=== PATIENT | female | born 1950 | race Caucasian/White ===

== ENCOUNTER 2018-04-23 21:22 | Emergency (ER) | payer MEDICARE, MEDICAID, SELFPAY ==
[2018-04-23 21:30] VITALS: BP 131/87; PULSE 75; RESP 16; TEMP 36.6; O2SAT 99
--- NOTE | 2018-04-23 22:05 | W.ED.GENAD ---
Discharge Plan Disposition Patient Disposition: HOME Condition: Good Discharge Details Chief Complaint: Abd Prob Clinical Impression: Abdominal pain Primary Care Provider: Haider Falk ED Provider: Hever Mckeon Home Meds and New Rx's Prescriptions: No Action aspirin 325 MG tablet 650 mg PO Q4H PRN RF: 0 multivitamin [Daily Multi-Vitamin] 1 EACH tablet 1 ea PO DAILY RF: 0 ascorbic acid (vitamin C) [Vitamin C] 100 MG tablet PO PRN RF: 0 vitamin B complex [B-Complex] 1 EACH tablet 1 ea PO DAILY RF: 0 omega-3 fatty acids-fish oil [One-Per-Day Paris-3] 1 EACH capsule,delayed release(DR/EC) 1 ea PO DAILY RF: 0 cholecalciferol (vitamin D3) [Vitamin D3] 2,000 UNIT capsule 2,000 unit PO DAILY RF: 0 evwpnybh-heuew-xuo 2-C-D3-thalia [Cfxaczvf-Gilkwa-CLQ with vit D] 1 EACH tablet 1 ea PO DAILY RF: 0 vitamin E mixed 400 UNIT capsule 400 unit PO HS RF: 0 lactobacillus combo no.11 [Probiotic] 1 EACH capsule, sprinkle 1 ea PO DAILY RF: 0 calcium carbonate [Calcium 500] 500 MG tablet 500 mg PO RF: 0 Discharge Instructions Instructions: Abdominal Pain (ED) Additional Instructions: Discontinue laxative use. Contact primary care for follow-up. Laboratory studies, urinalysis, CT scan are all unremarkable tonight. Referrals: Haider Falk [Primary Care Provider] - Medical Decision Making Patient presenting with abdominal pain and complaints of constipation despite multiple laxatives and passing brown water. She has been seen at [place] twice. She comes here requesting that a CT scan be done because she is sure that she is obstructed. She has no vomiting. She has bowel sounds present. She complains of diffuse abdominal pain but has a benign abdomen. She does have some mild CVAT bilaterally. I will go ahead and repeat labs especially electrolytes given the amount of laxatives she is reporting. We will check a urine. We will proceed with CT scan as she is complaining of abdominal pain though I highly doubt that she is obstructed. Patient's laboratory studies are unremarkable other than slightly low potassium. Urine is negative. CT scan is being read as normal. There is no evidence of acute pathology. Patient is informed of her results. Patient is asked to follow-up with primary care. She should discontinue the laxative use. Return to ED for fever, vomiting, changes in pain. Lab Data Lab results reviewed: Yes I reviewed the patient's lab results. HPI General Mode of arrival: ambulatory. Date/Time Provider Initiated Documentation: 04/23/18 22:04. Limitations to Documentation: no limitations. Information obtained by: patient. HPI Narrative: Patient presents to ED with complaints of constipation and abdominal pain. Patient reports no bowel movement for 2 weeks. She complains of generalized abdominal pain mostly on the left side. She has been seen at [facility] twice. She reports that a rectal exam on Sunday revealed no impaction. She has been taking laxatives including 8 doses of MiraLAX last week. She continues on MiraLAX and mag citrate. She reports that she is having just water out of her rectum at this point. She does not believe she is having bowel movements. She has nausea but no vomiting. She has had no fever. She has some back pain as well. [facility] and is requesting CT scan because she is convinced that she is obstructed. Related Data Home Medications Medication Instructions Recorded Confirmed ascorbic acid (vitamin C) [Vitamin PO PRN 11/30/14 C] aspirin 650 mg PO Q4H PRN tab-cap 11/30/14 cholecalciferol (vitamin D3) 2,000 unit PO DAILY 11/30/14 [Vitamin D-3] dskwhadi-lwyem-xqp 2-C-D3-thalia 1 ea PO DAILY 11/30/14 [Ndsxjnusvi-Wqrlpangvbm-Pzf Tab] lactobacillus combo no.11 1 ea PO DAILY cap.sprink 11/30/14 [Probiotic] multivitamin [Multi-Vitamin Daily] 1 ea PO DAILY 11/30/14 omega-3 fatty acids-fish oil 1 ea PO DAILY 11/30/14 [Paris 3 Fish Oil Softgel] vitamin B complex [B Complex] 1 ea PO DAILY 11/30/14 vitamin E mixed 400 unit PO HS 11/30/14 calcium carbonate [Calcium] 500 mg PO 07/13/15 Allergies Allergy/AdvReac Type Severity Reaction Status Date / Time Penicillins Allergy Intermediate Unverified 04/23/18 21:30 gluten AdvReac Intermediate Unverified 04/23/18 21:30 lactose AdvReac Intermediate Unverified 04/23/18 21:30 General Stated Complaint: Abd Prob JORDAN: 3 Review of Systems Constitutional Denies chills, Denies fever(s), Reports poor appetite and Denies weakness Eyes Denies eye discharge and Denies eye pain ENT Denies dysphagia, Denies otalgia, Denies neck pain and Denies sore throat Cardiovascular Denies chest pain, Denies diaphoresis, Denies syncope, Denies leg edema, Denies lightheadedness, Denies palpitations and Denies dyspnea Respiratory Denies cough and Denies dyspnea Gastrointestinal Reports abdominal pain, Denies hematochezia, Denies dysphagia, Reports nausea and Denies vomiting Genitourinary Denies hematuria and Denies dysuria Musculoskeletal Reports back pain, Denies neck pain and Denies numbness Integumentary/Breasts Denies rash Neurologic Denies syncope, Denies numbness and Denies weakness Endocrine Denies palpitations [facility] Family History Mother Mental disorder Father Diabetes Heart disease Sister Personal history of malignant neoplasm Hypothyroidism Sister Essential hypertension Smoker Cerebrovascular accident Brother No problems noted. Brother Asthma Brother No problems noted. Brother No problems noted. Daughter No problems noted. FAMILY HISTORY Essential hypertension Diabetes Personal history of malignant neoplasm Heart disease Hyperlipidemia Social History Smoking/Tobacco Use Status: Never Surgical History Abdominal hysterectomy (02/23/12) Colonoscopy - MAC DISLOCATED KNEE Extraction of cataract (~11/2011) Oophrectomy, Both (02/23/12) WRIST FRACTURE Exam Const General: cooperative, comfortable and no acute distress Orientation: alert and oriented x3 [facility] Head: normocephalic and atraumatic Eyes Sclera: sclerae normal Resp Effort & Inspection: normal respiratory effort Auscultation: clear to auscultation bilaterally Cardio Rate: regular rate Rhythm: regular rhythm Heart Sounds: S1 normal and S2 normal GI Inspection: non-distended Palpation: soft, not firm, no guarding and nontender Auscultation: normal bowel sounds Back/Spine/Pelvis Back: no CVA tenderness and CVA tenderness Skin General skin exam: no rashes or lesions noted Neuro General: alert, oriented x3, no focal motor deficits and CN's II-XI intact bilaterally Extrem General: normal to inspection and full ROM Course Vital Signs Temperature 97.9 F 04/23/18 21:30 Pulse 75 04/23/18 21:30 Respiratory Rate 16 04/23/18 21:30 Blood Pressure 131/87 04/23/18 21:30 Pulse Oximetry 99 04/23/18 21:30 Temperature 97.9 F 04/23/18 21:30 Temperature Source Temporal Artery Scan 04/23/18 21:30 Pulse 75 04/23/18 21:30 Respiratory Rate 16 04/23/18 21:30 Respiratory Effort 04/23/18 21:30 Blood Pressure 131/87 04/23/18 21:30 Pulse Oximetry 99 04/23/18 21:30 Oxygen Delivery Method Room Air 04/23/18 21:30 Oxygen Flow Rate 0 04/23/18 21:30
--- NOTE | 2018-04-23 22:15 | DI.CT_ITS ---
SYMPTOM/DIAGNOSIS: ABD PAIN ABDOMEN AND PELVIC CT: CT scan of the abdomen and pelvis was performed following the uneventful administration of intravenous contrast material. No priors for comparison. Dependent atelectatic changes are seen in the lung bases. The liver is normal in size. There does appear to be focal fatty infiltration near the ligamentum teres. No suspicious hepatic mass is seen. The portal and superior mesenteric veins are patent. The gallbladder is negative. No biliary ductal dilatation is present. The pancreas, spleen and adrenal glands are unremarkable. The kidneys show normal and symmetric enhancement. No suspicious solid renal mass or obstruction is identified. The urinary bladder is intact. The reproductive organs are unremarkable. The abdominal aorta is of normal caliber. No aneurysmal dilatation is seen. No significant abdominal or pelvic adenopathy, ascites or pneumoperitoneum is present. The bowel shows no evidence of obstruction or inflammation. There is a moderate amount of retained stool throughout the colon. No evidence of an acute appendicitis is present. Degenerative changes are seen in the spine. IMPRESSION: No evidence of an acute abdomen.
--- NOTE | 2018-04-23 22:15 | ED.GENADUL_ITS ---
Discharge Plan Disposition Patient Disposition: HOME Condition: Good Discharge Details Chief Complaint: Abd Prob Clinical Impression: Abdominal pain Primary Care Provider: Haider Falk ED Provider: Hever Mckeon Home Meds and New Rx's Prescriptions: No Action aspirin 325 MG tablet 650 mg PO Q4H PRN RF: 0 multivitamin [Daily Multi-Vitamin] 1 EACH tablet 1 ea PO DAILY RF: 0 ascorbic acid (vitamin C) [Vitamin C] 100 MG tablet PO PRN RF: 0 vitamin B complex [B-Complex] 1 EACH tablet 1 ea PO DAILY RF: 0 omega-3 fatty acids-fish oil [One-Per-Day Yeso-3] 1 EACH capsule,delayed release(DR/EC) 1 ea PO DAILY RF: 0 cholecalciferol (vitamin D3) [Vitamin D3] 2,000 UNIT capsule 2,000 unit PO DAILY RF: 0 savrgolq-antrd-fsz 2-C-D3-thalia [Oaarfhlf-Jisefm-DIA with vit D] 1 EACH tablet 1 ea PO DAILY RF: 0 vitamin E mixed 400 UNIT capsule 400 unit PO HS RF: 0 lactobacillus combo no.11 [Probiotic] 1 EACH capsule, sprinkle 1 ea PO DAILY RF: 0 calcium carbonate [Calcium 500] 500 MG tablet 500 mg PO RF: 0 Discharge Instructions Instructions: Abdominal Pain (ED) Additional Instructions: Discontinue laxative use. Contact primary care for follow-up. Laboratory studies, urinalysis, CT scan are all unremarkable tonight. Referrals: Haider Falk [Primary Care Provider] - Medical Decision Making Patient presenting with abdominal pain and complaints of constipation despite multiple laxatives and passing brown water. She has been seen at [place] twice. She comes here requesting that a CT scan be done because she is sure that she is obstructed. She has no vomiting. She has bowel sounds present. She complains of diffuse abdominal pain but has a benign abdomen. She does have some mild CVAT bilaterally. I will go ahead and repeat labs especially electrolytes given the amount of laxatives she is reporting. We will check a urine. We will proceed with CT scan as she is complaining of abdominal pain though I highly doubt that she is obstructed. Patient's laboratory studies are unremarkable other than slightly low potassium. Urine is negative. CT scan is being read as normal. There is no evidence of acute pathology. Patient is informed of her results. Patient is asked to follow-up with primary care. She should discontinue the laxative use. Return to ED for fever, vomiting, changes in pain. Lab Data Lab results reviewed: Yes I reviewed the patient's lab results. HPI General Mode of arrival: ambulatory . Date/Time Provider Initiated Documentation: 04/23/18 22:04 . Limitations to Documentation: no limitations . Information obtained by: patient . HPI Narrative: Patient presents to ED with complaints of constipation and abdominal pain. Patient reports no bowel movement for 2 weeks. She complains of generalized abdominal pain mostly on the left side. She has been seen at [facility] twice. She reports that a rectal exam on Sunday revealed no impaction. She has been taking laxatives including 8 doses of MiraLAX last week. She continues on MiraLAX and mag citrate. She reports that she is having just water out of her rectum at this point. She does not believe she is having bowel movements. She has nausea but no vomiting. She has had no fever. She has some back pain as well. [facility] and [facility] requesting CT scan because she is convinced that she is obstructed. Related Data Home Medications Medication Instructions Recorded Confirmed ascorbic acid (vitamin C) [Vitamin PO PRN 11/30/14 C] aspirin 650 mg PO Q4H PRN tab-cap 11/30/14 cholecalciferol (vitamin D3) 2,000 unit PO DAILY 11/30/14 [Vitamin D-3] smfyzzim-xxwqt-ede 2-C-D3-thalia 1 ea PO DAILY 11/30/14 [Kvdckkwcpx-Tfcointtknu-Exr Tab] lactobacillus combo no.11 1 ea PO DAILY cap.sprink 11/30/14 [Probiotic] multivitamin [Multi-Vitamin Daily] 1 ea PO DAILY 11/30/14 omega-3 fatty acids-fish oil 1 ea PO DAILY 11/30/14 [Yeso 3 Fish Oil Softgel] vitamin B complex [B Complex] 1 ea PO DAILY 11/30/14 vitamin E mixed 400 unit PO HS 11/30/14 calcium carbonate [Calcium] 500 mg PO 07/13/15 Allergies Allergy/AdvReac Type Severity Reaction Status Date / Time Penicillins Allergy Intermediate Unverified 04/23/18 21:30 gluten AdvReac Intermediate Unverified 04/23/18 21:30 lactose AdvReac Intermediate Unverified 04/23/18 21:30 General Stated Complaint: Abd Prob JORDAN: 3 Review of Systems Constitutional Denies chills, Denies fever(s), Reports poor appetite and Denies weakness Eyes Denies eye discharge and Denies eye pain ENT Denies dysphagia, Denies otalgia, Denies neck pain and Denies sore throat Cardiovascular Denies chest pain, Denies diaphoresis, Denies syncope, Denies leg edema, Denies lightheadedness, Denies palpitations and Denies dyspnea Respiratory Denies cough and Denies dyspnea Gastrointestinal Reports abdominal pain, Denies hematochezia, Denies dysphagia, Reports nausea and Denies vomiting Genitourinary Denies hematuria and Denies dysuria Musculoskeletal Reports back pain, Denies neck pain and Denies numbness Integumentary/Breasts Denies rash Neurologic Denies syncope, Denies numbness and Denies weakness Endocrine Denies palpitations [facility] Family History Mother Mental disorder Father Diabetes Heart disease Sister Personal history of malignant neoplasm Hypothyroidism Sister Essential hypertension Smoker Cerebrovascular accident Brother No problems noted. Brother Asthma Brother No problems noted. Brother No problems noted. Daughter No problems noted. FAMILY HISTORY Essential hypertension Diabetes Personal history of malignant neoplasm Heart disease Hyperlipidemia Social History Smoking/Tobacco Use Status: Never Surgical History Abdominal hysterectomy (02/23/12) Colonoscopy - MAC DISLOCATED KNEE Extraction of cataract (~11/2011) Oophrectomy, Both (02/23/12) WRIST FRACTURE Exam Const General: cooperative, comfortable and no acute distress Orientation: alert and oriented x3 [facility] Head: normocephalic and atraumatic Eyes Sclera: sclerae normal Resp Effort & Inspection: normal respiratory effort Auscultation: clear to auscultation bilaterally Cardio Rate: regular rate Rhythm: regular rhythm Heart Sounds: S1 normal and S2 normal GI Inspection: non-distended Palpation: soft, not firm, no guarding and nontender Auscultation: normal bowel sounds Back/Spine/Pelvis Back: no CVA tenderness and CVA tenderness Skin General skin exam: no rashes or lesions noted Neuro General: alert, oriented x3, no focal motor deficits and CN's II-XI intact bilaterally Extrem General: normal to inspection and full ROM Course Vital Signs Temperature 97.9 F 04/23/18 21:30 Pulse 75 04/23/18 21:30 Respiratory Rate 16 04/23/18 21:30 Blood Pressure 131/87 04/23/18 21:30 Pulse Oximetry 99 04/23/18 21:30 Temperature 97.9 F 04/23/18 21:30 Temperature Source Temporal Artery Scan 04/23/18 21:30 Pulse 75 04/23/18 21:30 Respiratory Rate 16 04/23/18 21:30 Respiratory Effort 04/23/18 21:30 Blood Pressure 131/87 04/23/18 21:30 Pulse Oximetry 99 04/23/18 21:30 Oxygen Delivery Method Room Air 04/23/18 21:30 Oxygen Flow Rate 0 04/23/18 21:30
[2018-04-23 22:36] LABS: Abs Immature Grans 0.02 k/cumm (0.0-0.09); Absolute Basophil Count 0.03 k/cumm (0.0-0.2); Absolute Eosinophil Count 0.04 k/cumm (0.0-0.7); Absolute Lymphocyte Count 1.88 k/cumm (1.2-3.4); Absolute Monocyte Count 0.58 k/cumm (0.11-0.7); Absolute Neutrophil Count 2.32 k/cumm (1.2-6.7); Basophils % 0.6; Eosinophils % 0.8; HGB 13.8 g/dL (12.0-15.5); Immature Grans % 0.4; Lymphocytes % 38.6; Mean Corp. HGB Concentration 34.5 g/dL (32.0-36.0); Mean Corpuscular Hemoglobin 31.9 pg (27.0-33.0); Mean Corpuscular Volume 92.6 fL (80-95); Mean Platelet Volume 9.5 fL (8.0-11.0); Monocytes % 11.9; Neutrophils % 47.7; Platelet Count 245 x1000/uL (130-400); RBC 4.32 m/cumm (4.00-5.20); RBC Distribution Width 13.1 % (11.7-14.6); White Blood Cell Count 4.87 k/cumm (4.4-10.8)
[2018-04-23 22:37] LABS: Bilirubin Negative (Negative); Blood Negative (Negative); Clarity Clear; Glucose Negative (Negative); Ketones Negative (Negative); Leukocyte Esterase Negative (Negative); Nitrite Negative (Negative); Urobilinogen 0.2 EU/dL (Up TO 0.2); pH 5.5 (5-8)
[2018-04-23] MEDS: Normal Saline Flush 10 ML SYR IVP (22:42)
[2018-04-23 22:58] LABS: ALT 25 U/L (12-78); AST 18 U/L (15-37); Albumin 4.1 g/dL (3.4-5.0); Alkaline Phosphatase 54 U/L (46-116); Anion Gap 8.9 mmol/L (3-11); BUN 8 mg/dL (7-18); Bilirubin, Total 0.6 mg/dL (0.2-1.0); CO2 31.1 mmol/L (21.0-32.0); CREATININE 0.85 mg/dL (0.55-1.02); Calcium 9.6 mg/dL (8.5-10.1); Chloride 102 mmol/L (98-107); Glucose 97 mg/dL (70-100); Lipase 330 U/L (73-393); Potassium 3.3 mmol/L (3.5-5.1); Sodium 142 mmol/L (136-145)
[2018-04-23] MEDS: Omnipaque 350 MG/ML 100 ML BTL IV (23:24)
--- NOTE | 2018-04-24 00:25 | DI.VRAD_ITS ---
EXAM: CT Abdomen and Pelvis With Intravenous Contrast CLINICAL HISTORY: 67 years old, female; Pain; Abdominal pain; Generalized; Patient HX: Abd pain TECHNIQUE: Axial computed tomography images of the abdomen and pelvis with intravenous contrast. All CT scans at this facility use at least one of these dose optimization techniques: automated exposure control; mA and/or kV adjustment per patient size (includes targeted exams where dose is matched to clinical indication); or iterative reconstruction. Coronal and sagittal reformatted images were created and reviewed. CONTRAST: 96 mL of Omnipaque 350 administered intravenously. COMPARISON: No relevant prior studies available. FINDINGS: Lung bases: Unremarkable. No mass. No consolidation. ABDOMEN: Liver: Unremarkable. No mass. Gallbladder and bile ducts: Unremarkable. No calcified stones. No ductal dilation. Pancreas: Unremarkable. No mass. No ductal dilation. Spleen: Unremarkable. No splenomegaly. Adrenals: Unremarkable. No mass. Kidneys and ureters: Unremarkable. No solid mass. No hydronephrosis. Stomach and bowel: Unremarkable. No obstruction. No mucosal thickening. PELVIS: Appendix: No findings to suggest acute appendicitis. Bladder: Unremarkable. No mass. Reproductive: Status post hysterectomy. ABDOMEN and PELVIS: Intraperitoneal space: Unremarkable. No free air. No significant fluid collection. Bones/joints: Degenerative changes of the spine. No acute fracture. No dislocation. Soft tissues: Unremarkable. Vasculature: Unremarkable. No abdominal aortic aneurysm. Lymph nodes: Unremarkable. No enlarged lymph nodes. IMPRESSION: No acute findings. Dictated and Authenticated by: Bharath Corbin MD. Ordering:JUJU BAUMAN MD
== END 2018-04-24 00:49 | disposition home or self-care (01) ==
PROVIDERS: Emergency Provider Emergency Medicine; PCP Family Medicine
DX: R10.84 Generalized abdominal pain (principal); R11.0 Nausea; I10 Essential (primary) hypertension; E11.9 Type 2 diabetes mellitus without complications
CPT/HCPCS: 36415; 80053; 83690; 99285; 74177; 81003; 83735; 85025; 99284; J3490

== ENCOUNTER 2021-03-24 03:11 | Outpatient (CLI) | payer MEDICARE, SELFPAY ==
[2021-03-24 13:17] LABS: HCT 41.9 % (36.0-46.0); HGB 13.8 g/dL (11.2-15.7); MCH 31.2 pg (27.0-33.0); MCHC 32.9 % (32.0-36.0); MCV 94.8 fL (80-95); MPV 9.9 fL (8.0-11.0); Platelet Count 275 10^3/uL (130-400); RBC 4.42 10^6/uL (3.93-5.22); RDW 13.3 % (11.7-14.6); RDW-SD 47.2 fL; WBC 6.65 10^3/uL (4.4-10.8)
[2021-03-24 13:24] LABS: ESR < 1 mm/hr (0-30)
[2021-03-24 14:16] LABS: C-Reactive Protein < 0.05 mg/dL (0.0-0.3)
== END 2021-03-24 03:12 | disposition home or self-care (01) ==
LOC: LBO 03:11
PROVIDERS: PCP Student in an Organized Health Care Education/Training Program; Visit Provider Nurse Practitioner Acute Care
DX: Z96.652 Presence of left artificial knee joint (principal); Z47.1 Aftercare following joint replacement surgery
CPT/HCPCS: 36415; 85027; 85652; 86140

== ENCOUNTER 2021-06-28 03:04 | Outpatient (CLI) | payer MEDICARE, SELFPAY ==
[2021-06-28 09:37] LABS: Abs Immature Grans 0.01 10^3/uL (0.0-0.06); Absolute Basophil Count 0.04 10^3/uL (0.0-0.2); Absolute Eosinophil Count 0.04 10^3/uL (0.0-0.7); Absolute Monocyte Count 0.37 10^3/uL (0.1-0.8); Absolute Neutrophil Count 3.35 10^3/uL (1.2-6.7); Basophils % 0.8; Eosinophils % 0.8; HGB 14.2 g/dL (11.2-15.7); Immature Grans % 0.2; Lymphocytes % 25.4; MCH 30.9 pg (27.0-33.0); MCHC 32.3 % (32.0-36.0); MCV 95.9 fL (80-95); MPV 9.5 fL (8.0-11.0); Monocytes % 7.2; Neutrophils % 65.6; Nucleated RBC 0 %; Platelet Count 277 10^3/uL (130-400); RBC 4.59 10^6/uL (3.93-5.22); RDW 13.3 % (11.7-14.6); RDW-SD 47.5 fL; WBC 5.11 10^3/uL (4.4-10.8)
[2021-06-28 10:30] LABS: ALT 24 U/L (14-59); AST 14 U/L (15-37); Albumin 4.2 g/dL (3.4-5.0); Alkaline Phosphatase 63 U/L (46-116); Anion Gap 7.8 mmol/L (3-11); BUN 21 mg/dL (7-18); Bilirubin, Direct 0.1 mg/dL (0.0-0.2); Bilirubin, Total 0.6 mg/dL (0.2-1.0); CO2 30.2 mmol/L (21.0-32.0); CREATININE 0.8 mg/dL (0.55-1.02); Calcium 9.5 mg/dL (8.5-10.1); Chloride 104 mmol/L (98-107); Glucose 117 mg/dL (74-106); Magnesium 2.2 mg/dL (1.8-2.4); Potassium 3.9 mmol/L (3.5-5.1); Sodium 142 mmol/L (136-145); Total Protein 7.1 g/dL (6.4-8.2)
[2021-06-28 10:41] LABS: Calculated LDL 144 mg/dL (<100); Cholesterol 225 mg/dL (<200); HDL Cholesterol 54 mg/dL (40-60); Triglyceride 135 mg/dL (<150)
== END 2021-06-28 03:05 | disposition home or self-care (01) ==
LOC: LBO 03:04
PROVIDERS: PCP Student in an Organized Health Care Education/Training Program; Visit Provider Student in an Organized Health Care Education/Training Program
DX: K58.9 Irritable bowel syndrome, unspecified; K90.9 Intestinal malabsorption, unspecified; E88.09 Other disorders of plasma-protein metabolism, not elsewhere classified; B01.9 Varicella without complication; Z79.1 Long term (current) use of non-steroidal anti-inflammatories (NSAID); Z13.220 Encounter for screening for lipoid disorders
CPT/HCPCS: 36415; 80048; 80061; 80076; 83735; 85025

== ENCOUNTER 2021-08-15 01:42 | Outpatient (CLI) | payer MEDICARE, SELFPAY ==
[2021-08-15 10:56] LABS: Anion Gap 10.4 mmol/L (3-11); BUN 10 mg/dL (7-18); CO2 28.6 mmol/L (21.0-32.0); CREATININE 0.8 mg/dL (0.55-1.02); Calcium 9.7 mg/dL (8.5-10.1); Chloride 103 mmol/L (98-107); Glucose 86 mg/dL (74-106); Sodium 142 mmol/L (136-145)
== END 2021-08-15 01:43 | disposition home or self-care (01) ==
LOC: LBO 01:42
PROVIDERS: PCP Student in an Organized Health Care Education/Training Program; Visit Provider Student in an Organized Health Care Education/Training Program
DX: R73.09 Other abnormal glucose (principal); R79.89 Other specified abnormal findings of blood chemistry
CPT/HCPCS: 36415; 80048

== ENCOUNTER 2021-08-25 02:20 | Outpatient (CLI) | payer MEDICARE, SELFPAY ==
--- NOTE | 2021-08-25 06:45 | DI.RAD_ITS ---
Exam(s) XR ABDOMEN FLAT UPRIGHT EXAM: XR ABDOMEN FLAT UPRIGHT CLINICAL HISTORY: evaluation for obstipation,H/O DIARRHEA,BILIARY AND GB DISORDER,K59.00,. TECHNIQUE: 2D digital imaging was performed. COMPARISON: No exams were available for comparison FINDINGS: Supine and upright views the abdomen reveal no evidence of bowel obstruction or free air. Moderate a mount of fecal material noted throughout the colon. No obvious masses nor bowel displacement. There is a 2 x 1 millimeter calcification projected over the lateral tip of the left transverse process of L3 vertebra. There is also subtle density projected over the left kidney on the upright view. Tulio ot exclude the possibility of calculi the left side. Kidneys are partially obscured by fecal materia l in the colon. Degenerative changes are noted in the hips, more so on the right side IMPRESSION: DATA REPOSITORY: RADIATION DOSE DELIVERED:
== END 2021-08-25 02:40 ==
PROVIDERS: PCP Student in an Organized Health Care Education/Training Program; Visit Provider Student in an Organized Health Care Education/Training Program
DX: K59.09 Other constipation (principal); K83.8 Other specified diseases of biliary tract; M16.0 Bilateral primary osteoarthritis of hip
CPT/HCPCS: 74019

== ENCOUNTER 2021-08-29 15:54 | Outpatient (REF) | payer MEDICARE, MEDICAID, SELFPAY ==
[2021-08-29 18:09] LABS: HCT 42.3 % (36.0-46.0); HGB 13.7 g/dL (11.2-15.7); MCH 31.7 pg (27.0-33.0); MCHC 32.4 % (32.0-36.0); MCV 97.9 fL (80-95); MPV 10.4 fL (8.0-11.0); Platelet Count 326 10^3/uL (130-400); RBC 4.32 10^6/uL (3.93-5.22); RDW 12.9 % (11.7-14.6); RDW-SD 46.3 fL; WBC 9.68 10^3/uL (4.4-10.8)
[2021-08-29 18:12] LABS: ESR 16 mm/hr (0-30)
[2021-08-29 18:40] LABS: ALT 19 U/L (14-59); AST 8 U/L (15-37); Albumin 3.7 g/dL (3.4-5.0); Alkaline Phosphatase 66 U/L (46-116); Anion Gap 8.6 mmol/L (3-11); BUN 13 mg/dL (7-18); Bilirubin, Total 0.8 mg/dL (0.2-1.0); CO2 29.4 mmol/L (21.0-32.0); CREATININE 0.8 mg/dL (0.55-1.02); Calcium 9.6 mg/dL (8.5-10.1); Chloride 101 mmol/L (98-107); Glucose 104 mg/dL (74-106); Potassium 4.3 mmol/L (3.5-5.1); Sodium 139 mmol/L (136-145); Total Protein 7.1 g/dL (6.4-8.2)
== END 2021-08-29 15:55 | disposition home or self-care (01) ==
LOC: LBN 15:54
PROVIDERS: PCP Student in an Organized Health Care Education/Training Program; Visit Provider Nurse Practitioner Family
DX: R10.32 Left lower quadrant pain (principal); M54.59 Other low back pain; R82.998 Other abnormal findings in urine
CPT/HCPCS: 80053; 85027; 85652; 87086

== ENCOUNTER → 2021-09-27 00:48 | Outpatient (CLI) | payer MEDICARE, MEDICAID, SELFPAY ==
--- NOTE | 2021-09-27 07:00 | DI.CT_ITS ---
Exam(s) CT ABDOMEN PELVIS W EXAM: CT ABDOMEN PELVIS W CLINICAL HISTORY: r/o nephrolithiasis, diverticulitis,FLANK, ABD AND BACK PAIN. TECHNIQUE: Imaging Protocol: Axial computed tomography images with coronal and sagittal reformatted images were created and reviewed CONTRAST MATERIAL: Intravenous: Omnipaque 350 Contrast volume:100 ml Oral: yes FINDINGS: ABDOMEN: Lung Bases: Normal where visualized. Liver: Normal density. No measurable mass. Gallbladder and biliary tract: No radiodense calculus or dilation. Pancreas: Normal density, no abnormal calcifications or inflammatory process. Spleen: Normal. Kidneys: Normal size, contour and axis. No radiodense stones or obstructive uropathy. No masses seen. Adrenal glands: No masses seen. Abdominal Aorta: Abdominal portion non-dilated. PELVIS: Bladder: No gross wall thickening. No calculi.No focal mass. Bowel: No obstruction or bowel wall thickening. Large quantity of stool throughout the colon. No di verticula are visible. Peritoneal cavity: No ascites, collection or mesenteric inflammatory response. Bones: Mild degenerative changes of the spine. Moderate to severe degenerative changes of both hips. Reproductive organs: Status post hysterectomy Lymph nodes: Unremarkable. Impression: Large, quantity of stool throughout the colon, consistent with constipation. No evidence of divertic ulitis or obstruction. No evidence of urinary tract calculi or hydronephrosis. RADIATION DOSE DELIVERED: 744.95mGy.cm Total DLP DATA REPOSITORY: All CT scans at this facility are submitted to the National Radiology Data Registry (NRDR) Dose Index Registry (DIR) with the [employer] ([employer]). RADIATION OPTIMIZATION: All CT scans at this facility use at least one of these dose optimization te chniques: automated exposure control; mA and/or kV adjustment per patient size (includes targeted exa ms where dose is matched to clinical indication); or iterative reconstruction.
[2021-09-27 08:29] LABS: CREATININE 0.8 mg/dL (0.55-1.02)
[2021-09-27] MEDS: Omnipaque 350 MG/ML 100 ML BTL IJ (09:41)
== END ==
PROVIDERS: PCP Student in an Organized Health Care Education/Training Program; Visit Provider Student in an Organized Health Care Education/Training Program
DX: Z01.812 Encounter for preprocedural laboratory examination (principal); R10.9 Unspecified abdominal pain; K59.00 Constipation, unspecified; K58.9 Irritable bowel syndrome, unspecified; Z79.2 Long term (current) use of antibiotics; E86.0 Dehydration
CPT/HCPCS: 74177; 82565; J3490

== ENCOUNTER → 2021-10-11 01:53 | Outpatient (CLI) | payer MEDICARE, MEDICAID, SELFPAY ==
--- NOTE | 2021-10-11 07:30 | DI.US_ITS ---
Exam(s) US THYROID EXAM: US THYROID CLINICAL HISTORY: re-evaluate thyroid nodules (3 per chart rvw), THYROID NODULE, E04.1. TECHNIQUE: Ultrasound thyroid performed using standard protocol. COMPARISON: No exams were available for comparison FINDINGS: ISTHMUS: 2 mm RIGHT LOBE: Size: 4.2 x 1.4 x 1.3 cm Echogenicity: Normal. Vascularity: Normal. Nodules: There are few less than 1 cm nodules in the right lobe. They are not suspicious with a TI-R ADS level 2 or below. LEFT LOBE: Size: 5.9 x 2.6 x 3.7 cm Echogenicity: Normal. Vascularity: Normal. Nodules: There is a 3.4 x 1.8 x 3.2 cm predominantly cystic mass in the midpole. It does have a smal l solid nodule component. It has smooth margins and no echogenic foci. It is consistent with a TI-R ADS level 2 nodule. There is a solid isoechoic nodule in the inferior pole of the left lobe. It mary sures 2.6 x 2 x 2.9 cm. It is consistent with a TI-RADS level 3 nodule. There is a solid 1.8 x 0.7 x 1.3 cm isoechoic nodule in the medial aspect of the left lobe. It is consistent with a TI-RADS lev el 3 nodule. OTHER FINDINGS: None. IMPRESSION: Nodular thyroid gland as described above. DATA REPOSITORY:
== END ==
PROVIDERS: PCP Student in an Organized Health Care Education/Training Program; Visit Provider Student in an Organized Health Care Education/Training Program
DX: E04.2 Nontoxic multinodular goiter (principal)
CPT/HCPCS: 76536

== ENCOUNTER 2022-11-28 07:06 | Emergency (ER) | payer MEDICARE, MEDICAID, SELFPAY ==
--- NOTE | 2022-11-28 07:00 | DI.RAD_ITS ---
Exam(s) XR KNEE RT 3V AP,LAT,YULISSA EXAM: XR KNEE RT 3V AP,LAT,YULISSA CLINICAL HISTORY: Right knee pain. TECHNIQUE: 2D digital imaging was performed of the right knee. Three views obtained. AP, lateral an d PA tunnel views were obtained. COMPARISON: There are no priors for comparison. FINDINGS: BONES: No acute fracture is present. No bony destructive lesion is seen. JOINTS: The knee is normally aligned. There is a small joint effusion. There is chondrocalcinosis se en in the femoral tibial joint. There is mild spurring of the posterior patella. There is mild join t space narrowing. SOFT TISSUE: Normal. IMPRESSION: 1. No acute fracture or dislocation. 2. Degenerative changes. 3. Chondrocalcinosis which can be seen with CPPD arthropathy. 4. Small joint effusion. DATA REPOSITORY: RADIATION DOSE DELIVERED:
[2022-11-28 07:10] VITALS: BP 113/73; PULSE 93; TEMP 36.4; O2SAT 99
[2022-11-28] MEDS: Ibuprofen 600 MG TAB PO (08:36)
--- NOTE | 2022-11-28 08:46 | ED.GENADUL_ITS ---
Discharge Plan Disposition Patient Disposition: Home Condition: Stable Discharge Details Clinical Impression: Effusion of right knee joint, Arthritis of knee, right Primary Care Provider: Giovanna Scott ED Provider: Juancho Snow Home Meds and New Rx's Prescriptions: Continued bone builder PO Rx Instructions: contains vit B,D,c, Niacin, Calcium,Phos, Mg, Zinc,Copper, Manganese,Chromium HCL pepsin PO Rx Instructions: 250 mg. Takes at the start of a meal. super enzymes PO Rx Instructions: Takes at the start of meal. Contains 200 mg of HCL vitamin B complex Capsule 1 cap PO DAILY acetaminophen 500 mg capsule 500 mg PO Q6H PRN magnesium citrate 100 mg tablet 100 mg PO DAILY PRN (Reason: constipation) aspirin 325 MG tablet 650 mg PO Q4H PRN Vitamin C 100 MG tablet PO PRN vitamin E mixed 400 UNIT capsule 400 unit PO HS cholecalciferol (vitamin D3) [Vitamin D3] 50 mcg (2,000 unit) capsule 10,000 unit PO DAILY Rx Instructions: 1/2 tab daily alpha galactosidase enzyme tablet PO Rx Instructions: 05/11/20-pt reported via portal message this is a need supplement she has added with meals to help digest carbohydrates. NC calcium carbonate [Calcium 500] 500 mg calcium (1,250 mg) tablet 500 mg PO DAILY Rx Instructions: as part of bone builder supplement Jpippuaz-Zaspps-MGE with vit D 750-30-1,000-1 dd-wk-ozfd-mg tablet 2 tab PO DAILY multivitamin [Daily Multi-Vitamin] Tablet 3 tab PO DAILY bromelains 500 mg tablet 1,500 mg PO DAILY PRN Rx Instructions: administer after a meal per pt--aids in digesting proteins and for joint pain Discharge Instructions Instructions: Osteoarthritis (ED), Swollen Knee Joint (ED) Additional Instructions: Use Jensen wrap and crutches over the next 1 to 2 weeks. Weight-bear as tolerated. You may discontinue use when pain resolves. Please take ibuprofen over the counter. Take 600mg by mouth every 6 hours as needed for pain. Please follow-up with orthopedics. Call to schedule an appointment. Please contact your primary care physician to arrange follow-up. Return to the ER immediately for any worsening or new concerning symptoms. Referrals: [facility] [Provider Group] Giovanna Scott, DO [Primary Care Provider] - Medical Decision Making [id number]??72-year-old female with history of total knee replacement on the left, here with 1 week of atraumatic pain and swelling of the right knee. Significant joint effusion on exam with pain with any passive range of motion. Knee is warm to the touch. No erythema. Suspect osteoarthritis but consider septic arthritis. I will give ibuprofen 600 mg p.o. -- X-ray of the knee was reviewed and interpreted by radiology: IMPRESSION: 1. ? Degenerative changes as described. 2. ? Chondrocalcinosis, raising the possibility of calcium pyrophosphate dihydrate crystal deposition disease. 3. ? Mild suprapatellar soft tissue fullness suggesting effusion and/or synovial hypertrophy. Joint aspiration performed with sterile technique after informed consent. Approximately 50 mL of yellow slightly cloudy fluid removed. 1029 --labs reviewed: No leukocytosis but ESR and CRP are elevated. Synovial fluid shows no crystals, 6700 WBCs. Fluid analysis is not consistent with gout or septic arthritis. Suspect inflammatory arthritis. Plan to continue supportive care. I will have her follow-up with orthopedics. Jensen wrap was applied and patient was instructed to use crutches and weight-bear as tolerated. Usual customary discharge instructions reviewed with the patient. HPI General Mode of arrival: ambulatory . Date/Time Provider Initiated Documentation: 11/28/22 07:08 . Limitations to Documentation: no limitations . Information obtained by: patient . HPI Narrative: 72-year-old female with multiple medical problems including history of total knee replacement on the left, here with chief complaint of right knee pain. Patient notes she was weeding her garden and developed atraumatic right knee pain late last week. Pain worsened and she had significant associated swelling. Swelling was severe on Sunday. She rested her knee and applied ice and noticed improved swelling Sunday. Pain has persisted and in fact worsened over the past couple days. She has no associated fever. No rash. No other joint pain. Patient does note remote tick bite that she believes was removed promptly and under 24 hours Related Data Home Medications Medication Instructions Recorded Confirmed ascorbic acid (vitamin C) 100 mg PO PRN 11/30/14 09/08/21 tablet (Vitamin C) aspirin 325 mg tablet 650 mg PO Q4H PRN 11/30/14 11/28/22 vitamin E mixed 400 unit capsule 400 unit PO HS 11/30/14 11/28/22 HCL pepsin PO 08/14/19 09/08/21 bone builder PO 08/14/19 09/08/21 cholecalciferol (vitamin D3) 50 10,000 unit PO DAILY 08/14/19 11/28/22 mcg (2,000 unit) capsule (Vitamin D3) alpha galactosidase enzyme PO 05/11/20 09/08/21 acetaminophen 500 mg capsule 500 mg PO Q6H PRN 04/07/21 11/28/22 calcium carbonate 500 mg calcium 500 mg PO DAILY 04/07/21 11/28/22 (1,250 mg) tablet (Calcium 500) glucosamine 750 im-tqztlv-gel 2-C 2 tab PO DAILY 04/07/21 11/28/22 30 mg-D3 1,000 unit-thalia 1 mg tablet (Utmkldsaoam-Tfhftaajleb-ACY + vitD) multivitamin (Daily Multi-Vitamin 3 tab PO DAILY 04/07/21 11/28/22 tablet) super enzymes PO 04/07/21 09/08/21 vitamin B complex 1 cap PO DAILY 04/07/21 11/28/22 bromelains 500 mg tablet 1,500 mg PO DAILY PRN 06/23/21 11/28/22 magnesium citrate 100 mg tablet 100 mg PO DAILY PRN constipation 10/18/21 11/28/22 Allergies Allergy/AdvReac Type Severity Reaction Status Date / Time casein Allergy Intermediate sinus Verified 11/28/22 07:16 infection/congestion, migraines clindamycin Allergy Intermediate severe Verified 11/28/22 07:16 nausea/chills after extending use Penicillins Allergy Intermediate Verified 11/28/22 07:16 azithromycin AdvReac Severe watery Verified 11/28/22 07:16 diarrhea, nausea, chills, sharp abdominal pain gluten AdvReac Intermediate Verified 11/28/22 07:16 [place] And Derivatives AdvReac decreases Verified 11/28/22 07:16 peristalisis grains Allergy colon Uncoded 11/28/22 07:16 blockage, insomnia, chills/hot flashes General Stated Complaint: Orthopedic JORDAN: 4 Review of Systems Constitutional Constitutional: Denies fever(s) Musculoskeletal Musculoskeletal: Reports as per HPI PFSH All Active Problems (Updated 11/28/22 @ 10:33 by Juancho Snow MD) Effusion of right knee joint (Acute) Arthritis of knee, right (Acute) Hiatal hernia (Chronic) 05/23/22- noted per [facility] upper GI endoscopy report Esophagitis determined by endoscopy (Acute) 05/23/22-upper GI endoscopy done at [facility] with Dilation. LA Grade B esophagitis with no bleeding. 2cm hiatal hernia was present. the exam of the stomach was otherwise normal. The examined duodenum was normal. per [facility], trial alternate PPI, such as pantoprazole 40mg once daily. IBS (irritable bowel syndrome) (Chronic) Thyroid nodule (Acute 09/07/11) X 3 PER ULTRASOUND Flank pain (Acute) Back pain (Acute) Esophageal stenosis (Chronic) Schatzki ring dilation 08/2018 and again 08/17/20 @ [facility].. [ ] q annual re-eval? 09/17/2019 cooked vegetables instead of raw 05/23/22-[facility] upper GI endoscopy done with dilation. Dilator was performed to 20mm. Consumes gluten free diet (Acute 11/30/14) IBS (irritable bowel syndrome) (Chronic) Diarrhea (Acute) Mixed with constipation .. 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 Ortho recommends ABx for serious/systemic infection .. (so dental infection of 03/2021 involved ~ 3 weeks ABx!!) Sensorineural hearing loss (Acute 09/22/11) [facility] Pseudophakia, both eyes (Acute) 07/28/21 [facility] Opthalmology note Hyperopia of both eyes with astigmatism and presbyopia (Acute) Vitreous floaters of both eyes (Acute) 07/28/21 [facility] Opthalmology note Hyperopia of both eyes with regular astigmatism and presbyopia (Acute) 07/28/21 [facility] Opthalmology note Medical History Acute respiratory distress Cataract (09/07/11) C/O POOR VISION IN BOTH EYES/ NO NIGHT DRIVING Disorder of tendon previous knee issue but has since had a knee replacement Measles Mumps Scarlet fever Varicella Surgical History Colonoscopy - MAC 11/24;[facility] History of abdominal hysterectomy (02/23/12) Done for tubal /no hx.abnormal paps History of bilateral oophorectomy (02/23/12) History of cataract extraction (~11/2011) History of dislocation of knee (~1976) Left knee due to deformity History of endoscopy 05/23/22; [facility] upper GI endoscopy with dilation. History of knee replacement History of wrist fracture (~2002) Left Family History Mother Depression Father Diabetes Heart disease ARRHYTHMIA Hypertension Sister Hypothyroidism Breast cancer Sister Essential hypertension Smoker Stroke Brother Asthma Paternal Uncle Leukemia Social History Smoking/Tobacco Use Status: Former Tobacco Use Smoking risk assessment performed?: Yes Alcohol Intake: current Alcohol Intake frequency: holidays/special occasions only Drug use: Never Substance use type: former substance user and marijuana Adopted: No Caregiver/Support person: No Foster care: No Household members: none Housing: house Number of Children: 1 number of grandchildren: 2 Do you need help understanding health information?: Never current occupation: Retired Sexually active: No Do you think of yourself as: straight/heterosexual Current gender identity: female What is your relationship status?: Panel score (0-1 are the most socially isolated patients): 0 What type of physical activity do you participate in: walking Duration: 15-30 minutes/day Frequency: 3-4 times per week Do you feel safe in your relationship?: Yes Exam Const General: cooperative and no acute distress Eyes Conjunctivae: normal conjunctivae Sclera: normal sclerae Cardio Rate: regular rate and not tachycardic Rhythm: regular rhythm Skin General skin exam: no rashes or lesions noted Neuro General: patient alert, patient awake and tone normal Extrem Right lower extremity: knee Details: swelling, abnormal ROM, warmth and other (e ffusion present) Course Vital Signs Vital signs: Vital Signs Temperature 36.4 C L 11/28/22 07:10 Pulse 93 H 11/28/22 07:10 Blood Pressure 113/73 11/28/22 07:10 Pulse Oximetry 99 11/28/22 07:10 Temperature 36.4 C L 11/28/22 07:10 Temperature Source Oral 11/28/22 07:10 Pulse 93 H 11/28/22 07:10 Blood Pressure 113/73 11/28/22 07:10 Blood Pressure Position Sitting 11/28/22 07:10 Pulse Oximetry 99 11/28/22 07:10 Oxygen Delivery Method Room Air 11/28/22 07:10 Oxygen Flow Rate 0 11/28/22 07:10 Pain Level 8 11/28/22 07:24 Comment Movement -pain increases to a 8 11/28/22 07:10 Procedures Joint Aspiration/Injection Joint Asp./Inject. 1: Time Out Performed: Yes Side of body: right Joint Aspirated: knee Skin Prep: Chlorhexidene Local Anesthetic: Lidocaine 2% Amount of anesthesia used (mL): 3 Needle Size Used: 18G Fluid Obtained: turbid Total fluid obtained (mL): 50 Patient Tolerated Procedure: well Complications: pain
--- NOTE | 2022-11-28 09:08 | DI.VRAD_ITS ---
PROCEDURE INFORMATION: Exam: XR Right Knee Exam date and time: 11/28/2022 7:46 AM Age: 72 years old Clinical indication: Pain; Knee; Right TECHNIQUE: Imaging protocol: Radiologic exam of the right knee. Views: 3 views. COMPARISON: No relevant prior studies available. FINDINGS: Bones/joints: No acute fracture or dislocation is identified. The medial compartment is mildly narrowed. There is very mild osteophyte formation about it and the patellofemoral compartment. There is no osseous erosion or cortical destruction. Chondrocalcinosis involves the medial and lateral compartments. Soft tissues: Mild fullness of the soft tissues in the suprapatellar region is noted. The soft tissues appear otherwise grossly unremarkable. IMPRESSION: 1. Degenerative changes as described. 2. Chondrocalcinosis, raising the possibility of calcium pyrophosphate dihydrate crystal deposition disease. 3. Mild suprapatellar soft tissue fullness suggesting effusion and/or synovial hypertrophy. Dictated and Authenticated by: Bharath Mccall MD. Ordering:CLEMENCIA Choe MD
[2022-11-28 09:18] LABS: Abs Immature Grans 0.02 10^3/uL (0.0-0.06); Absolute Basophil Count 0.05 10^3/uL (0.0-0.2); Absolute Eosinophil Count 0.03 10^3/uL (0.0-0.7); Absolute Lymphocyte Count 1.06 10^3/uL (1.2-3.4); Absolute Monocyte Count 0.84 10^3/uL (0.1-0.8); Absolute Neutrophil Count 6.76 10^3/uL (1.2-6.7); Basophils % 0.6; Eosinophils % 0.3; Immature Grans % 0.2; Lymphocytes % 12.1; MCH 28.8 pg (27.0-33.0); MCHC 32.4 % (32.0-36.0); MCV 89 fL (80-95); MPV 8.8 fL (8.0-11.0); Monocytes % 9.6; Neutrophils % 77.2; Platelet Count 403 10^3/uL (130-400); RBC 4.17 10^6/uL (3.93-5.22); RDW 14.1 % (11.7-14.6); RDW-SD 46.2 fL; WBC 8.76 10^3/uL (4.4-10.8)
[2022-11-28 09:21] LABS: ESR 31 mm/hr (0-30)
[2022-11-28 09:34] LABS: ALT 16 U/L (14-59); AST 10 U/L (15-37); Albumin 2.9 g/dL (3.4-5.0); Alkaline Phosphatase 82 U/L (46-116); Anion Gap 7.2 mmol/L (3-11); BUN 18 mg/dL (7-18); Bilirubin, Total 0.4 mg/dL (0.2-1.0); C-Reactive Protein 4.49 mg/dL (0.0-0.3); CO2 28.8 mmol/L (21.0-32.0); CREATININE 0.7 mg/dL (0.55-1.02); Calcium 9.3 mg/dL (8.5-10.1); Chloride 102 mmol/L (98-107); Glucose 93 mg/dL (74-106); Potassium 3.7 mmol/L (3.5-5.1); Sodium 138 mmol/L (136-145); Total Protein 7.2 g/dL (6.4-8.2)
[2022-11-28 10:06] LABS: Clarity Cloudy; Nucleated Cells 6697 uL (0)
[2022-11-28 10:13] LABS: Crystals (BF) No Crystals seen
[2022-11-28 10:16] LABS: Mononuclear Cells 16 %; Polynuclear Cells 84 %
[2022-11-28 10:52] VITALS: BP 127/72; PULSE 77; TEMP 36.4; O2SAT 96
[2022-11-29 11:26] LABS: Lyme Ab w Rflx to Lyme Confirm Negative (Negative)
[2022-12-02 00:29] LABS: Anaplasma phagocytophilum Negative (Negative); B. miyamotoi PCR Negative (Negative); Babesia divergens/MO-1 Negative (Negative); Babesia duncani Negative (Negative); Babesia microti Negative (Negative); Ehrlichia chaffeensis Negative (Negative); Ehrlichia ewingii/canis Negative (Negative); Ehrlichia muris eauclairensis Negative (Negative)
== END 2022-11-28 10:46 | disposition home or self-care (01) ==
PROVIDERS: Emergency Provider Student in an Organized Health Care Education/Training Program; PCP Student in an Organized Health Care Education/Training Program
DX: M25.461 Effusion, right knee (principal); M17.11 Unilateral primary osteoarthritis, right knee
CPT/HCPCS: 20610; 36415; 73562; 80053; 85652; 87798; 99283; 85025; 86140; 86618; 87070; 87205; 89051; 89060; 99284

== ENCOUNTER 2022-12-05 06:58 | Emergency (ER) | payer MEDICARE, MEDICAID, SELFPAY ==
[2022-12-05 07:08] VITALS: BP 137/70; PULSE 91; RESP 18; TEMP 36.9; O2SAT 96
--- NOTE | 2022-12-05 07:15 | DI.US_ITS ---
Exam(s) US LOWER EXTREMITY VENOUS RT EXAM: US LOWER EXTREMITY VENOUS RT CLINICAL HISTORY: eval for dvt TECHNIQUE: Right lower extremity venous ultrasound performed using grayscale, color-flow, and spectr al Doppler analysis. COMPARISON: No exams were available for comparison FINDINGS: The right common femoral, femoral and popliteal veins demonstrate normal compressibility, augmentatio n, and color Doppler. The posterior tibial and peroneal veins are patent. The saphenofemoral junctio n is unremarkable. There is no evidence of a Moran cyst. The soft tissues are unremarkable. There i s a small joint effusion. IMPRESSION: No evidence of a right lower extremity DVT. DATA REPOSITORY:
--- NOTE | 2022-12-05 07:29 | W.ED.GENAD ---
Discharge Plan Discharge Details Chief Complaint: Orthopedic Clinical Impression: Acute pain of right knee Primary Care Provider: Giovanna Scott ED Provider: Valerio Beebe Home Meds and New Rx's Prescriptions: No Action bone builder 1 tab PO DAILY Rx Instructions: contains vit B,D,c, Niacin, Calcium,Phos, Mg, Zinc,Copper, Manganese,Chromium HCL pepsin 1 tab PO DAILY Rx Instructions: 250 mg. Takes at the start of a meal. super enzymes 1 tab PO DAILY Rx Instructions: Takes at the start of meal. Contains 200 mg of HCL lidocaine HCl [Lidocaine Viscous] 2 % solution 15 ml mucous membrane .4-6 TIMES DAILY PRN (Reason: mouth pain) Qty: 600 0RF vitamin B complex Capsule 1 cap PO DAILY acetaminophen 500 mg capsule 500 mg PO Q6H PRN magnesium citrate 100 mg tablet 100 mg PO DAILY PRN (Reason: constipation) aspirin 325 MG tablet 650 mg PO Q4H PRN Vitamin C 100 MG tablet 1 mg PO PRN vitamin E mixed 400 UNIT capsule 400 unit PO HS cholecalciferol (vitamin D3) [Vitamin D3] 50 mcg (2,000 unit) capsule 10,000 unit PO DAILY Rx Instructions: 1/2 tab daily alpha galactosidase enzyme tablet 1 tab PO DAILY Rx Instructions: 05/11/20-pt reported via portal message this is a need supplement she has added with meals to help digest carbohydrates. NC calcium carbonate [Calcium 500] 500 mg calcium (1,250 mg) tablet 500 mg PO DAILY Rx Instructions: as part of bone builder supplement Iymiylwd-Mmpoyo-BYY with vit D 750-30-1,000-1 nh-pn-itsn-mg tablet 2 tab PO DAILY multivitamin [Daily Multi-Vitamin] Tablet 3 tab PO DAILY bromelains 500 mg tablet 1,500 mg PO DAILY PRN Rx Instructions: administer after a meal per pt--aids in digesting proteins and for joint pain Medical Decision Making This is a 72-year-old female with a past medical history of irritable bowel syndrome, recent effusion of her right knee 1 week ago which was tapped by my colleague Dr. Snow, results did not reflect infection. Patient was discharged with recommendations for outpatient orthopedic follow-up. Patient had's been doing well, swelling had gone down and pain had resolved, however early this morning she developed sudden onset pain in the medial aspect the anterior mcknight, and the calf. She admits to some pain behind her knee. She denies any pain in the knee itself. She states that it feels only minimally/slightly tight with bending, but is not painful. She denies any chest pain or shortness of breath. She denies any other new traumas. Patient denies any history of blood clots. She denies any fever or chills. No other complaints at this time. No other modifying factors. Exam demonstrates minimal effusion in the right knee. Mild tenderness in the posterior popliteal space. Minimal calf tenderness. No redness or warmth to suggest infection or septic joint. No pain with passive movement of the knee. Mild pain with extension and flexion of the knee and weightbearing. Symptoms appear inconsistent with a septic joint at this time. However I am concerned for potential DVT especially with her decreased mobility. We will get an ultrasound, monitor closely and reassess. Effusion is notably minimal, no pain out of proportion or pain in general for the knee itself with movement. Symptoms appear clinically inconsistent with an acute septic joint. Patient will be signed out to my colleague Dr. Menchaca for follow-up on ultrasound. HPI General Date/Time Provider Initiated Documentation: 12/05/22 07:01. HPI Narrative: This is a 72-year-old female with a past medical history of irritable bowel syndrome, recent effusion of her right knee 1 week ago which was tapped by my colleague Dr. Snow, results did not reflect infection. Patient was discharged with recommendations for outpatient orthopedic follow-up. Patient had's been doing well, swelling had gone down and pain had resolved, however early this morning she developed sudden onset pain in the medial aspect the anterior mcknight, and the calf. She admits to some pain behind her knee. She denies any pain in the knee itself. She states that it feels only minimally/slightly tight with bending, but is not painful. She denies any chest pain or shortness of breath. She denies any other new traumas. Patient denies any history of blood clots. She denies any fever or chills. No other complaints at this time. No other modifying factors. Related Data Home Medications Medication Instructions Recorded Confirmed ascorbic acid (vitamin C) 100 mg 1 mg PO PRN 11/30/14 12/05/22 tablet (Vitamin C) aspirin 325 mg tablet 650 mg PO Q4H PRN 11/30/14 12/05/22 vitamin E mixed 400 unit capsule 400 unit PO HS 11/30/14 12/05/22 HCL pepsin 1 tab PO DAILY 08/14/19 11/30/22 bone builder 1 tab PO DAILY 08/14/19 11/30/22 cholecalciferol (vitamin D3) 50 10,000 unit PO DAILY 08/14/19 12/05/22 mcg (2,000 unit) capsule (Vitamin D3) alpha galactosidase enzyme 1 tab PO DAILY 05/11/20 11/30/22 acetaminophen 500 mg capsule 500 mg PO Q6H PRN 04/07/21 12/05/22 calcium carbonate 500 mg calcium 500 mg PO DAILY 04/07/21 12/05/22 (1,250 mg) tablet (Calcium 500) glucosamine 750 yo-tghzrg-dqb 2-C 2 tab PO DAILY 04/07/21 12/05/22 30 mg-D3 1,000 unit-thalia 1 mg tablet (Cblugbqxrxk-Ypbhjbcvvag-CTQ + vitD) multivitamin (Daily Multi-Vitamin 3 tab PO DAILY 04/07/21 12/05/22 tablet) super enzymes 1 tab PO DAILY 04/07/21 11/30/22 vitamin B complex 1 cap PO DAILY 04/07/21 12/05/22 bromelains 500 mg tablet 1,500 mg PO DAILY PRN 06/23/21 12/05/22 magnesium citrate 100 mg tablet 100 mg PO DAILY PRN constipation 10/18/21 12/05/22 lidocaine HCl 2 % mucosal solution 15 ml mucous membrane .4-6 TIMES 11/30/22 12/05/22 (Lidocaine Viscous) DAILY PRN mouth pain #600 mL Previous Rx's Medication Instructions Recorded lidocaine HCl 2 % mucosal solution 15 ml mucous membrane .4-6 TIMES 11/30/22 (Lidocaine Viscous) DAILY PRN mouth pain #600 mL Allergies Allergy/AdvReac Type Severity Reaction Status Date / Time casein Allergy Intermediate sinus Verified 11/30/22 10:34 infection/congestion, migraines clindamycin Allergy Intermediate severe Verified 11/30/22 10:34 nausea/chills after extending use Penicillins Allergy Intermediate Verified 11/30/22 10:34 azithromycin AdvReac Severe watery Verified 11/30/22 10:34 diarrhea, nausea, chills, sharp abdominal pain gluten AdvReac Intermediate Verified 11/30/22 10:34 [place] [employer] AdvReac decreases Verified 11/30/22 10:34 peristalisis grains Allergy colon Uncoded 11/30/22 10:34 blockage, insomnia, chills/hot flashes General Stated Complaint: Orthopedic JORDAN: 3 Review of Systems All systems reviewed & are unremarkable except as noted in HPI and below PFSH All Active Problems (Updated 12/05/22 @ 07:37 by Valerio Beebe DO) Acute pain of right knee (Acute) Effusion of right knee joint (Acute) Arthritis of knee, right (Acute) Hiatal hernia (Chronic) 05/23/22- noted per [facility] upper GI endoscopy report Esophagitis determined by endoscopy (Acute) 05/23/22-upper GI endoscopy done at [facility] with Dilation. LA Grade B esophagitis with no bleeding. 2cm hiatal hernia was present. the exam of the stomach was otherwise normal. The examined duodenum was normal. per [facility], trial alternate PPI, such as pantoprazole 40mg once daily. IBS (irritable bowel syndrome) (Chronic) Thyroid nodule (Acute 09/07/11) X 3 PER ULTRASOUND Flank pain (Acute) Back pain (Acute) Esophageal stenosis (Chronic) Schatzki ring dilation 08/2018 and again 08/17/20 @ [facility].. [ ] q annual re-eval? 09/17/2019 cooked vegetables instead of raw 05/23/22-[facility] upper GI endoscopy done with dilation. Dilator was performed to 20mm. Consumes gluten free diet (Acute 11/30/14) IBS (irritable bowel syndrome) (Chronic) Diarrhea (Acute) Mixed with constipation .. 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 Ortho recommends ABx for serious/systemic infection .. (so dental infection of 03/2021 involved ~ 3 weeks ABx!!) Sensorineural hearing loss (Acute 09/22/11) [facility] Pseudophakia, both eyes (Acute) 07/28/21 [facility] Opthalmology note Hyperopia of both eyes with astigmatism and presbyopia (Acute) Vitreous floaters of both eyes (Acute) 07/28/21 [facility] Opthalmology note Hyperopia of both eyes with regular astigmatism and presbyopia (Acute) 07/28/21 [facility] Opthalmology note Medical History Acute respiratory distress Cataract (09/07/11) C/O POOR VISION IN BOTH EYES/ NO NIGHT DRIVING Disorder of tendon previous knee issue but has since had a knee replacement Measles Mumps Scarlet fever Varicella Surgical History Colonoscopy - MAC 11/24;[facility] History of abdominal hysterectomy (02/23/12) Done for tubal /no hx.abnormal paps History of bilateral oophorectomy (02/23/12) History of cataract extraction (~11/2011) History of dislocation of knee (~1976) Left knee due to deformity History of endoscopy 05/23/22; [facility] upper GI endoscopy with dilation. History of knee replacement History of wrist fracture (~2002) Left Family History Mother Depression Father Diabetes Heart disease ARRHYTHMIA Hypertension Sister Hypothyroidism Breast cancer Sister Essential hypertension Smoker Stroke Brother Asthma Paternal Uncle Leukemia Social History Smoking/Tobacco Use Status: Former Tobacco Use Smoking risk assessment performed?: Yes Alcohol Intake: current Alcohol Intake frequency: holidays/special occasions only Drug use: Never Substance use type: former substance user and marijuana Adopted: No Caregiver/Support person: No Foster care: No Household members: none Housing: house Number of Children: 1 number of grandchildren: 2 Do you need help understanding health information?: Never current occupation: Retired Sexually active: No Do you think of yourself as: straight/heterosexual Current gender identity: female What is your relationship status?: Panel score (0-1 are the most socially isolated patients): 0 What type of physical activity do you participate in: walking Duration: 15-30 minutes/day Frequency: 3-4 times per week Do you feel safe in your relationship?: Yes Exam Narrative Exam Narrative: 1.Const: Well-nourished, Well-developed, appearing stated age 2.Eyes: PERRL, no conjunctival injection, and symmetrical lids. 3.ENT: Atraumatic external nose and ears. Moist MM. Neck: Symmetric, trachea midline, No thyromegaly. 4.CVS: +S1/S2, No murmurs or gallops. Peripheral pulses 2+ and equal in all extremities. Brisk capillary refill in all extremities. 5.RESP: Unlabored respiratory effort. Clear to auscultation bilaterally. No wheezes rales or rhonchi 6.GI: Soft, Nontender/Nondistended, No hepatosplenomegaly. No guarding or rebound. 7.MSK: Normocephalic/Atraumatic, right lower extremity demonstrates minimal effusion from the knee. No redness or warmth to suggest infection. Mild tenderness in the posterior popliteal and medial space. No calf tenderness. No distal or proximal redness or rash. Dorsalis pedis and posterior tibial pulse +2 bilaterally. Brisk capillary refill. Normal sensation throughout. 8.Skin: Warm, Dry. No rashes or lesions. 9.Neuro: systems requirements planner II-XII grossly intact. Sensation grossly intact, no focal neurologic deficits. 10.Psych: (AAO) x3. Appropriate mood and affect Course Vital Signs Vital signs: Vital Signs Temperature 36.9 C 12/05/22 07:08 Pulse 91 H 12/05/22 07:08 Respiratory Rate 18 12/05/22 07:08 Blood Pressure 137/70 12/05/22 07:08 Pulse Oximetry 96 12/05/22 07:08 Temperature 36.9 C 12/05/22 07:08 Temperature Source Oral 12/05/22 07:08 Pulse 91 H 12/05/22 07:08 Respiratory Rate 18 12/05/22 07:08 Respiratory Effort Normal, Non-Labored 12/05/22 07:19 Blood Pressure 137/70 12/05/22 07:08 Blood Pressure Position Sitting 12/05/22 07:08 Pulse Oximetry 96 12/05/22 07:08 Oxygen Delivery Method Room Air 12/05/22 07:08 Oxygen Flow Rate 0 12/05/22 07:08 Pain Level 7 12/05/22 07:08
--- NOTE | 2022-12-05 08:00 | RT.EKG_ITS ---
APPROVED REPORT Exam: Resting ECG Reason for Exam: left chest pain Patient Location: E HR:80 bpm ECG Measurements Heart Rate 80 AXIS MS 194 P 23 QRSd 88 QRS -27 QT 397 T 28 QTc 457 Conclusion Sinus rhythm...normal P axis, V-rate 60- 99 Consider anterior infarct...Q >30mS in V2-V5
--- NOTE | 2022-12-05 08:00 | DI.RAD_ITS ---
Exam(s) XR FOOT RT COMPLETE EXAM: XR FOOT RT COMPLETE CLINICAL HISTORY: pain in heel. TECHNIQUE: 2D digital imaging was performed of the right foot. Three images were obtained. AP, obl ique and lateral views were obtained. COMPARISON: No exams were available for comparison FINDINGS: BONES: No acute fracture is present. No bony destructive lesion is seen. JOINTS: No dislocation present. The joint spaces are well maintained. SOFT TISSUE: There is soft tissue swelling of the foot. IMPRESSION: 1. No acute fracture or dislocation. 2. Soft tissue swelling of the foot. DATA REPOSITORY: RADIATION DOSE DELIVERED:
--- NOTE | 2022-12-05 08:00 | DI.RAD_ITS ---
Exam(s) XR CHEST 2V PA LATERAL EXAM: XR CHEST 2V PA LATERAL CLINICAL HISTORY: left chest pain TECHNIQUE: 2D digital imaging was performed of the chest. Two images were obtained. PA and lateral views were obtained. COMPARISON: No exams were available for comparison FINDINGS: MEDIASTINUM: Normal. HEART: Normal. PULMONARY VASCULATURE: Normal. LUNGS: Reticular nodular densities are seen in the right lung apex. No focal consolidating infiltrat es are seen. The left lung appears clear. PLEURAL SPACE: No pleural effusion or pneumothorax. BONE:Within normal limits for the patient's age. OTHER FINDINGS:Normal. IMPRESSION: 1. Small reticular infiltrate in the right lung apex. This may represent an acute process such as in flammation or pneumonia. Chronic changes including scarring may also have this appearance. No focal consolidating infiltrates are seen. Please correlate clinically. DATA REPOSITORY: RADIATION DOSE DELIVERED:
--- NOTE | 2022-12-05 08:47 | W.EDPROG ---
Date of service: 12/05/22 Time of Service: 08:47 Medical Decision Making I, Silas Paiz, took signout on this patient. In summary this is a 72-year-old female who presents with right knee pain and right-sided chest pain. Signed out to me pending labs and x-rays of the chest and right foot. These have resulted and are unremarkable. Suspect she has osteoarthritis of the right knee and may have a right-sided chest wall strain from using crutches. Told to keep taking ibuprofen. She has follow-up with orthopedics in a week and she can follow-up with her primary care doctor. She is agreeable with this plan. Will discharge with return precautions. Medical Records Medical records reviewed: Yes I reviewed the patient's medical records. Imaging Data Radiologic Study: Attestation: I personally reviewed and interpreted this imaging study as follows: Imaging: X-Ray (chest) My impression: Unremarkable Radiologic Study #2: Attestation: I personally reviewed and interpreted this imaging study as follows: Imaging: X-Ray (right foot) My impression: Unremarkable Radiologic Study #3: Attestation: I personally reviewed and interpreted this imaging study as follows: Imaging: Ultrasound (right leg) My impression: Unremarkable and negative for DVT Radiologist's impression: Unremarkable and negative for DVT Lab Data Lab results reviewed: Yes I reviewed the patient's lab results. ECG Data Attestation: I personally reviewed and interpreted this ECG (s) as follows: (Normal sinus rhythm and otherwise unremarkable EKG) Prior ECG tracings: available for review Interpretation: Normal sinus rhythm and otherwise unremarkable EKG Sign Out Sign Out Data: Sign Out Comment: Right lower extremity pain and swelling. Follow-up on ultrasound to rule out DVT Last updated by Valerio Beebe DO at 12/05/22 07:43 Discharge Plan Disposition Patient Disposition: Home Condition: Good Discharge Details Clinical Impression: Acute pain of right knee, Chest pain Primary Care Provider: Giovanna Scott ED Provider: Silas Paiz Home Meds and New Rx's Prescriptions: Continued bone builder 1 tab PO DAILY Rx Instructions: contains vit B,D,c, Niacin, Calcium,Phos, Mg, Zinc,Copper, Manganese,Chromium HCL pepsin 1 tab PO DAILY Rx Instructions: 250 mg. Takes at the start of a meal. super enzymes 1 tab PO DAILY Rx Instructions: Takes at the start of meal. Contains 200 mg of HCL lidocaine HCl [Lidocaine Viscous] 2 % solution 15 ml mucous membrane .4-6 TIMES DAILY PRN (Reason: mouth pain) Qty: 600 0RF vitamin B complex Capsule 1 cap PO DAILY acetaminophen 500 mg capsule 500 mg PO Q6H PRN magnesium citrate 100 mg tablet 100 mg PO DAILY PRN (Reason: constipation) aspirin 325 MG tablet 650 mg PO Q4H PRN Vitamin C 100 MG tablet 1 mg PO PRN vitamin E mixed 400 UNIT capsule 400 unit PO HS cholecalciferol (vitamin D3) [Vitamin D3] 50 mcg (2,000 unit) capsule 10,000 unit PO DAILY Rx Instructions: 1/2 tab daily alpha galactosidase enzyme tablet 1 tab PO DAILY Rx Instructions: 05/11/20-pt reported via portal message this is a need supplement she has added with meals to help digest carbohydrates. NC calcium carbonate [Calcium 500] 500 mg calcium (1,250 mg) tablet 500 mg PO DAILY Rx Instructions: as part of bone builder supplement Shpxhraa-Uodjbw-CKG with vit D 750-30-1,000-1 vn-yw-dkck-mg tablet 2 tab PO DAILY multivitamin [Daily Multi-Vitamin] Tablet 3 tab PO DAILY bromelains 500 mg tablet 1,500 mg PO DAILY PRN Rx Instructions: administer after a meal per pt--aids in digesting proteins and for joint pain Discharge Instructions Instructions: Chest Pain (DC), Knee Pain (ED) Additional Instructions: you were seen in the emergency department for right leg, right knee, right foot pain and some chest pain. We performed labs, chest x-ray, right foot x-ray, and ultrasound of the right leg that were all unremarkable. You likely have osteoarthritis of the right knee. Follow-up with orthopedics team and your primary care doctor. You likely have a chest wall strain on the right side from using the crutches. Continue to take ibuprofen 600 mg every 6 hours until you can follow-up with the orthopedics team in 1 week. Return for any worsening symptoms. Referrals: [facility] [Provider Group] - 1 week
[2022-12-05 09:20] LABS: Abs Immature Grans 0.02 10^3/uL (0.0-0.06); Absolute Basophil Count 0.04 10^3/uL (0.0-0.2); Absolute Eosinophil Count 0.05 10^3/uL (0.0-0.7); Absolute Lymphocyte Count 1.15 10^3/uL (1.2-3.4); Absolute Monocyte Count 0.87 10^3/uL (0.1-0.8); Absolute Neutrophil Count 5.25 10^3/uL (1.2-6.7); Basophils % 0.5; Eosinophils % 0.7; HCT 35.9 % (36.0-46.0); HGB 11.1 g/dL (11.2-15.7); Immature Grans % 0.3; Lymphocytes % 15.6; MCH 27.9 pg (27.0-33.0); MCHC 30.9 % (32.0-36.0); MCV 90 fL (80-95); MPV 8.8 fL (8.0-11.0); Monocytes % 11.8; Neutrophils % 71.1; Platelet Count 384 10^3/uL (130-400); RBC 3.98 10^6/uL (3.93-5.22); RDW 14.1 % (11.7-14.6); RDW-SD 46.9 fL; WBC 7.38 10^3/uL (4.4-10.8)
[2022-12-05 09:35] LABS: ALT 12 U/L (14-59); AST 10 U/L (15-37); Albumin 2.8 g/dL (3.4-5.0); Alkaline Phosphatase 75 U/L (46-116); Anion Gap 6.3 mmol/L (3-11); BUN 20 mg/dL (7-18); Bilirubin, Total 0.3 mg/dL (0.2-1.0); CO2 31.7 mmol/L (21.0-32.0); CREATININE 0.7 mg/dL (0.55-1.02); Calcium 9.3 mg/dL (8.5-10.1); Chloride 103 mmol/L (98-107); Glucose 97 mg/dL (74-106); Potassium 3.7 mmol/L (3.5-5.1); Sodium 141 mmol/L (136-145); Total Protein 6.8 g/dL (6.4-8.2); Troponin I < 50 ng/L (<or=60)
[2022-12-05 10:41] VITALS: BP 114/71; PULSE 79; RESP 16; O2SAT 94
--- NOTE | 2022-12-06 16:01 | W.ED.FU ---
Follow Up Plan: This patient called the emergency department on my shift. She had been recently evaluated for foot pain and swelling and had reassuring plain films and a negative duplex study with no signs of DVT. She was concerned that her foot was cold and white. I advised that I wanted to see her foot immediately. She said that she had trouble getting a ride. I advised her to call the ambulance.
== END 2022-12-05 10:48 | disposition home or self-care (01) ==
PROVIDERS: Student in an Organized Health Care Education/Training Program; Emergency Provider Student in an Organized Health Care Education/Training Program; PCP Student in an Organized Health Care Education/Training Program
DX: R07.9 Chest pain, unspecified (principal); M25.561 Pain in right knee
CPT/HCPCS: 36415; 80053; 86200; 93005; 99285; 71046; 73630; 84484; 85025; 86431; 93010; 93971; 99284

== ENCOUNTER 2022-12-05 08:45 | Outpatient (CLI) | payer MEDICARE, MEDICAID, SELFPAY ==
[2022-12-05 17:18] LABS: Rheumatoid Factor 8.7 IU/mL (<12.0)
[2022-12-06 08:54] LABS: Cyclic Citrullinated Peptide <2.5 U/mL (<5.0)
== END 2022-12-05 08:46 | disposition home or self-care (01) ==
LOC: LBO 08:46
PROVIDERS: PCP Student in an Organized Health Care Education/Training Program; Visit Provider Nurse Practitioner Family
DX: M25.461 Effusion, right knee (principal); M25.561 Pain in right knee
CPT/HCPCS: 36415; 86200; 86431

== ENCOUNTER 2022-12-06 16:29 | Emergency (ER) | payer MEDICARE, MEDICAID, SELFPAY ==
[2022-12-06 16:31] VITALS: BP 120/84; PULSE 97; RESP 16; TEMP 36.8; O2SAT 97
--- NOTE | 2022-12-06 21:47 | W.ED.GENAD ---
Discharge Plan Disposition Patient Disposition: Home Discharge Details Clinical Impression: Effusion of right knee, Knee osteoarthritis Primary Care Provider: Giovanna Scott ED Provider: Ana Paula Dean Home Meds and New Rx's Prescriptions: Continued bone builder 1 tab PO DAILY Rx Instructions: contains vit B,D,c, Niacin, Calcium,Phos, Mg, Zinc,Copper, Manganese,Chromium HCL pepsin 1 tab PO DAILY Rx Instructions: 250 mg. Takes at the start of a meal. super enzymes 1 tab PO DAILY Rx Instructions: Takes at the start of meal. Contains 200 mg of HCL lidocaine HCl [Lidocaine Viscous] 2 % solution 15 ml mucous membrane .4-6 TIMES DAILY PRN (Reason: mouth pain) Qty: 600 0RF vitamin B complex Capsule 1 cap PO DAILY acetaminophen 500 mg capsule 500 mg PO Q6H PRN magnesium citrate 100 mg tablet 100 mg PO DAILY PRN (Reason: constipation) aspirin 325 MG tablet 650 mg PO Q4H PRN Vitamin C 100 MG tablet 1 mg PO PRN vitamin E mixed 400 UNIT capsule 400 unit PO HS cholecalciferol (vitamin D3) [Vitamin D3] 50 mcg (2,000 unit) capsule 10,000 unit PO DAILY Rx Instructions: 1/2 tab daily alpha galactosidase enzyme tablet 1 tab PO DAILY Rx Instructions: 05/11/20-pt reported via portal message this is a need supplement she has added with meals to help digest carbohydrates. NC calcium carbonate [Calcium 500] 500 mg calcium (1,250 mg) tablet 500 mg PO DAILY Rx Instructions: as part of bone builder supplement Iceijtqu-Xxasyk-WKI with vit D 750-30-1,000-1 fm-sv-jcig-mg tablet 2 tab PO DAILY multivitamin [Daily Multi-Vitamin] Tablet 3 tab PO DAILY bromelains 500 mg tablet 1,500 mg PO DAILY PRN Rx Instructions: administer after a meal per pt--aids in digesting proteins and for joint pain Discharge Instructions Additional Instructions: Elevate your leg Compression stockings daily Tylenol for pain Return earlier should you have new or worsening complaints Repeat ultrasound in 1 week as per system swelling and follow-up with Ortho at your scheduled appointment Return immediately should develop fever, chills, worsening pain, redness Discharge Data Discharge Date/Time-TO BE ENTERED AT DEPARTURE: 12/06/22 17:32 Medical Decision Making Patient with effusion to right knee, no erythema or significant warmth, 2+ edema to bilateral lower extremity and foot, neurovascularly intact, no crepitus Reviewed ultrasound from yesterday which was negative, Doppler pulses intact to bilateral lower extremities, cap refill intact distally, denies chest pain or shortness of breath, stable vitals Return precautions reviewed and patient expressed understanding HPI General Date/Time Provider Initiated Documentation: 12/06/22 16:39. HPI Narrative: This 72-year-old female presents with right leg swelling and coolness to her foot. She states she had an arthrocentesis 2 weeks ago which improved some of her symptoms but she was evaluated yesterday and has had significant swelling to her lower extremity and feels as though her foot is cool. She states she had an ultrasound that was negative for blood clot. She denies any fever or chills. Denies any additional injuries aside from planting her foot which she states precipitated worsening pain. Related Data Home Medications Medication Instructions Recorded Confirmed ascorbic acid (vitamin C) 100 mg 1 mg PO PRN 11/30/14 12/05/22 tablet (Vitamin C) aspirin 325 mg tablet 650 mg PO Q4H PRN 11/30/14 12/05/22 vitamin E mixed 400 unit capsule 400 unit PO HS 11/30/14 12/05/22 HCL pepsin 1 tab PO DAILY 08/14/19 11/30/22 bone builder 1 tab PO DAILY 08/14/19 11/30/22 cholecalciferol (vitamin D3) 50 10,000 unit PO DAILY 08/14/19 12/05/22 mcg (2,000 unit) capsule (Vitamin D3) alpha galactosidase enzyme 1 tab PO DAILY 05/11/20 11/30/22 acetaminophen 500 mg capsule 500 mg PO Q6H PRN 04/07/21 12/05/22 calcium carbonate 500 mg calcium 500 mg PO DAILY 04/07/21 12/05/22 (1,250 mg) tablet (Calcium 500) glucosamine 750 bc-gvvfet-weg 2-C 2 tab PO DAILY 04/07/21 12/05/22 30 mg-D3 1,000 unit-thalia 1 mg tablet (Estmxdhxozh-Lxawkuasqgs-KDL + vitD) multivitamin (Daily Multi-Vitamin 3 tab PO DAILY 04/07/21 12/05/22 tablet) super enzymes 1 tab PO DAILY 04/07/21 11/30/22 vitamin B complex 1 cap PO DAILY 04/07/21 12/05/22 bromelains 500 mg tablet 1,500 mg PO DAILY PRN 06/23/21 12/05/22 magnesium citrate 100 mg tablet 100 mg PO DAILY PRN constipation 10/18/21 12/05/22 lidocaine HCl 2 % mucosal solution 15 ml mucous membrane .4-6 TIMES 11/30/22 12/05/22 (Lidocaine Viscous) DAILY PRN mouth pain #600 mL Previous Rx's Medication Instructions Recorded lidocaine HCl 2 % mucosal solution 15 ml mucous membrane .4-6 TIMES 11/30/22 (Lidocaine Viscous) DAILY PRN mouth pain #600 mL Allergies Allergy/AdvReac Type Severity Reaction Status Date / Time casein Allergy Intermediate sinus Verified 11/30/22 10:34 infection/congestion, migraines clindamycin Allergy Intermediate severe Verified 11/30/22 10:34 nausea/chills after extending use Penicillins Allergy Intermediate Verified 11/30/22 10:34 azithromycin AdvReac Severe watery Verified 11/30/22 10:34 diarrhea, nausea, chills, sharp abdominal pain gluten AdvReac Intermediate Verified 11/30/22 10:34 Union And Derivatives AdvReac decreases Verified 11/30/22 10:34 peristalisis grains Allergy colon Uncoded 11/30/22 10:34 blockage, insomnia, chills/hot flashes General Stated Complaint: Recheck JORDAN: 3 PFSH All Active Problems (Updated 12/06/22 @ 17:25 by YOLIS Davenport) Acute pain of right knee (Acute) Chest pain (Acute) Effusion of right knee (Acute) Knee osteoarthritis (Acute) Effusion of right knee joint (Acute) Arthritis of knee, right (Acute) Hiatal hernia (Chronic) 05/23/22- noted per [facility] [place] GI endoscopy [place] Esophagitis determined by endoscopy (Acute) 05/23/22-upper GI endoscopy done at [facility] with Dilation. LA Grade B esophagitis with no bleeding. 2cm hiatal hernia was present. the exam of the stomach was otherwise normal. The examined duodenum was normal. per [facility], trial alternate PPI, such as pantoprazole 40mg once daily. IBS (irritable bowel syndrome) (Chronic) Thyroid nodule (Acute 09/07/11) X 3 PER ULTRASOUND Flank pain (Acute) Back pain (Acute) Esophageal stenosis (Chronic) Schatzki ring dilation 08/2018 and again 08/17/20 @ [facility].. [ ] q annual re-eval? 09/17/2019 cooked vegetables instead of raw 05/23/22-[facility] upper GI endoscopy done with dilation. Dilator was performed to 20mm. Consumes gluten free diet (Acute 11/30/14) IBS (irritable bowel syndrome) (Chronic) Diarrhea (Acute) Mixed with constipation .. 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 Ortho recommends ABx for serious/systemic infection .. (so dental infection of 03/2021 involved ~ 3 weeks ABx!!) Sensorineural hearing loss (Acute 09/22/11) [facility] IZABEL/AUDIO Pseudophakia, both eyes (Acute) 07/28/21 [facility] Opthalmology note Hyperopia of both eyes with astigmatism and presbyopia (Acute) Vitreous floaters of both eyes (Acute) 07/28/21 [facility] Opthalmology note Hyperopia of both eyes with regular astigmatism and presbyopia (Acute) 07/28/21 [facility] Opthalmology note Medical History Acute respiratory distress Cataract (09/07/11) C/O POOR VISION IN BOTH EYES/ NO NIGHT DRIVING Disorder of tendon previous knee issue but has since had a knee replacement Measles Mumps Scarlet fever Varicella Surgical History Colonoscopy - [facility] 11/24;[facility] History of abdominal hysterectomy (02/23/12) Done for tubal /no hx.abnormal paps History of bilateral oophorectomy (02/23/12) History of cataract extraction (~11/2011) History of dislocation of knee (~1976) Left knee due to deformity History of endoscopy 05/23/22; [facility] upper GI endoscopy with dilation. History of knee replacement History of wrist fracture (~2002) Left Family History Mother Depression Father Diabetes Heart disease ARRHYTHMIA Hypertension Sister Hypothyroidism Breast cancer Sister Essential hypertension Smoker Stroke Brother Asthma Paternal Uncle Leukemia Social History Smoking/Tobacco Use Status: Former Tobacco Use Smoking risk assessment performed?: Yes Alcohol Intake: current Alcohol Intake frequency: holidays/special occasions only Drug use: Never Substance use type: former substance user and marijuana Adopted: No Caregiver/Support person: No Foster care: No Household members: none Housing: house Number of Children: 1 number of grandchildren: 2 Do you need help understanding health information?: Never current occupation: Retired Sexually active: No Do you think of yourself as: straight/heterosexual Current gender identity: female What is your relationship status?: Panel score (0-1 are the most socially isolated patients): 0 What type of physical activity do you participate in: walking Duration: 15-30 minutes/day Frequency: 3-4 times per week Do you feel safe in your relationship?: Yes Exam Narrative Exam Narrative: Patient with swelling, effusion to right knee, 2+ edema to bilateral lower extremities, distal pulses intact, neurovascularly intact No erythema Course Vital Signs Vital signs: Vital Signs Temperature 36.8 C 12/06/22 16:31 Pulse 97 H 12/06/22 16:31 Respiratory Rate 16 12/06/22 16:31 Blood Pressure 120/84 12/06/22 16:31 Pulse Oximetry 97 12/06/22 16:31 Temperature 36.8 C 12/06/22 16:31 Temperature Source Skin 12/06/22 16:31 Pulse 97 H 12/06/22 16:31 Respiratory Rate 16 12/06/22 16:31 Respiratory Effort Normal 12/06/22 16:56 Blood Pressure 120/84 12/06/22 16:31 Blood Pressure Position Sitting 12/06/22 16:31 Pulse Oximetry 97 12/06/22 16:31 Oxygen Delivery Method Room Air 12/06/22 16:31 Oxygen Flow Rate 0 12/06/22 16:31 Pain Level 0 12/06/22 16:31
== END 2022-12-06 17:32 | disposition home or self-care (01) ==
PROVIDERS: Emergency Provider Physician Assistant; PCP Student in an Organized Health Care Education/Training Program
DX: M25.461 Effusion, right knee (principal); M17.11 Unilateral primary osteoarthritis, right knee
CPT/HCPCS: 99282; 99283

== ENCOUNTER 2022-12-14 15:04 | Outpatient (CLI) | payer MEDICARE, MEDICAID, SELFPAY ==
--- NOTE | 2022-12-14 14:45 | DI.RAD_ITS ---
Exam(s) XR KNEE RT 2V AP,LAT EXAM: XR KNEE RT 2V AP,LAT CLINICAL HISTORY: Right knee pain. TECHNIQUE: 2D digital imaging was performed. COMPARISON: Prior x-rays 11/28/2022. FINDINGS: Two views: No evidence of fracture. No significant joint space narrowing but there is again noted chondrocalcin osis in both lateral and medial compartments. No osteochondral defects seen. Bone density is age-ap propriate. No osseous lesions. IMPRESSION: No joint space narrowing. Chondrocalcinosis evident. DATA REPOSITORY: RADIATION DOSE DELIVERED:
== END 2022-12-14 15:05 | disposition home or self-care (01) ==
LOC: DIORS 15:05
PROVIDERS: PCP Nurse Practitioner Family; Referring Provider Nurse Practitioner Family; Visit Provider Physician Assistant
DX: M11.261 Other chondrocalcinosis, right knee
CPT/HCPCS: 20610; 99214; 73560; J1040

== ENCOUNTER 2023-02-06 03:28 | Outpatient (CLI) | payer MEDICARE, MEDICAID, SELFPAY ==
[2023-02-06 09:33] LABS: Abs Immature Grans 0.03 10^3/uL (0.0-0.06); Absolute Basophil Count 0.05 10^3/uL (0.0-0.2); Absolute Eosinophil Count 0.04 10^3/uL (0.0-0.7); Absolute Lymphocyte Count 1.19 10^3/uL (1.2-3.4); Absolute Monocyte Count 1.06 10^3/uL (0.1-0.8); Absolute Neutrophil Count 5.68 10^3/uL (1.2-6.7); Basophils % 0.6; Eosinophils % 0.5; HCT 35.2 % (36.0-46.0); HGB 10.9 g/dL (11.2-15.7); Immature Grans % 0.4; Lymphocytes % 14.8; MCH 26.9 pg (27.0-33.0); MCV 87 fL (80-95); MPV 8.1 fL (8.0-11.0); Monocytes % 13.2; Neutrophils % 70.5; Platelet Count 408 10^3/uL (130-400); RBC 4.05 10^6/uL (3.93-5.22); RDW 15.5 % (11.7-14.6); RDW-SD 49.6 fL; WBC 8.05 10^3/uL (4.4-10.8)
[2023-02-06 10:36] LABS: ALT 19 U/L (14-59); AST 10 U/L (15-37); Albumin 2.8 g/dL (3.4-5.0); Alkaline Phosphatase 77 U/L (46-116); Anion Gap 6.3 mmol/L (3-11); BUN 15 mg/dL (7-18); Bilirubin, Total 0.4 mg/dL (0.2-1.0); CO2 30.7 mmol/L (21.0-32.0); CREATININE 0.8 mg/dL (0.55-1.02); Calcium 9.8 mg/dL (8.5-10.1); Chloride 101 mmol/L (98-107); Estimated GFR 77.27 (mL/min/1.73m2); Glucose 98 mg/dL (74-106); Sodium 138 mmol/L (136-145); Total Protein 7.2 g/dL (6.4-8.2)
[2023-02-07 10:11] LABS: Hepatitis C Ab w Rflx HCV PCR Negative (Negative)
[2023-02-07 12:53] LABS: Iron 19 ug/dL (50-170); Total Iron Binding Capacity 169 ug/dL (250-450); Transferrin Sat 11 % (15-50)
[2023-02-07 13:20] LABS: Vitamin B12 1657 pg/mL (193-986)
[2023-02-07 22:33] LABS: Ferritin 184 ng/mL (10-291)
[2023-02-07 22:36] LABS: Folate >24.0 ng/mL (See Note)
== END 2023-02-06 03:29 | disposition home or self-care (01) ==
LOC: LBO 03:28
PROVIDERS: Absent Provider Nurse Practitioner Family; PCP Nurse Practitioner Family; Referring Provider Nurse Practitioner Family; Visit Provider Nurse Practitioner Family
DX: D64.9 Anemia, unspecified (principal); Z11.59 Encounter for screening for other viral diseases; Z86.39 Personal history of other endocrine, nutritional and metabolic disease
CPT/HCPCS: 36415; 80053; 86803; 82607; 82728; 82746; 83540; 83550; 85025

== ENCOUNTER 2023-02-19 09:00 | Outpatient (REF) | payer MEDICARE, MEDICAID, SELFPAY ==
[2023-02-22 22:07] LABS: Calprotectin 569 mcg/g
== END 2023-02-20 15:21 | disposition home or self-care (01) ==
LOC: LBN 09:00
PROVIDERS: PCP Nurse Practitioner Family; Visit Provider Nurse Practitioner Family
DX: K52.9 Noninfective gastroenteritis and colitis, unspecified (principal)
CPT/HCPCS: 83993

== ENCOUNTER → 2023-03-01 12:48 | Outpatient (BNVA) | payer MEDICARE, MEDICAID, SELFPAY | PROVIDERS: PCP Nurse Practitioner Family; Referring Provider Nurse Practitioner Family; Visit Provider Surgery | DX: R19.7 Diarrhea, unspecified (principal); D50.9 Iron deficiency anemia, unspecified; K22.2 Esophageal obstruction; K60.5 Anorectal fistula | CPT/HCPCS: 99215 ==

== ENCOUNTER 2023-03-06 11:33 | Inpatient (IN) | payer MEDICARE, MEDICAID, SELFPAY ==
--- NOTE | 2023-03-05 21:51 | PDOC.DSDIS_ITS ---
Discharge Plan Disposition Patient Disposition: Home Discharge Details Reason For Visit: stomach & colon scope Attending Provider: Mary Fitzgerald Primary Care Provider: Chelsie Martinez Home Meds and New Rx's Prescriptions: Continued bone builder 1 tab PO DAILY Rx Instructions: contains vit B,D,c, Niacin, Calcium,Phos, Mg, Zinc,Copper, Manganese,Chromium HCL pepsin 1 tab PO DAILY Rx Instructions: 250 mg. Takes at the start of a meal. super enzymes 1 tab PO DAILY Rx Instructions: Takes at the start of meal. Contains 200 mg of HCL vitamin B complex Capsule 1 cap PO DAILY acetaminophen 500 mg capsule 500 mg PO Q6H PRN magnesium citrate 100 mg tablet 100 mg PO DAILY PRN (Reason: constipation) Patient Comments: pt. states it was a long time ago lidocaine HCl [Lidocaine Viscous] 2 % solution 15 ml mucous membrane .4-6 TIMES DAILY PRN (Reason: mouth pain) Qty: 600 0RF bisacodyl [Dulcolax (bisacodyl)] 5 mg tablet,delayed release (DR/EC) 5 mg PO ONCE Qty: 4 0RF Rx Instructions: take per colonoscopy instructions aspirin 325 MG tablet 650 mg PO Q4H PRN Vitamin C 100 MG tablet 1 mg PO PRN vitamin E mixed 400 UNIT capsule 400 unit PO HS cholecalciferol (vitamin D3) [Vitamin D3] 50 mcg (2,000 unit) capsule 10,000 unit PO DAILY Rx Instructions: 1/2 tab daily alpha galactosidase enzyme tablet 1 tab PO DAILY Rx Instructions: 05/11/20-pt reported via portal message this is a need supplement she has added with meals to help digest carbohydrates. NC calcium carbonate [Calcium 500] 500 mg calcium (1,250 mg) tablet 500 mg PO DAILY Rx Instructions: as part of bone builder supplement Tfwlfprl-Xkjpor-OWR with vit D 750-30-1,000-1 ag-ws-tfsj-mg tablet 2 tab PO DAILY multivitamin [Daily Multi-Vitamin] Tablet 3 tab PO DAILY bromelains 500 mg tablet 1,500 mg PO DAILY PRN Rx Instructions: administer after a meal per pt--aids in digesting proteins and for joint pain ferrous sulfate 325 mg (65 mg iron) tablet 325 mg PO DAILY Qty: 90 0RF Rx Instructions: Take with water or juice on an empty stomach Discontinued polyethylene glycol 3350 17 gram/dose powder 238 g PO ONCE Qty: 238 0RF Rx Instructions: take per colonoscopy instructions Discharge Instructions Additional Instructions: D[facility] Colonoscopy Post- Op Instructions Instructions for Everyone who is given Anesthesia: For your safety, please do the following for the next twenty-four (24) hours: *Do Not operate a motor vehicle (car, truck, motorcycle, etc.) *Do Not drink alcoholic beverages or use any recreational drugs for the first 24 hours or while taking pain medications. The medications in your body may have a reaction that can be dangerous. *Do Not make any important decisions or sign any important papers. Findings: Follow up: 1. No lifting over 20 pounds or strenuous activity for the first 24 hours after your procedure. After 24 hours there are no restrictions on your activity but you may feel fatigued for a few days. 2. After you arrive home you may have a light meal and return to your normal diet as you can tolerate it without feeling sick to your stomach. 3. You may have a bloated, gaseous feeling in your belly (abdomen) after a colonoscopy. Passing gas and belching will help. Walking or lying down on your left side with your knees flexed may relieve the discomfort. Call the office at [phone] (Office) or [phone] (Hospital) right away if you notice any of the following: a.Vomiting of blood or ?coffee ground stools?. b.Rectal bleeding 1Tbsp, blood clots or continuous bleeding. c.Severe belly (abdominal) pain. d.A hard distended belly (abdomen) and an inability to pass gas. 4. Please don?t expect to have a normal BM (bowel movement) for 2-3 days after your procedure. 5. If there are questions regarding the findings of your procedure, please conta ct your doctor 6. If you are unable to contact your doctor with a problem, contact the hospital at [phone]. 7. Continue all your regular medications unless directed otherwise. I understand the above instructions and have no questions. Signature of Patient or Adult Escort Name of Responsible Adult Escort Signature of Nurse Date/Time Stand Alone Forms: Anesthesia Discharge Inst., Lalito Painter (DSU) Activity:: see above Diet:: see above Discharge Orders Discharge Orders: Discharge Order (Routine); Ordered 03/06/23 Ordered By: Mary Fitzgerald DS: Diagnosis Discharge Diagnosis (1) Schatzki's ring of distal esophagus: Status: Acute (2) Microcytic anemia: Status: Acute (3) IBS (irritable bowel syndrome): Status: Chronic (4) Esophageal stenosis: Status: Chronic (5) Diarrhea: Status: Acute (6) IBS (irritable bowel syndrome): Status: Chronic (7) Esophagitis determined by endoscopy: Status: Acute (8) Hiatal hernia: Status: Chronic (9) Iron deficiency anemia: Status: Acute Asessment and Plan: The patient is seen and examined after their colonoscopy.? The patient has been able to pass gas.? They are not having abdominal pain.? They have been able to tolerate liquids and a snack.? They do not have any nausea or vomiting.? They are not having any chest pain or shortness of breath.??? They are not having any rectal bleeding. Their vital signs have been stable-see nursing notes. We discussed findings during their colonoscopy, and any biopsies that were done/polyps that were removed. The patient will be sent a letter with any biopsy results, and when to repeat the colonoscopy.-see discharge instructions. Patient was given explicit instructions to follow-up regarding colonoscopy-refer to discharge instructions.? We reviewed resumption of medications. Patient verbalized understanding and discharged in stable and satisfactory condi tion- See nursing notes. (10) Chronic diarrhea: Status: Acute (11) Celiac disease: Status: Acute
[2023-03-06] VITALS (12 sets, daily range): BP systolic 95–127; BP diastolic 60–81; PULSE 70–93; RESP 16–20; TEMP 36–37.4; O2SAT 92–99; BMI 15.4
--- NOTE | 2023-03-06 | DI.CT_ITS ---
Exam(s) CT CHEST/ABD/PEL W EXAM: CT CHEST/ABD/PEL W CLINICAL HISTORY: newly diagnosed IBD. TECHNIQUE: Imaging Protocol: Axial computed tomography images with coronal and sagittal reformatted images were created and reviewed CONTRAST MATERIAL: Intravenous: Omnipaque 350 Contrast volume:100 ml Oral: Yes. Oral contrast administered for bowel opacification COMPARISON: CT CT ABDOMEN PELVIS W from 09/27/2021 CR XR CHEST 2V PA LATERAL from 12/05/2022 FINDINGS: CHEST: LUNGS: There are multiple small subpleural nodular densities in the lateral aspect of the right upper lobe exhibiting average size 3-4 mm. There is also scar-like density in the posterior aspect of the sub apical right upper lobe, not associated with overlying rib destruction. Lesser amount of scarri ng seen in the left upper lobe.. Also few pleural based small 4 mm nodular densities also seen in th e left upper lobe. No confluent infiltrates. No pleural effusions. No prominent interstitial disea se. MEDIASTINUM: There is no hilar adenopathy nor subcarinal adenopathy. However, there is a large nodul e expanding the left thyroid lobe which will require ultrasound follow-up. This measures 3 cm AP x 2 .6 cm wide. CARDIAC: Heart size is normal. There is no pericardial effusion.Caliber of the thoracic aorta is wit hin normal limits. OSSEOUS: No significant osseous lesions.. ABDOMEN: There is small amount perihepatic ascites. Also mild amount of ascites in the dependent aspect of th e pelvis. Oral contrast has progressed through the small bowel into the colon and has reached the re ctosigmoid by the time of image acquisition. There are areas of narrowing of the colon right side pr oximal to the a hepatic flexure above the ileocecal valve level. Also in the descending-left colon t here is some mural thickening. No free air. LIVER: There is no area of subcapsular hypodensity in the anterior right hepatic lobe adjacent to lob ar fissure. Probably represents focal fatty change given its location. No other focal hepatic abnor malities evident GALLBLADDER/BILIARY: No obvious gallbladder pathology. CBD is not dilated. PANCREAS: No evidence of pancreatic mass nor dilatation of the pancreatic duct. SPLEEN: Spleen is not enlarged. There are no intrasplenic lesions. Splenic and portal veins are russell nt. ADRENALS: Adrenal gland unremarkable. There is some diffuse thickening of the left adrenal gland. KIDNEYS: No calculi nor hydronephrosis. No solid renal masses. No cysts evident. ABDOMINAL AORTA: Abdominal aorta is not significantly enlarged. LYMPH NODES: There is no retroperitoneal nor paraaortic adenopathy. ABDOMINAL WALL: No evidence of significant anterior abdominal wall nor inguinal hernia. PELVIS: LYMPH NODES: There is no intrapelvic nor inguinal adenopathy. GI: Appendix difficult to locate. No obvious appendicitis.No evidence of sigmoid diverticulitis. URINARY BLADDER: No calculi nor masses evident REPRODUCTIVE: Uterus surgically absent. No abnormal adnexal masses. OSSEOUS: No significant osseous lesions. No fractures. No evidence of sacroiliitis nor ankylosis of the SI joints. IMPRESSION: 1. Abnormal appearance of the colon which may be related to inflammatory disease such as ulcerative c olitis and/or Crohn's colitis. There is no small bowel obstruction. Colonoscopy is recommended to e nsure that there are no superimposed malignancy is in the colon 2. Small amount of ascites noted both perihepatic and in the dependent aspect of the pelvis. 3. Uterus appears to be surgically absent. There are no abnormal adnexal masses. 4. Other findings as above. RADIATION DOSE DELIVERED: 628.94mGy.cm Total DLP DATA REPOSITORY: All CT scans at this facility are submitted to the National Radiology Data Registry (NRDR) Dose Index Registry (DIR) with the [employer] ([employer]). RADIATION OPTIMIZATION: All CT scans at this facility use at least one of these dose optimization te chniques: automated exposure control; mA and/or kV adjustment per patient size (includes targeted exa ms where dose is matched to clinical indication); or iterative reconstruction.
--- NOTE | 2023-03-06 08:54 | W.ANESPRE ---
General Info Date of Service Date Performed: 03/06/23 Height: 5 ft 8 in Weight: 46 kg Body Mass Index (BMI): 15.4 Surgical Procedure: Operation Date: 03/06/23 09:20 Proposed Procedure Side Surgeon p Colonoscopy/Gastroscopy Mary Fitzgerald, DO Meds Allergies and Home Medications Allergies Allergy/AdvReac Type Severity Reaction Status Date / Time casein Allergy Intermediate sinus Verified 03/06/23 08:36 infection/congestion, migraines clindamycin Allergy Intermediate severe Verified 03/06/23 08:36 nausea/chills after extending use Penicillins Allergy Intermediate Verified 03/06/23 08:36 azithromycin AdvReac Severe watery Verified 03/06/23 08:36 diarrhea, nausea, chills, sharp abdominal pain gluten AdvReac Intermediate Verified 03/06/23 08:36 Gregory And Derivatives AdvReac decreases Verified 03/06/23 08:36 peristalisis grains Allergy colon Uncoded 03/06/23 08:36 blockage, insomnia, chills/hot flashes Home Medication Medication Instructions Recorded ascorbic acid (vitamin C) 100 mg 1 mg PO PRN 11/30/14 tablet (Vitamin C) aspirin 325 mg tablet 650 mg PO Q4H PRN 11/30/14 vitamin E mixed 400 unit capsule 400 unit PO HS 11/30/14 HCL pepsin 1 tab PO DAILY 08/14/19 bone builder 1 tab PO DAILY 08/14/19 cholecalciferol (vitamin D3) 50 10,000 unit PO DAILY 08/14/19 mcg (2,000 unit) capsule (Vitamin D3) alpha galactosidase enzyme 1 tab PO DAILY 05/11/20 acetaminophen 500 mg capsule 500 mg PO Q6H PRN 04/07/21 calcium carbonate 500 mg calcium 500 mg PO DAILY 04/07/21 (1,250 mg) tablet (Calcium 500) glucosamine 750 al-vtbotj-avs 2-C 2 tab PO DAILY 04/07/21 30 mg-D3 1,000 unit-thalia 1 mg tablet (Risrpwrqtba-Opinnmhuirb-SSQ + vitD) multivitamin (Daily Multi-Vitamin 3 tab PO DAILY 04/07/21 tablet) super enzymes 1 tab PO DAILY 04/07/21 vitamin B complex 1 cap PO DAILY 04/07/21 bromelains 500 mg tablet 1,500 mg PO DAILY PRN 06/23/21 magnesium citrate 100 mg tablet 100 mg PO DAILY PRN constipation 10/18/21 lidocaine HCl 2 % mucosal solution 15 ml mucous membrane .4-6 TIMES 02/14/23 (Lidocaine Viscous) DAILY PRN mouth pain #600 mL ferrous sulfate 325 mg (65 mg 325 mg PO DAILY #90 tab-caps 02/15/23 iron) tablet bisacodyl 5 mg tablet,delayed 5 mg PO ONCE colonscopy bowel prep 03/02/23 release (Dulcolax (bisacodyl)) #4 tabs Current Visit Medications: Current Medications Generic Name Dose Route Start Last Admin Trade Name Andreaq PRN Reason Stop Dose Admin Hyoscyamine Sulfate 0.125 mg 03/06/23 09:46 Hyoscyamine 0.125 Mg Sl/Oral/Chew SL 04/05/23 09:45 DIRECTED PRN Ringer's Solution 1,000 mls @ 80 mls/hr 03/06/23 06:00 IV 03/15/23 23:59 INFUSION [facility] IV Miscellaneous Supplies 1 each 03/06/23 06:00 Iv Access IV 03/15/23 23:59 DIRECTED RAMSES Ondansetron HCl 4 mg 03/06/23 09:46 Ondansetron 4 Mg/2 Ml Vial IVP 04/05/23 09:45 Q4H PRN PRN Nausea / Vomiting Sodium Chloride 0 ml 03/06/23 06:00 Normal Saline Flush 10 Ml Syr IV 03/15/23 23:59 PRN PRN Sodium Chloride 0 ml 03/06/23 06:00 Normal Saline 10 Ml Vial IJ 03/15/23 23:59 DIRECTED PRN Sterile Water 0 ml 03/06/23 06:00 Water,Injection,Sterile 10 Ml Vial IJ 03/15/23 23:59 DIRECTED PRN PFSH Active Problems Active Problems: Problem Status Onset Code Schatzki's ring of distal esophagus K22.2 Microcytic anemia D50.9 Thyroid nodule 09/07/11 E04.1 Sensorineural hearing loss 09/22/11 H90.5 Consumes gluten free diet 11/30/14 Z78.9 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223, H52.4 Back pain M54.9 Flank pain R10.9 IBS (irritable bowel syndrome) K58.9 Esophagitis determined by endoscopy K20.90 Hiatal hernia K44.9 Chondrocalcinosis of right knee M11.261 Iron deficiency anemia D50.9 Chronic diarrhea K52.9 Celiac disease K90.0 Medical History Medical History Acute respiratory distress Cataract (09/07/11) C/O POOR VISION IN BOTH EYES/ NO NIGHT DRIVING Disorder of tendon previous knee issue but has since had a knee replacement Measles Mumps Scarlet fever Varicella Surgical History Surgical History Colonoscopy - MAC 11/24;[facility] [place] History of abdominal hysterectomy (02/23/12) Done for tubal /no hx.abnormal paps History of bilateral oophorectomy (02/23/12) pt. states left one ovary History of cataract extraction (~11/2011) History of dislocation of knee (~1976) Left knee due to deformity History of endoscopy 05/23/22; [facility] [place] upper GI endoscopy with dilation. History of knee replacement History of wrist fracture (~2002) Left Tobacco Smoking/Tobacco Use Status: Former Tobacco Use Alcohol Alcohol Intake: current Alcohol intake frequency: holidays/special occasions only Alcohol type: wine Substance Use Substance use: Never Substance use type: does not use Details: unknown Vital Signs and Lab Results Vital Signs Most Recent Vital Signs in EMR: Most Recent Vital Signs Temp Pulse Resp BP Pulse Ox 36.5 C 87 20 95/70 L 99 03/06/23 08:41 03/06/23 08:41 03/06/23 08:41 03/06/23 08:41 03/06/23 08:41 Lab Results Blood Type / Crossmatch: No Data to Display Complete Blood Count: White Blood Count 8.05 10^3/uL (4.4-10.8) 02/06/23 09:26 Red Blood Count 4.05 10^6/uL (3.93-5.22) 02/06/23 09:26 Hemoglobin 10.9 g/dL (11.2-15.7) L 02/06/23 09:26 Hematocrit 35.2 % (36.0-46.0) L 02/06/23 09:26 Platelet Count 408 10^3/uL (130-400) H 02/06/23 09:26 Complete Metabolic Panel: Sodium 138 mmol/L (136-145) 02/06/23 09:26 Potassium 4.0 mmol/L (3.5-5.1) 02/06/23 09:26 Chloride 101 mmol/L (98-107) 02/06/23 09:26 Carbon Dioxide 30.7 mmol/L (21.0-32.0) 02/06/23 09:26 BUN 15 mg/dL (7-18) 02/06/23 09:26 Creatinine 0.8 mg/dL (0.55-1.02) 02/06/23 09:26 Est GFR (CKD-EPI 2020) 77.27 (mL/min/1.73m2) 02/06/23 09:26 Calcium 9.8 mg/dL (8.5-10.1) 02/06/23 09:26 Albumin 2.8 g/dL (3.4-5.0) L 02/06/23 09:26 Glucose 98 mg/dL (74-106) 02/06/23 09:26 Liver Function Panel: Alanine Aminotransferase (ALT/SGPT) 19 U/L (14-59) 02/06/23 09:26 Aspartate Amino Transf (AST/SGOT) 10 U/L (15-37) L 02/06/23 09:26 Coagulation Panel: No Data to Display Cardiac Panel: No Data to Display Arterial Blood Gas: No Data to Display Venous Blood Gas: No Data to Display Pancreas Panel: No Data to Display Thyroid Panel: No Data to Display Infectious Disease: Hepatitis C Antibody Negative (Negative) 02/06/23 09:26 Blood Cultures: No Data to Display Toxicology Panel: No Data to Display Imaging and Studies Imaging and Studies Study information below may be from another EMR and interpreted by another provider. Please see original notes in EMR for more complete details. EKG Summary: 12/05/22: Exam: Resting ECG Reason for Exam: left chest pain Patient Location: E HR:80 bpm ECG Measurements Heart Rate 80 AXIS MI 194 P 23 QRSd 88 QRS -27 QT 397 T28 QTc 457 Conclusion Sinus rhythm...normal P axis, V-rate 60- 99 Consider anterior infarct...Q >30mS in V2-V5 I have reviewed and I agree with the emergency room physician's ECG interpretation. Anesthesia Assessment and Plan Anesthesia History Personal History: No History of Anesthesia Complications Family History: No Family History of Anesthesia Complications Exercise Tolerance Exercise Tolerance: Metabolic Equivalents>4 Pertinent Negatives Pertinent Negatives: No Symptoms of GERD and No Major Pulmonary Symptoms or Complaints Cardiac & Pulmonary Exam Cardiac Exam: Normal S1/S2 Heart Sounds Pulmonary Exam: Clear Bilateral Breath Sounds Implantable Cardiac Device Does patient have a Pacemaker or an ICD?: No Airway Exam Known Difficult Airway: No Mallampati Class: 1 Mouth Opening: Normal (> 3cm) Thyromental Distance: Greater than 3 cm Neck Range of Motion: Full ROM Neck Circumference: Normal Teeth Condition: Normal Dentition ASA Classification ASA Score: ASA 3 Emergency Case?: No NPO Status NPO Status: NPO Clears >2 hours, Solids >8 hours Anesthesia Plan Resuscitation Status: Full Code Anesthesia Technique: General Anesthesia Airway Planned: Natural Airway Monitors Used: Standard Monitors Preoperative Comments:: Significant unintended recent weight loss
[2023-03-06] MEDS: Lactated Ringers 1,000 ML 80 ML IV (08:55)
--- NOTE | 2023-03-06 09:36 | STOM_PTH ---
PATIENT: Kelsey Last LOC: MS Gutierrez#:[id number] AGE/SX: 72/F ROOM: RE03/06/[address]: Mary Fitzgerald : 1950 BED: A DIS: 03/08/2023 SPEC #: [id number] RECD: 03/06/23 12:42 STATUS: HALINA RE #: [id number] NENITA: 03/06/23 09:[address]: Mary Fitzgerald DEPT: Surgical Specimen RECD BY: Ana Paula Felix ENTERED: 03/06/23 12:45 SP TYPE: STOMACH OTHR DR: Rochelle Weldon,Elo Nam, Americo Martinez, DEPUTY CHIEF EXECUTIVE Tissues: 1 - BIOPSY BOWEL 2 - BIOPSY BOWEL G - STOMACH BIOPSY 3 - STOMACH BIOPSY 4 - ESOPHAGUS BIOPSY 5 - ESOPHAGUS BIOPSY 6 - BIOPSY BOWEL 7 - BIOPSY BOWEL 8 - BIOPSY BOWEL R - BIOPSY BOWEL Procedures: GROSS AND MICRO LEVEL 4 SPECIAL STAIN 1 Comments: [id number]
--- NOTE | 2023-03-06 10:32 | W.ANESPOSTOP ---
Postoperative Evaluation Date, Time and Location Date Performed: 03/06/23 Time Performed: 10:32 Patient Location: Day Surgery Unit Vital Signs Most Recent Imported Vital Signs: Most Recent Vital Signs Temp Pulse Resp BP Pulse Ox 36 C L 79 16 103/63 92 03/06/23 10:17 03/06/23 10:17 03/06/23 10:17 03/06/23 10:17 03/06/23 10:17 Pain Score Most Recent Pain Score: Most Recent Pain Score Pain Level 0 03/06/23 10:17 Assessment Mental Status: Awake (Alert & Oriented to Patient Baseline) Airway and Respiratory Function: Patent airway with normal (patient baseline) respiratory exam Cardiovascular Function: Hemodynamically Stable Hydration Status: Adequately Hydrated Nausea & Vomiting: No Nausea or Vomiting Pain: Pt. Denies Any Pain Peripheral Nerve Block: Patient did not receive a nerve block
[2023-03-06] MEDS: Omnipaque 350 MG/ML 50 ML BTL PO (11:09)
[2023-03-06] MEDS: Breeza Beverage 473 ML BTL PO ×2 (11:09→11:10)
[2023-03-06 11:11] LABS: Abs Immature Grans 0.01 10^3/uL (0.0-0.06); Absolute Basophil Count 0.04 10^3/uL (0.0-0.2); Absolute Eosinophil Count 0.02 10^3/uL (0.0-0.7); Absolute Lymphocyte Count 0.76 10^3/uL (1.2-3.4); Absolute Monocyte Count 0.85 10^3/uL (0.1-0.8); Basophils % 0.6; Eosinophils % 0.3; HCT 31.4 % (36.0-46.0); HGB 9.6 g/dL (11.2-15.7); Immature Grans % 0.2; Lymphocytes % 11.9; MCHC 30.6 % (32.0-36.0); MCV 85 fL (80-95); MPV 8.1 fL (8.0-11.0); Monocytes % 13.3; Neutrophils % 73.7; Platelet Count 421 10^3/uL (130-400); RBC 3.69 10^6/uL (3.93-5.22); RDW 15.7 % (11.7-14.6); RDW-SD 48.9 fL; WBC 6.38 10^3/uL (4.4-10.8)
[2023-03-06] MEDS: metroNIDAZOLE 500 MG/100 ML BAG 100 MG IVPB ×2 (11:28→20:28)
[2023-03-06 11:36] LABS: ALT 11 U/L (14-59); AST 11 U/L (15-37); Albumin 2.3 g/dL (3.4-5.0); Alkaline Phosphatase 71 U/L (46-116); Anion Gap 9.2 mmol/L (3-11); BUN 11 mg/dL (7-18); Bilirubin, Total 0.4 mg/dL (0.2-1.0); C-Reactive Protein 4.63 mg/dL (0.0-0.3); CO2 27.8 mmol/L (21.0-32.0); CREATININE 0.7 mg/dL (0.55-1.02); Calcium 9.4 mg/dL (8.5-10.1); Chloride 100 mmol/L (98-107); Glucose 79 mg/dL (74-106); Potassium 3.6 mmol/L (3.5-5.1); Sodium 137 mmol/L (136-145); TSH 1.13 uIU/mL (0.36-3.74); Total Protein 6.4 g/dL (6.4-8.2)
--- NOTE | 2023-03-06 11:38 | HPE_ITS ---
Date of service: 03/06/23 Time of Service: 11:39 Assessment and Plan Assessment and plan (1) IBD (inflammatory bowel disease): Status: Acute Assessment and plan: Working diagnosis at this time is Crohn's. Until we get our pathology back. Adjuvant testing and cultures to make sure there is no C. difficile Or other types of which she is secondary infections, including fungal We will start Flagyl/Cipro/hydrocortisone Nutritional support and dietary consult Supportive care labs and CT reviewed. -Patient is aware of the mass in the thyroid This document was created with voice activated software and may contain errors. 60 mins spent with the patient today. (2) Iron deficiency anemia: Status: Acute Qualifiers: Iron deficiency anemia type: unspecified iron deficiency Qualified Code(s): D50.9 - Iron deficiency anemia, unspecified (3) Microcytic anemia: Status: Acute (4) Schatzki's ring of distal esophagus: Status: Acute (5) Osteoporosis: Status: Chronic (6) Hyperopia of both eyes with astigmatism and presbyopia: Status: Acute (7) Osteopenia: Status: Acute (8) Sinus bradycardia: Status: Resolved (9) Esophageal stenosis: Status: Chronic (10) IBS (irritable bowel syndrome): Status: Chronic (11) Hiatal hernia: Status: Chronic (12) Celiac disease: Status: Acute (13) Protein-calorie malnutrition, moderate: Status: Acute History of Present Illness Narrative: Patient underwent a colonoscopy today on 03/06. She had erythema/edema and ulceration/skin lesions of the colon starting at 50 cm to the cecum. There is a exudative membrane. The colon is very exam. Friable and bleeds quite readily. There is no disease in the rectum. There is no perianal disease. 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 She did have large external hemorrhoids noted on exam today. She also has [place] ulcers of the mouth that have been present for a few weeks. She has been having severe diarrhea/abdominal pain/weight loss and anemia. She has no personal or family history of inflammatory bowel disease. She has never had any problems like this before. She has not recently been on antibiotics. She denies any travel. She denies any change in her diet or her supplements. She is not on any prescription medication. She does take a large amount of supplements. COnsult 03/01 She has a hx of esophgeal stricture and ulces.? She was having swallowing problems w/ she had the egd and dialateion.? And felt like esophagus was closing up? She was taking ibuprofen for a knee problem in November. ?Since Dec,e pt has been having diarrhea; this started? when she started the pepcid. ? She is not taking anti-acid? H2 or PPI didn't seem to make any difference in her esophagus.? It made her constipated and she was straining to move her bowels.? Now she has diarrhea.? She has constant abdominal pain in pelvix area and at the anus, Honey w/ BM.? When her hemorrhoids were flailing she had blood,? none now. ? She is loosing wt.? She is eating.? She has Iron defn anemia.? her bowels are Diarrhea- 8 times a day.? pt concerned? that she is loosing muscle mass.? no family hx of IBD. ? She follows a low acidic diet.? stopped chocolate -Patient told me she was on iron and taking iron.? But then she told the nurse that she is not taking the iron for her med rec. -Patient states the diarrhea is new.? After reviewing her chart she is noted to have a history of chronic diarrhea.? She also has a history of IBS.? Per her chart she has had an EGD in the past and has a history of a Schatzki's ring/esophagitis and hiatal hernia. She maybe had a CE 10 yrs ago at [facility] [place]. anesthesia- no prob NM/CVA- no smoker- no DM- no Hiatal hernia/GERD.? EOTH- none coffee-? none black tea- 1 day Review of Systems All systems reviewed & are unremarkable except as noted in HPI and below PFSH All Active Problems (Updated 03/06/23 @ 14:58 by Mary Fitzgerald, ) Protein-calorie malnutrition, moderate (Acute) IBD (inflammatory bowel disease) (Acute) Schatzki's ring of distal esophagus (Acute) Microcytic anemia (Acute) Thyroid nodule (Acute 09/07/11) X 3 PER ULTRASOUND Sensorineural hearing loss (Acute 09/22/11) [facility] IZABEL/AUDIO Consumes gluten free diet (Acute 11/30/14) Anorectal fistula (Acute) Osteoporosis (Chronic) Hyperopia of both eyes with astigmatism and presbyopia (Acute) Osteopenia (Acute) IBS (irritable bowel syndrome) (Chronic) Esophageal stenosis (Chronic) Schatzki ring dilation 08/2018 and again 08/17/20 @ [facility] [place].. [ ] q annual re-eval? 09/17/2019 cooked vegetables instead of raw 05/23/22-[facility] [place] upper GI endoscopy done with dilation. Dilator was performed to 20mm. History of total knee replacement (TKR) (Acute) Left .. Ortho recommends ABx for serious/systemic infection .. 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 2' ABx use or IBS (?) or other pathology (?) Pseudophakia, both eyes (Acute) 07/28/21 [facility] [place] Opthalmology note Vitreous floaters of both eyes (Acute) 07/28/21 [facility] [place] Opthalmology note Hyperopia of both eyes with regular astigmatism and presbyopia (Acute) 07/28/21 [facility] [place] Opthalmology note Back pain (Acute) Flank pain (Acute) IBS (irritable bowel syndrome) (Chronic) Esophagitis determined by endoscopy (Acute) 05/23/22-upper GI endoscopy done at [facility] [place] with Dilation. LA Grade B esophagitis with no bleeding. 2cm hiatal hernia was present. the exam of the stomach was otherwise normal. The examined duodenum was normal. per [facility] [place], trial alternate PPI, such as pantoprazole 40mg once daily. Hiatal hernia (Chronic) 05/23/22- noted per [facility] [place] upper GI endoscopy report Chondrocalcinosis of right knee (Acute) Steroid injection: 12/14/2022 Iron deficiency anemia (Acute) Chronic diarrhea (Acute) Celiac disease (Acute) Per pt report, no records from previous testing Medical History (Updated 03/06/23 @ 14:58 by Mary Fitzgerald DO) Acute respiratory distress Cataract (09/07/11) C/O POOR VISION IN BOTH EYES/ NO NIGHT DRIVING Disorder of tendon previous knee issue but has since had a knee replacement Measles Mumps Scarlet fever Varicella Surgical History (Updated 03/06/23 @ 14:25 by Madisyn Christopher) Colonoscopy - MAC (~02/2023) 11/24;[facility] [place] History of abdominal hysterectomy (02/23/12) Done for tubal /no hx.abnormal paps History of bilateral oophorectomy (02/23/12) pt. states left one ovary History of cataract extraction (~11/2011) History of dislocation of knee (~1976) Left knee due to deformity History of endoscopy 05/23/22; [facility] [place] upper GI endoscopy with dilation. History of esophagogastroduodenoscopy (~02/2023) History of knee replacement History of wrist fracture (~2002) Left Family History Mother Depression Father Diabetes Heart disease ARRHYTHMIA Hypertension Sister Hypothyroidism Breast cancer Sister Essential hypertension Smoker Stroke Brother Asthma Paternal Uncle Leukemia Social History Smoking/Tobacco Use Status: Former Tobacco Use Quit Date: 07/16/72 Smoking risk assessment performed?: Yes Alcohol Intake: current Alcohol Intake frequency: holidays/special occasions only Alcohol type: wine Drug use: Never Substance use type: does not use Details: unknown Adopted: No Caregiver/Support person: No Foster care: No Household members: none Housing: house Number of Children: 1 number of grandchildren: 2 Do you need help understanding health information?: Never current occupation: Retired Sexually active: No Do you think of yourself as: straight/heterosexual Current gender identity: female What is your relationship status?: Panel score (0-1 are the most socially isolated patients): 0 What type of physical activity do you participate in: walking Duration: 15-30 minutes/day Frequency: 3-4 times per week Do you feel safe at home: Yes Do you feel safe in your relationship?: Yes Meds Allergies and Home Medications Allergies Allergy/AdvReac Type Severity Reaction Status Date / Time casein Allergy Intermediate sinus Verified 03/06/23 08:36 infection/congestion, migraines clindamycin Allergy Intermediate severe Verified 03/06/23 08:36 nausea/chills after extending use Penicillins Allergy Intermediate Verified 03/06/23 08:36 azithromycin AdvReac Severe watery Verified 03/06/23 08:36 diarrhea, nausea, chills, sharp abdominal pain gluten AdvReac Intermediate Verified 03/06/23 08:36 Mcmillin And Derivatives AdvReac decreases Verified 03/06/23 08:36 peristalisis grains Allergy colon Uncoded 03/06/23 08:36 blockage, insomnia, chills/hot flashes Home Medications Medication Instructions Recorded Confirmed Type ascorbic acid (vitamin C) 100 mg 1 mg PO PRN 11/30/14 03/06/23 History tablet (Vitamin C) aspirin 325 mg tablet 650 mg PO Q4H PRN 11/30/14 03/06/23 History vitamin E mixed 400 unit capsule 400 unit PO HS 11/30/14 03/06/23 History HCL pepsin 1 tab PO DAILY 08/14/19 03/06/23 History bone builder 1 tab PO DAILY 08/14/19 03/06/23 History cholecalciferol (vitamin D3) 50 10,000 unit PO DAILY 08/14/19 03/06/23 History mcg (2,000 unit) capsule (Vitamin D3) alpha galactosidase enzyme 1 tab PO DAILY 05/11/20 03/06/23 History acetaminophen 500 mg capsule 500 mg PO Q6H PRN 04/07/21 03/06/23 History calcium carbonate 500 mg calcium 500 mg PO DAILY 04/07/21 03/06/23 History (1,250 mg) tablet (Calcium 500) glucosamine 750 ms-zjpjfk-lzh 2-C 2 tab PO DAILY 04/07/21 03/06/23 History 30 mg-D3 1,000 unit-thalia 1 mg tablet (Fkqtybhumvo-Womebsywysz-UGU + vitD) multivitamin (Daily Multi-Vitamin 3 tab PO DAILY 04/07/21 03/06/23 History tablet) super enzymes 1 tab PO DAILY 04/07/21 03/06/23 History vitamin B complex 1 cap PO DAILY 04/07/21 03/06/23 History bromelains 500 mg tablet 1,500 mg PO DAILY PRN 06/23/21 03/06/23 History magnesium citrate 100 mg tablet 100 mg PO DAILY PRN constipation 10/18/21 03/06/23 History lidocaine HCl 2 % mucosal solution 15 ml mucous membrane .4-6 TIMES 02/14/23 03/06/23 Rx (Lidocaine Viscous) DAILY PRN mouth pain #600 mL ferrous sulfate 325 mg (65 mg 325 mg PO DAILY #90 tab-caps 02/15/23 03/06/23 Rx iron) tablet bisacodyl 5 mg tablet,delayed 5 mg PO ONCE colonscopy bowel prep 03/02/23 03/06/23 Rx release (Dulcolax (bisacodyl)) #4 tabs Exam Const General: cooperative, healthy appearing, comfortable and no acute distress Nutritional Appearance: cachectic and malnourished Orientation: alert, awake and oriented x3 Other: PHYSICAL EXAM GENERAL APPEARANCE: Alert, healthy appearance, oriented, x 3,? in no acute distress HYDRATION: Well hydrated HEAD, EYES, EARS, NECK, THROAT: Head is normocephalic, pupils equal, round, reactive to light and accommodation, ocular movement intact, sclera clear and no jaundice. ?Dentition - poor. . No sore throat.? No thrush NECK: no lymphadenopathy.? Trachea midline.? Neck supple.? No JVD LUNGS: normal respiration/normal chest excursion. ?Clear to auscultation bilaterally. ?No wheeze. ?HEART: Regular rate and rhythm. no murmurs EXTREMITY: No edema or cyanosis.? no leg pain, redness, swelling.? ABDOMEN: soft and non-tender to palpation.? Normal bowel sounds.? ? Results Labs 03/06/23 11:00 03/06/23 11:00 Labs: Laboratory Results - last 24 hr 03/06/23 03/06/23 11:00 11:00 WBC 6.38 RBC 3.69 L Hgb 9.6 L Hct 31.4 L MCV 85 MCH 26.0 L MCHC 30.6 L RDW 15.7 H Plt Count 421 H MPV 8.1 Immature Gran % 0.2 Neutrophils % 73.7 Lymphocytes % 11.9 Monocytes % 13.3 Eosinophils % 0.3 Basophils % 0.6 Nucleated RBC % 0.0 Absolute Neutrophils 4.70 Absolute Lymphocytes 0.76 L Absolute Monocytes 0.85 H Absolute Eosinophils 0.02 Absolute Basophils 0.04 Sodium 137 Potassium 3.6 Chloride 100 Carbon Dioxide 27.8 Anion Gap 9.2 BUN 11 Creatinine 0.7 Est GFR (CKD-EPI 2020) 90.70 Glucose 79 Calcium 9.4 Total Bilirubin 0.4 AST 11 L ALT 11 L Alkaline Phosphatase 71 C-Reactive Protein 4.63 H Total Protein 6.4 Albumin 2.3 L TSH 1.13 Last Vital Signs Temp 36.2 C L 03/06/23 10:44 Pulse 71 03/06/23 10:44 Resp 16 03/06/23 10:44 BP 101/72 03/06/23 10:44 Pulse Ox 98 03/06/23 10:44 Time Spent Time spent with Patient: 55-74 minutes Time was spent: preparing to see the patient(eg.review tests), obtaining and/or reviewing separately otained hiistory, ordering medications,tests, procedures, referring, communicating with other health behavioral health care coordinator, indepentently interpreting results, counseling the patient and care coordination
[2023-03-06] MEDS: Omnipaque 350 MG/ML 100 ML BTL IJ (12:31)
[2023-03-06] MEDS: Normal Saline - Diluent 50 ML VIAL IJ (12:33)
[2023-03-06] MEDS: DEXTROSE 5%-0.45% SALINE 1,000 ML 82 ML IV (14:47)
[2023-03-06] MEDS: Normal Saline Flush 10 ML SYR IV (14:49)
[2023-03-06 15:16] LABS: C Diff PCR Negative (Negative)
[2023-03-06] MEDS: Hydrocortisone SOD SUC. 100 MG VIAL IVP ×2 (16:15→22:29)
[2023-03-06] MEDS: FAMOTIDINE 20 MG/50 ML BAG 196.078 MG IVPB (18:21)
[2023-03-06] MEDS: Enoxaparin 40 MG/0.4 ML SYR SC (18:21)
[2023-03-06] MEDS: Normal Saline 500 ML 125 ML IV (18:22)
--- NOTE | 2023-03-06 19:46 | PGE_ITS ---
Date of Service Date of service: 03/06/23 Time of Service: 19:46 Assessment and Plan Assessment and plan (1) Protein-calorie malnutrition, moderate: Status: Acute (2) IBD (inflammatory bowel disease): Status: Acute Assessment and plan: The patient is doing well post-op. Their pain is well controlled. They are having no nausea or vomiting. The pt is not having any chest pain or SOB, productive cough; no calf pain or swelling. The pt is making good urine. The pt pain is adequately controlled. The case was discussed with nursing and patient?s progress reviewed. All of the pt's home medications were addressed and adjusted accordingly for their oral intact status. HEENT: no jaundice. no eye pain/drainage/redness/swelling. Mild sore throat Cardio- NSR no chest pain, BP stable. Pulm: no sob or productive cough. no hemoptysis Incision- clean/dry. Dressing intact no excessive bleeding or drainage I discussed with the patient and/or there family about the findings in surgery and the pt's progress. We reviewed expectations for progress in the hospital; what the pt could expect for recovery time and length of stay. We discussed the importance of walking and pulmonary toilet to avoid blood clots and pneumonia. Continue current plans for pulmonary toilet, GI and DVT prophylaxis. We shall continue the current plan for pain management as it is at an appropriate level, and working well for the pt. Appropriate measures will be taken for constipation prevention, and this was also reviewed with the pt. The wound care plan was reviewed with nursing as well. see orders -Flagyl/hydrcort -B12/folate/Fe were nl. -anemia crp- 4.[address] (3) Microcytic anemia: Status: Acute (4) Thyroid nodule: Status: Acute (5) Osteopenia: Status: Acute (6) Acute oral pain: Status: Resolved (7) Celiac disease: Status: Acute (8) Iron deficiency anemia: Status: Acute Qualifiers: Iron deficiency anemia type: unspecified iron deficiency Qualified Code(s): D50.9 - Iron deficiency anemia, unspecified (9) Hiatal hernia: Status: Chronic Objective Last Vital Signs Temp 37.4 C 03/06/23 19:17 Pulse 93 H 03/06/23 19:17 Resp 17 03/06/23 19:17 BP 96/60 L 03/06/23 19:17 Pulse Ox 95 03/06/23 19:17 Laboratory Results - last 24 hr 03/06/23 03/06/23 03/06/23 11:00 11:00 11:00 WBC 6.38 RBC 3.69 L Hgb 9.6 L Hct 31.4 L MCV 85 MCH 26.0 L MCHC 30.6 L RDW 15.7 H Plt Count 421 H MPV 8.1 Immature Gran % 0.2 Neutrophils % 73.7 Lymphocytes % 11.9 Monocytes % 13.3 Eosinophils % 0.3 Basophils % 0.6 Nucleated RBC % 0.0 Absolute Neutrophils 4.70 Absolute Lymphocytes 0.76 L Absolute Monocytes 0.85 H Absolute Eosinophils 0.02 Absolute Basophils 0.04 Sodium 137 Potassium 3.6 Chloride 100 Carbon Dioxide 27.8 Anion Gap 9.2 BUN 11 Creatinine 0.7 Est GFR (CKD-EPI 2020) 90.70 Glucose 79 Calcium 9.4 Total Bilirubin 0.4 AST 11 L ALT 11 L Alkaline Phosphatase 71 C-Reactive Protein 4.63 H Total Protein 6.4 Albumin 2.3 L TSH 1.13 Stl C.difficile Tox PCR Patient ABO/Rh A Negative Antibody Screen NEGATIVE 03/06/23 14:15 WBC RBC Hgb Hct MCV MCH MCHC RDW Plt Count MPV Immature Gran % Neutrophils % Lymphocytes % Monocytes % Eosinophils % Basophils % Nucleated RBC % Absolute Neutrophils Absolute Lymphocytes Absolute Monocytes Absolute Eosinophils Absolute Basophils Sodium Potassium Chloride Carbon Dioxide Anion Gap BUN Creatinine Est GFR (CKD-EPI 2020) Glucose Calcium Total Bilirubin AST ALT Alkaline Phosphatase C-Reactive Protein Total Protein Albumin TSH Stl C.difficile Tox PCR Negative Patient ABO/Rh Antibody Screen Time Spent with Patient Time Spent with Patient: <25 minutes Time was spent: preparing to see the patient(eg.review tests), obtaining and/or reviewing separately otained hiistory, ordering medications,tests, procedures, referring, communicating with other health certified social workers in health care, indepentently interpreting results, counseling the patient and care coordination
--- NOTE | 2023-03-06 20:04 | ENDO_ITS ---
Date of service: 03/06/23 Time of Service: 20:04 Endoscopy Report DATE OF PROCEDURE: 03/06/23 PRE-OP DIAGNOSIS: dysphagia/hx of Scatzki's ring & stricture/wt loss POST-OP DIAGNOSIS: other (hiatal hernia) SURGEON: Mary Fitzgerald ANESTHESIA TYPE: General:No Airway ESTIMATED BLOOD LOSS: 2 PATHOLOGY: other COMPLICATIONS: None DISPOSITION: same day PROCEDURE DESCRIPTION: After informed consent was obtained the patient was take to the procedure room and placed in a supine position. Monitors were applied and a time out was done. The patients name, date of , procedure type, allergies to medications and metal in their body was reviewed. A bite block was placed and the patient was sedated. Once sedated and comfortable the gastroscope was advanced through the oropharynx which was grossly normal into the esophagus. The proximal and mid- esophagus were normal. In the distal esophagus there was no: diverticula/varices/strictures. There is some irregularity at the GE junction which could be associated with Murillo's. The scope was advanced into the stomach and through the pylorus into the 3rd portion of the duodenum. The duodenum was noted to be normal. Biopsies were done, all specimens are retrieved and no bleeding is known. The scope was retracted back into the stomach and biopsies were done to rule out H. pylori. There were no ulcers. There is mild antral gastritis in a striped fashion. The scope was retroflexed. The cardia and fundus were noted to be normal. There a lg 8cm hiatal hernia noted. The scope was retracted back into the esophagus and biopsies were done of the GE junction to rule out Murillo's. The Z line was irregular. The scope was removed and we proceeded with the colonoscopy.
--- NOTE | 2023-03-06 20:13 | W.COLOREPORT ---
Date of service: 03/06/23 Time of Service: 11:00 Colonoscopy Report Date of procedure: 03/06/23 Pre-op diagnosis general: Diarrhea/weight loss/anemia Post-op diagnosis procedure note: other (Changes consistent with possible inflammatory bowel disease from 50 cm to the cecum) Surgeon: Mary Fitzgerald Anesthesia Type: General:No Airway Estimated blood loss (mL): 5 Pathology: other Complications: None Disposition: same day Prep: Miralax/Dulcolax Retraction Time: 6 Procedure Description: After informed consent was obtained the patient was taken to the procedure room and placed in a left decubitous position. Monitors were applied and a time out was done. The patients name, date of , procedure, allergies to medications and metal in their body was reviewed. The patient was then sedated. Once sedated and comfortable a rectal exam was done. External shows severe external hemorrhoidal disease with no signs of active inflammation or thrombosis. Internal exam revealed a normal sphincter tone and no palpable masses. The scope was then introduced and retrofelexed. Grade 1 internal hemorrhoids were identified. The scope was then advanced to the cecum without difficulty. The TI and appendiceal orifice were identified. The prep was even BBPS 3 in the transverse and left colon and 2 in the right colon for a total of 8.. The scope was then slowly retracted over 6 minutes back into the rectum. From 50 cm to the cecum she has intermittent ulcerations in the colon with a whitish to purulent discharge. There is erythema and edema associated with these. Again there are in a patchy configuration. There is some mild erythema from 30 to 50 cm. There is no rectal disease. There is no perianal disease, other than E. hemorrhoids. No diverticula are visualized. Polyps would not be seen secondary to the inflammation. Biopsies are taken of the cecum/70s/30s centimeters in the rectum. The scope was removed and the patient was woken up and taken back to Same day surgery in stable condition. The patient tolerated the procedure well and there were no immediate complications.
[2023-03-07] MEDS: DEXTROSE 5%-0.45% SALINE 1,000 ML 75 ML IV ×2 (03:00→21:28)
[2023-03-07] MEDS: metroNIDAZOLE 500 MG/100 ML BAG 100 MG IVPB ×2 (03:00→12:28)
[2023-03-07] MEDS: FAMOTIDINE 20 MG/50 ML BAG 196.078 MG IVPB (05:09)
[2023-03-07 07:07] LABS: C-Reactive Protein 5.25 mg/dL (0.0-0.3)
[2023-03-07 08:10] VITALS: BP 112/71; PULSE 79; RESP 18; TEMP 37; O2SAT 97
[2023-03-07] MEDS: Hydrocortisone SOD SUC. 100 MG VIAL IVP ×3 (09:24→23:04)
[2023-03-07] MEDS: Normal Saline Flush 10 ML SYR IV (09:25)
--- NOTE | 2023-03-07 13:40 | INITIAL_ITS ---
Date of service: 03/07/23 Time of Service: 13:40 Care Management Initial Assmt Initial Assessment REASON FOR HOSPITALIZATION:: Acute inflammatory bowel, Anemia, Weight loss. PREVIOUS FUNCTIONAL STATUS/SOCIAL/FAMILY SUPPORTS:: Isatu lives with her 19 lbs Sandra coon cat in [facility]. She is a retired bank accountant and filer finish. She has 2 brothers and a few neighbors who are supportive of her. She states one of her neighbors drives her to the grocery store. She does not drive but is independent with her ADLs at baseline. CURRENT FUNCTIONAL STATUS:: Isatu is sitting up in bed when CM comes to meet with her. She is pleasant and easily engages in conversation. She states she has received wonderful care at [facility] and praises the staff. She is already feeling much better and hopes to be returning home tomorrow. ADVANCE DIRECTIVES:: On file; Ricardo Bosch is appointed as HCA and Silvestre Bosch as alternate. Has patient been provided with info about the portal/API?: Yes Did the patient sign up for the portal?: Yes (Previously enrolled.) CODE STATUS:: Full Code INSURANCE COVERAGE / FINANCIAL ISSUES:: AARP [facility] Supplemental, Medicare and Medicaid CURRENT HOME/COMMUNITY SERVICES/EQUIPMENT:: No home/community services. Patient owns a walker but does not use it for ambulation. PRIMARY CARE PHYSICIAN:: Chelsie Martinez aprn POTENTIAL DISCHARGE NEEDS:: Follow up appointments with [facility] and [facility] and discharge plan of care. PATIENT/FAMILY EDUCATION NEEDS:: Review of discharge instructions including medications, limitations and follow up plan of care; discuss Ask Me Three and self management. ANTICIPATED BARRIERS TO DISCHARGE:: None. TRANSPORTATION:: Via [facility] private mobile lounge driver or operator. PLAN:: Isatu will return home with no services when medically cleared by provider. She will follow up with her PCP, surgeon and plan of care as instructed. She will be transported home via [facility] private mobile lounge driver or operator coordinated by CM when ready. CM will continue to follow. PFSH All Active Problems (Updated 03/06/23 @ 19:48 by Mary Fitzgerald DO) IBD (inflammatory bowel disease) (Acute) Protein-calorie malnutrition, moderate (Acute) Microcytic anemia (Acute) Thyroid nodule (Acute 09/07/11) X 3 PER ULTRASOUND Sensorineural hearing loss (Acute 09/22/11) [facility] IZABEL/AUDIO Consumes gluten free diet (Acute 11/30/14) Osteoporosis (Chronic) Hyperopia of both eyes with astigmatism and presbyopia (Acute) Osteopenia (Acute) Esophageal stenosis (Chronic) Schatzki ring dilation 08/2018 and again 08/17/20 @ [facility].. [ ] q annual re-eval? 09/17/2019 cooked vegetables instead of raw 05/23/22-[facility] upper GI endoscopy done with dilation. Dilator was performed to 20mm. History of total knee replacement (TKR) (Acute) Left .. Ortho recommends ABx for serious/systemic infection .. 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 2' ABx use or IBS (?) or other pathology (?) Pseudophakia, both eyes (Acute) 07/28/21 [facility] Opthalmology note Vitreous floaters of both eyes (Acute) 07/28/21 [facility] Opthalmology note Hyperopia of both eyes with regular astigmatism and presbyopia (Acute) 07/28/21 [facility] Opthalmology note Back pain (Acute) Flank pain (Acute) Esophagitis determined by endoscopy (Acute) 05/23/22-upper GI endoscopy done at [facility] with Dilation. LA Grade B esophagitis with no bleeding. 2cm hiatal hernia was present. the exam of the stomach was otherwise normal. The examined duodenum was normal. per [facility], trial alternate PPI, such as pantoprazole 40mg once daily. Hiatal hernia (Chronic) 05/23/22- noted per [facility] upper GI endoscopy report Chondrocalcinosis of right knee (Acute) Steroid injection: 12/14/2022 Iron deficiency anemia (Acute) Celiac disease (Acute) Per pt report, no records from previous testing Medical History (Updated 03/06/23 @ 19:48 by Mary Fitzgerald DO) Acute respiratory distress Anorectal fistula Biliary and gallbladder disorder Cataract (09/07/11) C/O POOR VISION IN BOTH EYES/ NO NIGHT DRIVING Chronic diarrhea Disorder of tendon previous knee issue but has since had a knee replacement IBS (irritable bowel syndrome) IBS (irritable bowel syndrome) Measles Mumps Pancreatic abnormality Scarlet fever Schatzki's ring of distal esophagus Sinus bradycardia Varicella Surgical History (Updated 03/06/23 @ 14:25 by Madisyn Christopher) Colonoscopy - MAC (~02/2023) 11/24;[facility] History of abdominal hysterectomy (02/23/12) Done for tubal /no hx.abnormal paps History of bilateral oophorectomy (02/23/12) pt. states left one ovary History of cataract extraction (~11/2011) History of dislocation of knee (~1976) Left knee due to deformity History of endoscopy 05/23/22; [facility] upper GI endoscopy with dilation. History of esophagogastroduodenoscopy (~02/2023) History of knee replacement History of wrist fracture (~2002) Left Family History Mother Depression Father Diabetes Heart disease ARRHYTHMIA Hypertension Sister Hypothyroidism Breast cancer Sister Essential hypertension Smoker Stroke Brother Asthma Paternal Uncle Leukemia Social History Smoking/Tobacco Use Status: Former Tobacco Use Quit Date: 07/16/72 Smoking risk assessment performed?: Yes Alcohol Intake: current Alcohol Intake frequency: holidays/special occasions only Alcohol type: wine Drug use: Never Substance use type: does not use Details: unknown Adopted: No Caregiver/Support person: No Foster care: No Household members: none Housing: house Number of Children: 1 number of grandchildren: 2 Do you need help understanding health information?: Never current occupation: Retired Sexually active: No Do you think of yourself as: straight/heterosexual Current gender identity: female What is your relationship status?: Panel score (0-1 are the most socially isolated patients): 0 What type of physical activity do you participate in: walking Duration: 15-30 minutes/day Frequency: 3-4 times per week Do you feel safe at home: Yes Do you feel safe in your relationship?: Yes
[2023-03-07 15:23] LABS: ANCA Interpretation Negative (Negative)
[2023-03-07 15:25] LABS: ANA Interpretation Negative (Negative)
[2023-03-07 15:47] VITALS: BP 110/64; PULSE 68; RESP 17; TEMP 36.7; O2SAT 94
[2023-03-07] MEDS: Normal Saline Flush 10 ML SYR IVP (15:58)
--- NOTE | 2023-03-07 16:11 | PGE_ITS ---
Date of Service Date of service: 03/07/23 Time of Service: 16:11 Assessment and Plan Assessment and plan (1) IBD (inflammatory bowel disease): Status: Acute Assessment and plan: I will advance her diet to a postop diet this evening. I encouraged her to take what ever she wants. I will also switch her antibiotics by mouth anticipating discharge tomorrow. Subjective Subjective Interval history since last seen: She is feeling much better today. She has had some semiformed bowel movements today without any pain. She denies any nausea or vomiting, and has a slight increase in her appetite for liquids. Exam GI Other: Her abdomen is soft and nondistended. She is not tender. Objective Last Vital Signs Temp 98.1 F 03/07/23 15:47 Pulse 68 03/07/23 15:47 Resp 17 03/07/23 15:47 BP 110/64 03/07/23 15:47 Pulse Ox 94 03/07/23 15:47 Laboratory Results - last 24 hr 03/06/23 03/07/23 11:00 06:15 C-Reactive Protein 5.25 H TONI Titer Not Applicable TONI Titer 2 Not Applicable TONI Titer 3 Not Applicable TONI Interpretation Negative ANCA Immunofluorescen Negative ANCA Titer Not Applicable ANCA Pattern Not Applicable Time Spent with Patient Time Spent with Patient: 25-34 minutes Time was spent: preparing to see the patient(eg.review tests), referring, communicating with other health patient care coordinator and counseling the patient
[2023-03-07] MEDS: Enoxaparin 40 MG/0.4 ML SYR SC (18:38)
[2023-03-07] MEDS: metroNIDAZOLE 500 MG TAB PO (19:57)
[2023-03-08] MEDS: FAMOTIDINE 20 MG/50 ML BAG 200 MG IVPB (05:09)
[2023-03-08 05:13] VITALS: BP 117/71; PULSE 62; RESP 16; TEMP 36.2; O2SAT 97
[2023-03-08 06:52] LABS: C-Reactive Protein 3.26 mg/dL (0.0-0.3)
[2023-03-08 08:00] VITALS: BP 104/63; PULSE 69; RESP 20; TEMP 36.4; O2SAT 96
--- NOTE | 2023-03-08 08:23 | W.PM.PROGNOT ---
Date of Service Date of service: 03/08/23 Time of Service: 07:03 Assessment and Plan Assessment and plan (1) IBD (inflammatory bowel disease): Status: Acute Assessment and plan: Isatu describes she is feeling much better and is eager to return home. She is tolerating the advanced diet. Soft BMs continue. Denies abdominal pain or cramping. Encouraged activity OOB. If she continues to tolerate the advanced diet, anticipate d/c home later today. Patient seen and examined. Plan discharge today. Subjective Subjective Interval history since last seen: Provider. She states she is yesterday about the transit time after eating to have bowel movement was longer. I didn't have to go to the bathroom within 15-20 mins of eating. It wasn't until the afternoon, when I had a BM. She describes that the abdominal pain she was having has significantly improved and she is optimistic about going home. Exam Const General: cooperative, healthy appearing and comfortable Orientation: alert and oriented x3 Resp Effort & Inspection: normal respiratory effort, no audible wheezes and no cough GI Inspection: normal to inspection and non-distended Objective Last Vital Signs Temp 36.2 C L 03/08/23 05:13 Pulse 62 03/08/23 05:13 Resp 16 03/08/23 05:13 BP 117/71 03/08/23 05:13 Pulse Ox 97 03/08/23 05:13 Laboratory Results - last 24 hr 03/06/23 03/08/23 11:00 06:28 C-Reactive Protein 3.26 H TONI Titer Not Applicable TONI Titer 2 Not Applicable TONI Titer 3 Not Applicable TONI Interpretation Negative ANCA Immunofluorescen Negative ANCA Titer Not Applicable ANCA Pattern Not Applicable Time Spent with Patient Time Spent with Patient: 25-34 minutes (This) Time was spent: preparing to see the patient(eg.review tests), obtaining and/or reviewing separately otained hiistory, ordering medications,tests, procedures, referring, communicating with other health care associate, indepentently interpreting results, counseling the patient and care coordination
[2023-03-08] MEDS: metroNIDAZOLE 500 MG TAB PO (08:50)
--- NOTE | 2023-03-08 08:50 | W.PM.DS.N ---
Date of service: 03/08/23 Time of Service: 08:50 DS: Diagnosis Discharge Diagnosis (1) IBD (inflammatory bowel disease): Status: Acute Discharge Plan Disposition Patient Disposition: Home Condition: Improving Discharge Details Reason For Visit: Acute Inflammatory Bowel/Anemia/Weight Loss Admit Date/Time: 03/06/23 11:33 Admit Provider: Mary Fitzgerald Attending Provider: Mary Fitzgerald Primary Care Provider: JuanChelsie mack [facility] Hospital Course: Patient is a 72-year-old white female who has been suffering with diarrhea abdominal pain and weight loss. She underwent a colonoscopy on 822 which showed from 50 cm to the cecum ulcerating lesions of purulent membrane in a noncontiguous pattern and no rectal disease. CRP 6. Today she feels much better she has not been having more formed stools and only 2 a day. She is not having any abdominal pain. her mouth ulcers are better. She will be discharged home on a tapering dose of steroids and Flagyl and Pepcid. I will see her back in the office in a week I will review labs and MD pathology report. Patient will also stay on the FODMAP diet for the next 2 weeks she was given information on this. Patient understood all discharge in stable and satisfactory condition. She will hold all her supplements at this time. Home Meds and New Rx's Prescriptions: New dicyclomine 10 mg Capsule 10 mg PO QID PRN PRN (Reason: Abdominal cramping) Qty: 30 0RF metronidazole 500 mg Tablet 500 mg PO TID Qty: 7 0RF famotidine (PF)-NaCl (iso-os) 20 mg/50 mL Piggyback 20 mg IVPB Q24H Qty: 30 0RF budesonide 9 mg capsule, extended release 9 mg PO DAILY 10 Days Qty: 10 0RF Continued acetaminophen 500 mg capsule 500 mg PO Q6H PRN Hold Instructions: Resume on 03/22/23. lidocaine HCl [Lidocaine Viscous] 2 % solution 15 ml mucous membrane .4-6 TIMES DAILY PRN (Reason: mouth pain) Qty: 600 0RF Held bone builder 1 tab PO DAILY Hold Instructions: Resume on 03/22/23. Rx Instructions: contains vit B,D,c, Niacin, Calcium,Phos, Mg, Zinc,Copper, Manganese,Chromium vitamin B complex Capsule 1 cap PO DAILY Hold Instructions: Resume on 03/22/23. cholecalciferol (vitamin D3) [Vitamin D3] 50 mcg (2,000 unit) capsule 10,000 unit PO DAILY Hold Instructions: Resume on 03/22/23. Rx Instructions: 1/2 tab daily alpha galactosidase enzyme tablet 1 tab PO DAILY Hold Instructions: Resume on 03/22/23. Rx Instructions: 05/11/20-pt reported via portal message this is a need supplement she has added with meals to help digest carbohydrates. NC calcium carbonate [Calcium 500] 500 mg calcium (1,250 mg) tablet 500 mg PO DAILY Hold Instructions: Resume on 03/22/23. Rx Instructions: as part of bone builder supplement [id number] with vit D 750-30-1,000-1 fx-ae-wtig-mg tablet 2 tab PO DAILY Hold Instructions: Resume on 03/22/23. multivitamin [Daily Multi-Vitamin] Tablet 3 tab PO DAILY Hold Instructions: Resume on 03/22/23. bromelains 500 mg tablet 1,500 mg PO DAILY PRN Hold Instructions: Resume on 03/22/23. Rx Instructions: administer after a meal per pt--aids in digesting proteins and for joint pain Discontinued HCL pepsin 1 tab PO DAILY Rx Instructions: 250 mg. Takes at the start of a meal. super enzymes 1 tab PO DAILY Rx Instructions: Takes at the start of meal. Contains 200 mg of HCL magnesium citrate 100 mg tablet 100 mg PO DAILY PRN (Reason: constipation) Patient Comments: pt. states it was a long time ago polyethylene glycol 3350 17 gram/dose powder 238 g PO ONCE Qty: 238 0RF Rx Instructions: take per colonoscopy instructions bisacodyl [Dulcolax (bisacodyl)] 5 mg tablet,delayed release (DR/EC) 5 mg PO ONCE Qty: 4 0RF Rx Instructions: take per colonoscopy instructions aspirin 325 MG tablet 650 mg PO Q4H PRN Vitamin C 100 MG tablet 1 mg PO PRN vitamin E mixed 400 UNIT capsule 400 unit PO HS ferrous sulfate 325 mg (65 mg iron) tablet 325 mg PO DAILY Qty: 90 0RF Rx Instructions: Take with water or juice on an empty stomach Discharge Instructions Additional Instructions: -No driving for 24 days or of you are taking narcotic pain medications. -Please hold all your supplements for the next 2 weeks. -Follow-up with Dr. Fitzgerald in 1 week. -plan on going to lab 1hr prior to appt -follow FODMAO diet for the next two weeks. -no straining to move bowels -It is ok to shower. No swimming or hot tubs -Protein supplements daily. I would go to natural provisions or your local food colon to see if they have vegan protein sources such as hemp, soy, or pea protein. You can mix these with y and/old soy or almond milk. You may find that your appetite is smaller. Eat 3-6 small meals throughout the day. It is important to drink lots of water after surgery, 6-10 glasses a day. 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 -We do want you up walking, at least 5-6 times per day. This is very important to prevent pneumonia and blood clots. You can climb stairs, take them slowly. -No lifting over 5 pounds. This is very important to avoid developing a hernia in your incision. -You may find that you are very tired after being in the hospital- this is normal. Stand Alone Forms: Anesthesia Discharge InstLalito Chavarria (DSU) Activity:: See above Equipment/Supplies:: No Equipment Needed Diet:: see above Discharge Orders Discharge Orders: Discharge Order (Routine); Ordered 03/06/23 Ordered By: Mary Fitzgerald DS: Summary Time Spent with Patient providing and/or coordinating discharge services: Greater than 30 minutes Status at Discharge Functional status at discharge: independent ambulation Overall status at discharge: patient is progressing back to baseline Mental Status: mental status grossly normal Speech and Movement: speech and movement normal Mood: congruent mood Affect: normal affect Exam Psych Mental Status: mental status grossly normal Speech and Movement: speech and movement normal Mood: congruent mood Affect: normal affect DS: Data Vitals/I&O Vitals and I&O: Vital Signs Temperature 36.2 C L 03/08/23 05:13 Temperature Source Tympanic 03/08/23 05:13 Pulse 62 03/08/23 05:13 Pulse Rhythm Regular 03/07/23 23:38 Respiratory Rate 16 03/08/23 05:13 Respiratory Effort Normal, Non-Labored 08/23/23 23:38 Respiratory Depth Normal 03/07/23 23:38 Respiratory Pattern Normal 03/07/23 23:38 Blood Pressure 117/71 03/08/23 05:13 Pulse Oximetry 97 03/08/23 05:13 Oxygen Delivery Method Room Air 03/08/23 05:13 Oxygen Flow Rate 0 03/08/23 05:13 Pain Level 0 03/08/23 05:13 Comment intermittent cramping is pain in abd 03/06/23 15:07 Intake & Output 03/07/23 03/07/23 03/08/23 11:59 23:59 11:59 Intake Total 955 / 2055 1100 / 2054 Output Total 950 / 1500 550 / 1500 Balance 5 / 555 550 / 555 Intake: IV 955 / 2055 1100 / 2054 Output: Urine 600 / 800 200 / 800 Stool 350 / 700 350 / 700 Other: Urine Color Light Priyanka Yellow Urine Appearance Clear Clear Stool Size Small Moderate Stool Characteristics Liquid Liquid Brown Voiding Methods Bedside Commode Data Completed and Pending Labs on day of discharge: Labs from last 24 hours 03/08/23 03/06/23 06:28 11:00 C-Reactive Protein 3.26 H TONI Titer Not Applicable TONI Titer 2 Not Applicable TONI Titer 3 Not Applicable TONI Interpretation Negative ANCA Immunofluorescen Negative ANCA Titer Not Applicable ANCA Pattern Not Applicable 03/06/23 10:03 Rectal Anaerobic Culture - Pending Preliminary micro results at discharge 03/06/23 10:03 Surgical Culture - Preliminary Rectal Escherichia coli Gram Positive Alayna,Mixed 03/06/23 10:03 Anaerobic Culture - Pending Rectal PFSH All Active Problems (Updated 03/06/23 @ 19:48 by Mary Fitzgerald DO) IBD (inflammatory bowel disease) (Acute) Protein-calorie malnutrition, moderate (Acute) Microcytic anemia (Acute) Thyroid nodule (Acute 09/07/11) X 3 PER ULTRASOUND Sensorineural hearing loss (Acute 09/22/11) [facility] IZABEL/AUDIO Consumes gluten free diet (Acute 11/30/14) Osteoporosis (Chronic) Hyperopia of both eyes with astigmatism and presbyopia (Acute) Osteopenia (Acute) Esophageal stenosis (Chronic) Schatzki ring dilation 08/2018 and again 08/17/20 @ [facility].. [ ] q annual re-eval? 09/17/2019 cooked vegetables instead of raw 05/23/22-[facility] upper GI endoscopy done with dilation. Dilator was performed to 20mm. History of total knee replacement (TKR) (Acute) Left .. Ortho recommends ABx for serious/systemic infection .. 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 2' ABx use or IBS (?) or other pathology (?) Pseudophakia, both eyes (Acute) 07/28/21 [facility] Opthalmology note Vitreous floaters of both eyes (Acute) 07/28/21 [facility] Opthalmology note Hyperopia of both eyes with regular astigmatism and presbyopia (Acute) 07/28/21 [facility] Opthalmology note Back pain (Acute) Flank pain (Acute) Esophagitis determined by endoscopy (Acute) 05/23/22-upper GI endoscopy done at [facility] with Dilation. LA Grade B esophagitis with no bleeding. 2cm hiatal hernia was present. the exam of the stomach was otherwise normal. The examined duodenum was normal. per [facility], trial alternate PPI, such as pantoprazole 40mg once daily. Hiatal hernia (Chronic) 05/23/22- noted per [facility] upper GI endoscopy report Chondrocalcinosis of right knee (Acute) Steroid injection: 12/14/2022 Iron deficiency anemia (Acute) Celiac disease (Acute) Per pt report, no records from previous testing Medical History (Updated 03/06/23 @ 19:48 by Mary Fitzgerald DO) Acute respiratory distress Anorectal fistula Biliary and gallbladder disorder Cataract (09/07/11) C/O POOR VISION IN BOTH EYES/ NO NIGHT DRIVING Chronic diarrhea Disorder of tendon previous knee issue but has since had a knee replacement IBS (irritable bowel syndrome) IBS (irritable bowel syndrome) Measles Mumps Pancreatic abnormality Scarlet fever Schatzki's ring of distal esophagus Sinus bradycardia Varicella Surgical History (Updated 03/06/23 @ 14:25 by Madisyn Christopher) Colonoscopy - MAC (~02/2023) 11/24;[facility] History of abdominal hysterectomy (02/23/12) Done for tubal /no hx.abnormal paps History of bilateral oophorectomy (02/23/12) pt. states left one ovary History of cataract extraction (~11/2011) History of dislocation of knee (~1976) Left knee due to deformity History of endoscopy 05/23/22; [facility] upper GI endoscopy with dilation. History of esophagogastroduodenoscopy (~02/2023) History of knee replacement History of wrist fracture (~2002) Left Family History Mother Depression Father Diabetes Heart disease ARRHYTHMIA Hypertension Sister Hypothyroidism Breast cancer Sister Essential hypertension Smoker Stroke Brother Asthma Paternal Uncle Leukemia Social History Smoking/Tobacco Use Status: Former Tobacco Use Quit Date: 07/16/72 Smoking risk assessment performed?: Yes Alcohol Intake: current Alcohol Intake frequency: holidays/special occasions only Alcohol type: wine Drug use: Never Substance use type: does not use Details: unknown Adopted: No Caregiver/Support person: No Foster care: No Household members: none Housing: house Number of Children: 1 number of grandchildren: 2 Do you need help understanding health information?: Never current occupation: Retired Sexually active: No Do you think of yourself as: straight/heterosexual Current gender identity: female What is your relationship status?: Panel score (0-1 are the most socially isolated patients): 0 What type of physical activity do you participate in: walking Duration: 15-30 minutes/day Frequency: 3-4 times per week Do you feel safe at home: Yes Do you feel safe in your relationship?: Yes Time Spent with Patient Time Spent with Patient: 45-69 minutes Time was spent: preparing to see the patient(eg.review tests), obtaining and/or reviewing separately otained hiistory, ordering medications,tests, procedures, referring, communicating with other health home child care provider, indepentently interpreting results, counseling the patient and care coordination
[2023-03-08] MEDS: Hydrocortisone SOD SUC. 100 MG VIAL IVP (08:51)
--- NOTE | 2023-03-08 10:11 | CMDISCH_ITS ---
Date of service: 03/08/23 Time of Service: 10:11 LACE Index Scoring Tool Questions: Length of Stay (in days): 2 Was the patient admitted via the E.D.?: No E.D. Visits: 4 Answers: Total Score: 6 Risk of Readmission: Low Risk Care Management Discharge Plan Reason for Hospitalization: Acute inflammatory bowel, Anemia, Weight loss. Discharge Plan: Isatu is discharged home with no services. She will follow up with her PCP, [facility] and plan of care as instructed. She is transported home by [employer] flatbed driver coordinated by [facility]. Patient/Family Education Needs: Nursing staff review discharge instructions with patient including medications, limitations and follow up plan of care; discuss Ask Me Three and self management. Services Needed at Discharge: Transportation ([facility] [employer] flatbed driver)
== END 2023-03-08 10:25 | disposition home or self-care (01) | DRG 385 ==
LOC: MS 14:24
PROVIDERS: Admitting Provider Surgery; PCP Nurse Practitioner Family; Visit Provider Surgery
PROC: 0DB58ZX Excision of Esophagus, Via Natural or Artificial Opening Endoscopic, Diagnostic (ICD-10-PCS; CPT 45380; principal; 2023-03-06 09:15)
DX: K50.10 Crohn's disease of large intestine without complications (principal); K20.91 Esophagitis, unspecified with bleeding; E44.0 Moderate protein-calorie malnutrition; Z68.1 Body mass index [BMI] 19.9 or less, adult; R63.4 Abnormal weight loss; D50.9 Iron deficiency anemia, unspecified; M81.0 Age-related osteoporosis without current pathological fracture; K44.9 Diaphragmatic hernia without obstruction or gangrene; E88.09 Other disorders of plasma-protein metabolism, not elsewhere classified; R00.2 Palpitations; K22.2 Esophageal obstruction; H52.03 Hypermetropia, bilateral; H52.203 Unspecified astigmatism, bilateral; H52.4 Presbyopia; K64.4 Residual hemorrhoidal skin tags; K12.0 Recurrent oral aphthae; Z96.652 Presence of left artificial knee joint; M11.261 Other chondrocalcinosis, right knee; K29.70 Gastritis, unspecified, without bleeding; K64.0 First degree hemorrhoids; E04.1 Nontoxic single thyroid nodule; K63.89 Other specified diseases of intestine
CPT/HCPCS: 45380; 43239; 36415; 74177; 80053; 86255; 86850; 86900; 86901; 87077; 87493; 88305; 96365; 99223; 99231; 99239; J1650; 71260; 84443; 85025; 86038; 86140; 87070; 87075; 87186; 87205; 88312; J1720; J2704; J3490; Q9967

== ENCOUNTER 2023-03-14 02:05 | Outpatient (CLI) | payer MEDICARE, MEDICAID, SELFPAY ==
[2023-03-14 10:58] LABS: HCT 33.5 % (36.0-46.0); HGB 10.4 g/dL (11.2-15.7)
[2023-03-14 11:10] LABS: C-Reactive Protein 4.37 mg/dL (0.0-0.3)
== END 2023-03-14 02:06 | disposition home or self-care (01) ==
LOC: LBO 02:05
PROVIDERS: PCP Nurse Practitioner Family; Visit Provider Surgery
DX: D50.9 Iron deficiency anemia, unspecified (principal); E44.0 Moderate protein-calorie malnutrition; K52.9 Noninfective gastroenteritis and colitis, unspecified
CPT/HCPCS: 36415; 85014; 85018; 86140

== ENCOUNTER → 2023-03-15 10:30 | Outpatient (BNVA) | payer MEDICARE, MEDICAID, SELFPAY | PROVIDERS: PCP Nurse Practitioner Family; Referring Provider Nurse Practitioner Family; Visit Provider Surgery | DX: K50.10 Crohn's disease of large intestine without complications (principal); E44.0 Moderate protein-calorie malnutrition; D50.9 Iron deficiency anemia, unspecified | CPT/HCPCS: 99213 ==

== ENCOUNTER → 2023-03-27 01:45 | Outpatient (CLI) | payer MEDICARE, MEDICAID, SELFPAY ==
--- NOTE | 2023-03-27 08:30 | DI.DEXA_ITS ---
Exam(s) XR DEXA BONE DENSITY W/WO LUCINDA EXAM: XR DEXA BONE DENSITY W/WO LUCINDA CLINICAL HISTORY: screening for osteoporosis in postmenopausal woman,z78.0 TECHNIQUE: Hologic Horizon C densitometer analysis of left hip, lumbar spine and right forearm. La teral survey image of the thoracic and lumbar spine. COMPARISON: CR LUMBAR SPINE COMPLETE from 11/21/2011 CR XR CHEST 2V PA LATERAL from 12/05/2022 FINDINGS: Lateral view of the thoracic and lumbar spine shows no evidence of compression fractures. Bone mineral density measurements of the lumbar spine correspond to a total T-score of -3.6, in the o steoporotic range. Bone mineral density measurements of the left hip correspond to a total T-score of -3.5. The femora l neck T-score is -2.8, in the osteoporotic range. . Theright forearm bone mineral density measurements correspond to a T-score of the distal 3rd of -3.5 , in the osteoporotic range.. IMPRESSION: Osteoporosis of the spine, hip and forearm.
== END ==
PROVIDERS: PCP Family Medicine; Visit Provider Nurse Practitioner Family
DX: Z13.820 Encounter for screening for osteoporosis (principal); Z78.0 Asymptomatic menopausal state; M81.0 Age-related osteoporosis without current pathological fracture
CPT/HCPCS: 77080

== ENCOUNTER 2023-03-28 03:29 | Outpatient (CLI) | payer MEDICARE, MEDICAID, SELFPAY ==
[2023-03-28 10:47] LABS: HCT 35.5 % (36.0-46.0)
[2023-03-28 11:07] LABS: C-Reactive Protein 0.63 mg/dL (0.0-0.3)
== END 2023-03-28 03:30 | disposition home or self-care (01) ==
LOC: LBO 03:29
PROVIDERS: PCP Family Medicine; Visit Provider Surgery
DX: D50.9 Iron deficiency anemia, unspecified (principal); E44.0 Moderate protein-calorie malnutrition; K52.9 Noninfective gastroenteritis and colitis, unspecified
CPT/HCPCS: 36415; 85014; 85018; 86140

== ENCOUNTER → 2023-03-29 13:55 | Outpatient (BNVA) | payer MEDICARE, MEDICAID, SELFPAY | PROVIDERS: PCP Family Medicine; Referring Provider Nurse Practitioner Family; Visit Provider Surgery | DX: K50.10 Crohn's disease of large intestine without complications (principal); E44.0 Moderate protein-calorie malnutrition; D50.9 Iron deficiency anemia, unspecified; K20.90 Esophagitis, unspecified without bleeding | CPT/HCPCS: 99214 ==

== ENCOUNTER 2023-04-10 02:34 | Outpatient (CLI) | payer MEDICARE, MEDICAID, SELFPAY ==
[2023-04-11 11:11] LABS: HBs Antibody, Qual Negative (See Note); HBs Antibody, Quant <3.1 mIU/mL (See Note); Hepatitis B Core Antibody Negative (Negative); Hepatitis B surface Ag Negative (Negative); Hepatitis C Ab w Rflx HCV PCR Negative (Negative)
[2023-04-12 11:15] LABS: TB Interpretation Negative (Negative); TB1 Ag minus Nil 0.01 IU/ml; TB2 Ag minus Nil 0.01 IU/mL
== END 2023-04-10 02:35 | disposition home or self-care (01) ==
LOC: LBO 02:34
PROVIDERS: PCP Family Medicine; Visit Provider Surgery
DX: D50.9 Iron deficiency anemia, unspecified (principal); E44.0 Moderate protein-calorie malnutrition; D84.821 Immunodeficiency due to drugs; Z20.1 Contact with and (suspected) exposure to tuberculosis; Z79.899 Other long term (current) drug therapy
CPT/HCPCS: 36415; 86704; 86706; 86803; 87340; 86480

== ENCOUNTER 2023-05-08 02:46 | Outpatient (RCR) | payer MEDICARE, MEDICAID, SELFPAY ==
[2023-05-08] MEDS: ZOLEDRONIC ACID/MANNITOL/WATER 5 MG/100 ML BTL 300 MG IVPB (12:28)
[2023-05-08] MEDS: Normal Saline Flush 10 ML SYR IVP (12:28)
== END 2023-05-15 23:59 | disposition home or self-care (01) ==
LOC: INF 02:46
PROVIDERS: PCP Family Medicine; Visit Provider Family Medicine
DX: M81.0 Age-related osteoporosis without current pathological fracture
CPT/HCPCS: 96365; J3489

== ENCOUNTER 2023-05-24 17:45 | Outpatient (CLI) | payer MEDICARE, MEDICAID, SELFPAY ==
[2023-05-24 13:39] LABS: HCT 42.4 % (36.0-46.0); HGB 13.1 g/dL (11.2-15.7); MCH 28.5 pg (27.0-33.0); MCHC 30.9 % (32.0-36.0); MCV 92 fL (80-95); MPV 9.3 fL (8.0-11.0); Platelet Count 341 10^3/uL (130-400); RDW 19.5 % (11.7-14.6); RDW-SD 66.1 fL; WBC 7.42 10^3/uL (4.4-10.8)
[2023-05-24 14:22] LABS: Albumin 3.8 g/dL (3.4-5.0); Anion Gap 5.8 mmol/L (3-11); BUN 29 mg/dL (7-18); CO2 30.2 mmol/L (21.0-32.0); CREATININE 0.7 mg/dL (0.55-1.02); Calcium 10.1 mg/dL (8.5-10.1); Chloride 104 mmol/L (98-107); Glucose 129 mg/dL (74-106); Magnesium 2.3 mg/dL (1.8-2.4); Sodium 140 mmol/L (136-145)
[2023-05-24 15:28] LABS: C-Reactive Protein < 0.05 mg/dL (0.0-0.3)
== END 2023-05-24 17:46 | disposition home or self-care (01) ==
LOC: LBO 17:55
PROVIDERS: PCP Family Medicine; Visit Provider Surgery
DX: D50.9 Iron deficiency anemia, unspecified (principal); D84.821 Immunodeficiency due to drugs; E44.0 Moderate protein-calorie malnutrition; K50.10 Crohn's disease of large intestine without complications; D64.9 Anemia, unspecified
CPT/HCPCS: 36415; 80048; 85027; 99215; 82040; 83735; 86140

== ENCOUNTER → 2023-08-08 01:58 | Outpatient (CLI) | payer MEDICARE, MEDICAID, SELFPAY ==
[2023-08-08] MEDS: Omnipaque 350 MG/ML 100 ML BTL IJ (09:37)
[2023-08-08] MEDS: Omnipaque 350 MG/ML 50 ML BTL IJ (09:38)
[2023-08-08] MEDS: Normal Saline - Diluent 50 ML VIAL 100 ML IJ (09:39)
--- NOTE | 2023-08-08 09:45 | DI.CT_ITS ---
Exam(s) CT HEAD WO/W EXAM: CT HEAD WO/W CLINICAL HISTORY: ongoing dizziness,h/o fall,r42,sn hearing loss. TECHNIQUE: Imaging Protocol: Axial computed tomography images with coronal and sagittal reformatted images were created and reviewed. CONTRAST MATERIAL: Intravenous: Omnipaque 350 Contrast volume:structured data in ml COMPARISON: No exams were available for comparison FINDINGS: Ventricles and Extra axial spaces: Normal in size and morphology for the patient's age. Hemorrhage: None. Cerebral parenchyma: Normal. Enhancement: No suspicious enhancement. Normal enhancement [id number] vasculature and branch ve ssels. No visible aneurysm. Midline shift: None. Brainstem/Cerebellum: Normal. Calvarium: Normal. Visualized Paranasal sinuses/Mastoids: Clear. IMPRESSION: Normal CT scan of the head. RADIATION DOSE DELIVERED: 1,596.47mGy.cm Total DLP DATA REPOSITORY: All CT scans at this facility are submitted to the National Radiology Data Registry (NRDR) Dose Index Registry (DIR) with the [employer] (ACR). RADIATION OPTIMIZATION: All CT scans at this facility use at least one of these dose optimization te chniques: automated exposure control; mA and/or kV adjustment per patient size (includes targeted exa ms where dose is matched to clinical indication); or iterative reconstruction.
--- NOTE | 2023-08-08 10:00 | DI.CT_ITS ---
Exam(s) CT CAROTID NECK CTA EXAM: CT CAROTID NECK CTA CLINICAL HISTORY: fall/ongoing dizziness,r42. TECHNIQUE: Imaging Protocol: Axial CT angiography was performed with multi-slice acquisition and mu lti-planar and MIP reconstructions. CONTRAST MATERIAL: Intravenous: Omnipaque 350 Contrast volume:100 ml COMPARISON: US THYROID ULTRASOUND from 08/02/[address] CHEST/ABD/PEL W from 03/06/2023 FINDINGS: CT Head W/O and W contrast: Ventricles and Extra axial spaces: Normal in size and morphology for the patient's age. Hemorrhage: None. Cerebral parenchyma: No evidence of acute infarct or mass. Midline shift: None. Brainstem/Cerebellum: No acute findings.. Calvarium: Normal. Visualized Paranasal sinuses/Mastoids: Clear. Soft Tissues: Unremarkable. Enhancement: Normal. CTA Brain W: Internal Carotid Arteries: Petrous: Normal. Cavernous: Normal. Cerebral: Normal. Middle Cerebral Arteries: Right: No aneurysm, occlusion or significant stenosis. Left: No aneurysm, occlusion or significant stenosis. Anterior Cerebral Arteries: Right: No aneurysm, occlusion or significant stenosis. Left: No aneurysm, occlusion or significant stenosis. Posterior cerebral Arteries: Right: No aneurysm, occlusion or significant stenosis. Left: No aneurysm, occlusion or significant stenosis. Vertebral Arteries: Right: No aneurysm, occlusion or significant stenosis. Left: No aneurysm, occlusion or significant stenosis. Basilar Artery: No aneurysm, occlusion or significant stenosis. CTA Neck W: No visible atherosclerotic changes. Common Carotid: Right: No dissection, occlusion or significant stenosis. Left: No dissection, occlusion or significant stenosis. External Carotid: Right: No dissection, occlusion or significant stenosis. Left: No dissection, occlusion or significant stenosis. Internal Carotid: Right: No dissection, occlusion or significant stenosis. Left: No dissection, occlusion or significant stenosis. Vertebral Artery: Right: No dissection, occlusion or significant stenosis. Left: No dissection, occlusion or significant stenosis. Lung Apices: Bilateral upper lobe scarring. Bones: No acute abnormality. Soft Tissues: Large left-sided thyroid cystic and solid nodule again noted. Ultrasound could be cons idered for further evaluation. IMPRESSION: 1. CTA brain: Normal CTA examination of the [place]. 2. Head CT: Unremarkable CT Head. 3. CTA neck: Normal CTA examination of the neck. RADIATION DOSE DELIVERED: 246.09mGy.cm Total DLP DATA REPOSITORY: All CT scans at this facility are submitted to the National Radiology Data Registry (NRDR) Dose Index Registry (DIR) with the [employer] (ACR). RADIATION OPTIMIZATION: All CT scans at this facility use at least one of these dose optimization te chniques: automated exposure control; mA and/or kV adjustment per patient size (includes targeted exa ms where dose is matched to clinical indication); or iterative reconstruction.
== END ==
PROVIDERS: PCP Nurse Practitioner Adult Health; Visit Provider Surgery
DX: D84.821 Immunodeficiency due to drugs (principal); E44.0 Moderate protein-calorie malnutrition; H90.5 Unspecified sensorineural hearing loss; K50.10 Crohn's disease of large intestine without complications; R42 Dizziness and giddiness; W10.8XXA Fall (on) (from) other stairs and steps, initial encounter; Z78.0 Asymptomatic menopausal state; Z79.899 Other long term (current) drug therapy
CPT/HCPCS: 70498; 70470; J3490; Q9967

== ENCOUNTER 2023-08-29 04:01 | Outpatient (CLI) | payer MEDICARE, MEDICAID, SELFPAY ==
[2023-08-29 13:37] LABS: Abs Immature Grans 0.01 10^3/uL (0.0-0.06); Absolute Basophil Count 0.08 10^3/uL (0.0-0.2); Absolute Eosinophil Count 0.09 10^3/uL (0.0-0.7); Absolute Lymphocyte Count 2.11 10^3/uL (1.2-3.4); Absolute Monocyte Count 0.78 10^3/uL (0.1-0.8); Absolute Neutrophil Count 3.54 10^3/uL (1.2-6.7); Basophils % 1.2; Eosinophils % 1.4; HCT 43.4 % (36.0-46.0); HGB 14.1 g/dL (11.2-15.7); Immature Grans % 0.2; Lymphocytes % 31.9; MCH 30.7 pg (27.0-33.0); MCHC 32.5 % (32.0-36.0); MCV 95 fL (80-95); MPV 9.3 fL (8.0-11.0); Monocytes % 11.8; Neutrophils % 53.5; Platelet Count 301 10^3/uL (130-400); RBC 4.59 10^6/uL (3.93-5.22); RDW 14.4 % (11.7-14.6); RDW-SD 50.1 fL; WBC 6.61 10^3/uL (4.4-10.8)
[2023-08-29 13:38] LABS: ESR < 1 mm/hr (0-30)
[2023-08-29 14:20] LABS: Folate 11.6 ng/mL (8.6-20.0)
[2023-08-29 14:34] LABS: ALT 25 U/L (14-59); AST 13 U/L (15-37); Albumin 4.1 g/dL (3.4-5.0); Alkaline Phosphatase 56 U/L (46-116); Anion Gap 9.2 mmol/L (3-11); BUN 26 mg/dL (7-18); Bilirubin, Total 0.4 mg/dL (0.2-1.0); CO2 30.8 mmol/L (21.0-32.0); CREATININE 0.9 mg/dL (0.55-1.02); Calcium 10.2 mg/dL (8.5-10.1); Chloride 103 mmol/L (98-107); Estimated GFR 66.67 (mL/min/1.73m2); Ferritin 42 ng/mL (8-252); Glucose 148 mg/dL (74-106); Sodium 143 mmol/L (136-145); Total Protein 7.4 g/dL (6.4-8.2); Vitamin B12 447 pg/mL (193-986)
[2023-08-29 14:45] LABS: C-Reactive Protein < 0.50 mg/dL (<or=0.5)
[2023-08-30 09:20] LABS: Prealbumin 24 mg/dL (20-40)
== END 2023-08-29 04:02 | disposition home or self-care (01) ==
LOC: LBO 04:01
PROVIDERS: PCP Nurse Practitioner Adult Health; Visit Provider Nurse Practitioner Adult Health
DX: K50.10 Crohn's disease of large intestine without complications (principal)
CPT/HCPCS: 36415; 80053; 85652; 82607; 82728; 82746; 84134; 85025; 86140

== ENCOUNTER 2023-09-07 21:26 | Outpatient (REF) | payer MEDICARE, MEDICAID, SELFPAY ==
[2023-09-11 15:02] LABS: Calprotectin <50.0 mcg/g
== END 2023-09-07 21:27 | disposition home or self-care (01) ==
LOC: LBN 21:26
PROVIDERS: PCP Nurse Practitioner Adult Health; Visit Provider Surgery
DX: Z79.899 Other long term (current) drug therapy; E83.52 Hypercalcemia; K44.9 Diaphragmatic hernia without obstruction or gangrene; K50.10 Crohn's disease of large intestine without complications
CPT/HCPCS: 83993

== ENCOUNTER 2023-09-21 07:18 | Day surgery (SDC) | payer MEDICARE, MEDICAID, SELFPAY ==
--- NOTE | 2023-09-20 22:22 | HPE_ITS ---
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 The?patient will be scheduled by my office. The pt understands that they need to do a bowel prep and the importance of hydration during this.? The patient understands there is a theoretical risk of renal failure.? For healthy patients we use Gatorade/Miralax Prep.? ? Plavix and coumadin will need to be held except in unusual circumstances. ? Patients in A. Fib do not need to be bridged with Lovenox or on CVA prophylaxis.? A baby ASA can be continued but full dose ASA needs to be stopped for 10 days prior to the procedure. A complete H & P is required within 30 days of the procedure.? GETA w/natural airway is used for the colonoscopy.? Informed consent is obtained for the procedural (explained in simple layman's terms that?the pt and/or family could understand) explaining risks vs benefits and alternatives to the procedure and consequences if we do not do the procedure and need/rational for the procedure. Risks include but are not limited to: bleeding, infection, perforation of colon.? This would necessitate emergency surgery to repair the damage w/ possible ostomy; and other associated complications w/ the required surgery. ? Also complications of anesthesia including aspiration, SD/CVA/, inability to complete the procedure. I discussed with the?patient would they could expect during the procedure, post procedure and recovery time and risks.? The patient understands that they need to have a ride home after the procedure.? The patient was given all this information in writing and expressed understanding. If there are any questions or concerns please feel free to contact our office.? Generally Colonoscopy does not require antibiotics prophylaxis, (10) Hiatal hernia: Status: Chronic (11) Immunocompromised state due to drug therapy: Status: Acute (12) Osteopenia after menopause: Status: Acute (13) Sinus bradycardia: (14) Schatzki's ring of distal esophagus: (15) Biliary and gallbladder disorder: (16) Celiac disease: (17) Chronic diarrhea: (18) Iron deficiency anemia: Qualifiers: Iron deficiency anemia type: unspecified iron deficiency Qualified Code(s): D50.9 - Iron deficiency anemia, unspecified History of Present Illness Narrative: Isatu is a 73-year-old white female who is well-known to me. She has a history of Crohn's disease which was diagnosed in February 2023. She had been having voluminous bloody diarrheal stools weight loss abdominal pain and lack of appetite. She was started on budesonide which controlled her symptoms well and then transition to Humira. She was having some side effects that she did not like from this medication. We had her consult GI. GI thinks [facility] has a good fit for her. Unfortunately we have been having trouble with her pharmacy getting this medication. GI at [facility] would prefer that when she was maintained on the Humira. We had ordered the biosimilar stil Cylezeta (sp). But now her insurance company does not want to cover that and they want her to go on Stelara which is a different medication that she has not been on. Patient is here today for colonoscopy for biopsies for f/u of her Crohn's disease. They completed a bowel prep with just a clear brownish residual effluent.? They not having any chest pain or shortness of breath, currently.? They are not experiencing any fever or chills.? They deny any productive cough or upper respiratory tract infection signs or symptoms.? They are not having abdominal pain, or nausea and vomiting.? They have not had any changes in medications, past medical history or past surgical history since previously being seen in the office. They have not had any accidents or have been in the ER since the clinic pre-operative evaluation. ??I reviewed the procedure with the patient today, including risks and benefits of the procedure, and what they could expect at home for recovery.? All questions are answered to the patient?s satisfaction today, and they are stable to proceed with the proposed procedure. Lab from 08/29 and her previous pathology and her recent GI consult can be reviewed in [facility]. All questions are answered today and she is stable for the proposed procedure Patient neck her last dose Humira last Sunday and she does not have any more doses. She is still having problems with her insurance company and trying to get to cover the medication. My office is continuing to work with this Isatu reports during the day she will anywhere between 1 and 4 bowel movements depending on what she eats and what kind of days she is having. They are generally formed. There is no blood in stool. She does have control over them. There is no blood in her stools. She is not having any significant abdominal pain. Her weight has been stable. She has been able to do her activities of daily living. She is not having any joint pain or swelling. She does have edema in her lower extremities, and she is wearing compression stockings for this, and this seems to control the edema well. Review of Systems All systems reviewed & are unremarkable except as noted in HPI and below PFSH All Active Problems Hypercalcemia (Acute) Fall (on) (from) other stairs and steps, initial encounter (Acute ~07/2023) Multisensory dizziness (Acute ~07/2023) Osteopenia after menopause (Acute) Immunocompromised state due to drug therapy (Acute) Crohn's colitis (Chronic ~2022) Protein-calorie malnutrition, moderate (Acute ~2022) Thyroid nodule (Acute 09/07/11) X 3 PER ULTRASOUND Sensorineural hearing loss (Acute 09/22/11) [facility]/AUDIO Consumes gluten free diet (Acute 11/30/14) Osteoporosis (Chronic) 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 [place] Opthalmology note Esophagitis determined by endoscopy (Acute) 05/23/22-upper GI endoscopy done at [facility] [place] [place] with Dilation. LA Grade B esophagitis with no bleeding. 2cm hiatal hernia was present. the exam of the stomach was otherwise normal. The examined duodenum was normal. per [facility] [place], trial alternate PPI, such as pantoprazole 40mg once daily. Hiatal hernia (Chronic ~2021) 05/23/22- noted per [facility] upper GI endoscopy report Chondrocalcinosis of right knee (Acute ~2022) Steroid injection: 12/14/2022 Medical History Celiac disease Per pt report, no records from previous testing Flank pain Back pain Hyperopia of both eyes with regular astigmatism and presbyopia 07/28/21 [facility] [place] Opthalmology note Vitreous floaters of both eyes 07/28/21 [facility] [place] Opthalmology note Acute oral pain Extended dental work, with multiple ABx (2020) .. with GI issues since then! Disequilibrium from vertigo Heart palpitations Hyperopia of both eyes with astigmatism and presbyopia Exposure to TB Microcytic anemia Iron deficiency anemia Schatzki's ring of distal esophagus Chronic diarrhea IBS (irritable bowel syndrome) Pancreatic abnormality Biliary and gallbladder disorder IBS (irritable bowel syndrome) Sinus bradycardia Acute respiratory distress Anorectal fistula Cataract (09/07/11) C/O POOR VISION IN BOTH EYES/ NO NIGHT DRIVING Disorder of tendon previous knee issue but has since had a knee replacement Measles Mumps Scarlet fever Varicella Surgical History History of esophagogastroduodenoscopy (~02/2023) History of endoscopy 05/23/22; [facility] [place] upper GI endoscopy with dilation. Esophageal stenosis Schatzki ring dilation 08/2018 and again 08/17/[address] [facility] [place] [facility].. [ ] q annual re-eval? 09/17/2019 cooked vegetables instead of raw 05/23/22-[facility] [place] upper GI endoscopy done with dilation. Dilator was performed to 20mm. History of knee replacement L History of wrist fracture (~2002) Left History of dislocation of knee (~1976) Left knee due to deformity History of abdominal hysterectomy (02/23/12) Done for tubal /no hx.abnormal paps History of cataract extraction (~11/2011) History of bilateral oophorectomy (02/23/12) pt. states left one ovary Colonoscopy - MAC (~02/2023) 11/24;[facility] [place] [facility] Family History Mother Depression Father Diabetes Heart disease ARRHYTHMIA Hypertension Denny's palsy Sister Hypothyroidism Breast cancer Sister Essential hypertension Smoker Stroke Anxiety Hypercholesteremia Brother Asthma Paternal Uncle Leukemia Brother Degenerative disorder of bone Denny's palsy Brother Bone marrow disease Social History Smoking/Tobacco Use Status: Former Tobacco Use Quit Date: 07/16/72 Smoking risk assessment performed?: Yes Alcohol Intake: current Alcohol Intake frequency: holidays/special occasions only Alcohol type: wine Drug use: Never Substance use type: does not use Adopted: No Caregiver/Support person: No Foster care: No Household members: none Housing: house Number of Children: 1 number of grandchildren: 2 Do you need help understanding health information?: Never current occupation: Retired Sexually active: No Do you think of yourself as: straight/heterosexual Current gender identity: female What is your relationship status?: Panel score (0-1 are the most socially isolated patients): 0 What type of physical activity do you participate in: walking Duration: 15-30 minutes/day Frequency: 3-4 times per week Do you feel safe at home: Yes Do you feel safe in your relationship?: Yes Meds Allergies and Home Medications Allergies Allergy/AdvReac Type Severity Reaction Status Date / Time Penicillins Allergy Intermediate Other (See Verified 09/21/23 08:21 Comment) azithromycin AdvReac Severe watery Verified 09/21/23 08:21 diarrhea, nausea, chills, sharp abdominal pain casein AdvReac Intermediate sinus Verified 09/21/23 08:21 infection/congestion, migraines clindamycin AdvReac Intermediate severe Verified 09/21/23 08:21 nausea/chills after extending use gluten AdvReac Intermediate Other (See Verified 09/21/23 08:21 Comment) [place] And Derivatives AdvReac decreases Verified 09/21/23 08:21 peristalisis grains Allergy colon Uncoded 09/21/23 08:21 blockage, insomnia, chills/hot flashes Home Medications Medication Instructions Recorded Confirmed Type bone builder 1 tab PO DAILY 08/14/19 09/21/23 History cholecalciferol (vitamin D3) 50 10,000 unit PO DAILY 08/14/19 09/21/23 History mcg (2,000 unit) capsule (Vitamin D3) calcium carbonate 500 mg calcium 500 mg PO DAILY 04/07/21 09/21/23 History (1,250 mg) tablet (Calcium 500) glucosamine 750 gz-nkfvlj-toy 2-C 2 tab PO DAILY 04/07/21 09/21/23 History 30 mg-D3 1,000 unit-thalia 1 mg tablet (Kajostwbbqz-Pdpnypkytlt-OZK + vitD) acetaminophen 500 mg capsule 650 mg PO Q6H PRN 05/28/23 09/21/23 History ascorbate calcium (vitamin C) 500 500 mg PO DAILY PRN 05/30/23 09/21/23 History mg tablet bromelains 500 mg tablet 500 mg PO ONCE PRN 05/31/23 09/21/23 History multivitamin (Daily Multi-Vitamin 3 tab PO DAILY PRN URI illness 05/31/23 09/21/23 History tablet) clindamycin HCl 300 mg capsule 600 mg (2 x 300 mg) PO .once PRN 08/20/23 09/21/23 Rx Prior to Dental #10 caps psyllium husk 0.52 gram capsule 0.52 g PO PRN 08/20/23 09/21/23 History (Fiber-Caps (psyllium husk)) adalimumab-adbm 40 mg/0.8 mL See Rx Instructions subcut 08/30/23 09/21/23 Rx subcutaneous pen kit (Cyltezo(CF) .COMPLEX Crohns #2 ea Pen) famotidine 40 mg tablet 40 mg PO HS 09/19/23 09/21/23 History Exam Narrative Exam Narrative: PHYSICAL EXAM GENERAL APPEARANCE: Alert, healthy appearance, oriented, x 3,? in no acute distress HYDRATION: Well hydrated HEAD, EYES, EARS, NECK, THROAT: Head is normocephalic, pupils equal, round, reactive to light and accommodation, ocular movement intact, sclera clear and no jaundice. ?Dentition intact. LUNGS: normal respiration/normal chest excursion. ?Clear to auscultation bilaterally. ?No wheeze. ?HEART: Regular rate and rhythm. no murmurs Patient complains of joint pain and lower extremity swelling-no pitting edema today. ABDOMEN: soft and non-tender to palpation.? Normal bowel sounds. Time Spent Time spent with Patient: 40-54 minutes Time was spent: preparing to see the patient(eg.review tests), obtaining and/or reviewing separately otained hiistory, ordering medications,tests, procedures, referring, communicating with other health rehab care assistant, indepentently interpreting results, counseling the patient and care coordination
--- NOTE | 2023-09-20 22:29 | PDOC.DSDIS_ITS ---
Date of service: 09/21/23 Time of Service: 12:00 Discharge Plan Disposition Patient Disposition: Home Condition: Good Discharge Details Reason For Visit: colonscopy Attending Provider: Mary Fitzgerald Primary Care Provider: Cynthia Lozoya Home Meds and New Rx's Prescriptions: Continued bone builder 1 tab PO DAILY Hold Instructions: Resume on 03/22/23. Rx Instructions: contains vit B,D,c, Niacin, Calcium,Phos, Mg, Zinc,Copper, Manganese,Chromium acetaminophen 500 mg capsule 650 mg PO Q6H PRN Hold Instructions: Resume on 03/22/23. psyllium husk [Fiber-Caps (psyllium husk)] 0.52 gram capsule 0.52 g PO PRN Patient Comments: Can take up to 3 caps daily clindamycin HCl 300 mg capsule 600 mg PO .once PRN (Reason: Prior to Dental) Qty: 10 1RF Rx Instructions: take 2 caps 1 hour prior to dentist appointment. cholecalciferol (vitamin D3) [Vitamin D3] 50 mcg (2,000 unit) capsule 10,000 unit PO DAILY Hold Instructions: Resume on 03/22/23. Rx Instructions: 1/2 tab daily calcium carbonate [Calcium 500] 500 mg calcium (1,250 mg) tablet 500 mg PO DAILY Hold Instructions: Resume on 03/22/23. Rx Instructions: as part of bone builder supplement Pqpmtnyx-Firbne-BWQ with vit D 750-30-1,000-1 lp-uv-otcu-mg tablet 2 tab PO DAILY Hold Instructions: Resume on 03/22/23. ascorbate calcium (vitamin C) 500 mg tablet 500 mg PO DAILY PRN Rx Instructions: 05/29/23-pt reports in portal message she takes this only as needed with onset of cold. multivitamin [Daily Multi-Vitamin] Tablet 3 tab PO DAILY PRN (Reason: URI illness) Hold Instructions: Resume on 03/22/23. bromelains 500 mg tablet 500 mg PO ONCE PRN Patient Comments: PRN - With caution; unsure of exact dosage Rx Instructions: administer after a meal adalimumab-adbm [Cyltezo(CF) Pen] 40 mg/0.8 mL pen injector kit See Rx Instructions subcut .COMPLEX Qty: 2 12RF Rx Instructions: inject two - 40 mg/0.8 mL pens on Day 1; inject one - 40 mg/0.8 mL pen every 2 weeks starting on Day 8 of therapy subcut famotidine 40 mg tablet 40 mg PO HS Patient Comments: TAKE ONE TABLET BY MOUTH EVERY DAY Discontinued polyethylene glycol 3350 17 gram/dose powder 238 g PO ONCE Qty: 238 0RF Rx Instructions: take per colonoscopy instructions bisacodyl [Dulcolax (bisacodyl)] 5 mg tablet,delayed release (DR/EC) 5 mg PO ONCE Qty: 4 0RF Rx Instructions: take per colonoscopy instructions Discharge Instructions Additional Instructions: DSU Colonoscopy Post- Op Instructions Instructions for Everyone who is given Anesthesia: For your safety, please do the following for the next twenty-four (24) hours: *Do Not operate a motor vehicle (car, truck, motorcycle, etc.) *Do Not drink alcoholic beverages or use any recreational drugs for the first 24 hours or while taking pain medications. The medications in your body may have a reaction that can be dangerous. *Do Not make any important decisions or sign any important papers. Findings: Procedure was just continued for patient's safety Continue taking adalimumab as previously scheduled 1. No lifting over 20 pounds or strenuous activity for the first 24 hours after your procedure. After 24 hours there are no restrictions on your activity but you may feel fatigued for a few days. 2. After you arrive home you may have a light meal and return to your normal diet as you can tolerate it without feeling sick to your stomach. 3. You may have a bloated, gaseous feeling in your belly (abdomen) after a colonoscopy. Passing gas and belching will help. Walking or lying down on your left side with your knees flexed may relieve the discomfort. Call the office at [phone] (Office) or [phone] (Hospital) right away if you notice any of the following: a.Vomiting of blood or ?coffee ground stools?. b.Rectal bleeding 1Tbsp, blood clots or continuous bleeding. c.Severe belly (abdominal) pain. d.A hard distended belly (abdomen) and an inability to pass gas. 4. Please don?t expect to have a normal BM (bowel movement) for 2-3 days after your procedure. 5. If there are questions regarding the findings of your procedure, please contact your doctor 6. If you are unable to contact your doctor with a problem, contact the hospital at [phone]. 7. Continue all your regular medications unless directed otherwise. I understand the above instructions and have no questions. Signature of Patient or Adult Escort Name of Responsible Adult Escort Signature of Nurse Date/Time Reviewed Activity:: See above Diet:: See above Discharge Orders Discharge Orders: Discharge Order (Routine); Ordered 09/21/23 Ordered By: Mary Fitzgerald DS: Diagnosis Discharge Diagnosis (1) Crohn's colitis: Status: Chronic Asessment and Plan: Not before for a full breath The patient is seen and examined after their anesthesia. s.? They are not having abdominal pain.? They have been able to tolerate liquids and a snack.? They do not have any nausea or vomiting.? They are not having any chest pain or shortness of breath.??? Their vital signs have been stable-see nursing notes. ? We reviewed resumption of medications. Patient verbalized understanding and discharged in stable and satisfactory condition- See nursing notes. 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
--- NOTE | 2023-09-20 22:33 | W.COLOREPORT ---
Date of service: 09/21/23 Time of Service: 11:00 Colonoscopy Report Date of procedure: 09/21/23 Pre-op diagnosis general: Crohn's disease Surgeon: Mary Fitzgerald Anesthesia Type: General:No Airway Procedure Description: After informed consent was obtained the patient was taken to the procedure room and placed in a left decubitous position. Monitors were applied and a time out was done. The patients name, date of , procedure, allergies to medications and metal in their body was reviewed. The patient was then sedated. Once sedated, pt devoloped heart block and would kory down as low as 30. There were no ST changes adn BP was stable. The procedure was abdomned for pt safety adn she was taken to PACU. Labs dand EKG were nl. She was in sinus in PACU. She was not having any chest pain or SOB. Risk Factors: former smoker. PMHx: Osteoporosis/penia and Crohn's, immunosuppression. Pt is active and asymptomatic and has not had any cardiac evaluation. Will plan on an echo. If there are any abnormalities, than holter and cardiac consult This document was created with voice activated software and may contain errors. 60 mins spent with the patient today.
[2023-09-21] VITALS (11 sets, daily range): BP systolic 114–140; BP diastolic 71–81; PULSE 58–73; RESP 15–23; TEMP 36.3–37.1; O2SAT 96–100; BMI 18.0
[2023-09-21] MEDS: Lactated Ringers 1,000 ML 80 ML IV (08:38)
--- NOTE | 2023-09-21 09:37 | W.ANESPRE ---
General Info Date of Service Date Performed: 09/21/23 Height: 5 ft 8 in Weight: 53.7 kg Body Mass Index (BMI): 18.0 Surgical Procedure: Operation Date: 09/21/23 09:05 Proposed Procedure Side Surgeon cholo Fitzgerald, DO Meds Allergies and Home Medications Allergies Allergy/AdvReac Type Severity Reaction Status Date / Time Penicillins Allergy Intermediate Other (See Verified 09/21/23 08:21 Comment) azithromycin AdvReac Severe watery Verified 09/21/23 08:21 diarrhea, nausea, chills, sharp abdominal pain casein AdvReac Intermediate sinus Verified 09/21/23 08:21 infection/congestion, migraines clindamycin AdvReac Intermediate severe Verified 09/21/23 08:21 nausea/chills after extending use gluten AdvReac Intermediate Other (See Verified 09/21/23 08:21 Comment) Noma And Derivatives AdvReac decreases Verified 09/21/23 08:21 peristalisis grains Allergy colon Uncoded 09/21/23 08:21 blockage, insomnia, chills/hot flashes Home Medication Medication Instructions Recorded bone builder 1 tab PO DAILY 08/14/19 cholecalciferol (vitamin D3) 50 10,000 unit PO DAILY 08/14/19 mcg (2,000 unit) capsule (Vitamin D3) calcium carbonate 500 mg calcium 500 mg PO DAILY 04/07/21 (1,250 mg) tablet (Calcium 500) glucosamine 750 qp-sszozj-vix 2-C 2 tab PO DAILY 04/07/21 30 mg-D3 1,000 unit-thalia 1 mg tablet (Vteowmieaej-Jltnstqbtjl-UFJ + vitD) acetaminophen 500 mg capsule 650 mg PO Q6H PRN 05/28/23 ascorbate calcium (vitamin C) 500 500 mg PO DAILY PRN 05/30/23 mg tablet bromelains 500 mg tablet 500 mg PO ONCE PRN 05/31/23 multivitamin (Daily Multi-Vitamin 3 tab PO DAILY PRN URI illness 05/31/23 tablet) clindamycin HCl 300 mg capsule 600 mg (2 x 300 mg) PO .once PRN 08/20/23 Prior to Dental #10 caps psyllium husk 0.52 gram capsule 0.52 g PO PRN 08/20/23 (Fiber-Caps (psyllium husk)) adalimumab-adbm 40 mg/0.8 mL See Rx Instructions subcut 08/30/23 subcutaneous pen kit (Cyltezo(CF) .COMPLEX Crohns #2 ea Pen) famotidine 40 mg tablet 40 mg PO HS 09/19/23 Current Visit Medications: Current Medications Generic Name Dose Route Start Last Admin Trade Name Freq PRN Reason Stop Dose Admin Hyoscyamine Sulfate 0.125 mg 09/20/23 10:20 Hyoscyamine 0.125 Mg Sl/Oral/Chew SL 10/20/23 10:19 ONCE PRN Ringer's Solution 1,000 mls @ 80 mls/hr 09/21/23 06:00 09/21/23 08:38 IV 09/21/23 23:59 80 mls/hr INFUSION RAMSES Administration IV Miscellaneous Supplies 1 each 09/21/23 06:00 Iv Access IV 09/21/23 23:59 DIRECTED RAMSES Ondansetron HCl 4 mg 09/21/23 10:20 Ondansetron 4 Mg/2 Ml Vial IVP 10/21/23 10:19 Q4H PRN PRN Nausea / Vomiting Sodium Chloride 0 ml 09/21/23 06:00 Normal Saline Flush 10 Ml Syr IV 09/21/23 23:59 PRN PRN Sodium Chloride 0 ml 09/21/23 06:00 Normal Saline 10 Ml Vial IJ 09/21/23 23:59 DIRECTED PRN Sterile Water 0 ml 09/21/23 06:00 Water,Injection,Sterile 10 Ml Vial IJ 09/21/23 23:59 DIRECTED PRN PFSH Active Problems Active Problems: Problem Status Onset Code Hypercalcemia E83.52 Fall (on) (from) other stairs and steps, initial encounter ~07/2023 W10.8XXA Multisensory dizziness ~07/2023 R42 Osteopenia after menopause M85.80, Z78.0 Immunocompromised state due to drug therapy D84.821, Z79.899 Crohn's colitis ~2022 K50.10 Protein-calorie malnutrition, moderate ~2022 E44.0 Thyroid nodule 09/07/11 E04.1 Sensorineural hearing loss 09/22/11 H90.5 Consumes gluten free diet 11/30/14 Z78.9 Osteoporosis M81.0 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 with GI issues since then! Disequilibrium from vertigo Heart palpitations Hyperopia of both eyes with astigmatism and presbyopia Exposure to TB Microcytic anemia Iron deficiency anemia Schatzki's ring of distal esophagus Chronic diarrhea IBS (irritable bowel syndrome) Pancreatic abnormality Biliary and gallbladder disorder IBS (irritable bowel syndrome) Sinus bradycardia Acute respiratory distress Anorectal fistula Cataract (09/07/11) C/O POOR VISION IN BOTH EYES/ NO NIGHT DRIVING Disorder of tendon previous knee issue but has since had a knee replacement Measles Mumps Scarlet fever Varicella Surgical History Surgical History History of esophagogastroduodenoscopy (~02/2023) History of endoscopy 05/23/22; [facility] upper GI endoscopy with dilation. Esophageal stenosis Schatzki ring dilation 08/2018 and again 08/17/20 @ [facility].. [ ] q annual re-eval? 09/17/2019 cooked vegetables instead of raw 05/23/22-[facility] upper GI endoscopy done with dilation. Dilator was performed to 20mm. History of knee replacement L History of wrist fracture (~2002) Left History of dislocation of knee (~1976) Left knee due to deformity History of abdominal hysterectomy (02/23/12) Done for tubal /no hx.abnormal paps History of cataract extraction (~11/2011) History of bilateral oophorectomy (02/23/12) pt. states left one ovary Colonoscopy - MAC (~02/2023) 11/24;[facility] Tobacco Smoking/Tobacco Use Status: Former Tobacco Use Alcohol Alcohol Intake: current Alcohol intake frequency: holidays/special occasions only Alcohol type: wine Substance Use Substance use: Never Substance use type: does not use Vital Signs and Lab Results Vital Signs Most Recent Vital Signs in EMR: Most Recent Vital Signs Temp Pulse Resp BP Pulse Ox 36.4 C L 58 L 16 120/78 98 09/21/23 07:56 09/21/23 07:56 09/21/23 07:56 09/21/23 07:56 09/21/23 07:56 Lab Results Blood Type / Crossmatch: No Data to Display Complete Blood Count: White Blood Count 6.61 10^3/uL (4.4-10.8) 08/29/23 13:20 Red Blood Count 4.59 10^6/uL (3.93-5.22) 08/29/23 13:20 Hemoglobin 14.1 g/dL (11.2-15.7) 08/29/23 13:20 Hematocrit 43.4 % (36.0-46.0) 08/29/23 13:20 Platelet Count 301 10^3/uL (130-400) 08/29/23 13:20 Complete Metabolic Panel: Sodium 141 mmol/L (136-145) 09/21/23 07:13 Potassium 4.0 mmol/L (3.5-5.1) 09/21/23 07:13 Chloride 103 mmol/L (98-107) 09/21/23 07:13 Carbon Dioxide 27.7 mmol/L (21.0-32.0) 09/21/23 07:13 BUN 14 mg/dL (7-18) 09/21/23 07:13 Creatinine 0.9 mg/dL (0.55-1.02) 09/21/23 07:13 Est GFR (CKD-EPI 2020) 66.67 (mL/min/1.73m2) 09/21/23 07:13 Calcium 10.4 mg/dL (8.5-10.1) H 09/21/23 07:13 Albumin 4.4 g/dL (3.4-5.0) 09/21/23 07:13 Glucose 94 mg/dL (74-106) 09/21/23 07:13 Hemoglobin A1c 5.5 % (<5.7) 09/21/23 07:13 C-Reactive Protein < 0.50 mg/dL (<or=0.5) 08/29/23 13:20 Liver Function Panel: Alanine Aminotransferase (ALT/SGPT) 30 U/L (14-59) 09/21/23 07:13 Aspartate Amino Transf (AST/SGOT) 21 U/L (15-37) 09/21/23 07:13 Coagulation Panel: No Data to Display Cardiac Panel: No Data to Display Arterial Blood Gas: No Data to Display Venous Blood Gas: No Data to Display Pancreas Panel: No Data to Display Thyroid Panel: No Data to Display Infectious Disease: No Data to Display Blood Cultures: No Data to Display Toxicology Panel: No Data to Display Imaging and Studies Imaging and Studies Study information below may be from another EMR and interpreted by another provider. Please see original notes in EMR for more complete details. EKG Summary: 12/05/22: Exam: Resting ECG Reason for Exam: left chest pain Patient Location: E HR:80 bpm ECG Measurements Heart Rate 80 AXIS KS 194 P 23 QRSd 88 QRS -27 QT 397 T28 QTc 457 Conclusion Sinus rhythm...normal P axis, V-rate 60- 99 Consider anterior infarct...Q >30mS in V2-V5 I have reviewed and I agree with the emergency room physician's ECG interpretation. Carotid Artery Summary:: 08/08/2023: IMPRESSION: 1. CTA brain: Normal CTA examination of the [place]. 2. Head CT: Unremarkable CT Head. 3. CTA neck: Normal CTA examination of the neck. Anesthesia Assessment and Plan Anesthesia History Personal History: No History of Anesthesia Complications Family History: No Family History of Anesthesia Complications Exercise Tolerance Exercise Tolerance: Metabolic Equivalents>4 Pertinent Negatives Pertinent Negatives: No Major Cardiovascular Symptoms or Complaints and No Major Pulmonary Symptoms or Complaints Cardiac & Pulmonary Exam Cardiac Exam: Normal S1/S2 Heart Sounds Pulmonary Exam: Clear Bilateral Breath Sounds Implantable Cardiac Device Does patient have a Pacemaker or an ICD?: No Airway Exam Known Difficult Airway: No Mallampati Class: 1 Mouth Opening: Normal (> 3cm) Thyromental Distance: Greater than 3 cm Neck Range of Motion: Full ROM Neck Circumference: Normal Teeth Condition: Normal Dentition ASA Classification ASA Score: ASA 3 Emergency Case?: No NPO Status NPO Status: NPO Clears >2 hours, Solids >8 hours Anesthesia Plan Resuscitation Status: Full Code Anesthesia Technique: General Anesthesia Airway Planned: Natural Airway Monitors Used: Standard Monitors
--- NOTE | 2023-09-21 10:00 | RT.EKG_ITS ---
APPROVED REPORT Exam: Resting ECG Reason for Exam: block Patient Location: O HR:61 bpm ECG Measurements Heart Rate 61 AXIS TX 194 P 88 QRSd 96 QRS -35 QT 473 T 34 QTc 476 Conclusion Sinus rhythm...normal P axis, V-rate 60- 99 Borderline left axis deviation Late transition
[2023-09-21 10:35] LABS: Abs Immature Grans 0.01 10^3/uL (0.0-0.06); Absolute Basophil Count 0.03 10^3/uL (0.0-0.2); Absolute Eosinophil Count 0.03 10^3/uL (0.0-0.7); Absolute Lymphocyte Count 1.68 10^3/uL (1.2-3.4); Absolute Monocyte Count 0.48 10^3/uL (0.1-0.8); Absolute Neutrophil Count 2.76 10^3/uL (1.2-6.7); Basophils % 0.6; Eosinophils % 0.6; HGB 13.8 g/dL (11.2-15.7); Immature Grans % 0.2; Lymphocytes % 33.7; MCH 31.2 pg (27.0-33.0); MCHC 33.7 % (32.0-36.0); MCV 93 fL (80-95); MPV 9.5 fL (8.0-11.0); Monocytes % 9.6; Neutrophils % 55.3; Platelet Count 306 10^3/uL (130-400); RBC 4.43 10^6/uL (3.93-5.22); RDW 13.5 % (11.7-14.6); RDW-SD 46.5 fL; WBC 4.99 10^3/uL (4.4-10.8)
[2023-09-21 10:45] LABS: INR 1.2 (0.9-1.1); Prothrombin Time 11.5 sec (9.1-11.1)
[2023-09-21 10:56] LABS: Anion Gap 7.2 mmol/L (3-11); BUN 14 mg/dL (7-18); CO2 29.8 mmol/L (21.0-32.0); CREATININE 0.8 mg/dL (0.55-1.02); Calcium 9.7 mg/dL (8.5-10.1); Chloride 104 mmol/L (98-107); Estimated GFR 76.79 (mL/min/1.73m2); Glucose 80 mg/dL (74-106); Magnesium 1.9 mg/dL (1.8-2.4); Potassium 3.9 mmol/L (3.5-5.1); Sodium 141 mmol/L (136-145); Troponin I < 50 ng/L (< or =60)
--- NOTE | 2023-09-21 14:23 | W.ANESPOSTOP ---
Postoperative Evaluation Date, Time and Location Date Performed: 09/21/23 Time Performed: 10:25 Patient Location: PACU Vital Signs Most Recent Imported Vital Signs: Most Recent Vital Signs Temp Pulse Resp BP Pulse Ox 36.3 C L 61 16 134/81 97 09/21/23 12:00 09/21/23 12:00 09/21/23 12:00 09/21/23 12:00 09/21/23 12:00 Pain Score Most Recent Pain Score: Most Recent Pain Score Pain Level 0 09/21/23 12:00 Assessment Mental Status: Awake (Alert & Oriented to Patient Baseline) Airway and Respiratory Function: Patent airway with normal (patient baseline) respiratory exam Cardiovascular Function: Hemodynamically Stable Hydration Status: Adequately Hydrated Nausea & Vomiting: No Nausea or Vomiting Pain: Pt. Denies Any Pain Peripheral Nerve Block: Patient did not receive a nerve block Postoperative Comments:: Discussed with patient in PACU plan for labs and EKG, patient verbalizes understanding.
== END 2023-09-21 12:25 | disposition home or self-care (01) ==
LOC: SUR 07:19
PROVIDERS: PCP Nurse Practitioner Adult Health; Visit Provider Surgery
PROC: 0DJD8ZZ Inspection of Lower Intestinal Tract, Via Natural or Artificial Opening Endoscopic (ICD-10-PCS; CPT 45378; principal; 2023-09-21 09:00)
DX: K50.10 Crohn's disease of large intestine without complications (principal); R60.0 Localized edema; R00.1 Bradycardia, unspecified; Z79.899 Other long term (current) drug therapy
CPT/HCPCS: 45378; 36415; 80048; 80053; 83036; 83735; 84484; 85025; 85610; 93005; J2704

== ENCOUNTER 2023-09-21 07:30 | Outpatient (CLI) | payer MEDICARE, MEDICAID, SELFPAY ==
[2023-09-21 08:14] LABS: ALT 30 U/L (14-59); AST 21 U/L (15-37); Albumin 4.4 g/dL (3.4-5.0); Alkaline Phosphatase 62 U/L (46-116); Anion Gap 10.3 mmol/L (3-11); BUN 14 mg/dL (7-18); Bilirubin, Total 1.3 mg/dL (0.2-1.0); CO2 27.7 mmol/L (21.0-32.0); CREATININE 0.9 mg/dL (0.55-1.02); Calcium 10.4 mg/dL (8.5-10.1); Chloride 103 mmol/L (98-107); Estimated GFR 66.67 (mL/min/1.73m2); Glucose 94 mg/dL (74-106); Sodium 141 mmol/L (136-145)
[2023-09-21 08:21] LABS: Hemoglobin A1C 5.5 % (<5.7)
== END 2023-09-21 07:31 | disposition home or self-care (01) ==
LOC: LBO 07:32
PROVIDERS: PCP Nurse Practitioner Adult Health; Visit Provider Nurse Practitioner Adult Health
DX: R73.09 Other abnormal glucose (principal); E83.52 Hypercalcemia
CPT/HCPCS: 36415; 80053; 83036; 93005; 93010

== ENCOUNTER → 2023-10-18 04:04 | Outpatient (CLI) | payer MEDICARE, MEDICAID, SELFPAY ==
--- NOTE | 2023-10-18 07:30 | DI.US_ITS ---
APPROVED REPORT EXAM: Comprehensive 2D, Doppler, and color-flow Echocardiogram Patient Location: Out-Patient Satellite Communications Engineer: Sameera Del Rosario RDCS (AE) Indications: Mobitz 1 during recent anesthesia, Sinus bradycardia, SOB Other Information Study Quality: Adequate. Technically limited study due to arrhtymia throughout exam.. Conclusion Normal left venticular wall thickness and chambersize. EF is 55%. Wall motion is normal Normal right ventricular size and function Mildly dilated left atrium . Normal right atrial size There are no structural valvular abnormalites Mild mitral and tricuspid regurgitation Mildly dilated aortic root and ascending aorta Wall motion Left Ventricle The left ventricle is normal size. The overall left ventricular systolic function appears normal. Arr hythmia throughout exam with beat to beat variation. There is normal left ventricular wall thickness. There is no ventricular septal defect visualized. LVEF is 55%. Right Ventricle The right ventricle is normal size. The right ventricular systolic function is normal. Atria Left atrium is mildly dilated. The right atrium size is normal. The interatrial septum is intact with no evidence for an atrial septal defect. Aortic Valve The aortic valve is normal in structure. Aortic valve is trileaflet. There is no aortic valvular sten osis. Mitral Valve The mitral valve is normal in structure. No evidence of mitral valve stenosis. Mild mitral regurgita tion. Tricuspid Valve The tricuspid valve is normal in structure. There is no tricuspid valve stenosis. Mild tricuspid reg urgitation. The RVSP is 22.3mmHg. Pulmonic Valve The pulmonary valve is normal in structure. There is no pulmonic valvular stenosis. Trace pulmonic re gurgitation. Great Vessels Aortic root is mildly dilated. The ascending aorta is mildly dilated. Aortic arch is normal in calib er. IVC is normal in size and collapses >50% with inspiration. Pericardium There is no pericardial effusion. 2D Dimensions IVSD d PLAX 0.81 cm F: 0.6-1.0 Ao Root d 3.66 cm F: 2.7 - 3.3 LVPW d PLAX 0.79 cm F: 0.6 - 1.0 Ao Asc Diam d 3.61 cm F: 2.3 - 3.1 LVID d PLAX 5.17 cm F: 3.8 - 5.2 LVDs 3.72 cm F: 2.2 - 3.5 LV EF Teichholz 54.0 % FS 28.09 % LV EDV (Teich) 127.7 mL LV ESV (Teich) 58.7 mL LA Volume LA Length A4C 4.4 cm LA Length A2C 6.1 cm LA Area A4C s 17.17 cm2 LA Area A2C s 23.36 cm2 LA Vol A4C A-L 57.35 mL LA Vol A2C A-L 75.65 mL LA Vol Biplane A-L 78.0 mL LA Vol/BSA A4C A-L LA Vol/BSA A2C A-L LA Vol/BSA BP A-L 46.5 mL/m2 LA Vol A4C MOD 53.2 mL LA Vol A2C MOD 69.8 mL LA Vol BP MOD 71.2 mL RA Volume RA Area A4C 9.4 cm2 RA ESV A4C (A-L) 21.2mL RA Vol/BSA A4C A-L RA Length A4C 3.5 cm RA ESV A4C (MOD) 20.6mL LV Diastology MV E' lateral 0.067 (>0.1 m/s) MV E Vmax 0.80 (0.4-1.3 m/s) MV E/E' LAT 11.90 (<14) MV A Vmax 0.95 (0.4-1.3 m/s) E/A Ratio 0.8 Aortic Valve AoV Vmax 1.43 m/s LVOT Vmax 1.04 m/s AoV Peak Grad 8.2 mmHg LVOT Peak Grad 4.3 mmHg AoV Area (Vmax) 2.37 cm2 LVOT VTI 0.243 m AoV VTI 0.354 m LVOT Mean Grad 2.5 mmHg AoV Mean Mateus. 1.06 m/s LVOT SV 79.52 mL AoV Mean Grad 4.9 mmHg LVOT Diam s 2.00 cm AoV Area (VTI) 2.25 cm2 Velocity Ratio 0.73 Mitral Valve MV DT 242 (160-240 msec) MV Vmax TIPS 1.03 m/s MV Mean Grad 1.4 (<2mmHg) MV VTI 0.412 m Pulmonary Valve PV Vmax 0.55 (0.5-1.5 m/s) RVOT Vmax 0.56 m/s PV Peak Grad 1.3 mmHg RVOT Peak Gr. 1.2 mmHg PV Mean Mateus 0.42 m/s RVOT VTI 0.120 m PV Mean Grad 0.8 mmHg RVOT Mean Gr. 0.6 mmHg Tricuspid Valve RA Pressure 3.00 mmHg TR Vmax 2.20 m/s TV S' 0.13 m/s TR Peak Grad 19.2 mmHg RVSP (TR) 22.3 mmHg
== END ==
PROVIDERS: PCP Nurse Practitioner Adult Health; Visit Provider Surgery
DX: R00.1 Bradycardia, unspecified; R06.02 Shortness of breath
CPT/HCPCS: 93306

== ENCOUNTER 2024-01-01 04:57 | Outpatient (CLI) | payer MEDICARE, MEDICAID, SELFPAY ==
[2024-01-01 10:15] LABS: Abs Immature Grans 0.02 10^3/uL (0.0-0.06); Absolute Basophil Count 0.05 10^3/uL (0.0-0.2); Absolute Eosinophil Count 0.09 10^3/uL (0.0-0.7); Absolute Lymphocyte Count 2.01 10^3/uL (1.2-3.4); Absolute Monocyte Count 0.59 10^3/uL (0.1-0.8); Absolute Neutrophil Count 2.73 10^3/uL (1.2-6.7); Basophils % 0.9 %; Eosinophils % 1.6 %; HCT 45.2 % (36.0-46.0); HGB 14.7 g/dL (11.2-15.7); Immature Grans % 0.4 %; Lymphocytes % 36.6 %; MCH 31.7 pg (27.0-33.0); MCHC 32.5 % (32.0-36.0); MCV 98 fL (80-95); Monocytes % 10.7 %; Neutrophils % 49.8 %; Platelet Count 309 10^3/uL (130-400); RBC 4.63 10^6/uL (3.93-5.22); RDW 13.7 % (11.7-14.6); WBC 5.49 10^3/uL (4.4-10.8)
[2024-01-01 11:08] LABS: ALT 24 U/L (14-59); AST 15 U/L (15-37); Albumin 3.9 g/dL (3.4-5.0); Alkaline Phosphatase 50 U/L (46-116); Anion Gap 4.6 mmol/L (3-11); BUN 20 mg/dL (7-18); Bilirubin, Total 0.6 mg/dL (0.2-1.0); CO2 33.4 mmol/L (21.0-32.0); CREATININE 0.8 mg/dL (0.55-1.02); Calcium 9.9 mg/dL (8.5-10.1); Chloride 105 mmol/L (98-107); Estimated GFR 76.79 (mL/min/1.73m2); Ferritin 88 ng/mL (8-252); Glucose 101 mg/dL (74-106); Potassium 4.1 mmol/L (3.5-5.1); Sodium 143 mmol/L (136-145); Total Protein 7.3 g/dL (6.4-8.2)
[2024-01-01 11:11] LABS: C-Reactive Protein < 0.50 mg/dL (<or=0.5); Folate > 20.0 ng/mL (8.6-20.0)
== END 2024-01-01 04:58 | disposition home or self-care (01) ==
PROVIDERS: PCP Nurse Practitioner Adult Health; Visit Provider Surgery
DX: I44.1 Atrioventricular block, second degree (principal); E04.1 Nontoxic single thyroid nodule; M81.0 Age-related osteoporosis without current pathological fracture; K50.10 Crohn's disease of large intestine without complications; D84.821 Immunodeficiency due to drugs; Z79.899 Other long term (current) drug therapy
CPT/HCPCS: 36415; 80053; 82728; 82746; 85025; 86140

== ENCOUNTER 2024-02-19 11:19 | Outpatient (REF) | payer MEDICARE, MEDICAID, SELFPAY ==
--- OUTSIDE RECORDS SUMMARY | 2024-02-19 11:22 | XMS_ITS | Referral Summary ---
Author Organization [facility] Address [address] [place] [address] Care Team Providers Care Enterprise Resource Planning Consultant Name Role Phone [facility] Internal Medicine, Primary Care Provi isak Social History Tobacco Use Types Packs/Day Years Used Date Smoking Tobacco: Never Assessed Sex and Gender Information Value Date Recorded Sex Assigned at Not on file Gender Identity Not on file Sexual Orientation Not on file Plan of Treatment Not on file Procedures Procedure Name Priority Date/Time Associated Diagnosis Comments HEPATITIS C AB W REFLEX TO HCV RNA BY PCR Routine 02/06/2023 9:26 EDT from Last 3 Months or Most Recently Relevant to Health Maintenance Results * HEPATITIS C AB W REFLEX TO HCV RNA BY PCR (02/06/2023 9:26 EDT) Hep C Antibody Negative Negative 02/07/2023 10:05 EDT [facility] Blood VENOUS BLOOD / Unknown 02/06/2023 9:26 EDT 02/06/2023 17:20 EDT Provider Outr Resulting Lab CHEMISTRY & BLOOD GAS ORDERABLES [facility] [address] [place] [address] from Last 3 Months or Most Recently Relevant to Health Maintenance Care Teams Enterprise Resource Planning Consultant Relationship Specialty Start Date End Date [facility] Internal [facility], [facility] [address] [place] [address] PCP - General 08/29/23
--- OUTSIDE RECORDS SUMMARY | 2024-02-19 11:22 | XMS_ITS | Encounter Summary ---
Author Organization [facility] [place] [address] Care Team Providers Care Stone Trimmer Name Role Phone Cynthia Lozoya APRN Primary Care Provider [phone] Encounter Details Date Type Department Care Team (Late st Contact Info) Description 09/04/2023 Notes [place] [phone] Felisha Dc APRN [facility] [place] [address] Social History Tobacco Use Types Packs/Day Years Used Date Smoking Tobacco: Former Cigarettes Q uit: 05/08/1969 Smokeless Tobacco: Never Alcohol Use Standard Drinks/Week Comments Yes 0 (1 standard drink = 0.6 oz pur e alcohol) once per month Sex and Gender Information Value Date Recorded Sex Assigned at Female 09/03/2023 9:30 AM EST Gender Identity Not on file Sexual Orientation Not on file documented as of this encounter Progress Notes * Felisha Dc APRN - 09/04/2023 4:47 PM EST Patient send us a message that she is no longer taking the pantoprazole. Instead on Famotidine 40mg daily. documented in this encounter Plan of Treatment Upcoming Encounters Date Type Department Care Team (Latest Contact Info) Description 03/03/2024 3:00 PM EDT Hospital Encounter [place] [address] Shorty Valdovinos MD [facility] [place] [address] 03/03/2024 3:00 PM EDT - 03/03/2024 4:00 PM EDT Surgery [place] [phone] Shorty Valdovinos MD [facility] [place] [address] COLONOSCOPY, DIAGNOSTIC (WRVU 3.26) 03/31/2024 9:00 AM EDT Office [place] [address] Felisha Dc APRN [facility] [place] [address] Scheduled Procedures Name Priority Associated Diagnoses Date/Ti me COLONOSCOPY, DIAGNOSTIC (WRVU 3.26) Crohn's disease without complication, unspecified gastrointestinal tract location 03/03/2024 3:00 PM EDT documented as of this encounter Visit Diagnoses Not on filedocumented in this encounter Care Teams Stone Trimmer Relationship Specialty Start Date End Date Cynthia Lozoya APRN [address] [place] [address] PCP - General Geriatric Medicine 09/03/23 10/15/23 documented as of this encounter
--- OUTSIDE RECORDS SUMMARY | 2024-02-19 11:22 | XMS_ITS | Continuity of Care Document ---
Author Organization [facility] Address [address] [place] [address] Encounter [facility] NBR [id number] Date(s): 01/21/24 - 01/21/24 [facility] [address] [place], [place] [address] Discharge Disposition: Home Assessment and Plan Future Appointments
--- OUTSIDE RECORDS SUMMARY | 2024-02-19 11:22 | XMS_ITS | Encounter Summary ---
Author Organization [facility] [place] [address] Care Team Providers Care Train Caller Name Role Phone Christopher Haynes DO Primary Care Provider [phone] Encounter Details Date Type Department Care Team (Late st Contact Info) Description 08/20/2023 Telephone [place] [phone] Ayesha Ramirez Social History Tobacco Use Types Packs/Day Years [...] on file documented as of this encounter Miscellaneous Notes * Telephone Encounter - Orly Shepherd - 08/21/2023 9:07 AM EST RMD called and said all documents have been sent * Telephone Encounter - Ayesha Ramirez - 08/20/2023 4:13 PM EST Left vm at expected RMD's office requesting referral be sent, w/ colo report as well. Provided [phone] for information to be faxed to. Also reviewed w/ pt if information not received may need to change appointment, pt was in agreementas she knows how important colo report is to her plan of care. * Telephone Encounter - Ayesha Ramirez - 08/20/2023 3:55 PM EST Patient History Review Pt reports Crohn's Mary Carrizales MD [phone] phone Have you seen a GI specialist for this problem before? no Have you had any Motility Testing done: Anal Rectal Manometry, Esophageal Manometry, PH Impedance, Matta, or Hydrogen Breath Test? no What: When: Where: Have you had any radiology testing done for this issue? (US/MRI/CT/Barium Swallow or Enema, GastricEmptying Study, etc) perhaps What: not sure When: Feb Where: [facility] Have you had any blood work drawn for this problem? no When: Where: Have you ever had a liver biopsy? no When: Where: Have you had a colonoscopy or upper endoscopy in the past? Yes When: 03/06/23 Where: [place] Have you had any hospital admissions or ER visits for this problem? Yes When: Feb 2023 Where: [facility] documented in this encounter Plan of Treatment Upcoming Encounters Date Type Department Care Team (Latest Contact Info) Description 03/03/2024 3:00 PM EDT Hospital Encounter [place] [address] Shorty Valdovinos MD [facility] [place] [address] 03/03/2024 3:00 PM EDT - 03/03/2024 4:00 PM EDT Surgery [place] [address] Shorty Valdovinos MD [facility] [place] [address] COLONOSCOPY, DIAGNOSTIC (WRVU 3.26) 03/31/2024 9:00 AM EDT Office [place] [address] Felisha Dc, ATIYA [facility] [place] [address] Scheduled Procedures Name Priority Associated Diagnoses Date/Ti va COLONOSCOPY, DIAGNOSTIC (WRVU 3.26) Crohn's disease without complication, unspecified gastrointestinal tract location 03/03/2024 3:00 PM EDT documented as of this encounter Visit Diagnoses Not on filedocumented in this encounter Care Teams Train Caller Relationship Specialty Start Date End Date Christopher Haynes DO [address] [place] [address] PCP - General Family Medicine 03/23/23 09/02/23 documented as of this encounter
--- OUTSIDE RECORDS SUMMARY | 2024-02-19 11:22 | XMS_ITS | Encounter Summary ---
Author Organization [facility] Address [address] [place] [address] Care Team Providers Care Mapping Supervisor Name Role Phone Chelsie Martinez NP Primary Care Provider [phone] [facility] Internal Medicine, [facility] Primary Care Provi isak Encounter Details Date Type Department Care Team (Late st Contact Info) Description 11/28/2022 Lab Requisition [facility] Pathology & Laboratory Medicine - [facility] [address], [place] [phone] Outr Resulting Lab, Provider Social History Tobacco Use Types Packs/Day Years Used Date Smoking Tobacco: Never Assessed Sex and Gender Information Value Date Recorded Sex Assigned at Not on file Gender Identity Not on file Sexual Orientation Not on file documented as of this encounter Plan of Treatment Not on file documented as of this encounter Procedures Procedure Name Priority Date/Time Associated Diagnosis Comments LYME AB Routine 11/28/2022 9:03 EDT documented in this encounter Results * LYME AB (11/28/2022 9:03 EDT) Lyme Ab Negative Negative 11/29/2022 11:20 EDT [facility] Blood VENOUS BLOOD / Unknown 11/28/2022 9:03 EDT 11/28/2022 17:42 EDT Provider Outr Resulting Lab IMMUNOLOGY A ND SEROLOGY ORDERABLES [facility] [address] [place] [address] documented in this encounter Visit Diagnoses Not on filedocumented in this encounter Care Teams Mapping Supervisor Relationship Specialty Start Date End Date Chelsie Martinez NP PCP - General Family Medicine - Primary Care 02/13/23 08/28/23 [facility] Internal Medicine, [place] [address] [place] [address] PCP - General 08/29/23 documented as of this encounter
--- OUTSIDE RECORDS SUMMARY | 2024-02-19 11:22 | XMS_ITS | Encounter Summary ---
Author Organization [facility] [place] [address] Care Team Providers Care Acid Tank Liner Name Role Phone Cynthia Lozoya APRN Primary Care Provider [phone] Encounter Details Date Type Department Care Team (Late st Contact Info) Description 09/27/2023 [place]phone [place] [phone] Poornima Aragon RN Social History Tobacco Use Types Packs/Day Years [...] encounter Miscellaneous Notes * Telephone Encounter - Poornima Aragon RN - 09/27/2023 3:52 PM EDT Call placed to Dr. Fitzgerald She says that they have been going back and forth with insurance for 6 weeks. Insurance requested that pt do Stelara. Let her know Demi prefers Skyrizi over Stelara. They are not able to order this. Requested the denial is faxed to our office. * Telephone Encounter - Poornima Aragon RN - 09/27/2023 2:19 PM EDT VM from Dr. Fitzgerald she would like to discuss Demi's opinion on if Stelara is OK for Isatu. States insurance is refusing to pay for Goldy and recommending she try Stelara. documented in this encounter Plan of Treatment Upcoming Encounters Date Type Department Care Team (Latest Contact Info) Description 03/03/2024 3:00 PM EDT Hospital En[place] [address] Shorty Valdovinos MD [facility] [place] [address] 03/03/2024 3:00 PM EDT - 03/03/2024 4:00 PM EDT [place] [phone] Shorty Valdovinos MD [facility] [place] [address] COLONOSCOPY, DIAGNOSTIC (WRVU 3.26) 03/31/2024 9:00 AM EDT Office [place] [phone] Felisha Dc APRN [facility] [place] [address] Scheduled Procedures Name Priority Associated Diagnoses Date/Ti me COLONOSCOPY, DIAGNOSTIC (WRVU 3.26) Crohn's disease without complication, unspecified gastrointestinal tract location 03/03/2024 3:00 PM EDT documented as of this encounter Visit Diagnoses Not on filedocumented in this encounter Care Teams Acid Tank Liner Relationship Specialty Start Date End Date Cynthia Lozoya APRN [address] [place] [address] PCP - General Geriatric Medicine 09/03/23 10/15/23 documented as of this encounter
--- OUTSIDE RECORDS SUMMARY | 2024-02-19 11:22 | XMS_ITS | Encounter Summary ---
Author Organization [facility] [place] [address] Care Team Providers Care Nicker And Breaker Name Role Phone Cynthia Lozoay APRN Primary Care Provider [phone] Encounter Details Date Type Department Care Team (Latest Contact Info) Description 02/18/2024 10:45 AM EDT Laboratory Appointment Lab [address] [address] Crohn's disease without complication, unspecified gastrointestinal tract location Social History Tobacco Use Types Packs/Day Years [...] as of this encounter Plan of Treatment Upcoming Encounters Date Type Department Care Team (Latest Contact Info) Description 03/03/2024 3:00 PM EDT Hospital Encounter [place] [address] Shorty Valdovinos MD [facility] [place] [address] 03/03/2024 3:00 PM EDT - 03/03/2024 4:00 PM EDT Surgery [place] [address] Shorty Valdovinos MD [facility] [place] [place] [address] COLONOSCOPY, DIAGNOSTIC (WRVU 3.26) 03/31/2024 9:00 AM EDT Office [place] [address] Felisha Dc APRN [facility] [place] [address] Scheduled Procedures Name Priority Associated Diagnoses Date/Ti me COLONOSCOPY, DIAGNOSTIC (WRVU 3.26) Crohn's disease without complication, unspecified gastrointestinal tract location 03/03/2024 3:00 PM EDT documented as of this encounter Visit Diagnoses Diagnosis Crohn's disease without complication, unspecified gastrointestinal tract location Crohn's disease without complication, unspecified gastrointestinal tract location documented in this encounter Care Teams Nicker And Breaker Relationship Specialty Start Date End Date Cynthia Lozoya APRN [address] [place] [address] PCP - General Geriatric Medicine 10/23/23 documented as of this encounter
--- OUTSIDE RECORDS SUMMARY | 2024-02-19 11:22 | XMS_ITS | Encounter Summary ---
Author Organization [facility] [place] [address] Care Team Providers Care Concrete Finishing Machine Operator Name Role Phone Cynthai Lozoya APRN Primary Care Provider [phone] Encounter Details Date Type Department Care Team (Late st Contact Info) Description 02/18/2024 Telephone [place] [phone] Sanchez Ramos Social History Tobacco Use Types Packs/Day Years [...] encounter Miscellaneous Notes * Telephone Encounter - Sanchez Ramos - 02/18/2024 1:27 PM EDT Isatu Hiro [id number] Diagnosis/Indication: Crohn's disease, evaluate therapeutic response Please review patient chart to confirm if previous Endoscopy procedure was performed within system. If yes, take note of Anesthesia type used. If previous procedure found, and with MAC/propofol Anesthesia support was used, schedule this procedure with Anesthesia and skip the Anesthesia portion of questions. If not performed within DH system, not performed at all, or performed with IVCS, ask Anesthesia questions. SCHEDULING QUESTIONS (ask all patient these questions) Have you ever had a/an Colonoscopy before? Yes: Date 02/2023 [facility] If yes, did you have any problems with the procedure (such as waking up during the procedure, pain or difficulties afterwards, etc.)? No What type of sedation was used: Other: unknown (ASK ONLY FOR COLONOSCOPY PROCEDURES) Are you aware, or have you ever been told that you had a poor prep or failed prep with a previous colonoscopy? No If yes, assign the Extended MiraLAX Prep (ASK ONLY FOR COLONOSCOPY PROCEDURES) Do you have an ongoing history of constipation? (E.g., hard stools, >2 days without a bowel movement, straining or difficulty passing stool) Yes If yes, assign the Extended MiraLAX Prep Do you take any blood thinners or have you been diagnosed with a bleeding disorder that increases your risk of bleeding with procedures? No Do you have a Pacemaker or Defibrillator device? If yes, send pool message to Cardiology with patient information and date or procedure. No Do you have diabetes? If yes, call PCP/managing provider to discuss use of prep and any questions or concerns related to. No If yes, assign the Extended MiraLAX Prep Do you take any iron supplements or vitamins that contain iron? Yes Do you have a preference regarding the gender of your provider? No ANESTHESIA QUESTIONS (YES to any question, please book with Anesthesia support) Have you ever been diagnosed with Pulmonary Hypertension and/or Congential Heart Disease? No Have you been diagnosed with A-Fib (atrial fibrillation) that is NOT being well controled with medications? No Have you ever had an allergic or adverse reaction to Fentanyl or Versed? No Have you had a problem with sedation or anesthesia? (Waking up during procedure, extreme confusion after, etc.) No Do you have a diagnosis of Obstructive Sleep Apnea that requires the use of a c- pap machine? No Do you use an oxygen tank at home? No Do you use a rescue inhaler more than twice per day? (COPD, severe asthma) No Do you experience breathing problems when you lay flat for a period of time? No Do you regularly take prescription opioid pain medications on a daily basis? (Includes oxycodone, Percocet, Suboxone, methadone, etc.) No If yes, assign the Extended MiraLAX Prep SCHEDULING CONFIRMATIONS: Please note any and all parts of your conversation with the patient here. We offer all new patients an opportunity to have an appointment with one of our associate care providers to learn more about your upcoming procedure, ask questions and get answers. These appointmentsare offered via telehealth. Would you be interested in scheduling this appointment? (Only ask if NEW referral patient; skip this question if GI provider ordered the procedure.) No Is there any other information or concerns you would like to us to share with your care team in relation to your upcoming scheduled procedure? Yes: September of 2023 had issue heart block, canceled colo You must have a responsible constitution party who will drive you to your procedure, stay on campus for the entire duration of your procedure, and drive you home from your procedure. Who will likely be your school boat driver for the procedure? RCT *Please Verify the height and weight, and adjust if height and/or weight have changed* Estimated body mass index is 20.13 kg/m?? as calculated from the following: Height as of an earlier encounter on 02/18/24: 172.7 cm (5' 8). Weight as of an earlier encounter on 02/18/24: 60.1 kg (132 lb 6.4 oz). Age:73 y.o. documented in this encounter Plan of Treatment Upcoming Encounters Date Type Department Care Team (Latest Contact Info) Description 03/03/2024 3:00 PM EDT Hospital Encounter [place] [address] Shorty Valdovinos MD [facility] [place] [address] 03/03/2024 3:00 PM EDT - 03/03/2024 4:00 PM EDT Surgery [place] [address] Shorty Valdovinos MD [facility] [place] [address] COLONOSCOPY, DIAGNOSTIC (WRVU 3.26) 03/31/2024 9:00 AM EDT Office Visit [place] [address] Felisha Dc APRN [facility] [place] [address] Scheduled Procedures Name Priority Associated Diagnoses Date/Ti me COLONOSCOPY, DIAGNOSTIC (WRVU 3.26) Crohn's disease without complication, unspecified gastrointestinal tract location 03/03/2024 3:00 PM EDT documented as of this encounter Visit Diagnoses Not on filedocumented in this encounter Care Teams Concrete Finishing Machine Operator Relationship Specialty Start Date End Date Cynthia Lozoya APRN [address] [place] [address] PCP - General Geriatric Medicine 10/23/23 documented as of this encounter
--- OUTSIDE RECORDS SUMMARY | 2024-02-19 11:22 | XMS_ITS | Encounter Summary ---
Author Organization [facility] [place] [address] Care Team Providers Care Cutting Machine Tender Decorative Name Role Phone Giovanna Scott DO Primary Care Provider [phone] Encounter Details Date Type Department Care Team (Latest Contact Info) Description 05/23/2022 6:31 AM EST - 05/23/2022 8:40 AM EST Hospital Encounter [place] [phone] Elida Lozano MD [facility] [place] [address] Discharge Disposition: Home Social History Tobacco Use Types Packs/Day Years [...] on file documented as of this encounter Last Filed Vital Signs Vital Sign Reading Time Taken Comments Blood Pressure 128/77 05/23/2022 8:20 AM EST Pulse 73 05/23/2022 7:50 AM EST Temperature 37 ??C (98.6 ??F) 05/23/2022 6:52 AM EST Respiratory Rate 19 05/23/2022 8:20 AM EST Oxygen Saturation 96% 05/23/2022 8:20 AM EST Inhaled Oxygen Concentration - - Weight 61.2 kg (135 lb) 05/23/2022 6:00 AM EST Height - - Body Mass Index 20.53 08/16/2021 8:06 AM EST documented in this encounter Discharge Instructions * Discharge Instructions* Trinh Zapata RN - 05/23/2022 7:58 AM EST Upper GI Endoscopy: What to Expect at Home Your Recovery You will be able to go home after your doctor or nurse checks to make sure you are not having any problems. You may have to stay overnight if you had treatment during the test. You may have a sore throat fora day or two after the test. This care sheet gives you a general idea about what to expect after the test. How can you care for yourself at home? Activity Rest when you feel tired. You can do your normal activities when it feels okay to do so. Diet Follow your doctor's directions for eating. Unless your doctor has told you not to, drink plenty of fluids. This helps to replace the fluids that were lost during the prep. Do not drink alcohol. Medicines Your doctor will tell you if and when you can restart your medicines. He or she will also give you instructions about taking any new medicines. If you take blood thinners, such as warfarin (Coumadin), clopidogrel (Plavix), or aspirin, be sure to talk to your doctor. He or she will tell you if and when to start taking those medicines again. Make sure that you understand exactly what your doctor wants you to do. If polyps were removed or a biopsy was done during the test, your doctor may tell you not to take aspirin or other anti-inflammatory medicines for a few days. These include ibuprofen (Advil, Motrin) and naproxen (Aleve). If you have a sore throat the day after the procedure, use an sksx-xma-mcjeavy spray to numb your throat. Sucking on throat lozenges and gargling with warm salt water may also help relieve your symptoms. Other instructions For your safety, do not drive or operate machinery until the medicine wears off and you can think clearly. Your doctor may tell you not to drive or operate machinery until the day after your test. Do not sign legal documents or make major decisions until the medicine wears off and you can think clearly. The anesthesia can make it hard for you to fully understand what you are agreeing to. Additional Information for Sedation Patients For patients who received sedation: You may have received medications before and/or during your procedure which effects your judgement and reaction time. Do not drive, operate machinery, drink alcoholic beverages or make important decisions for 24 hours. Be careful on stairs as you may be unsteady on your feet. You may eat a regular diet as tolerated. Do not smoke if you are alone. IV site: Slight redness or tenderness is normal, you can use a warm compress if you would like. If tenderness and/or redness increase or if foul drainage occurs, please contact your Doctor. Please call [phone] before 8pm Mon-Fri with problems, questions or concerns. If you call after 8pm or on weekends, call the Hospital at [phone] and ask to speak to the Metal Bumper conceptor and the block operator will contact that person for you. When should you call for help? Call 221 anytime you think you may need emergency care. For example, call if: You passed out (lost consciousness). You pass maroon or bloody stools. You have trouble breathing. Call your doctor now or seek immediate medical care if: You have pain that does not get better after you take pain medicine. You are sick to your stomach or cannot drink fluids. You have new or worse belly pain. You have blood in your stools. You have a fever. You cannot pass stools or gas. Watch closely for changes in your health, and be sure to contact your doctor if you have any problems. Where can you learn more? [facility] View your After Visit Summary and more online at [email or web address] If you would like to provide feedback about your hospital experience, please call the Office of Patient and Family Relations at . If you have received this After Visit Summary in error, please immediately return it in person to the department, or notify the [facility] Privacy Office by calling toll free at between the hours of 8AM and 5PM to arrange for our retrieval of the documents at no cost to you. Content Version: 12.2 ?? [id number] [employer]. Care instructions adapted under license by [facility]. If you have questions about a medical condition or this instruction, always ask your healthcare professional. [employer] disclaims any warranty or liability for your use of this information. documented in this encounter Medications at Time of Discharge Medication Sig Dispensed Refills Start Date End Date CALCIUM CARBONATE-VITAMIN D3 ORAL Take 1,200 mg by mouth daily. chewable 06/28/2018 Glucosamine 750 mg Capsule Take 750 mg by mouth 2 times daily (with meals). 06/28/2018 acetaminophen (TYLENOL) 650 mg Tablet Sustained Release Take 650 mg by mouth. 06/28/2018 vitamin E mixed/tocotrienol (VITAMIN E COMPLEX ORAL) VITAMIN E 400 UNIT CAPS 06/28/2018 clindamycin (CLEOCIN) 300 mg Capsule CLINDAMYCIN HCL 300 MG CAPS prior to procedures 08/05/2018 cholecalciferol, Vitamin D3, 5,000 unit Tablet Take 1 tablet by mouth daily. aspirin 325 mg Tablet Take 325 mg by mouth every 6 hours as needed for Pain. pantoprazole EC (Protonix) 40 mg Tablet, Delayed Release (E.C.)Indications:Gastr oesophageal reflux disease with esophagitis without hemorrhage Take 1 tablet by mouth daily. 30 tablet 11 05/23/2022 digestive enzymes combo no.7 Capsule Take by mouth. metoclopramide (REGLAN) 5 mg TabletIndications:Bile acid esophageal reflux,Lower abdominal pain Take 1-2 tablets by mouth 4 times daily. (3 meals / day and at bedtime) 80 tablet 10/18/2018 VITAMIN B COMPLEX ORAL Take 1 tablet by mouth daily. documented as of this encounter H&P Notes * Adrián Liang APRN - 05/23/2022 7:19 AM EST Patient Name: Isatu Bosch Patient Age: 71 y.o. Birthdate: 1950 Admit date: 05/23/2022 Attending Physician: Elida Lozano MD Gastroenterology and Hepatology Pre-Procedure History and Physical Exam Procedure: EGD: Indication: Dysphagia, history of Schatzki's ring Patient Active Problem List Diagnosis Code ??? Multiple thyroid nodules E04.2 ??? Pseudophakia, both eyes Z96.1 ??? Sinus bradycardia R00.1 ??? Heart palpitations R00.2 ??? Dizziness R42 ??? Hyperopia of both eyes with astigmatism and presbyopia H52.03, H52.203, H52.4 ??? Vitreous floaters of both eyes H43.393 ??? Lactose intolerance E73.9 ??? Sensorineural hearing loss, bilateral H90.3 ??? Disequilibrium R42 ??? Osteopenia M85.80 ??? Presence of left artificial knee joint Z96.652 ??? Other specified personal risk factors, not elsewhere classified Z91.89 ??? Thyroid nodule E04.1 ??? Underweight R63.6 ??? Osteoporosis M81.0 ??? Dysphagia R13.10 EXAM: HEENT: Airway examined, oropharynx clear Mallampati Score: II (soft palate, uvula, fauces visible) LUNGS: Clear to auscultation HEART: Regular rate and rhythm, normal S1, S2 ABDOMEN: Normal bowel sounds, soft, non tender, non distended, A/P Proceed with the planned endoscopic procedure. ASA 2 - Patient with mild systemic disease with no functional limitations Sedation Plan: moderate (conscious sedation) Risks and benefits of the procedure explained to the patient. Consent signed. Adrián Liang APRN Section of Gastroenterology [place] [address] documented in this encounter Plan of Treatment Upcoming Encounters Date Type Department Care Team (Latest Contact Info) Description 03/03/2024 3:00 PM EDT Hospital Encounter [place] [address] Shorty Valdovinos MD [facility] [place] [address] 03/03/2024 3:00 PM EDT - 03/03/2024 4:00 PM EDT Surgery [place] [address] Shorty Valdovinos MD [facility] [place] [address] COLONOSCOPY, DIAGNOSTIC (WRVU 3.26) 03/31/2024 9:00 AM EDT Office Visit [place] [phone] Felisha Dc APRN [facility] [place] [address] Scheduled Procedures Name Priority Associated Diagnoses Date/Ti me COLONOSCOPY, DIAGNOSTIC (WRVU 3.26) Crohn's disease without complication, unspecified gastrointestinal tract location 03/03/2024 3:00 PM EDT documented as of this encounter Procedures Procedure Name Priority Date/Time Associated Diagnosis Comments Up Gi Endoscopy, Ball Dil, 30Mm (97082) 05/23/2022 7:31 AM EST Dysphagia, unspecified type UPPER GI ENDOSCOPY Routine 05/23/2022 7: 16 AM EST documented in this encounter Results * UPPER GI ENDOSCOPY (05/23/2022 7:16 AM EST) UPPER GI ENDOSCOPY [facility] Endoscopy Procedure Date: 05/23/2022 7:16 AM ? Patient Name: Isatu Bosch ? Date of : 1950 ? Age: 71 ? Order #: [id number] ? Instrument Name: [id number] ? Procedure: ? Upper GI endoscopy Indications: ? Dysphagia Providers: ? Elida Lozano MD, Gini ? Edel Schaeffer RN, Bharath Ordaz MD: ?Giovanna B. Emelichetokyle Medicines: ? Midazolam 4 mg IV, Fentanyl 100 ? micrograms IV, Benzocaine spray Complications: ? No immediate complications. Procedure: ? The procedure, indications, ? benefits, risks and alternatives ? were explained to the patient. ? Specifically discussed were ? potential complications including, ? but not limited to, bleeding, ? perforation, infection, missing a ? cancer, and adverse medication ? reactions. The Endoscope was ? introduced through the mouth, and ? advanced to the second part of ? duodenum The upper GI endoscopy was ? accomplished without difficulty. ? The patient tolerated the procedure ? well. ? Findings: ? LA Grade B (one or more mucosal breaks greater than 5 ? mm, not extending between the tops of two mucosal ? folds) esophagitis with no bleeding was found 41 cm ? from the incisors. A TTS dilator was passed through ? the scope. Dilation with an 18-19-20 mm balloon ? dilator was performed to 20 mm. The dilation site was ? examined and showed mild heme. ? A 2 cm hiatal hernia was present. ? The exam of the stomach was otherwise normal. ? The examined duodenum was normal. ? Moderate Sedation: ? I was present during the intraservice time as ? documented by the sedation RN. Impression: ?- LA Grade B reflux esophagitis ? with no bleeding. Dilated to 20 mm. ? - Small hiatal hernia. ? - No specimens collected. Recommendation: ?- Trial of an alternate PPI, such ? as pantoprazole 40 mg once daily ? - Discharge home ambulatory. ? Attending Participation: ? I personally performed the entire procedure. ? Elida Lozano MD 05/23/2022 7:57:51 AM Number of Addenda: 0 Note Initiated On: 05/23/2022 7:16 AM PROVATION 05/23/2022 7:16 AM EST Giovanna Scott DO GENERAL SURGICAL O RDERABLES PROVATION documented in this encounter Visit Diagnoses Not on filedocumented in this encounter Administered Medications Inactive Administered Medications - up to 3 most recent administrations Medication Order MAR Action Action Date Dose Rate Site lactated ringers infusion 100 mL/hr, Intravenous, CONTINUOUS, Starting on Sun05/23/22 at 0715, Until Sun05/23/22 at 0812, Endoscopy (Day of Procedure) New Bag 05/23/2022 7:01 AM EST 100 mL/hr 100 mL/hr documented in this encounter Active and Recently Administered Medications Due to Daylight Saving Time, this section may contain times in both EDT and EST. Continuous Medication Order 05/21/2022 05/22/2022 05/23/2022 lactated ringers infusion (CANCELED) 100 mL/hr, Intravenous, CONTINUOUS, Starting on Sun05/23/22 at 0715, Until Sun05/23/22 at 0812, Endoscopy (Day of Procedure) 0701 (New Bag - Prov ider: Parisa Carmona RN) PRN Medication Order 05/21/2022 05/22/2022 05/23/2022 benzocaine (Hurricane One) 20% spray (restricted to le-procedural use) (CANCELED) ONCE PRN, Starting on Sun05/23/22 at 0734, Until Sun05/23/22 at 1040, Intra-Operative (Intra-Procedure) 0734 (Given - Provid er: Gini Schaeffer RN) fentaNYL (pf) (50 mcg/mL) multi-dose injection (CANCELED) ONCE PRN, Starting on Sun05/23/22 at 0735, Until Sun05/23/22 at 1040, Intra-Operative (Intra-Procedure), Routine 0735 (Given - Provid er: Gini Schaeffer RN)0738 (Given - Provider: Gini Schaeffer RN)0741 (Given - Provider: Gini Schaeffer RN) midazolam (pf) (Versed) (1 mg/mL) multi-dose injection (CANCELED) ONCE PRN, Starting on Sun05/23/22 at 0735, Until Sun05/23/22 at 1040, Intra-Operative (Intra-Procedure), Routine 0735 (Given - Provid er: Gini Schaeffer RN)0738 (Given - Provider: Gini Schaeffer RN)0741 (Given - Provider: Gini Schaeffer RN)0744 (Given - Provider: Gini Schaeffer RN) documented in this encounter Care Teams Cutting Machine Tender Decorative Relationship Specialty Start Date End Date Giovanna Scott DO [address] [place] [address] PCP - General Family Medicine 09/18/19 03/22/23 documented as of this encounter
--- OUTSIDE RECORDS SUMMARY | 2024-02-19 11:22 | XMS_ITS | Encounter Summary ---
Author Hub m Preferred Language Jamaican Marital Status Nondenominational Affiliation Unknown Race White Ethnic Group Not or Lati no Author Organization [facility] [place] [address] Care Team Providers Care Certified Adaptive Physical Educator Name Role Phone Christopher Haynes DO Primary Care Provider [phone] Encounter Details Date Type Department Care Team (Late st Contact Info) Description 08/08/2023 Ancillary Procedure [place] [address] Christopher Haynes DO [address] [place] [id number] Social History Tobacco Use Types Packs/Day Years [...] 3:00 PM EDT Hospital En[place] [address] Shorty Valdovinos MD [facility] [place] [address] 03/03/2024 3:00 PM EDT - 03/03/2024 4:00 PM EDT Surgery [place] [address] Shorty Valdovinos MD [facility] [place] [address] COLONOSCOPY, DIAGNOSTIC (WRVU 3.26) 03/31/2024 9:00 AM EDT Office [place] [address] Felisha Dc APRN [facility] [place] [address] Scheduled Procedures Name Priority Associated Diagnoses Date/Ti me COLONOSCOPY, DIAGNOSTIC (WRVU 3.26) Crohn's disease without complication, unspecified gastrointestinal tract location 03/03/2024 3:00 PM EDT documented as of this encounter Procedures Procedure Name Priority Date/Time Associated Diagnosis Comments FILM LIBRARY STORAGE ONLY CT HEAD Routine 08/08/2023 12:00 AM EST documented in this encounter Results * Film Library- Storage Only CT Head (08/08/2023 12:00 AM EST) Narrative [facility] - 08/21/2023 5:29 PM EST This exam is auto-finalizing. It's purpose is for storage only. Christopher Haynes DO [facility] FILM LIBRARY ORD ERABLES Performing Organization Address City/State/[facility] Co de Phone Number [place], [place] documented in this encounter Visit Diagnoses Not on filedocumented in this encounter Care Teams Certified Adaptive Physical Educator Relationship Specialty Start Date End Date Christopher Haynes DO [address] [place] [address] PCP - General Family Medicine 03/23/23 09/02/23 documented as of this encounter"
--- OUTSIDE RECORDS SUMMARY | 2024-02-19 11:22 | XMS_ITS | Encounter Summary ---
Author Organization [facility] [place] [address] Care Team Providers Care Instructor Extension Work Name Role Phone Giovanna Scott DO Primary Care Provider [phone] Encounter Details Date Type Department Care Team (Late st Contact Info) Description 05/11/2022 Orders [place] [address] Elida Lozano MD [facility] [place] [address] Dysphagia, unspecified type Social History Tobacco Use Types Packs/Day Years [...] 3:00 PM EDT Hospital Encounter [place] [address] Shorty Valdovinos MD [facility] [place] [address] 03/03/2024 3:00 PM EDT - 03/03/2024 4:00 PM EDT Surgery [place] [address] Shorty Valdovinos MD [facility] [place] [address] COLONOSCOPY, DIAGNOSTIC (WRVU 3.26) 03/31/2024 9:00 AM EDT Office [place] [address] Felisha Dc APRN [facility] [place] [address] Scheduled Orders Name Type Priority Associated Diagnoses Orde r Schedule ENDOSCOPY CASE REQUEST: EGD, UPPER GI ENDOSCOPY Procedures Routine Dysphagia, unspecified type Ordered: 05/11/2022 Scheduled Procedures Name Priority Associated Diagnoses Date/Ti me COLONOSCOPY, DIAGNOSTIC (WRVU 3.26) Crohn's disease without complication, unspecified gastrointestinal tract location 03/03/2024 3:00 PM EDT documented as of this encounter Visit Diagnoses Diagnosis Dysphagia, unspecified type Crohn's disease without complication, unspecified gastrointestinal tract location documented in this encounter Care Teams Instructor Extension Work Relationship Specialty Start Date End Date Giovanna Scott DO [address] [place] [address] PCP - General Family Medicine 09/18/19 03/22/23 documented as of this encounter
--- OUTSIDE RECORDS SUMMARY | 2024-02-19 11:22 | XMS_ITS | Encounter Summary ---
Author Organization [facility] Address [address] [place] [address] Care Team Providers Care Director Zone Name Role Phone Chelsie Martinez NP Primary Care Provider [phone] [facility] Internal Medicine, [place] Primary Care Provi isak Encounter Details Date Type Department Care Team (Late st Contact Info) Description 03/06/2023 Lab Requisition [facility] Pathology & Laboratory Medicine - [facility] [address], [place] [address] Outr Resulting Lab, Provider Social History Tobacco [...] Procedure Name Priority Date/Time Associated Diagnosis Comments ANCA, IFA Routine 03/06/2023 11:00 EDT ANTI NUCLEAR AB (TONI), IFA Routine 03/06/2023 11:00 EDT documented in this encounter Results * ANCA, IFA (03/06/2023 11:00 EDT) Lab ANCA Interpretation Negative Negative 03/07/2023 15:17 EDT [facility] Comment: No titer performed, ANCA Screen is negative. Results were obtained with the INOVA NOVA Lite ANCA kit by indirect immunofluorescence. Blood VENOUS BLOOD / Unknown 03/06/2023 11:00 EDT 03/06/2023 21:40 EDT Provider Outr Resulting Lab IMMUNOLOGY A ND SEROLOGY ORDERABLES Performing Organization Address City/State/[facility] Co de Phone Number [facility] [address] [place] [address] * ANTI NUCLEAR AB (TONI), IFA (03/06/2023 11:00 EDT) TONI Interpretation Negative Negative 2022 15:20 EDT [facility] Comment:No titer performed, TONI Screen is negative. Blood VENOUS BLOOD / Unknown 03/06/2023 11:00 EDT 03/06/2023 21:40 EDT Narrative [facility] - 03/07/2023 15:20 EDT Results were obtained with the MunetrixVA NOVA Lite HEp-2 TONI Kit by indirect immunofluorescence. Provider Outr Resulting Lab IMMUNOLOGY A ND SEROLOGY ORDERABLES Performing Organization Address [facility] Co de Phone Number [facility] [address] [place] [address] documented in this encounter Visit Diagnoses Not on filedocumented in this encounter Care Teams Director Zone Relationship Specialty Start Date End Date Chelsie Martinez NP PCP - General Family Medicine - Primary Care 02/13/23 08/28/23 [facility] Internal Medicine, [place] [address] [place] [address] PCP - General 08/29/23 documented as of this encounter
--- OUTSIDE RECORDS SUMMARY | 2024-02-19 11:22 | XMS_ITS | Encounter Summary ---
[place] [address] Care Team Providers Care Cardiology Rn Name Role Phone Christopher Haynes DO Primary Care Provider [phone] Reason for Referral * Consultation (Routine) - Closed Specialty Diagnoses / Procedures Referred By Flip womack Referred To Contact Gastroenterology Diagnoses Crohn's disease of large intestine without complication crohns Mary Fitzgerald DO [address] [place] [address] [address] [place] [address] [facility] [address] [place] [address] Referral ID Status Reason Start Date Expiration Date V isits Requested Visits Authorized [id number] Closed Consult, Test & Treat PCP Updated and/or Approved 08/25/2023 08/24/2024 6 6 Encounter Details Date Type Department Care Team (Latest Contact Info) Description 08/25/2023 Transcribe Orders eDH Incoming Referrals [phone] Mary Fitzgerald DO [address] [place] [address] [address] [place], [place] [id number] Crohn's disease with complication, unspecified gastrointestinal tract location Social History [...] 3:00 PM EDT Hospital Encounter Gastroenterology at [place] [phone] Shorty Valdovinos MD [facility] [place] [address] 03/03/2024 3:00 PM EDT - 03/03/2024 4:00 PM EDT Surgery Gastroenterology at [place] [phone] Shorty Valdovinos MD [facility] [place] [address] COLONOSCOPY, DIAGNOSTIC (WRVU 3.26) 03/31/2024 9:00 AM EDT Office [place] [address] Felisha Dc APRN [facility] [place] [address] Scheduled Procedures Name Priority Associated Diagnoses Date/Ti me COLONOSCOPY, DIAGNOSTIC (WRVU 3.26) Crohn's disease without complication, unspecified gastrointestinal tract location 03/03/2024 3:00 PM EDT Scheduled Referrals Name Type Priority Associated Diagnoses Orde r Schedule Referral to Gastroenterology Outpatient Referral Routine Crohn's disease with complication, unspecified gastrointestinal tract location Ordered: 08/25/2023 documented as of this encounter Visit Diagnoses Diagnosis Crohn's disease with complication, unspecified gastrointestinal tract location Crohn's disease without complication, unspecified gastrointestinal tract location documented in this encounter Care Teams Cardiology Rn Relationship Specialty Start Date End Date Christopher Haynes DO [address] [place] [address] PCP - General Family Medicine 03/23/23 09/02/23 documented as of this encounter
--- OUTSIDE RECORDS SUMMARY | 2024-02-19 11:22 | XMS_ITS | Encounter Summary ---
Author Organization [facility] [place] [address] Care Team Providers Care Spa Director/Finance Name Role Phone Giovanna Scott DO Primary Care Provider [phone] Encounter Details Date Type Department Care Team (Late st Contact Info) Description 05/23/2022 7:30 AM EST - 05/23/2022 8:15 AM EST [place] [address] Elida Lozano MD [facility] [place] [address] EGD,WITH DILATION ESOPHAGUS WITH BALLOON,< 30 MM (WRVU 2.67) Social History Tobacco Use Types Packs/Day Years [...] Sign Reading Time Taken Comments Blood Pressure 136/109 05/23/2022 7:50 AM EST Pulse 73 05/23/2022 7:50 AM EST Temperature 37 ??C (98.6 ??F) 05/23/2022 6:52 AM EST Respiratory Rate 18 05/23/2022 8:10 AM EST Oxygen Saturation 94% 05/23/2022 7:50 AM EST Inhaled Oxygen Concentration - - [...] the day after the procedure, use an eayx-ovs-awwuitm spray to numb your throat. Sucking on [...] occurs, please contact your Doctor. Please call [phone] before 8pm Mon-Fri with problems, questions or concerns. If you call after 8pm or on weekends, call the Hospital at [phone] and ask to speak to the Newspaper Subscription Solicitor general road production manager and the recovery unit operator will contact that person for you. When should you call for help? Call [phone] anytime you think you may need emergency [...] any problems. Where can you learn more? [facility] View your After Visit Summary and more online at [email or web address] If you would like to provide feedback about your hospital experience, please call the Office of Patient and Family Relations at . If you have received this After Visit Summary in error, please immediately return it in person to the department, or notify the Replaced By [facility] Privacy Office by calling toll free at between the hours of 8AM and 5PM to arrange for our retrieval of the documents at no cost to you. Content Version: 12.2 ?? [id number] [employer]. Care instructions adapted under license by [facility]. If you have questions about a medical condition or this instruction, always ask your healthcare professional. [employer] disclaims any warranty or liability for your [...] Liang APRN Section of Gastroenterology [place] [address] documented in this encounter Plan of Treatment Upcoming Encounters Date Type Department Care Team (Latest Contact Info) Description 03/03/2024 3:00 PM EDT Hospital En[place] [address] Shorty Valdovinos MD [facility] [place] [address] 03/03/2024 3:00 PM EDT - 03/03/2024 4:00 PM EDT [place] [phone] Shorty Valdovinos MD [facility] [place] [address] COLONOSCOPY, DIAGNOSTIC (WRVU 3.26) 03/31/2024 9:00 AM EDT Office [place] [address] Felisha Dc, ATIYA [facility] [place] [address] Scheduled Procedures Name Priority Associated Diagnoses Date/Ti me COLONOSCOPY, DIAGNOSTIC (WRVU 3.26) Crohn's disease without complication, unspecified gastrointestinal tract location 03/03/2024 3:00 PM EDT documented as of this encounter Procedures Procedure Name Priority Date/Time Associated Diagnosis Comments Up Gi Endoscopy, Ball Dil, 30Mm ([address]50) 05/23/2022 7:31 AM EST Dysphagia, unspecified type UPPER GI ENDOSCOPY Routine 05/23/2022 7: 16 AM EST documented in this encounter Results * UPPER GI ENDOSCOPY (05/23/2022 7:16 AM EST) UPPER GI ENDOSCOPY [facility] Endoscopy Procedure Date: 05/23/2022 7:16 AM ? Patient Name: Isatu Bosch ? Date of : 1950 ? Age: 71 ? Order #: [id number] ? Instrument Name: [id number] ? Procedure: ? Upper GI endoscopy Indications: [...] PROVATION documented in this encounter Visit Diagnoses Diagnosis Dysphagia, unspecified type Crohn's disease without complication, unspecified gastrointestinal tract location documented in this encounter Administered Medications Inactive Administered Medications - up to 3 most recent administrations Medication Order MAR Action Action Date Dose Rate Site benzocaine (Hurricane One) 20% spray (restricted to le-procedural use) ONCE PRN, Starting on Sun05/23/22 at 0734, Until Sun05/23/22 at 1040, Intra-Operative (Intra-Procedure) Given 05/23/2022 7:34 AM EST 1 spray fentaNYL (pf) (50 mcg/mL) multi-dose injection ONCE PRN, Starting on Sun05/23/22 at 0735, Until Sun05/23/22 at 1040, Intra-Operative (Intra-Procedure), Routine Given 05/23/2022 7:41 AM EST 25 mcg Given 05/23/2022 7:38 AM EST 25 mcg Given 05/23/2022 7:35 AM EST 50 mcg lactated ringers infusion 100 mL/hr, Intravenous, CONTINUOUS, Starting on Sun05/23/22 at 0715, Until Sun05/23/22 at 0812, Endoscopy (Day of Procedure) New Bag 05/23/2022 7:01 AM EST 100 mL/hr 100 mL/hr midazolam (pf) (Versed) (1 mg/mL) multi-dose injection ONCE PRN, Starting on Sun05/23/22 at 0735, Until Sun05/23/22 at 1040, Intra-Operative (Intra-Procedure), Routine Given 05/23/2022 7:44 AM EST 1 mg Given 05/23/2022 7:41 AM EST 1 mg Given 05/23/2022 7:38 AM EST 1 mg documented in this encounter Active and Recently Administered Medications Due to Daylight Saving Time, this section may contain times in both EDT and EST. Continuous Medication Order 05/21/2022 05/22/2022 05/23/2022 lactated ringers infusion (CANCELED) 100 mL/hr, Intravenous, CONTINUOUS, Starting on Sun05/23/22 at 0715, Until Sun05/23/22 at 0812, Endoscopy (Day of Procedure) 07 (New Bag - Prov ider: Parisa Carmona [...] Gini Schaeffer RN)0741 (Given - Provider: Gini Schaeffer, MARISSA) midazolam (pf) (Versed) (1 mg/mL) multi-dose injection (CANCELED) ONCE PRN, Starting on Sun05/23/22 at 0735, Until Sun05/23/22 at 1040, Intra-Operative (Intra-Procedure), Routine 0735 (Given - Provid er: Gini Schaeffer RN)0738 (Given - Provider: Gini Schaeffer RN)0741 (Given - Provider: Gini Schaeffer RN)0744 (Given - Provider: Gini Schaeffer RN) documented in this encounter Care Teams Spa Director/Finance Relationship Specialty Start Date End Date Giovanna Scott DO [address] [place] [address] PCP - General Family Medicine 09/18/19 03/22/23 documented as of this encounter
--- OUTSIDE RECORDS SUMMARY | 2024-02-19 11:22 | XMS_ITS | Clinical Summary ---
Author Organization [facility] Address [address] [place] [address] Care Team Providers Care Sail Repair Person Name Role Phone [facility] Internal Medicine, Primary Care Provi isak Social History Tobacco Use Types Packs/Day Years Used Date Smoking Tobacco: Never Assessed Sex and Gender Information Value Date Recorded Sex Assigned at Not on file Gender Identity Not on file Sexual Orientation Not on file Plan of Treatment Health Maintenance Due Date Last Done Comments RSV Immunization ( o r 60+ Years) (1 - 1-dose 60+ series) 2008 Fall Risk Screening 2013 COVID-19 Vaccine ( season) 2023 Hepatitis C Screen Completed 02/06/2023 Procedures Procedure Name Priority Date/Time Associated Diagnosis Comments HEPATITIS C AB W REFLEX TO HCV RNA BY PCR Routine 02/06/2023 9:26 EDT from Last 3 Months or Most Recently Relevant to Health Maintenance Results * HEPATITIS C AB W REFLEX TO HCV RNA BY PCR (02/06/2023 9:26 EDT) Hep C Antibody Negative Negative 02/07/2023 10:05 EDT [facility] Blood VENOUS BLOOD / Unknown 02/06/2023 9:26 EDT 02/06/2023 17:20 EDT Provider Outr Resulting Lab CHEMISTRY & BLOOD GAS ORDERABLES [facility] [address] [place] [address] from Last 3 Months or Most Recently Relevant to Health Maintenance Care Teams Sail Repair Person Relationship Specialty Start Date End Date [facility] Internal Medicine, Mp [address] [place] [address] PCP - General 08/29/23
--- OUTSIDE RECORDS SUMMARY | 2024-02-19 11:22 | XMS_ITS | Encounter Summary ---
Author Organization [facility] [place] [address] Care Team Providers Care Piping Engineer Name Role Phone Cynthia Lozoya APRN Primary Care Provider [phone] Encounter Details Date Type Department Care Team (Latest Contact Info) Description 09/03/2023 Travel Social History Tobacco Use Types Packs/Day Years [...] 3:00 PM EDT Hospital [place] [address] Shorty Valdovinos MD [facility] [place] [address] 03/03/2024 3:00 PM EDT - 03/03/2024 4:00 PM EDT [place] [address] Shorty Valdovinos MD [facility] [place] [address] COLONOSCOPY, DIAGNOSTIC (WRVU 3.26) 03/31/2024 9:00 AM EDT Office [place] [address] Felisha Dc APRN [facility] [place] [address] Scheduled Procedures Name Priority Associated Diagnoses Date/Ti me COLONOSCOPY, DIAGNOSTIC (WRVU 3.26) Crohn's disease without complication, unspecified gastrointestinal tract location 03/03/2024 3:00 PM EDT documented as of this encounter Visit Diagnoses Not on filedocumented in this encounter Care Teams Piping Engineer Relationship Specialty Start Date End Date Cynthia Lozoya APRN [address] [place] [address] PCP - General Geriatric Medicine 09/03/23 10/15/23 documented as of this encounter
--- OUTSIDE RECORDS SUMMARY | 2024-02-19 11:22 | XMS_ITS | Encounter Summary ---
Author Organization [facility] [place] [address] Care Team Providers Care Geographic Information System Surveyor Name Role Phone Giovanna Scott DO Primary Care Provider [phone] Encounter Details Date Type Department Care Team (Late st Contact Info) Description 05/11/2022 Telephone [place] [address] [place] Social History Tobacco Use Types Packs/Day Years [...] encounter Miscellaneous Notes * Telephone Encounter - [place]eka [place] - 05/11/2022 3:08 PM EDT Isatu Hiro [id number] Diagnosis/Indication: Please review patient chart to confirm if previous Endoscopy procedure was performed within system. If yes, take note of Anesthesia type used. If previous procedure found, and with MAC/propofol Anesthesia support was used, schedule this procedure with Anesthesia and skip the Anesthesia portion of questions. If not performed within system, not performed at all, or performed with IVCS, ask Anesthesia questions. SCHEDULING QUESTIONS (ask all patient these questions) 1. Have you ever had a/an Colonoscopy before? Yes: [place] [facility] If yes, did you have any problems with the procedure (such as waking up during the procedure, pain or difficulties afterwards, etc.)? No What type of sedation was used: IV Conscious Sedation 2. Do you take any blood thinners or have you been diagnosed with a bleeding disorder that increases your risk of bleeding with procedures? No 3. Do you have a Pacemaker or Defibrillator device? If yes, send pool message to Cardiology with patient information and date or procedure. No 4. Are you a diabetic? If yes, call PCP/managing provider to discuss use of prep and any questions or concerns related to. No 5. Do you take any iron supplements or vitamins that contain iron? No 6. Do you have a preference regarding the gender of your provider? Yes Dr Lozano ANESTHESIA QUESTIONS (YES to any question, please book with Anesthesia support) 7. Have you ever been diagnosed with any of the following: Pulmonary Hypertension, Atrial Fibrillation (A-Fib) and/or Congential Heart Disease? No 8. Have you ever had an allergic or adverse reaction to Fentanyl or Versed? No 9. Have you had a problem with sedation or anesthesia? (Waking up during procedure, extreme confusion after, etc.) No 10. Do you have a diagnosis of Obstructive Sleep Apnea? No 11. Do you use a c-pap machine? Neither 12. Do you use an oxygen tank at home? No 13. Do you use a rescue inhaler more than twice per day? (COPD, severe asthma) No 14. Do you experience breathing problems when you lay flat for a period of time? No 15. Do you take prescription narcotic pain medications, including suboxone or methodone? No SCHEDULING CONFIRMATIONS: Please note any and all parts of your conversation with the patient here. 16. We offer all new patients an opportunity to have an appointment with one of our associate care providers to learn more about your upcoming procedure, ask questions and get answers. These appointments are offered via telehealth. Would you be interested in scheduling this appointment? (Only ask if NEW referral patient; skip this question if GI provider ordered the procedure.) No 17. Is there any other information or concerns you would like to us to share with your care team inrelation to your upcoming scheduled procedure? No 18. You must have a responsible alliance party who will drive you to your procedure, stay on campus for the entire duration of your procedure, and drive you home from your procedure. Who will likely be your taxi cab driver for the procedure? Estimated body mass index is 20.53 kg/m?? as calculated from the following: Height as of 08/16/21: 172.7 cm (5' 8). Weight as of 08/16/21: 61.2 kg (135 lb). Age:71 y.o. documented in this encounter Plan of Treatment Upcoming Encounters Date Type Department Care Team (Latest Contact Info) Description 03/03/2024 3:00 PM EDT Hospital En[place] [address] Shorty Valdovinos MD [facility] [place] [address] 03/03/2024 3:00 PM EDT - 03/03/2024 4:00 PM EDT Surgery [place] [address] Shorty Valdovinos MD [facility] [place] [address] COLONOSCOPY, DIAGNOSTIC (WRVU 3.26) 03/31/2024 9:00 AM EDT Office [place] [address] Felisha Dc APRN [facility] [address] Scheduled Procedures Name Priority Associated Diagnoses Date/Ti me COLONOSCOPY, DIAGNOSTIC (WRVU 3.26) Crohn's disease without complication, unspecified gastrointestinal tract location 03/03/2024 3:00 PM EDT documented as of this encounter Visit Diagnoses Not on filedocumented in this encounter Care Teams Geographic Information System Surveyor Relationship Specialty Start Date End Date Giovanna Scott DO [address] [place] [address] PCP - General Family Medicine 09/18/19 03/22/23 documented as of this encounter
--- OUTSIDE RECORDS SUMMARY | 2024-02-19 11:22 | XMS_ITS | Encounter Summary ---
Author Organization [facility] [place] [address] Care Team Providers Care Curb Setter Helper Name Role Phone Cynthia Lozoya APRN Primary Care Provider [phone] Reason for Visit * Reason Onset Date Comments Medication Refill 09/27/2023 Encounter Details Date Type Department Care Team (Late st Contact Info) Description 09/27/2023 [place] [address] Felisha Dc MINISTER OF RELIGION [facility] [place] [place] [address] Crohn's disease without complication, unspecified gastrointestinal tract [...] 3:00 PM EDT Hospital En[place] [address] Shorty Valdovinos MD [facility] [place] [address] 03/03/2024 3:00 PM EDT - 03/03/2024 4:00 PM EDT [place] [address] Shorty Valdovinos MD [facility] [place] [address] COLONOSCOPY, DIAGNOSTIC (WRVU 3.26) 03/31/2024 9:00 AM EDT Office [place] [address] Felisha Dc APRN [facility] [place] [address] Scheduled Procedures Name Priority Associated Diagnoses Date/Ti me COLONOSCOPY, DIAGNOSTIC (WRVU 3.26) Crohn's disease without complication, unspecified gastrointestinal tract location 03/03/2024 3:00 PM EDT documented as of this encounter Visit Diagnoses Diagnosis Crohn's disease without complication, unspecified gastrointestinal tract location Crohn's disease without complication, unspecified gastrointestinal tract location documented in this encounter Care Teams Curb Setter Helper Relationship Specialty Start Date End Date Cynthia Lozoya APRN [address] [place] [id number] PCP - General Geriatric Medicine 09/03/23 10/15/23 documented as of this encounter
--- OUTSIDE RECORDS SUMMARY | 2024-02-19 11:22 | XMS_ITS | Encounter Summary ---
Author Organization [facility] Address [address] [place] [address] Care Team Providers Care Logistics Analytics Manager Name Role Phone Chelsie Martinez NP Primary Care Provider [phone] [facility] Internal Medicine, [place]p Primary Care Provi isak Encounter Details Date Type Department Care Team (Late st Contact Info) Description 04/10/2023 Lab Requisition [facility] Pathology & Laboratory Medicine - [address] [place], [place] [address] Outr Resulting Lab, Provider Social History Tobacco [...] Procedure Name Priority Date/Time Associated Diagnosis Comments QUANTIFERON MITOGEN (PERFORMABLE) Today 04/10/2023 10:45 EDT QUANTIFERON TB2 (PERFORMABLE) Today 04/10/2023 10:45 EDT QUANTIFERON TB1 (PERFORMABLE) Today 04/10/2023 10:45 EDT QUANTIFERON NIL (PERFORMABLE) Today 04/10/2023 10:45 EDT QUANTIFERON INTERPRETATION (PERFORMABLE) Today 04/10/2023 10:45 EDT QUANTIFERON TB GOLD PLUS Routine 04/10/2023 10:45 EDT documented in this encounter Results * QUANTIFERON INTERPRETATION (PERFORMABLE) (04/10/2023 10:45 EDT) Quantiferon Interpretation Negative Negative 04/12/2023 11:10 EDT [facility] Comment:No interferon-gamma response to M. tuberculosis antigens was detected. ??Infection with M. tuberculosis is unlikely. A single negative result does not exclude infection with M. tuberculosis. ??In patients at high risk for M. tuberculosis infection, a second test should be considered. TB1 Ag minus Nil 0.01 IU/ml 04/12/20 11:10 EDT [facility] TB2 Ag minus Nil 0.01 IU/mL 04/12/20 11:10 EDT [facility] Blood VENOUS BLOOD / Unknown 04/10/2023 10:45 EDT 04/12/2023 10:34 EDT Narrative [facility] - 04/12/2023 11:10 EDT Results were obtained with the [employer] QuantiFERON-TB Gold Plus CLIA. New platform in use 03/23/2021 Provider Outr Resulting Lab IMMUNOLOGY A ND SEROLOGY ORDERABLES Performing Organization Address [facility] Co de Phone Number [facility] [address] [place] [address] * QUANTIFERON MITOGEN (PERFORMABLE) (04/10/2023 10:45 EDT) Blood VENOUS BLOOD / Unknown 04/10/2023 10:45 EDT 04/11/2023 16:52 EDT Provider Outr Resulting Lab IMMUNOLOGY A ND SEROLOGY ORDERABLES Performing Organization Address [facility] Co de Phone Number [facility] [address] [place] [address] * QUANTIFERON TB2 (PERFORMABLE) (04/10/2023 10:45 EDT) Blood VENOUS BLOOD / Unknown 04/10/2023 10:45 EDT 04/11/2023 16:52 EDT Provider Outr Resulting Lab IMMUNOLOGY A ND SEROLOGY ORDERABLES Performing Organization Address [facility]/ZIP Co de Phone Number [facility] [address] [place] [address] * QUANTIFERON TB1 (PERFORMABLE) (04/10/2023 10:45 EDT) Blood VENOUS BLOOD / Unknown 04/10/2023 10:45 EDT 04/11/2023 16:52 EDT Provider Outr Resulting Lab IMMUNOLOGY A ND SEROLOGY ORDERABLES Performing Organization Address [facility] Co de Phone Number [facility] [address] [place] [address] * QUANTIFERON NIL (PERFORMABLE) (04/10/2023 10:45 EDT) Blood VENOUS BLOOD / Unknown 04/10/2023 10:45 EDT 04/11/2023 16:52 EDT Provider Outr Resulting Lab IMMUNOLOGY A ND SEROLOGY ORDERABLES Performing Organization Address [facility] Co de Phone Number [facility] [address] [place] [address] documented in this encounter Visit Diagnoses Not on filedocumented in this encounter Care Teams Logistics Analytics Manager Relationship Specialty Start Date End Date Chelsie Martinez, SHORE WORKER PCP - General Family Medicine - Primary Care 02/13/23 08/28/23 [facility] Internal Medicine, Mp [address] [place] [address] PCP - General 08/29/23 documented as of this encounter
--- OUTSIDE RECORDS SUMMARY | 2024-02-19 11:22 | XMS_ITS | Encounter Summary ---
Author Organization [facility] [place] [address] Care Team Providers Care Six Sigma Project Manager Name Role Phone Cynthia Lozoya APRN Primary Care Provider [phone] Encounter Details Date Type Department Care Team (Late st Contact Info) Description 09/13/2023 Orders [place] [phone] Felisha Dc APRN [facility] [place] [address] Crohn's disease without complication, unspecified gastrointestinal tract [...] 3:00 PM EDT Hospital [place] [address] Shorty Valdovinos MD [facility] [place] [address] 03/03/2024 3:00 PM EDT - 03/03/2024 4:00 PM EDT [place] [address] Shorty Valdovinos MD [facility] [place] [address] COLONOSCOPY, DIAGNOSTIC (WRVU 3.26) 03/31/2024 9:00 AM EDT Office [place] [address] Felisha Dc APRN [facility] [place] [address] Scheduled Orders Name Type Priority Associated Diagnoses Orde r Schedule Comprehensive metabolic panel (non-fasting) Lab Routine Crohn's disease without complication, unspecified gastrointestinal tract location Expected: 09/13/2023 (Approximate), Expires: 09/12/2024 Scheduled Procedures Name Priority Associated Diagnoses Date/Ti me COLONOSCOPY, DIAGNOSTIC (WRVU 3.26) Crohn's disease without complication, unspecified gastrointestinal tract location 03/03/2024 3:00 PM EDT documented as of this encounter Visit Diagnoses Diagnosis Crohn's disease without complication, unspecified gastrointestinal tract location Crohn's disease without complication, unspecified gastrointestinal tract location documented in this encounter Care Teams Six Sigma Project Manager Relationship Specialty Start Date End Date Cynthia Lozoya APRN [address] [place] [address] PCP - General Geriatric Medicine 09/03/23 10/15/23 documented as of this encounter
--- OUTSIDE RECORDS SUMMARY | 2024-02-19 11:22 | XMS_ITS | Encounter Summary ---
Author Organization [facility] [place] [address] Care Team Providers Care Environmental Projects Advisor Name Role Phone Cynthia Lozoya APRN Primary Care Provider [phone] Encounter Details Date Type Department Care Team (Latest Contact Info) Description 01/03/2024 Travel Social History Tobacco Use Types Packs/Day [...] 3:00 PM EDT Hospital En[place] [address] Shorty Valdovinos MD [facility] [place] [address] 03/03/2024 3:00 PM EDT - 03/03/2024 4:00 PM EDT [place] [address] Shorty Valdovinos MD [facility] [place] [address] COLONOSCOPY, DIAGNOSTIC (WRVU 3.26) 03/31/2024 9:00 AM EDT Office [place] [address] Felisha Dc APRN [facility] [place] [address] Scheduled Procedures Name Priority Associated Diagnoses Date/Ti me COLONOSCOPY, DIAGNOSTIC (WRVU 3.26) Crohn's disease without complication, unspecified gastrointestinal tract location 03/03/2024 3:00 PM EDT documented as of this encounter Visit Diagnoses Not on filedocumented in this encounter Care Teams Environmental Projects Advisor Relationship Specialty Start Date End Date Cynthia Lozoya APRN [address] [place] [id number] PCP - General Geriatric Medicine 10/23/23 documented as of this encounter
--- OUTSIDE RECORDS SUMMARY | 2024-02-19 11:22 | XMS_ITS | Encounter Summary ---
Author Organization [facility] [place] [address] Care Team Providers Care Blow Pit Helper Name Role Phone Christopher Haynes DO Primary Care Provider [phone] Encounter Details Date Type Department Care Team (Late st Contact Info) Description 08/08/2023 12:05 AM EST Ancillary Procedure [place] [address] Christopher Haynes DO [address] [place] [id number] Social History Tobacco Use Types Packs/Day Years [...] 3:00 PM EDT Hospital Encounter [place] [address] Shorty Valdovinos MD [facility] [place] [address] 03/03/2024 3:00 PM EDT - 03/03/2024 4:00 PM EDT Surgery [place] [address] Shorty Valdovinos MD [facility] [place] [address] COLONOSCOPY, DIAGNOSTIC (WRVU 3.26) 03/31/2024 9:00 AM EDT Office [place] [address] Felisha Dc APRN [facility] [place] [address] Scheduled Procedures Name Priority Associated Diagnoses Date/Ti me COLONOSCOPY, DIAGNOSTIC (WRVU 3.26) Crohn's disease without complication, unspecified gastrointestinal tract location 03/03/2024 3:00 PM EDT documented as of this encounter Procedures Procedure Name Priority Date/Time Associated Diagnosis Comments FILM LIBRARY - STORAGE ONLY CT NECK Routine 08/08/2023 12:05 AM EST documented in this encounter Results * Film Library- Storage Only CT Neck (08/08/2023 12:05 AM EST) Narrative [facility] - 08/21/2023 5:32 PM EST This exam is auto-finalizing. It's purpose is for storage only. Christopher Haynes DO [facility] FILM LIBRARY ORD ERABLES [place], [place] documented in this encounter Visit Diagnoses Not on filedocumented in this encounter Care Teams Blow Pit Helper Relationship Specialty Start Date End Date Christopher Haynes DO [address] [place] [address] PCP - General Family Medicine 03/23/23 09/02/23 documented as of this encounter
--- OUTSIDE RECORDS SUMMARY | 2024-02-19 11:22 | XMS_ITS | Encounter Summary ---
Author Organization [facility] Address [address] [place] [address] Care Team Providers Care Microsoft Access Developer Name Role Phone Chelsie Martinez NP Primary Care Provider [phone] [facility] Internal Medicine, Mp Primary Care Provi isak Encounter Details Date Type Department Care Team (Late st Contact Info) Description 03/06/2023 Lab Requisition [facility] Pathology & Laboratory Medicine - [facility] [address] [place] [address] Mary Fitzgerald, DO [address] [place] [address] Encounter for other general examination Social History Tobacco Use Types Packs/Day Years Used Date Smoking Tobacco: Never Assessed Sex and Gender Information Value Date Recorded Sex Assigned at Not on file Gender Identity Not on file Sexual Orientation Not on file documented as of this encounter Plan of Treatment Not on file documented as of this encounter Procedures Procedure Name Priority Date/Time Associated Diagnosis Comments SURGICAL PATHOLOGY Today 03/06/2023 9: 36 EDT Encounter for other general examination documented in this encounter Results * SURGICAL PATHOLOGY (03/06/2023 9:36 EDT) Note to Patient The following pathology results have been interpreted by your pathologist and may be available to you before your health provider has had the opportunity to review them. Please allow time for your provider to receive these results and explore management options, if applicable. 03/09/2023 12:[address] [facility] Final Diagnosis A. PROXIMAL JEJUNUM, BIOPSY: - No significant diagnostic abnormality. B. DUODENAL BULB, BIOPSY: - Ronald gland hyperplasia and focal acute duodenitis, nonspecific. C. STOMACH, GREATER CURVATURE, BIOPSY: - No significant diagnostic abnormality. D. STOMACH, ANTRUM, BIOPSY: - Reactive changes and focal lymphoid aggregate. E. GASTROESOPHAGEAL JUNCTION, BIOPSY: - Glandular mucosa with mild chronic active esophagitis. - Negative for intestinal metaplasia and dysplasia. F. DISTAL ESOPHAGUS, BIOPSY: - Squamous mucosa with no significant diagnostic abnormality. G. COLON AT 60 CM, BIOPSY: - Colonic mucosa with reactive changes, glandular disarray, focal crypt abscess, focal cryptitis, granulation tissue and focal granulomas; see comment. H. CECUM, BIOPSY: - Colonic mucosa with reactive changes, focal cryptitis, focal crypt abscess, chronic inflammation and focal granulomas; see comment. I. COLON AT 30 CM, BIOPSY: - Colonic mucosa with reactive changes and focal granulation tissue. J. RECTUM, BIOPSY: - Colonic mucosa with reactive changes and focal chronic inflammation. 03/09/2023 12:33 [facility] Diagnosis Comment G, H. 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 In addition, AFB and GMS stains show no microorganisms. Clinical correlation is recommended to determine the etiology. Intradepartmental review was obtained. 03/09/2023 12:33 [facility] Attestation By the signature below, the attending physician certifies that they have 1) personally conducted a gross and/or microscopic examination of the described specimen(s), and/or personally interpreted the results of laboratory testing of the described specimen(s), and 2) personally rendered or confirmed the above diagnosis. 03/09/2023 12:33 [facility] at 1233 Clinical History Anemia 03/09/2023 12:33 [facility] Gross Description A. Received in formalin labelled with proper patient identification (initials T, C) and 1. Proximal jejunum is a single martinez-brown tissue (0.4 x 0.3 x 0.1 cm). Submitted intact in A1. B. Received in formalin labelled with proper patient identification (initials T, C) and 2. Duodenal bulb is a single yellow-martinez tissue (0.3 x 0.2 x 0.2 cm). Submitted intact in B1. C. Received in formalin labelled with proper patient identification (initials T, C) and 3. Greater curve is a single martinez tissue (0.3 x 0.2 x 0.1 cm). Submitted intact in C1. D. Received in formalin labelled with proper patient identification (initials T, C) and 4. Antrum are 2 martinez tissues (0.5 x 0.2 x 0.1 cm and 0.2 x 0.1 x 0.1 cm). Entirely submitted in D1. E. Received in formalin labelled with proper patient identification (initials T, C) and 5. GE junction @ 42 cm are 2 martinez-yellow tissues (0.4 x 0.2 x 0.1 cm and 0.2 x 0.1 x 0.1 cm). Entirely submitted in E1. F. Received in formalin labelled with proper patient identification (initials T, C) and 6. Distal esophagus is a single transparent martinez-white focally brown speckled wispy tissue (0.4 x 0.3 by less than 0.1 cm). Submitted intact in F1. G. Received in formalin labelled with proper patient identification (initials T, C) and 7. Colon mass @ 60 cm are 3 martinez and martinez focally brown tissues (0.4 x 0.4 x 0.1 cm to 0.4 x 0.3 x 0.1 cm entirely submitted in G1. H. Received in formalin labelled with proper patient identification (initials T, C) and 8. Cecal Bx are 2 martinez focally brown tissues (0.8 x 0.2 x 0.1 cm and 0.3 x 0.2 x 0.2 cm). Entirely submitted in H1. I. Received in formalin labelled with proper patient identification (initials T, C) and 9. Colon Bx @ 30 cm are 2 martinez tissues (0.5 x 0.2 x 0.1 cm and 0.3 x 0.2 x 0.1 cm). Entirely submitted in I1. J. Received in formalin labelled with proper patient identification (initials T, C) and 10. Rectal Bx are 2 martinez tissues (0.3 x 0.2 x 0.2 cm and 0.3 x 0.1 x 0.1 cm). Entirely submitted in J1. Kathy Kidd 03/07/2023 9:03 03/09/2023 12:[address] [facility] Performing Lab [facility] 03/09/2023 12:[address] [facility] Scanned Images 03/09/2023 12:[address] [facility] Tissue SPECIMEN FROM RECTUM / Unknown 03/06/2023 9:36 EDT 03/06/2023 19:32 EDT Tissue specimen (specimen) STRUCTURE OF SMALL INTESTINE / Unknown 03/06/2023 9:36 EDT 03/06/2023 19:32 EDT Tissue specimen (specimen) STOMACH STRUCTURE / Unknown 03/06/2023 9:36 EDT 03/06/2023 19:32 EDT Tissue specimen (specimen) STOMACH STRUCTURE / Unknown 03/06/2023 9:36 EDT 03/06/2023 19:32 EDT Tissue specimen (specimen) ESOPHAGEAL STRUCTURE / Unknown 03/06/2023 9:36 EDT 03/06/2023 19:32 EDT Tissue specimen (specimen) ESOPHAGEAL STRUCTURE / Unknown 03/06/2023 9:36 EDT 03/06/2023 19:32 EDT Tissue specimen (specimen) COLON STRUCTURE / Unknown 03/06/2023 9:36 EDT 03/06/2023 19:32 EDT Tissue specimen (specimen) CECUM STRUCTURE / Unknown 03/06/2023 9:36 EDT 03/06/2023 19:32 EDT Tissue specimen (specimen) COLON STRUCTURE / Unknown 03/06/2023 9:36 EDT 03/06/2023 19:32 EDT Tissue specimen (specimen) SPECIMEN FROM RECTUM / Unknown 03/06/2023 9:36 EDT 03/06/2023 19:32 EDT Mary Fitzgerald DO PATHOLOGY ORDERABLES [facility] [address] [place] [address] documented in this encounter Visit Diagnoses Diagnosis Encounter for other general examination documented in this encounter Care Teams Microsoft Access Developer Relationship Specialty Start Date End Date Chelsie Martinez, MARY PCP - General Family Medicine - Primary Care 02/13/23 08/28/[address] [facility] Internal Medicine, Mp [address] [place] [address] PCP - General 08/29/23 documented as of this encounter
--- OUTSIDE RECORDS SUMMARY | 2024-02-19 11:22 | XMS_ITS | Encounter Summary ---
Author Organization [facility] Address [address] [place] [address] Care Team Providers Care Supervisor Electrolytic Tinning Name Role Phone Chelsie Martinez NP Primary Care Provider [phone] [facility] Internal Medicine, [place]p Primary Care Provi isak Encounter Details Date Type Department Care Team (Late st Contact Info) Description 02/07/2023 Lab Requisition [facility] Pathology & Laboratory Medicine - [facility] [address] [place], [place] [address] Outr Resulting Lab, Provider Social History Tobacco [...] Procedure Name Priority Date/Time Associated Diagnosis Comments FOLATE Routine 02/06/2023 9:26 EDT FERRITIN Routine 02/06/2023 9:26 EDT documented in this encounter Results * FERRITIN (02/06/2023 9:26 EDT) Ferritin 184 10 - 291 ng/mL 02/07/2023 22:28 EDT [facility] Blood VENOUS BLOOD / Unknown 02/06/2023 9:26 EDT 02/07/2023 21:26 EDT Provider Outr Resulting Lab CHEMISTRY & BLOOD GAS ORDERABLES [facility] [address] [place] [address] * FOLATE (02/06/2023 9:26 EDT) Folate >24.0 See Note ng/mL 02/07/2023 22:31 EDT [facility] Comment: Reference Ranges for Folate: Deficient: ?< 3.4 ng/mL Indeterminate: ??3.4 - 5.4 ng/mL Normal: ? > 5.4 ng/mL The results of this assay can be falsely elevated due to the consumption of Biotin. Blood VENOUS BLOOD / Unknown 02/06/2023 9:26 EDT 02/07/2023 21:26 EDT Provider Outr Resulting Lab CHEMISTRY & BLOOD GAS ORDERABLES [facility] [address] [place] [address] documented in this encounter Visit Diagnoses Not on filedocumented in this encounter Care Teams Supervisor Electrolytic Tinning Relationship Specialty Start Date End Date Chelsie Martinez, MARY PCP - General Family Medicine - Primary Care 02/13/23 08/28/23 [facility] Internal Medicine, Jose Armando [address] [place] [address] PCP - General 08/29/23 documented as of this encounter
--- OUTSIDE RECORDS SUMMARY | 2024-02-19 11:22 | XMS_ITS | Encounter Summary ---
Author Organization [facility] [place] [address] Care Team Providers Care Chain Person Name Role Phone Giovanna Scott DO Primary Care Provider [phone] Encounter Details Date Type Department Care Team (Late st Contact Info) Description 03/06/2023 Ancillary Procedure [place] [address] Christopher Haynes DO [address] [place] [id number] Social History Tobacco Use Types Packs/Day Years [...] 3:00 PM EDT Hospital En[place] [address] Shorty Valdovinos MD [facility] [place] [address] 03/03/2024 3:00 PM EDT - 03/03/2024 4:00 PM EDT [place] [address] Shorty Valdovinos MD [facility] [place] [address] COLONOSCOPY, DIAGNOSTIC (WRVU 3.26) 03/31/2024 9:00 AM EDT Office [place] [address] Felisha Dc APRN [facility] [place] [address] Scheduled Procedures Name Priority Associated Diagnoses Date/Ti me COLONOSCOPY, DIAGNOSTIC (WRVU 3.26) Crohn's disease without complication, unspecified gastrointestinal tract location 03/03/2024 3:00 PM EDT documented as of this encounter Procedures Procedure Name Priority Date/Time Associated Diagnosis Comments FILM LIBRARY STORAGE ONLY CT CHEST ABDOMEN PELVIS Routine 03/06/2023 12:00 AM EDT documented in this encounter Results * Film Library- Storage Only CT Chest Abdomen Pelvis (03/06/2023 12:00 AM EDT) Narrative [facility] - 08/21/2023 5:29 PM EST This exam is auto-finalizing. It's purpose is for storage only. Christopher Haynes DO IMG FILM LIBRARY ORD ERABLES [place], [place] documented in this encounter Visit Diagnoses Not on filedocumented in this encounter Care Teams Chain Person Relationship Specialty Start Date End Date Giovanna Scott DO [address] [place] [address] PCP - General Family Medicine 09/18/19 03/22/23 documented as of this encounter
--- OUTSIDE RECORDS SUMMARY | 2024-02-19 11:22 | XMS_ITS | Encounter Summary ---
Author Organization [facility] Address [address] [place] [address] Care Team Providers Care Call Center Support Representative Name Role Phone Chelsie Martinez NP Primary Care Provider [phone] [facility] Primary Care Provi isak Encounter Details Date Type Department Care Team (Late st Contact Info) Description 12/05/2022 Lab Requisition [facility] Pathology & Laboratory Medicine - [facility] [address], [place] [id number] Outr Resulting Lab, Provider Social History Tobacco [...] Procedure Name Priority Date/Time Associated Diagnosis Comments CCP ANTIBODIES Routine 12/05/2022 7:58 EDT RHEUMATOID FACTOR Routine 12/05/2022 7:58 EDT documented in this encounter Results * RHEUMATOID FACTOR (12/05/2022 7:58 EDT) Rheumatoid Factor 8.7 <12.0 IU/mL 12/05/2022 17:13 EDT [facility] Blood VENOUS BLOOD / Unknown 12/05/2022 7:58 EDT 12/05/2022 16:44 EDT Provider Outr Resulting Lab CHEMISTRY & BLOOD GAS ORDERABLES [facility] [address] [place] [address] * CCP ANTIBODIES (12/05/2022 7:58 EDT) CCP Antibodies <2.5 <5.0 U/mL 12/06/2022 8:48 EDT [facility] Blood VENOUS BLOOD / Unknown 12/05/2022 7:58 EDT 12/05/2022 16:44 EDT Provider Outr Resulting Lab IMMUNOLOGY A ND SEROLOGY ORDERABLES [facility] [address] [place] [address] documented in this encounter Visit Diagnoses Not on filedocumented in this encounter Care Teams Call Center Support Representative Relationship Specialty Start Date End Date Chelsie Martinez, LOGISTICS COORDINATOR PCP - General Family Medicine - Primary Care 02/13/23 08/28/23 [facility] [address] [place] [address] PCP - General 08/29/23 documented as of this encounter
--- OUTSIDE RECORDS SUMMARY | 2024-02-19 11:22 | XMS_ITS | Encounter Summary ---
Author Organization [facility] [place] [address] Care Team Providers Care Shaker Out Name Role Phone Cynthia Lozoya APRN Primary Care Provider [phone] Reason for Visit * Consultation (Routine) - Closed Specialty Diagnoses / Procedures Referred By Flip womack Referred To Contact Gastroenterology Diagnoses Crohn's disease of large intestine without complication pennys Mary Fitzgerald, [address] [place] [address] [place] [address] [facility] [address] [place] [address] Referral ID Status Reason Start Date Expiration Date V isits Requested Visits Authorized [id number] Closed Consult, Test & Treat PCP Updated and/or Approved 08/25/2023 08/24/2024 6 6 Encounter Details Date Type Department Care Team (Latest Contact Info) Description 09/03/2023 10:00 AM EST Office [place] [address] Felisha Dc APRN [facility] [place] [address] Crohn's disease without complication, unspecified gastrointestinal tract [...] Sign Reading Time Taken Comments Blood Pressure 119/55 09/03/2023 9:28 AM EST Pulse 59 09/03/2023 9:28 AM EST Temperature - - Respiratory Rate - - Oxygen Saturation - - Inhaled Oxygen Concentration - - Weight 57.9 kg (127 lb 11.2 oz) 09/03/2023 9:28 AM EST Height 172.7 cm (5' 8) 09/03/2023 9:28 AM EST Body Mass Index 19.42 09/03/2023 9:28 AM EST documented in this encounter Patient Instructions * Patient Instructions* Felisha Dc APRN - 09/03/2023 10:00 AM EST - Continue Humira every 2 weeks - Check Labs: Humira drug level, Vit D - Check stool calprotectin - Will obtain copy of recent labs done at [facility] on 08/29. - Routine labs every 3 months while on Humira - Colonoscopy to restage disease. She prefers to have Dr. Fitzgerald do it and will talk with her about this - Plan for EGD if with difficulty swallowing ( dysphagia) and to see if needs dilation given prior h/o esophageal dilation - She would talk to her PCP about referral to Rheumatology( joint, leg swelling and pain), and ophthalmology ( eye symptoms) - Health maintenance while on Humira: yearly flu shot; Pneumococcal vaccines; Shingrix; No LIVE vaccines. COVID vaccines/booster. Yearly skin check with dermatology - She will discuss follow up with me with Dr. Fitzgerald first and will let me know. documented in this encounter Progress Notes * Felisha Dc APRN - 09/03/2023 10:00 AM EST Images from the original note were not included. Primary care provider: Christopher Haynes DO Referring provider: Dr. Mary Fitzgerald Reason for visit: Crohn's disease History of present illness: Isatu Bosch a 73 y/o with medical h/o esophageal stenosis, and Schatzki ring, s/p EGD with multipledilations(last in 05/2022), dx with Crohn's disease after 03/06/23 Colonoscopy (Dr. Mary Fitzgerald, [facility]) and CT scan, on , referred by Dr. Mary Fitzgerald for management. Patient with longstanding h/o IBS- constipation then had diarrhea after she had COVID 06/2022 and due to persistent diarrhea and weight loss, she underwent a colonoscopy on 03/06/23 (Dr. Mary Fitzgerald, [facility]) and CT scan and was dx with Crohn's disease. See Detailed IBD history below. Took Entocort 9 mg with taper from 02/2023. Came off end of May 2023. Symptoms a lot better on Entocort, stools almost back to normal, bm 1-2x/day. Humira started April 2023. Bowels are not as good compared to when she was on Entocort. Stools more pasty and irregular bm. Alternating constipation and frequent bm. Feels constipated, passing small stool once a day for 3-4 days then other days more frequent bm, 4x/day, pasty stool. Not diarrhea but very soft . No bleeding. Occasionally will have nocturnal bm. No abdominal pain. She is eating. Initially lost 35 lbs and have gained back 23 lbs. Not losing weight. No n/v Denies heartburns, dysphagia nor odynophagia. Not on PPI's nor antacid. H/O mouth sores prior to dx and now resolved. H/O arthritis. LE edema, bilateral, occaional pain. Pain in ankles. Feel her feet gets very cold blue Eyes are red, achy, grayish hue but not pain. Remote h/o anorectal fistula many years. She can not recall details or symptoms. Currently without any perianal pain nor drainage. No fever. Gets night sweats. She avoided gluten due to h/o celiac disease, dx by serologic testing per patient many years ago, Recent Labs done at [facility] 08/29/23 Review of systems as in the HPI, the rest of the review of systems were negative. Detailed IBD History: Crohn's disease. Dx 02/2023, see colonoscopy/bx reports below. - Has longstanding h/o IBS- constipation then had diarrhea after she had COVID 06/2022 and due to persistent diarrhea and weight loss, she underwent a colonoscopy on 03/06/23 (Dr. Mary Fitzgerald, [facility])and CT scan and was dx with Crohn's disease. - Presenting symptoms: persistent diarrhea, initial weight loss (35 lbs) and have gained back 23 lbs. - Self-reported remote h/o anorectal fistula many years ago . She can not recall details or symptoms. Currently without any perianal pain nor drainage. IBD meds: Entocort 9 mg with taper from 02/2023. Came off end of May 2023. Symptoms a lot better on Entocort, stools almost back to normal, bm 1-2x/day. Humira started April 2023. Bowels are not as good compared to when she was on Entocort. Stools more pasty and irregular bm. Alternating constipation and frequent bm but not diarrhea Diagnostics: 03/06/23 Colonoscopy (Dr. Mary Fitzgerald, [facility]): 03/06/23 ( [facility]) A. PROXIMAL JEJUNUM, BIOPSY: No significant diagnostic abnormality. B. DUODENAL BULB, BIOPSY: Ronald gland hyperplasia and focal acute duodenitis, nonspecific. C. STOMACH, GREATER CURVATURE, BIOPSY: No significant diagnostic abnormality. D. STOMACH, ANTRUM, BIOPSY: Reactive changes and focal lymphoid aggregate. E. GASTROESOPHAGEAL JUNCTION, BIOPSY: Glandular mucosa with mild chronic active esophagitis. Negative for intestinal metaplasia and dysplasia. F. DISTAL ESOPHAGUS, BIOPSY: Squamous mucosa with no significant diagnostic abnormality. G. COLON AT 60 CM, BIOPSY: Colonic mucosa with reactive changes, glandular disarray, focal crypt abscess, focal cryptitis, granulation tissue and focal granulomas; see comment. H. CECUM, BIOPSY: Colonic mucosa with reactive changes, focal cryptitis, focal crypt abscess, chronic inflammation and focal granulomas; see comment. I. COLON AT 30 CM, BIOPSY: Colonic mucosa with reactive changes and focal granulation tissue. J. RECTUM, BIOPSY: Colonic mucosa with reactive changes and focal chronic inflammation. Diagnosis Comment: G, H. 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 In addition, AFB and GMS stains show no microorganisms. Clinical correlation is recommended to determine the etiology.Intradepartmental review was obtained. 03/06/23 CT Chest/Abd/pelvis ( [facility]): 2. Dysphagia- h/o esophageal stenosis,Schatzki ring , seen Dr. Lozano, s/p EGD with multiple dilation, last in 05/2022. - Initially took Pantoprazole 40 mg once daily but stopped. - Denies heartburns, dysphagia nor odynophagia. Not on PPI's nor antacid. Patient Active Problem List Diagnosis Code Multiple thyroid nodules E04.2 Pseudophakia, both eyes Z96.1 Sinus bradycardia R00.1 Heart palpitations R00.2 Dizziness R42 Hyperopia of both eyes with astigmatism and presbyopia H52.03, H52.203, H52.4 Vitreous floaters of both eyes H43.393 Lactose intolerance E73.9 Sensorineural hearing loss, bilateral H90.3 Disequilibrium R42 Osteopenia M85.80 Presence of left artificial knee joint Z96.652 Other specified personal risk factors, not elsewhere classified Z91.89 Thyroid nodule E04.1 Underweight R63.6 Osteoporosis M81.0 Dysphagia R13.10 Crohn's disease of large intestine without complication K50.10 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 She can not rememeber details. Cataract Celiac disease by serology many years ago per patient. Chronic diarrhea Disorder of tendon Dizziness 10/04/2016 Exposure to TB from chart review- Dr. Mckeon's note 05/2023 Heart palpitations 10/04/2016 Hiatal hernia 08/28/2023 IBS (irritable bowel syndrome) Iron deficiency anemia Measles Microcytic anemia Mumps Scarlet fever Schatzki's ring of distal esophagus Sinus bradycardia 10/04/2016 Sinus bradycardia 10/04/2016 Thyroid disease Varicella Past Surgical History: Procedure Laterality Date CATARACT REMOVAL Bilateral 2011 OU LASER SURGERY Left 2014 YAG OS for PCO - MEZ PRO COLONOSCOPY, BIOPSY 11/22/2011 COLONOSCOPY FLEXIBLE, WITH BX performed by Shorty ARCE at [facility] ENDOSCOPY PRO UP GI ENDOSCOPY, BALL DIL, 30MM N/A 09/10/2018 EGD,WITH DILATION ESOPHAGUS WITH BALLOON,< 30 MM (WRVU 2.77) performed by Elida oLzano MD at [facility] ENDOSCOPY PRO UP GI ENDOSCOPY, BALL DIL, 30MM N/A 08/17/2020 EGD,WITH DILATION ESOPHAGUS WITH BALLOON,< 30 MM (WRVU 2.77) performed by Elida Lozano MD at [facility] ENDOSCOPY PRO UP GI ENDOSCOPY, BALL DIL, 30MM N/A 08/16/2021 EGD,WITH DILATION ESOPHAGUS WITH BALLOON,< 30 MM (WRVU 2.77) performed by Rosanna Cardenas MD at [facility] ENDOSCOPY PRO UP GI ENDOSCOPY, BALL DIL, 30MM N/A 05/23/2022 EGD,WITH DILATION ESOPHAGUS WITH BALLOON,< 30 MM (WRVU 2.77) performed by Elida Lozano MD at [facility] ENDOSCOPY YAG CAPSULOTOMY Left 12/01/2014 Dr Mancia YAG CAPSULOTOMY Right 05/11/[address] Mancia Medications Outpatient Medications Prior to Visit Medication Sig Dispense Refill adalimumab-adbm (Cyltezo,CF,) 40 mg/0.8 mL Syringe Kit Inject subcutaneously every 14 days. multivitamin (THERAGRAN) Tablet Take 1 tablet by mouth daily. CALCIUM CARBONATE-VITAMIN D3 ORAL Take 1,200 mg by mouth daily. chewable Glucosamine 750 mg Capsule Take 750 mg by mouth 2 times daily (with meals). acetaminophen (TYLENOL) 650 mg Tablet Sustained Release Take 650 mg by mouth. vitamin E mixed/tocotrienol (VITAMIN E COMPLEX ORAL) VITAMIN E 400 UNIT CAPS cholecalciferol, Vitamin D3, 5,000 unit Tablet Take 1 tablet by mouth daily. pantoprazole EC (Protonix) 40 mg Tablet, Delayed Release (E.C.) Take 1 tablet by mouth daily. (Patient not taking: Reported on 09/03/2023) 30 tablet 11 digestive enzymes combo no.7 Capsule Take by mouth. metoclopramide (REGLAN) 5 mg Tablet Take 1-2 tablets by mouth 4 times daily. (3 meals / day and at bedtime) (Patient not taking: Reported on 07/25/2019) 80 tablet 0 clindamycin (CLEOCIN) 300 mg Capsule CLINDAMYCIN HCL 300 MG CAPS prior to procedures aspirin 325 mg Tablet Take 325 mg by mouth every 6 hours as needed for Pain. VITAMIN B COMPLEX ORAL Take 1 tablet by mouth daily. No facility-administered medications prior to visit. Allergies/Adverse reactions Lactose, Azithromycin, Citric acid, Gluten, and Penicillins Social history: Social History Social History Narrative Lives with kitten. Retired from accounting. No family in the area. Smoking- Quit at age 18 Alcohol- occasionally Retired, previously worked as a book keeper Relevant family history: IBD- none Colon cancer/ other GI Malignancy-none P.uncle- leukemia Sister- breast cancer Physical Examination Patient appears well Wt Readings from Last 3 Encounters: 05/23/22 61.2 kg (135 lb) 08/16/21 61.2 kg (135 lb) 08/17/20 60.3 kg (133 lb) Vitals: 09/03/23 0928 BP: 119/55 BP Location (NBP): Right arm Patient Position: Sitting BP Cuff Sizes: Small Adult (20-26 cm) Pulse: 59 Weight: 57.9 kg (127 lb 11.2 oz) Height: 172.7 cm (5' 8) HEENT: anicteric Heart: regular Resp: CTA Abd: normal BS, soft/nontender diffusely, no masses, no hepatomegaly, no splenomegaly Extrem: normal muscle tone, +1 pitting edema, bilaterally LE Skin: no lesions Recent labs Quantiferon Interpretation Negative Negative 04/12/2023 11:10 [facility] Component 04/10/23 02/06/23 Hep B Surface Ag Negative -- Hep B Surface Ab, Quantitative <3.1 -- Hep B Surface Ab, Qualitative Negative -- Hepatitis B Core Ab, Total Negative -- Hep C Antibody Negative Negative No visits with results within 3 Month(s) from this visit. Latest known visit with results is: Admission on 05/23/2022, Discharged on 05/23/2022 Component Date Value Ref Range Status UPPER GI ENDOSCOPY 05/23/2022 Final Value:[facility] Endoscopy Procedure Date: 05/23/2022 7:16 AM Patient Name: Isatu Bosch Date of : 1950 Age: 71 Order #: [id number] Instrument Name: [id number] Procedure: Upper GI endoscopy Indications: Dysphagia Providers: Elida Lozano MD, Gini Schaeffer RN, Bharath Ordaz MD: Giovanna Scott Medicines: Midazolam 4 mg IV, Fentanyl 100 micrograms IV, Benzocaine spray Complications: No immediate com plications. Procedure: The procedure, indications, benefits, risks and alternatives were explained to the patient. Specifically discussed were potential complications including, but not limited to, bleeding, perforation, infection, missing a cancer, and adverse medication reactions. The Endoscope was introduced through the mouth, and advanced to the second part of duodenum The upper GI endoscopy was accomplished without difficulty. The patient tolerated the procedure well. Findings: LA Grade B (one or more mucosal breaks greater than 5 mm, not extending between the tops of two mucosal folds) esophagitis with no bleeding was found 41 cm from the incisors. A TTS dilator was passed through the scope. Dilation with an 18-19-20 mm balloon dilator was performed to 20 mm. The dilation site was examined and showed mild heme. A 2 cm hiatal hernia was present. The exam of the stomach was otherwise normal. The examined duodenum was normal. Moderate Sedation: I was present during the intraservice time as documented by the sedation RN. Impression: - LA Grade B reflux esophagitis with no bleeding. Dilated to 20 mm. - Small hiatal hernia. - No specimens collected. Recommendation: - Trial of an alternate PPI, such as pantoprazole 40 mg once daily - Discharge home ambulatory. Attending Participation: I personally performed the entire procedure. Elida Lozano MD 05/23/2022 7:57:51 AM Number of Addenda: 0 Note Initiated On: 05/23/2022 7:16 AM Prior endoscopic procedures As in detailed IBD history above Prior relevant imaging As in detailed IBD history above Impression Isatu Bosch with h/o esophageal stenosis, and Taylor ruff, s/p EGD with multiple dilations(last in 05/2022), dx with Crohn's disease after 03/06/23 Colonoscopy (Dr. Mary Fitzgerald, [facility]) and CT scan.See above. Currently on Humira 40 mg q 2 weeks. Overall her symptoms are better compared to before. However, she feels a lot better when she was onEntocort. Since on Humira, no longer having diarrhea but stools alternate between constipation and more frequent BM of pasty to very soft stool. No abdominal pain. We discussed getting colonoscopy to restage disease and evaluate therapeutic response. In addition, will get fecal calprotectin. We will also plan to check Humira /ADA level to help guide therapy. I suspect she may also have a concomitant IBS symptoms. Joint pains, swelling are less likely from Humira- could be Inflammatory arthritis vs OA. I recommend that she sees Rheumatology and she will talk to her PCP on this. Eye symptoms- I recommend that she sees her senior sales representative whom she had seen before for further evaluation, to R/O episcleritis/uveitis. Recommendations: - Continue Humira every 2 weeks - Check Labs: Humira drug level, Vit D - Check stool calprotectin - Will obtain copy of recent labs done at [facility] on 08/29. - Routine labs every 3 months while on Humira - Colonoscopy to restage disease. She prefers to have Dr. Fitzgerald do it and will talk with her about this - Plan for EGD if with difficulty swallowing ( dysphagia) and to see if needs dilation given prior h/o esophageal dilation - She would talk to her PCP about referral to Rheumatology( joint, leg swelling and pain), and ophthalmology ( eye symptoms) - Health maintenance while on Humira: yearly flu shot; Pneumococcal vaccines; Shingrix; No LIVE vaccines. COVID vaccines/booster. Yearly skin check with dermatology - She will discuss follow up with me with Dr. Lia maher and will let me know. Time Attestation: I certify spending at least 60 minutes in providing care to this patient today as reflected by the following activities: - review of the medical record in the chart - discussing of medical decision making - documenting the outcome of today's visit as above Please contact me if there are any further questions regarding the care of this patient. Felisha Dc (Connie), MSN, [facility] Section of Gastroenterology [place] [address] documented in this encounter Plan of Treatment Upcoming Encounters Date Type Department Care Team (Latest Contact Info) Description 03/03/2024 3:00 PM EDT Hospital Encounter [place] [phone] Shorty Arce MD [facility] [place] [address] 03/03/2024 3:00 PM EDT - 03/03/2024 4:00 PM EDT Surgery [place] [phone] Shorty Arce MD [facility] [place] [address] COLONOSCOPY, DIAGNOSTIC (WRVU 3.26) 03/31/2024 9:00 AM EDT Office [place] [phone] Felisha Dc, LOAD TALLIER [facility] [place] [address] Scheduled Orders Name Type Priority Associated Diagnoses Orde r Schedule Calprotectin, Stool Lab Routine Crohn's disease without complication, unspecified gastrointestinal tract location Expected: 09/03/2023 (Approximate), Expires: 09/02/2024 Scheduled Procedures Name Priority Associated Diagnoses Date/Ti me COLONOSCOPY, DIAGNOSTIC (WRVU 3.26) Crohn's disease without complication, unspecified gastrointestinal tract location 03/03/2024 3:00 PM EDT documented as of this encounter Procedures Procedure Name Priority Date/Time Associated Diagnosis Comments ADALIMUMAB QUANT WITH REFLEX TO ANTIBODY Routine 09/03/2023 11:03 AM EST Crohn's disease without complication, unspecified gastrointestinal tract location VITAMIN D, 25-HYDROXY Routine 09/03/2023 11:03 AM EST Crohn's disease without complication, unspecified gastrointestinal tract location documented in this encounter Results * Vitamin D, 25-Hydroxy (09/03/2023 11:03 AM EST) Vitamin D Total 25 OH 81 21 - 100 ng/mL [facility] Vit D Interp Sufficient [facility] Blood 09/03/2023 11:0 3 AM EST 09/03/2023 11:09 AM EST Narrative Resulting Agency Comment Spec In Lab Felisha Dc [employer] CHEMISTRY ORDERAB LES [facility] [place] [address] * Adalimumab Quant with Reflex to Antibody (09/03/2023 11:03 AM EST) Adalimumab Level (NOVEMBER) 14.6 mcg/mL [facility] Comment: For clinical assessment of response to therapy, adalimumab should be measured at trough. When adalimumab trough concentrations are greater than 8.0 mcg/mL, clinically relevant [id number] are unlikely and reflex testing will not be performed. REFERENCE VALUE Limit of Quantitation = 0.8 mcg/mL ADDITIONAL INFORMATION This test was developed and its performance characteristics determined by [facility] in a manner consistent with CLIA requirements. This test has not been cleared or approved by the U.S. Food and Drug Administration. Test Performed by: [facility] - [facility] [address] [place] [address] [employer] Developer: Rey Maria M.D. Ph.D.; CLIA# [id number] Blood 09/03/2023 11:0 3 AM EST 09/03/2023 1:15 PM EST Narrative Resulting Agency Comment Spec In Lab Felisha Dc APRN LAB SEND OUT EVELIA SORTO [facility] Organization Address City/State/[facility] Co de Phone Number [facility] [place] [address] documented in this encounter Visit Diagnoses Diagnosis Crohn's disease without complication, unspecified gastrointestinal tract location Crohn's disease without complication, unspecified gastrointestinal tract location documented in this encounter Care Teams Shaker Out Relationship Specialty Start Date End Date Cynthia Lozoya APRN [address] [place] [address] PCP - General Geriatric Medicine 09/03/23 10/15/23 documented as of this encounter
--- OUTSIDE RECORDS SUMMARY | 2024-02-19 11:22 | XMS_ITS | Encounter Summary ---
[place] [address] Care Team Providers Care Cad Manager Name Role Phone Cynthia Lozoya APRN Primary Care Provider [phone] Reason for Referral * Diagnostic Test (Routine) - Authorized Specialty Diagnoses / Procedures Referred By Flip womack Referred To Contact Radiology Diagnoses Crohn's disease without complication, unspecified gastrointestinal tract location Procedures MRI Enterography wwo Contrast Felisha Dc APRN [facility] [address] Referral ID Status Reason Start Date Expiration Date Visits Requested Visits Authorized [id number] Authorized Specialty Service Requested 02/18/2024 08/20/2025 1 1 * Consultation (Routine) - Authorized Specialty Diagnoses / Procedures Referred By Flip womack Referred To Contact Rheumatology Diagnoses Crohn's disease without complication, unspecified gastrointestinal tract location Felisha Dc APRN [facility] [address] [facility] [address] [place] [id number] Referral ID Status Reason Start Date Expiration Date Visits Requested Visits Authorized [id number] Authorized Consult, Test & Treat 02/18/2024 02/17/2025 1 1 Encounter Details Date Type Department Care Team (Latest Contact Info) Description 02/18/2024 9:00 AM EDT Office [place] [address] Felisha Dc APRN [facility] [address] Crohn's disease without complication, unspecified gastrointestinal tract [...] Sign Reading Time Taken Comments Blood Pressure 120/53 02/18/2024 8:44 AM EDT Pulse 52 02/18/2024 8:44 AM EDT Temperature - - Respiratory Rate - - Oxygen Saturation - - Inhaled Oxygen Concentration - - Weight 60.1 kg (132 lb 6.4 oz) 02/18/2024 8:44 A M EDT Height 172.7 cm (5' 8) 02/18/2024 8:44 AM EDT Body Mass Index 20.13 02/18/2024 8:44 AM EDT documented in this encounter Progress Notes * Felisha Dc APRN - 02/18/2024 9:00 AM EDT Images from the original note were not included. 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 08/28/2023 Back pain, acute 08/28/2023 Flank pain, acute 08/28/2023 Esophagitis 08/28/2023 Hiatal hernia 08/28/2023 Chondrocalcinosis 08/28/2023 Celiac disease, per patient report, no records from previous testings 08/28/2023 Dysphagia 08/02/2020 Osteoporosis 09/27/2018 Lactose intolerance 06/28/2018 Sensorineural hearing loss, bilateral 06/28/2018 Disequilibrium 06/28/2018 Osteopenia 06/28/2018 Presence of left artificial knee joint 06/28/2018 Other specified personal risk factors, not elsewhere classified 06/28/2018 Thyroid nodule 06/28/2018 Underweight 06/28/2018 Hyperopia of both eyes with astigmatism and presbyopia 07/25/2017 Vitreous floaters of both eyes 07/25/2017 Sinus bradycardia 10/04/2016 Heart palpitations 10/04/2016 Dizziness 10/04/2016 Pseudophakia, both eyes 10/13/2014 Multiple thyroid nodules 11/07/2011 Resolved Hospital Problems No resolved problems to display. Detailed IBD History: Crohn's disease. Dx 02/2023, see colonoscopy/bx reports below. - Has longstanding h/o IBS- constipation then had diarrhea after she had COVID 06/2022 and due to persistent diarrhea and weight loss, she underwent a colonoscopy on 03/06/23 (Dr. Mary Fitzgerald, [facility])and CT scan and was [...] Alternating constipation and frequent bm but not diarrhea. 09/03/23 ADA level 14.6 Diagnostics: 03/06/23 Colonoscopy (Dr. Mary Fitzgerald, [facility]): 03/06/23 ( [facility]) A. [...] review was obtained. 03/06/23 CT Chest/Abd/pelvis ( [place]): 2. Dysphagia- h/o esophageal stenosis,Schatzki ring , seen Dr. Lozano, s/p EGD with multiple dilation, last in 05/2022. - Initially took Pantoprazole 40 mg once daily but stopped. - Denies heartburns, dysphagia nor odynophagia. Not on PPI's nor antacid. - 08/2023 self-reported, no longer taking the pantoprazole. Instead on Famotidine 40mg daily. Interval History: Last visit 08/2023 In September, we got a message from Dr. Fitzgerald on our opinion about switching Isatu to Thermodynamic Process Controllara d/t insurance refusing to pay Humira. We recommended either Skyrizi would be our first choice and Stelara second choice if insurance mandates. Patient stated that eventually her insurance approved the Cyltezo( biosimilar) and was able to get it in September 2023. Did not miss any Adalimumab doses. Overall GI symptoms stable but finds Humira slightly better than Cyltezo. She alternates between having BM 3-4x/day, more tube shape stools than roundish stools and somedays more than others. Then will alternate with constipation with no Bm 2-4 days. She finds that on Humira, she has more formed stool and less days of constipation. In addition, since on Cyltezo, she noticed that her hair is breaking up and not growing more than when she was on Humira. Dr. Fitzgerald contacted pharmacy and told her to give more times for the Cyltezo to adjust. She stated H/O leg edema bilaterally since 02/2023 and was referred by Dr. Fitzgerald and PCP to see PTto regain muscle mass and uses compression stockings for pitting edema. She has pain in her ankles and would have cold feet and looked bluish which have improved with compression stockings and leg elevation. However, since she was switched to Cyltezo, the ankle pain persisted and worsens. No edema since on compression stockings. Now less active and stayed sedentary lifestyle since the ankle pain. No abdominal pain Appetite is good and stable No GERD sxs and no dysphagia, and no odynophagia on Famotidine daily. She also stated that she had seen dermatology and ophthalmology ( eye symptoms). Recent Labs done at [facility] in December. We do not have copies of results. Social History Social History Narrative Lives with kitten. Retired from accounting. No family in the area. IBD Questionnaire No questionnaires on file. IBD Qorus Provider Questionnaire 0-10 scale: 0 is least burden and 10 is highest burden to the patient. Review of systems as in the HPI, the rest of the review of systems were negative. Past Medical History: Diagnosis Date Acute respiratory [...] WITH BX performed by Shorty ARCE at [facility] END[facility]COPY PRO UP GI ENDOSCOPY, BALL DIL, 30MM N/A 09/10/2018 EGD,WITH DILATION ESOPHAGUS WITH BALLOON,< 30 MM (WRVU 2.77) performed by Elida Lozano MD at [facility] END[facility]COPY PRO UP GI ENDOSCOPY, BALL DIL, 30MM N/A 08/17/2020 EGD,WITH DILATION ESOPHAGUS WITH BALLOON,< 30 MM (WRVU 2.77) performed by Elida Lozano MD at [facility] END[facility]COPY PRO UP GI ENDOSCOPY, BALL DIL, 30MM N/A 08/16/2021 EGD,WITH DILATION ESOPHAGUS WITH BALLOON,< 30 MM (WRVU 2.77) performed by Rosanna Cardenas MD at [facility] PRO UP GI ENDOSCOPY, BALL DIL, 30MM N/A 05/23/2022 EGD,WITH DILATION ESOPHAGUS WITH BALLOON,< 30 MM (WRVU 2.77) performed by Elida Lozano MD at [facility] YAG CAPSULOTOMY Left 12/01/2014 Dr Mancia YAG CAPSULOTOMY Right 05/11/[address] Mancia Social History: Smoking- Quit at age 18 Alcohol- occasionally Retired, previously worked as a book keeper Relevant family history: IBD- none Colon cancer/ other GI Malignancy-none P.uncle- leukemia Sister- breast cancer Medications Outpatient Encounter Medications as of 02/18/2024 Medication Sig Dispense Refill multivitamin (THERAGRAN) Tablet Take 1 tablet by [...] taking: Reported on 07/25/2019) 80 tablet 0 CALCIUM CARBONATE-VITAMIN D3 ORAL Take 1,200 mg by mouth daily. chewable Glucosamine 750 mg Capsule Take 750 mg by mouth 2 times daily (with meals). acetaminophen (TYLENOL) 650 mg Tablet Sustained Release Take 650 mg by mouth. vitamin E mixed/tocotrienol (VITAMIN E COMPLEX ORAL) VITAMIN E 400 UNIT CAPS clindamycin (CLEOCIN) 300 mg Capsule CLINDAMYCIN HCL 300 MG CAPS prior to procedures cholecalciferol, Vitamin D3, 5,000 unit Tablet Take 1 tablet by mouth daily. aspirin 325 mg Tablet Take 325 mg by mouth every 6 hours as needed for Pain. VITAMIN B COMPLEX ORAL Take 1 tablet by mouth daily. No facility-administered encounter medications on file as of 02/18/2024. Allergies/Adverse reactions Lactose, Azithromycin, Citric acid, Gluten, and Penicillins Physical Examination Patient appears well Wt Readings from Last 3 Encounters: 09/03/23 57.9 kg (127 lb 11.2 oz) 05/23/22 61.2 kg (135 lb) 08/16/21 61.2 kg (135 lb) Vitals: 02/18/24 0844 BP: 120/53 BP Location (NBP): Right arm Patient Position: Sitting BP Cuff Sizes: Adult (25-34 cm) Pulse: 52 Weight: 60.1 kg (132 lb 6.4 oz) Height: 172.7 cm (5' 8) Heart: regular Resp: CTA Abd: normal BS, soft/nontender diffusely, no masses, no hepatomegaly, no splenomegaly Extrem: no edema, wears compression stockings. Recent labs No visits with results within 3 Month(s) from this visit. Latest known visit with results is: Office Visit on 09/03/2023 Component Date Value Ref Range Status 25-OH Vit D Total 09/03/2023 81 21 - 100 ng/mL Final 25-OH Vit D Interp 09/03/2023 Sufficient Final Adalimumab Level 09/03/2023 14.6 mcg/mL Final Recent endoscopic procedures See above IBD HISTORY Recent relevant imaging See above IBD history Impression/Plan Isatu Bosch with h/o esophageal stenosis, and Schatzki ring, s/p EGD with multiple dilations(last in 05/2022), dx with Crohn's disease after 03/06/23 Colonoscopy (Dr. Mary Fitzgerald, [facility]) and CT scan. Currently on Cyltezo( switched from Humira in September 2023) 40 mg q 2 weeks. ADA level 14.6 ( 08/2023). Given that she overall feels better on Humira, with more formed stool and less days of constipation, we will try to switch her back to Humira pending insurance coverage. As far as her hair breakage and slow hair growth, and pitting edema, unlikely due to Adalimumab. We had initially plan to rescope her and initially she prefers to have Dr. Fitzgerald do it. This was put on hold in September while under going cardiac evaluation for bradycardia. She reported came back normal. She can now get this scheduled and ok to get it here with our IBD- Mds. Will also get fecal calprotectin as a biomarker of bowel inflammation. Will also get MRE to evaluate for small bowel disease. Joint pains ( ankles). ? If this is inflammatory arthritis / Rheumatoid arthritis. Will refer her to Rheumatology. GERD - well controlled on Famotidine 40 mg once every night. No dysphagia nor odynophagia. Plans: Written instructions send to patient - Will try to switch back to Humira every 2 weeks if OK with her insurance ( given she feels betteron Humira than Cyltezo) - Will get copy of labs done 12/31 at [facility]. - Continue Famotidine 40 mg once every night. Prescription send. - Submit stool test: calprotectin ( [facility]) - Colonoscopy to restage disease . She will call to schedule. Given number to call. - Will consider EGD if with difficulty swallowing ( dysphagia) and to see if needs dilation given prior h/o esophageal dilation. She will let us know. - MRE to evaluate for small bowel disease ( [facility]). She would arrange to have her PCP help her on this. - Referral to Rheumatology for joint pains ( ankles) - Follow up with me 2 weeks after colonoscopy Please contact me if there are any further questions regarding the care of this patientDeon Dc APRN [facility] Section of Gastroenterology and Hepatology [address] [address] documented in this encounter Plan of Treatment Upcoming Encounters Date Type Department Care Team (Latest Contact Info) Description 03/03/2024 3:00 PM EDT Hospital Encounter [place] [address] Shorty Arce MD [facility] [place] [address] 03/03/2024 3:00 PM EDT - 03/03/2024 4:00 PM EDT Surgery [place] [address] Shorty Arce MD [facility] [place] [address] COLONOSCOPY, DIAGNOSTIC (WRVU 3.26) 03/31/2024 9:00 AM EDT Office [place] [address] Felisha Dc APRN [facility] [place] [address] Scheduled Orders Name Type Priority Associated Diagnoses Orde r Schedule Calprotectin, Stool Lab Routine Crohn's disease without complication, unspecified gastrointestinal tract location Expected: 02/18/2024 (Approximate), Expires: 02/17/2025 MRI Enterography wwo Contrast Imaging Routine Crohn's disease without complication, unspecified gastrointestinal tract location Expected: 02/18/2024 (Approximate), Expires: 02/18/2025 ENDOSCOPY CASE REQUEST: COLONOSCOPY, DIAGNOSTIC (WRVU 3.26) Procedures Routine Crohn's disease without complication, unspecified gastrointestinal tract location Ordered: 02/18/2024 Scheduled Procedures Name Priority Associated Diagnoses Date/Ti me COLONOSCOPY, DIAGNOSTIC (WRVU 3.26) Crohn's disease without complication, unspecified gastrointestinal tract location 03/03/2024 3:00 PM EDT Scheduled Referrals Name Type Priority Associated Diagnoses Orde r Schedule Referral to Rheumatology Outpatient Referral Routine Crohn's disease without complication, unspecified gastrointestinal tract location Ordered: 02/18/2024 documented as of this encounter Visit Diagnoses Diagnosis Crohn's disease without complication, unspecified gastrointestinal tract location Crohn's disease without complication, unspecified gastrointestinal tract location documented in this encounter Care Teams Cad Manager Relationship Specialty Start Date End Date Cynthia Lozoya APRN [address] [place] [address] PCP - General Geriatric Medicine 10/23/23 documented as of this encounter
--- OUTSIDE RECORDS SUMMARY | 2024-02-19 11:22 | XMS_ITS | Encounter Summary ---
Author Organization [facility] [address] Care Team Providers Care Emergency Nurse Name Role Phone Giovanna Scott DO Primary Care Provider [phone] Encounter Details Date Type Department Care Team (Late st Contact [facility]) Description 05/23/2022 Notes Only [place] [phone] Elida Lozano MD [facility] [place] [address] Social History Tobacco Use Types Packs/Day Years [...] as of this encounter Progress Notes * Elida Lozano MD - 05/23/2022 7:37 AM EST Patient here for her EGD. Wanted me to know: ?? Omeprazole caused headaches ?? Pharmacy is [facility] documented in this encounter Plan of Treatment Upcoming Encounters Date Type Department Care Team (Latest Contact Info) Description 03/03/2024 3:00 PM EDT Hospital Encounter [place] [address] Shorty Valdovinos MD [facility] [place] [address] 03/03/2024 3:00 PM EDT - 03/03/2024 4:00 PM EDT Surgery [place] [address] Shorty Valdovinos MD [facility] [place] [address] COLONOSCOPY, DIAGNOSTIC (WRVU 3.26) 03/31/2024 9:00 AM EDT Office Visit [place] [address] Felisha Dc, ATIYA [facility] [place] [address] Scheduled Procedures Name Priority Associated Diagnoses Date/Ti me COLONOSCOPY, DIAGNOSTIC (WRVU 3.26) Crohn's disease without complication, unspecified gastrointestinal tract location 03/03/2024 3:00 PM EDT documented as of this encounter Visit Diagnoses Not on filedocumented in this encounter Care Teams Emergency Nurse Relationship Specialty Start Date End Date Giovanna Scott DO [address] [place] [address] PCP - General Family Medicine 09/18/19 03/22/23 documented as of this encounter
--- OUTSIDE RECORDS SUMMARY | 2024-02-19 11:22 | XMS_ITS | Encounter Summary ---
Author Organization [facility] [place] [address] Care Team Providers Care Pc Network Technician Name Role Phone Cynthia Lozoya APRN Primary Care Provider [phone] Reason for Visit * Reason Onset Date Comments Medication Refill 02/18/2024 Encounter Details Date Type Department Care Team (Late st Contact Info) Description 02/18/2024 Refill [place] [address] Felisha Dc ASSOCIATE FACULTY [facility] [place] [address] Crohn's disease without complication, unspecified gastrointestinal tract [...] 3:00 PM EDT Hospital Encounter [place] [address] Shorty Valdovinos MD [facility] [place] [address] 03/03/2024 3:00 PM EDT - 03/03/2024 4:00 PM EDT Surgery [place] [address] Shorty Valdovinos MD [facility] [place] [address] COLONOSCOPY, DIAGNOSTIC (WRVU 3.26) 03/31/2024 9:00 AM EDT Office [place] [address] Felisha Dc APRN [facility] [place] [address] Scheduled Procedures Name Priority Associated Diagnoses Date/Ti me COLONOSCOPY, DIAGNOSTIC (WRVU 3.26) Crohn's disease without complication, unspecified gastrointestinal tract location 03/03/2024 3:00 PM EDT documented as of this encounter Visit Diagnoses Diagnosis Crohn's disease without complication, unspecified gastrointestinal tract location Crohn's disease without complication, unspecified gastrointestinal tract location documented in this encounter Care Teams Pc Network Technician Relationship Specialty Start Date End Date Cynthia Lozoya APRN [address] [place] [id number] PCP - General Geriatric Medicine 10/23/23 documented as of this encounter
--- OUTSIDE RECORDS SUMMARY | 2024-02-19 11:22 | XMS_ITS | Clinical Summary ---
Author Organization [facility], Located Within [facility] [place] [address] Care Team Providers Care Education Liaison Name Role Phone Cynthia Lozoya APRN Primary Care Provider [phone] Allergies Active Allergy Reactions Criticality Noted Date Comments Azithromycin Diarrhea,Nausea Only,Other (See Comments) 07/28/2021 Joint Pain. Citric Acid 10/18/2018 Gluten Diarrhea 03/28/2016 All Grains Lactose Diarrhea,Other (See Comments) High 01/27/2014 Headaches, congestion Penicillins Nausea And Vomiting 11/07/2011 Medications Medication Sig Dispensed Refills Start Date End Date Status VITAMIN B COMPLEX ORAL Take 1 tablet by mouth daily. Active cholecalciferol, Vitamin D3, 5,000 unit Tablet Take 1 tablet by mouth daily. Active aspirin 325 mg Tablet Take 325 mg by mouth every 6 hours as needed for Pain. Active clindamycin (CLEOCIN) 300 mg Capsule CLINDAMYCIN HCL 300 MG CAPS prior to procedures 08/05/2018 Active CALCIUM CARBONATE-VITAMIN D3 ORAL Take 1,200 mg by mouth daily. chewable 06/28/2018 Active Glucosamine 750 mg Capsule Take 750 mg by mouth 2 times daily (with meals). 06/28/2018 Active acetaminophen (TYLENOL) 650 mg Tablet Sustained Release Take 650 mg by mouth. 06/28/2018 Active vitamin E mixed/tocotrienol (VITAMIN E COMPLEX ORAL) VITAMIN E 400 UNIT CAPS 06/28/2018 Active metoclopramide (REGLAN) 5 mg TabletIndications:Todd e acid esophageal reflux,Lower abdominal pain Take 1-2 tablets by mouth 4 times daily. (3 meals / day and at bedtime) 80 tablet 10/18/2018 Active Additional Information Patient not taking.Reported on 07/25/2019 digestive enzymes combo no.7 Capsule Take by mouth. Ac tive pantoprazole EC (Protonix) 40 mg Tablet, Delayed Release (E.C.)Indications:Gas troesophageal reflux disease with esophagitis without hemorrhage Take 1 tablet by mouth daily. 30 tablet 11 05/23/2022 Active Additional Information Patient not taking.Reported on 09/03/2023 multivitamin (THERAGRAN) Tablet Take 1 tablet by mouth daily. Active zoledronic mory-gxlpgnio-prqvx (zoledronic Acid) 5 mg/100 mL infusion Inject 5 mg into the vein once. Active Cyltezo,CF, 40 mg/0.8 mL Syringe Kit INJECT 1 SYRINGE UNDER THE SKIN EVERY 2 WEEKS 02/14/2024 Active famotidine (Pepcid) 40 mg tablet Take 1 tablet by mouth nightly. 90 tablet 3 02/18/2024 Active Humira,CF, Pen 40 mg/0.4 mL Pen Injector KitIndications:Crohn' s disease without complication, unspecified gastrointestinal tract location Inject 0.4 mLs subcutaneously every 14 days. 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 08/28/2023 Back pain, acute 08/28/2023 Flank pain, acute 08/28/2023 Esophagitis 08/28/2023 Hiatal hernia 08/28/2023 Chondrocalcinosis 08/28/2023 Celiac disease, per patient report, no records from previous testings 08/28/2023 Dysphagia 08/02/2020 Overview (08/02/2020): Added automatically from request for surgery [id number] Osteoporosis 09/27/2018 Lactose intolerance 06/28/2018 Sensorineural hearing loss, bilateral 06/28/2018 Disequilibrium 06/28/2018 Osteopenia 06/28/2018 Presence of left artificial knee joint 8 Other specified personal ris k factors, not elsewhere classified 06/28/2018 Thyroid nodule 06/28/2018 Underweight 06/28/2018 Hyperopia of both eyes with astigmatism and pres byopia 07/25/2017 Vitreous floaters of both eyes 07/25/2017 Sinus bradycardia 10/04/2016 Heart palpitations 10/04/2016 Dizziness 10/04/2016 Pseudophakia, both eyes 10/13/2014 Multiple thyroid nodules 11/07/2011 Resolved Problems Problem Noted Date Diagnosed Date Resolved Date PVD (posterior vitreous detachment) 10/13/2014 07/24/2017 PCO (posterior capsular opacification) 10/13/2014 07/24/2017 Cataract 11/07/2011 10/13/2014 Encounters Date Type Department Care Team Description 02/18/2024 10:45 AM EDT Laboratory Appointment Lab [address] [address] Crohn's disease without complication, unspecified gastrointestinal tract location 02/18/2024 9:00 AM EDT [place] [address] Felisha Dc APRN Crohn's disease without complication, unspecified gastrointestinal tract location 02/18/2024 [place] [address] Felisha Dc APRN Crohn's disease without complication, unspecified gastrointestinal tract location 02/18/2024 [place] [address] Sanchez Ramos 02/18/2024 Travel 01/03/2024 8:40 AM EDT Office Visit Dermatology at [facility] [address] [place] [address] Silvestre Woods MD Guerin angioma; Multiple benign nevi; Lentigines; Seborrheic keratoses 01/03/2024 Travel from Last 3 Months Immunizations Name Administration Dates Next Due Influenza Unspecified Formulation 07/13/2015 Pneumococcal Polysaccharide (Pneumovax 23) 07/13,11/16/2012 Tdap 07/29/2012 Family History Medical History Relation Comments Asthma Brother 1 Hypertension Brother 1 Cerebrovascular Accident Father Heart Disease Father Hypertension Father Depression Mother Hypothyroidism Mother Cerebrovascular Accident Sister 1 Hypertension Sister 1 Breast Cancer Sister 2 Amblyopia Neg Hx Cancer Neg Hx Cataracts Neg Hx Diabetes Neg Hx Glaucoma Neg Hx Macular Degeneration Neg Hx Retinal Detachment Neg Hx Strabismus Neg Hx Thyroid Disease Neg Hx Relation Status Comments Brother 1 Alive Brother 2 Alive Father Mother Sister 1 Alive Sister 2 Alive Social History Tobacco Use Types Packs/Day Years Used Date Smoking Tobacco: Former Cigarettes Q uit: 05/08/1969 Smokeless Tobacco: Never Alcohol Use Standard Drinks/Week Comments Yes 0 (1 standard drink = 0.6 oz pur e alcohol) once per month Sex and Gender Information Value Date Recorded Sex Assigned at Female 09/03/2023 9:30 AM EST Gender Identity Not on file Sexual Orientation Not on file Last Filed Vital Signs Vital Sign Reading Time Taken Comments Blood Pressure 120/53 02/18/2024 8:44 AM EDT Pulse 52 02/18/2024 8:44 AM EDT Temperature 37 ??C (98.6 ??F) 05/23/2022 6:52 AM EST Respiratory Rate 19 05/23/2022 8:20 AM EST Oxygen Saturation 96% 05/23/2022 8:20 AM EST Inhaled Oxygen Concentration - - Weight 60.1 kg (132 lb 6.4 oz) 02/18/2024 8:44 A M EDT Height 172.7 cm (5' 8) 02/18/2024 8:44 AM EDT Body Mass Index 20.13 02/18/2024 8:44 AM EDT Plan of Treatment Upcoming Encounters Date Type Department Care Team (Latest Contact Info) Description 03/03/2024 3:00 PM EDT Hospital En[place] [address] Shorty Valdovinos MD [facility] [place] [address] 03/03/2024 3:00 PM EDT - 03/03/2024 4:00 PM EDT [place] [address] Shorty Valdovinos MD [facility] [place] [address] COLONOSCOPY, DIAGNOSTIC (WRVU 3.26) 03/31/2024 9:00 AM EDT Office Visit Gastroenterology at [facility] [place] [address] Felisha Dc, ATIYA [facility] [place] [address] Scheduled Procedures Name Priority Associated Diagnoses Date/Ti me COLONOSCOPY, DIAGNOSTIC (WRVU 3.26) Crohn's disease without complication, unspecified gastrointestinal tract location 03/03/2024 3:00 PM EDT Health Maintenance Due Date Last Done Comments CT Colonography 1950 FIT DNA 1950 FIT 1950 Sigmoidoscopy 1950 Hepatitis C Screening 1966 Zoster vaccine (1 of 2) 1998 Pneumoccocal Vaccine: 65+ (2 of 2 - PCV) 07/13/2016 07/13/2015, 11/16/2012 Colonoscopy 11/21/2021 11/22/2011, 11/22/2011 Colorectal Cancer Screening 11/21/2021 Sigmoidoscopy (10 year) with FIT yearly 11/21/2021 11/22/2011, 11/22/2011 Tetanus vaccine 07/29/2022 07/29/2012 Covid-19 Vaccine (1 - 2022-2 4 season) 2023 Influenza (Flu) vaccine (1 o f 1 - Influenza standard series) 03/16/2024 07/13/2015 Bone Density Scan 10/13/2030 10/14/2015 (Ou tside per patient (enter details in comments)), 10/14/2015 Tdap adult Completed 07/29/2012 Procedures Procedure Name Priority Date/Time Associated Diagnosis Comments EXTERNAL DXA SCAN RESULT Routine 10/14/2015 COLONOSCOPY Routine 11/22/2011 11:09 AM EDT from Last 3 Months or Most Recently Relevant to Health Maintenance Results * (ABNORMAL) External DXA Scan (10/14/2015) External Dexa Scan abnormal(E XTERNAL/AB N) EXTERNAL LAB Comment:Osteopenia Anatomical Region Laterality Modality Other 10/14/2015 Historical Provider MD [facility] OUTSIDE INTER PRETATION ORDERABLES * COLONOSCOPY (11/22/2011 11:09 AM EDT) Pathologist [facility] COLONOSCOPY [facility] Endoscopy Patient Name: Isatu Bosch ? Procedure Date: 11/22/2011 11:09 AM ? N: [id number] ? Date of : 1950 ? Age: 61 ? Order #: [id number] ? Procedure: ? Colonoscopy Indications: ? Chronic diarrhea Providers: ? Shorty Valdovinos MD, Kylah Márquez, ? RN, Cathi Welsh, High School Music Instructor Referring MD: ?Florecita Kamara MD Medicines: ? Midazolam 5 mg IV, Fentanyl 250 ? micrograms IV Complications: ? No immediate complications. Procedure: ? Pre-Anesthesia Assessment: ? - Prior to the procedure, a History ? and Physical was performed, and ? patient medications and allergies ? were reviewed. The patient is ? competent. The risks and benefits of ? the procedure and the sedation ? options and risks were discussed with ? the patient. All questions were ? answered and informed consent was ? obtained. Patient identification and ? proposed procedure were verified by ? the physician in the pre-procedure ? area in the endoscopy suite. Mental ? Status Examination: alert and ? oriented. Airway Examination: normal ? oropharyngeal airway and neck ? mobility. Respiratory Examination: ? clear to auscultation. CV ? Examination: normal. ASA Grade ? Assessment: II - A patient with mild ? systemic disease. After reviewing the ? risks and benefits, the patient was ? deemed in satisfactory condition to ? undergo the procedure. The anesthesia ? plan was to use moderate sedation / ? analgesia (conscious sedation). ? Immediately prior to administration ? of medications, the patient was ? re-assessed for adequacy to receive ? sedatives. The heart rate, ? respiratory rate, oxygen saturations, ? blood pressure, adequacy of pulmonary ? ventilation, and response to care ? were monitored throughout the ? procedure. The physical status of the ? patient was re-assessed after the ? procedure. ? The procedure, indications, benefits, ? risks and alternatives were explained ? to the patient. Specifically ? discussed were potential ? complications including, but not ? limited to, bleeding, perforation, ? infection, missing a cancer, and ? adverse medication reactions. The ? patient was placed in the left ? lateral decubitus position, and a ? digital rectal exam was performed. ? The Colonoscope was inserted in the ? anus and under direct visualization, ? advanced to the terminal ileum, with ? identification of the appendiceal ? orifice and IC valve. Careful ? inspection was made as the ? colonoscope was withdrawn. The ? colonoscopy was performed without ? difficulty. The patient tolerated the ? procedure well. The quality of the ? bowel preparation was good. ? Findings: ? The perianal and digital rectal examinations were ? normal. The colon (entire examined portion) appeared ? normal. Biopsies were taken with a cold forceps from ? the entire colon for evaluation of microscopic ? colitis. The terminal ileum appeared normal. ? Impression: ?- The entire examined colon is ? normal. This was biopsied. ? - The examined portion of the ileum ? was normal. ? - Biopsies were taken with a cold ? forceps from the entire colon for ? evaluation of microscopic colitis. Recommendation: ?- Await pathology results. ? - Repeat colonoscopy in 10 years for ? screening. ? _ L Tiburcio Valdovinos MD 11/22/2011 12:06 PM Number of Addenda: 0 Note Initiated On: 11/22/2011 11:09 AM PROVATION 11/22/2011 11:0 9 AM EDT Florecita Kamara METAL PATTERNMAKER GENERAL SURGICAL ORD ERABLES PROVATION from Last 3 Months or Most Recently Relevant to Health Maintenance Advance Directives Documents on File Type Date Recorded Patient Coin Purse Assembler Expl anation Advance Directives and Livin g Will 02/10/2015 9:50 AM 02/01/2015 Advance Directives and Livin g Will 09/03/2023 9:13 AM Healthcare Agents on File Name Relationship Healthcare Agent Relationship Communication SLIME ELISE Anuradha Sibling Health Care Agent Silvestre Ling Sibling [facility] Health Care Agent Care Teams Education Liaison Relationship Specialty Start Date End Date Cynthia Lozoya APRN [address] [place] [address] PCP - General Geriatric Medicine 10/23/23
--- OUTSIDE RECORDS SUMMARY | 2024-02-19 11:22 | XMS_ITS | Encounter Summary ---
Author Organization [facility] Address [address] [place] [address] Care Team Providers Care Automotive Instructor Name Role Phone Chelsie Martinez NP Primary Care Provider [phone] [facility] Internal Medicine, [place] Primary Care Provi isak Encounter Details Date Type Department Care Team (Late st Contact Info) Description 04/10/2023 Lab Requisition [facility] Pathology & Laboratory Medicine - [facility] [address] [place], [place] [address] Outr Resulting Lab, Provider Social History Tobacco [...] Procedure Name Priority Date/Time Associated Diagnosis Comments CHRONIC HEPATITIS PROFILE, UNKNOWN TYPE Routine 04/10/2023 10:45 EDT documented in this encounter Results * CHRONIC HEPATITIS PROFILE, UNKNOWN TYPE (04/10/2023 10:45 EDT) Hep B Surface Ag Negative Negative 04/11/20 11:06 EDT [facility] Hep B Surface Ab, Quantitative <3.1 See Note mIU/mL 04/11/2023 11:06 [facility] Comment: Reference Range for Hep B Surface Ab, Quant: Positive: >= 10.0 mIU/mL Negative: ??< 10.0 mIU/mL Patient is presumed to not be immune to infection with Hepatitis B Virus. Hep B Surface Ab, Qualitative Negative See Note 04/11/2023 11:06 T [facility] Comment: Reference Range for Hep B Surface Ab, Qual: Unvaccinated: ??Negative Vaccinated: ??Positive Hepatitis B Core Ab, Total Negative Negative 04/11/2023 11:06 EDT [facility] Hep C Antibody Negative Negative 04/11/2023 11:06 EDT [facility] Blood VENOUS BLOOD / Unknown 04/10/2023 10:45 EDT 04/10/2023 21:42 EDT Provider Outr Resulting Lab CHEMISTRY & BLOOD GAS ORDERABLES [facility] [address] [place] [address] documented in this encounter Visit Diagnoses Not on filedocumented in this encounter Care Teams Automotive Instructor Relationship Specialty Start Date End Date Chelsie Martinez, MARY PCP - General Family Medicine - Primary Care 02/13/23 08/28/23 [facility] Internal Medicine, [place] [address] [place] [address] PCP - General 08/29/23 documented as of this encounter
--- OUTSIDE RECORDS SUMMARY | 2024-02-19 11:22 | XMS_ITS | Encounter Summary ---
Author Organization [facility] [place] [address] Care Team Providers Care Medical Anthropology Director Name Role Phone Cynthia Lozoya APRN Primary Care Provider [phone] Encounter Details Date Type Department Care Team (Latest Contact Info) Description 02/18/2024 Travel Social History Tobacco Use Types Packs/Day [...] 3:00 PM EDT Hospital En[place] [address] Shorty Valdovinos MD [facility] [place] [address] 03/03/2024 3:00 PM EDT - 03/03/2024 4:00 PM EDT Surgery [place] [address] Shorty Valdovinos MD [facility] [place] [address] COLONOSCOPY, DIAGNOSTIC (WRVU 3.26) 03/31/2024 9:00 AM EDT Office [place] [address] Felisha Dc APRN [facility] [place] [address] Scheduled Procedures Name Priority Associated Diagnoses Date/Ti me COLONOSCOPY, DIAGNOSTIC (WRVU 3.26) Crohn's disease without complication, unspecified gastrointestinal tract location 03/03/2024 3:00 PM EDT documented as of this encounter Visit Diagnoses Not on filedocumented in this encounter Care Teams Medical Anthropology Director Relationship Specialty Start Date End Date Cynthia Lozoya APRN [address] [place] [address] PCP - General Geriatric Medicine 10/23/23 documented as of this encounter
--- OUTSIDE RECORDS SUMMARY | 2024-02-19 11:22 | XMS_ITS | Encounter Summary ---
Author Organization [facility] [place] [address] Care Team Providers Care Emergency Room Physician Name Role Phone Cynthia Lozoya APRN Primary Care Provider [phone] Reason for Visit * Reason Comments Skin Check * Consultation (Routine) - Closed Specialty Diagnoses / Procedures Referred By Flip womack Referred To Contact Dermatology Diagnoses Other specified disorders of the skin and subcutaneous tissue Giovanna Scott DO [address] [place] [address] [facility] [address] [place] [address] Referral ID Status Reason Start Date Expiration Date V isits Requested Visits Authorized [id number] Closed Consult, Test & Treat PCP Updated and/or Approved 10/16/2023 10/15/2024 1 1 Encounter Details Date Type Department Care Team (Late st Contact Info) Description 01/03/2024 8:40 AM EDT Office Visit Dermatology at [facility] [address] [place] [address] Silvestre Woods MD [facility] [address] [place] [address] Guerin angioma; Multiple benign nevi; Lentigines; Seborrheic keratoses Social History Tobacco Use Types Packs/Day Years [...] as of this encounter Progress Notes * Silvestre Woods MD - 01/03/2024 8:40 AM EDT Images from the original note were not included. DEPARTMENT OF DERMATOLOGY Medical Dermatology Clinic Note Provider: Silvestre Woods MD Patient's preferred name Isatu Preferred contact method for results []Phone []myD-H []Letter Detailed phone message OK? N Are there any other people with whom we may discuss your care? N Past Medical History Date, location, treatment Melanoma N Dysplastic nevi N SCC N BCC N AKs N UV Exposure & Protection + history of blistering sunburn Other relevant past medical history + Chrohns Family History Details Melanoma N NMSC N Other relevant family history N Social History Occupation: retired Hobbies: gardening, outdoors Other: Pre-Procedure Questions Details Allergy to lidocaine, epinephrine, Dermabond, chlorhexidine, or adhesives N Bleeding disorder or blood thinners N Implanted devices (Pacemaker, defibrillator, deep brain stimulator, cochlear implant) N History of Present Illness: Isatu Bosch is a 73 y.o. Patient is referred to the clinic at the request of Giovanna Scott for a full skin exam. Patient reports: - Spot on breast that previously swelled up - Itchy spot on back of scalp Review of Systems: General: Feeling well. Skin: No other skin concerns. Medications: Reviewed in eD-H Allergies: Reviewed in eD-H Skin Examination: Full skin examination: Patient asked to undress to their comfort level. Verbalized that the provider???s preference is that the patient remove all clothing and that the provider will not examine areas patient elects to keep covered. Patient elects to keep underwear on and have the following examined: scalp, hair, face, ears, neck, chest, axillae, abdomen, back, and upper and lower extremities. Genitalia and buttocks were not examined. Assessment/Plan #. Eczema v. Psoriasis - a light pink thin scaly plaque on the occipital scalp - Patient reports this was well-controlled while on Humira for Crohn's - Discussed that this looks inflammatory in nature. - Discussed empiric treatment with topical steroid. Not very bothersome to patient at this time so deferring treatment - Patient will reach out if worsening #. Benign Appearing Nevi - Scattered medium-brown macules and papules on the trunk and extremities. - Reassured of benign appearance on exam today. - Reviewed ABCDEs of melanoma and sun protection #. Seborrheic Keratoses - Scattered brown and flesh colored waxy stuck on plaques located on the trunk and extremities - Reassured of benign nature #. Solar Lentigines - Light-brown evenly pigmented, well-demarcated macules on sun exposed areas ofthe skin. - Patient reassured of benign nature. #. Guerin Angiomas - Multiple bright red, well-demarcated papules on the trunk and extremities - Reassured of benign nature #Screening for Malignant Neoplasm - the ABCDEs of Melanoma were discussed with the patient. - patient advised on proper sun protection, use at least SPF 30 sunscreen preferably zinc or titanium oxide, avoid peak hours of the day between 10am-2pm when the sun is the brightest, wear sun-protective clothing. - recommended patient check skin regularly and return to discuss any concerning changes or new skinfindings. #. History of Inflammatory Bowel Disease (on adalimumab) - Recommended yearly FBSE. Other: N/A RTC: 1 year for FSE []Note routed to kidney trimmer [x]Recall placed in scheduling system []Appointment scheduled at checkout Scribe attestation: AMERICA Murillo has performed the documentation for this encounter inthe presence of and acting as a scribe for Silvestre Woods MD. I performed the above scribed service and agree with the accuracy of the documentation in this encounter. Reviewed and signed by: Silvestre Woods MD Dermatology [facility] Patient seen and evaluated with staff photoengraving proofer apprentice: Renuka Soriano MD Department of Dermatology [facility] * Renuka Soriano MD - 01/03/2024 8:40 AM EDT I directly supervised Silvestre Woods MD in the care of this Dermatology patient in person. I saw and evaluated this patient with Silvestre Woods MD. Silvestre Woods MD presented the history and physical exam details to me, then we saw the patient together, and I confirmed these findings. I agree with details as written. My physical examination confirms Silvestre Woods MD's findings. The assessment and plan were formulated in discussion with me at the time of visit, and I agree with them as documented. Renuka Soriano MD Staff Lab Clerk Department of Dermatology [facility] documented in this encounter Plan of Treatment Upcoming Encounters Date Type Department Care Team (Latest Contact Info) Description 03/03/2024 3:00 PM EDT Hospital [place] [address] Shorty Valdovinos MD [facility] [place] [address] 03/03/2024 3:00 PM EDT - 03/03/2024 4:00 PM EDT [place] [address] Shorty Valdovinos MD [facility] [place] [address] COLONOSCOPY, DIAGNOSTIC (WRVU 3.26) 03/31/2024 9:00 AM EDT Office [place] [address] Felisha Dc, BASKET MENDER [facility] [place] [address] Scheduled Procedures Name Priority Associated Diagnoses Date/Ti me COLONOSCOPY, DIAGNOSTIC (WRVU 3.26) Crohn's disease without complication, unspecified gastrointestinal tract location 03/03/2024 3:00 PM EDT documented as of this encounter Visit Diagnoses Diagnosis Guerin angioma Nevus, non-neoplastic Multiple benign nevi Benign neoplasm of skin, site unspecified Lentigines Other dyschromia Seborrheic keratoses Crohn's disease without complication, unspecified gastrointestinal tract location documented in this encounter Care Teams Emergency Room Physician Relationship Specialty Start Date End Date Cynthia Lozoya APRN [address] [place] [address] PCP - General Geriatric Medicine 10/23/23 documented as of this encounter
--- OUTSIDE RECORDS SUMMARY | 2024-02-19 11:22 | XMS_ITS | Encounter Summary ---
Author Organization [facility] [place] [address] Care Team Providers Care Screen Tender Helper Name Role Phone Giovanna Scott DO Primary Care Provider [phone] Encounter Details Date Type Department Care Team (Late st Contact Info) Description 05/11/2022 Orders [place] [phone] Elida Lozano MD [facility] [place] [address] Social History Tobacco Use Types Packs/Day Years [...] 3:00 PM EDT Hospital [place] [phone] Shorty Valdovinos MD [facility] [place] [address] 03/03/2024 3:00 PM EDT - 03/03/2024 4:00 PM EDT [place] [address] Shorty Valdovinos MD [facility] [place] [address] COLONOSCOPY, DIAGNOSTIC (WRVU 3.26) 03/31/2024 9:00 AM EDT Office [place] [address] Felisha Dc, ATIYA [facility] [place] [address] Scheduled Procedures Name Priority Associated Diagnoses Date/Ti me COLONOSCOPY, DIAGNOSTIC (WRVU 3.26) Crohn's disease without complication, unspecified gastrointestinal tract location 03/03/2024 3:00 PM EDT documented as of this encounter Visit Diagnoses Not on filedocumented in this encounter Care Teams Screen Tender Helper Relationship Specialty Start Date End Date Giovanna Scott DO [address] [place] [address] PCP - General Family Medicine 09/18/19 03/22/23 documented as of this encounter
--- OUTSIDE RECORDS SUMMARY | 2024-02-19 11:22 | XMS_ITS | Encounter Summary ---
[place] [address] Care Team Providers Care Job Spotter Name Role Phone Giovanna Scott DO Primary Care Provider [phone] Reason for Visit * Reason Onset Date Comments Medication Refill 05/23/2022 Encounter Details Date Type Department Care Team (Late st Contact Info) Description 05/23/2022 Refill [place] [address] Elida Lozano MD [facility] [place] [address] Gastroesophageal reflux disease with esophagitis without hemorrhage Social History Tobacco Use Types Packs/Day Years [...] 3:00 PM EDT Hospital Encounter [place] [address] Shorty Valdovinos MD [facility] [place] [address] 03/03/2024 3:00 PM EDT - 03/03/2024 4:00 PM EDT Surgery [place] [address] Shorty Valdovinos MD [facility] [place] [address] COLONOSCOPY, DIAGNOSTIC (WRVU 3.26) 03/31/2024 9:00 AM EDT Office [place] [address] Felisha Dc APRN [facility] [place] [address] Scheduled Procedures Name Priority Associated Diagnoses Date/Ti me COLONOSCOPY, DIAGNOSTIC (WRVU 3.26) Crohn's disease without complication, unspecified gastrointestinal tract location 03/03/2024 3:00 PM EDT documented as of this encounter Visit Diagnoses Diagnosis Gastroesophageal reflux disease with esophagitis without hemorrhage Crohn's disease without complication, unspecified gastrointestinal tract location documented in this encounter Care Teams Job Spotter Relationship Specialty Start Date End Date Giovanna Scott DO [address] [place] [address] PCP - General Family Medicine 09/18/19 03/22/23 documented as of this encounter
--- OUTSIDE RECORDS SUMMARY | 2024-02-19 11:22 | XMS_ITS | Encounter Summary ---
Author Organization [facility] Address [address] [place] [address] Care Team Providers Care Bagger And Stock Handler Helper Name Role Phone Internal MedicineJose Armando Primary Care Provi isak Encounter Details Date Type Department Care Team (Late st Contact Info) Description 08/29/2023 Lab Requisition [facility] Pathology & Laboratory Medicine - [address] [id number] Outr Resulting Lab, Provider Social History Tobacco [...] Procedure Name Priority Date/Time Associated Diagnosis Comments PREALBUMIN Routine 08/29/2023 13:20 EST documented in this encounter Results * PREALBUMIN (08/29/2023 13:20 EST) Prealbumin 24 20 - 40 mg/dL 08/30/2023 9:16 EST [facility] Blood VENOUS BLOOD / Unknown 08/29/2023 13:20 EST 08/29/2023 21:08 EST Provider Outr Resulting Lab CHEMISTRY & BLOOD GAS ORDERABLES [facility] [address] [place] [address] documented in this encounter Visit Diagnoses Not on filedocumented in this encounter Care Teams Bagger And Stock Handler Helper Relationship Specialty Start Date End Date [place] Natalie Boone [address] [address] [place], [place] [id number] PCP - General 08/29/23 documented as of this encounter
--- OUTSIDE RECORDS SUMMARY | 2024-02-19 11:22 | XMS_ITS | Encounter Summary ---
Author Organization [facility] Address [address] [place] [address] Care Team Providers Care Studio Associate Name Role Phone Chelsie Martinez NP Primary Care Provider [phone] [facility] Internal Medicine, Mp Primary Care Provi isak Encounter Details Date Type Department Care Team (Late st Contact Info) Description 02/06/2023 Lab Requisition [facility] Pathology & Laboratory Medicine - [facility] [address] [place], [place] [address] Outr Resulting Lab, Provider Social History Tobacco [...] RNA BY PCR Routine 02/06/2023 9:26 EDT documented in this encounter Results * HEPATITIS C AB W REFLEX TO HCV RNA BY PCR (02/06/2023 9:26 EDT) Hep C Antibody Negative Negative 02/07/2023 10:05 EDT [facility] Blood VENOUS BLOOD / Unknown 02/06/2023 9:26 EDT 02/06/2023 17:20 EDT Provider Outr Resulting Lab CHEMISTRY & BLOOD GAS ORDERABLES [facility] [address] [place] [address] documented in this encounter Visit Diagnoses Not on filedocumented in this encounter Care Teams Studio Associate Relationship Specialty Start Date End Date Chelsie Martinez, DIRECTOR OF TRAINING PCP - General Family Medicine - Primary Care 02/13/23 08/28/23 [facility] Internal Medicine, Mp [address] [place] [address] PCP - General 08/29/23 documented as of this encounter
--- OUTSIDE RECORDS SUMMARY | 2024-02-19 11:23 | XMS_ITS | Encounter Summary ---
Author Organization [facility] [place] [address] Care Team Providers Care Behavioral Therapy Coordinator Name Role Phone Page, Twila Ruiz APRN Primary Care Provider [phone] Encounter Details Date Type Department Care Team (Late st Contact Info) Description 08/16/2018 Telephone [place] [phone] Marni Hastings RN Social History Tobacco Use Types Packs/Day Years Used Date Smoking Tobacco: Former Cigarettes Q uit: 05/08/1969 Smokeless Tobacco: Never Alcohol Use Standard Drinks/Week Comments Yes 0 (1 standard drink = 0.6 oz pur e alcohol) rare Sex and Gender Information Value Date Recorded Sex Assigned at Female 09/03/2023 9:30 AM EST Gender Identity Not on file Sexual Orientation Not on file documented as of this encounter Miscellaneous Notes * Telephone Encounter - Marni Gar RN - 08/16/2018 10:26 AM EST Pt left msg this AM asking to make sure her OV note from yesterday's appt with Dr Swartz states that he doesn't think her thyroid is the source of the problem and that things remain unchanged endocrinologically speaking. Would like that note forwarded to her PCP. documented in this encounter Plan of Treatment Upcoming Encounters Date Type Department Care Team (Latest Contact Info) Description 03/03/2024 3:00 PM EDT Hospital Encounter [place] [address] Shorty Valdovinos MD [facility] [place] [address] 03/03/2024 3:00 PM EDT - 03/03/2024 4:00 PM EDT Surgery [place] [phone] Shorty Valdovinos MD [facility] [place] [address] COLONOSCOPY, DIAGNOSTIC (WRVU 3.26) 03/31/2024 9:00 AM EDT Office Visit [place] [address] Felisha Dc, ATIYA [facility] [place] [address] Scheduled Procedures Name Priority Associated Diagnoses Date/Ti me COLONOSCOPY, DIAGNOSTIC (WRVU 3.26) Crohn's disease without complication, unspecified gastrointestinal tract location 03/03/2024 3:00 PM EDT documented as of this encounter Visit Diagnoses Not on filedocumented in this encounter Care Teams Behavioral Therapy Coordinator Relationship Specialty Start Date End Date Twila Taylor APRN [address] [place] [address] PCP - General Family Medicine 08/12/18 09/05/18 documented as of this encounter
--- OUTSIDE RECORDS SUMMARY | 2024-02-19 11:23 | XMS_ITS | Encounter Summary ---
Author Organization [facility] [place] [address] Care Team Providers Care Sustainability Engineer Name Role Phone Page, Twila Ruiz APRN Primary Care Provider [phone] Encounter Details Date Type Department Care Team (Late st Contact Info) Description 09/02/2018 5:00 PM EST Tech Visit Gastroenterology at [facility] [place] [phone] Lupillo Hammer MD [facility] [place] [address] Chronic constipation Social History Tobacco Use Types Packs/Day Years [...] as of this encounter Progress Notes * Lupillo Hammer MD - 09/02/2018 5:00 PM EST Images from the original note were not included. Re: Isatu Bosch Reg No:[id number] : 1950 Date of Service: 09/02/18 ANORECTAL MANOMETRY w/BALLOON EXPULSION Referring provider:Elida Lozano Dear: Dr. Lozano We had the pleasure of performing a high resolution anorectal manometry on your patient in the GI Motility Laboratory at [facility]. CLINICAL HISTORY AND INDICATION As you know, she is a 68 y.o. female with complaints of constipation RESULTS 3D topography of anal canal at rest (Félix et al. Colorectal Dis. 2017 November;19(5):468-47): (pink: ?25mmHg; purple: ?24mmHg) POSTERIOR ANTERIOR POSTERIOR RECTUM ANAL VERGE Length of high pressure zone (NL Value: Males 4.1-4.5, Females 3.8-4.2) : 3.2 cm Resting sphincter pressure (NL Value: Males 70-100, Females 70-90) : 66 mmHg Max squeeze pressure (NL Value: Males 240-300, Females 160-200) : 118 mmHg Squeeze duration: poor Rectoanal inhibitory reflex: present at 60 ccs balloon distention Response to coughing: normal Response to simulated defecation: normal Type of Dyssynergia: none Response to simulated defecation with 30 cc of air into the balloon: normal Type of Dyssynergia: none Percent of Sphincter Relaxation: 46% Rectal Sensation: Threshold (NL Value: 30-70): 50mL Urgency (NL Value: 80-130): 100mL Maximum tolerated (NL Value: 130-200): 140mL Balloon expulsion test: normal at 25 seconds in seated position Types of Dyssynergia: Type 1: Adequate Increase in Rectal Pressure and Paradoxical Increase in Anal Sphincter Pressure Type 2: Inadequate Intrarectal Pressure and Paradoxical Anal Sphincter Pressure Type 3: Increase in Intrarectal Pressure and Absent or Incomplete Sphincter Relaxation Type 4: Inadequate Intrarectal Pressure and Unable to relax the Anal Sphincter Defecation Index: Normal > 1.5 Balloon expulsion: <60 seconds in seated position IMPRESSION Resting anal sphincter pressure reflecting internal sphincter function was normal. Maximum squeeze pressures reflecting external sphincter function were weak. The rectoanal inhibitory reflex was normal helping to exclude Hirschsprung's disease. With simulated defecation, there was a normal response. The balloon expulsion test was normal. Rectal sensation was normal. In summary, anorectal manometry and seated balloon expulsion testing were not consistent with dyssynergic defecation. Signed: Lupillo Hammer MD, FOINA Section of Gastroenterology and Hepatology [facility] [place] [address] V: [phone] F: [phone] CC/EC: Twila Taylor APRN [address] [place] [address] documented in this encounter Plan of Treatment Upcoming Encounters Date Type Department Care Team (Latest Contact Info) Description 03/03/2024 3:00 PM EDT Hospital En[place] [address] Shorty Valdovinos MD [facility] [place] [address] 03/03/2024 3:00 PM EDT - 03/03/2024 4:00 PM EDT [place] [address] Shorty Valdovinos MD [facility] [place] [address] COLONOSCOPY, DIAGNOSTIC (WRVU 3.26) 03/31/2024 9:00 AM EDT Office [place] [address] Felisha Dc APRN [facility] [place] [address] Scheduled Procedures Name Priority Associated Diagnoses Date/Ti me COLONOSCOPY, DIAGNOSTIC (WRVU 3.26) Crohn's disease without complication, unspecified gastrointestinal tract location 03/03/2024 3:00 PM EDT documented as of this encounter Visit Diagnoses Diagnosis Chronic constipation Unspecified constipation Crohn's disease without complication, unspecified gastrointestinal tract location documented in this encounter Care Teams Sustainability Engineer Relationship Specialty Start Date End Date Twila Taylor APRN [address] [place] [address] PCP - General Family Medicine 08/12/18 09/05/18 documented as of this encounter
--- OUTSIDE RECORDS SUMMARY | 2024-02-19 11:23 | XMS_ITS | Encounter Summary ---
Author Organization [facility] [place] [address] Care Team Providers Care Case Worker Name Role Phone Giovanna Scott DO Primary Care Provider [phone] Encounter Details Date Type Department Care Team (Latest Contact Info) Description 08/17/2020 7:32 AM EST - 08/17/2020 11:01 AM EST Hospital Encounter [place] [id number] Elida Lozano MD [facility] [place] [address] Dysphagia Discharge Disposition: Home Social History Tobacco Use Types Packs/Day Years Used Date Smoking Tobacco: Former Cigarettes Q uit: 05/08/1969 Smokeless Tobacco: Never Alcohol Use Standard Drinks/Week Comments Yes 0 (1 standard drink = 0.6 oz pur e alcohol) rare 4-6x year Sex and Gender Information Value Date Recorded Sex Assigned at Female 09/03/2023 9:30 AM EST Gender Identity Not on file Sexual Orientation Not on file documented as of this encounter Last Filed Vital Signs Vital Sign Reading Time Taken Comments Blood Pressure 107/87 08/17/2020 9:56 AM EST Pulse 67 08/17/2020 9:46 AM EST Temperature 36.6 ??C (97.9 ??F) 08/17/2020 7:55 AM ES T Respiratory Rate 16 08/17/2020 9:56 AM EST Oxygen Saturation 96% 08/17/2020 9:56 AM EST Inhaled Oxygen Concentration - - Weight 60.3 kg (133 lb) 08/17/2020 7:55 AM EST Height 172.7 cm (5' 8) 08/17/2020 7:55 AM EST Body Mass Index 20.22 08/17/2020 7:55 AM EST documented in this encounter Discharge Instructions * Discharge Instructions* Tiffany Phillip RN - 08/17/2020 9:58 AM EST Esophageal Dilation: What to Expect at Home Your Recovery After you have esophageal dilation, you will be able to go home after your doctor or nurse checks to make sure you are not having any problems. This care sheet gives you a general idea about how long it will take for you to recover. But each person recovers at a different pace. Follow the steps below to get better as quickly as possible. How can you care for yourself at home? Activity ??? Rest as much as you need to after you go home. ??? You should be able to go back to your usual activities the day after the procedure. Diet ??? Follow your doctor's directions for eating after the procedure. Clear Liquids Soft Diet ??? Drink plenty of fluids (unless your doctor has told you not to). Do not drink alcohol. Medicines ??? Your doctor will tell you if and when you can restart your medicines. He or she will also give you instructions about taking any new medicines. ??? If you take aspirin or some other blood thinner, ask your doctor if and when to start taking itagain. Make sure that you understand exactly what your doctor wants you to do. ??? If you have a sore throat the day after the procedure, use an klji-ikr-sbjnsgp spray to numb your throat. Sucking on throat lozenges and gargling with warm salt water may also help relieve your symptoms. Follow-up care is a negrete part of your treatment and safety. Be sure to make and go to all appointments, and call your doctor if you are having problems. It's also a good idea to know your test resultsand keep a list of the medicines you take. Other instructions For your safety, do not drive or operate machinery until the day after your test. Do not sign legal documents or make major decisions until the day after your test. The anesthesia can make it hard for you to fully understand what you are agreeing to. Additional Information for Sedation Patients For patients who received sedation: ?? You may have received medications before and/or during your procedure which effects your judgement and reaction time. ?? Do not drive, operate machinery, drink alcoholic beverages or make important decisions for 24 hours. ?? Be careful on stairs as you may be unsteady on your feet. ?? Do not smoke if you are alone. ?? IV site: Slight redness or tenderness is normal, you can use a warm compress if you would like. If tenderness and/or redness increase or if foul drainage occurs, please contact your Doctor. Please call [phone] before 8pm Mon-Fri with problems, questions or concerns. If you call after 8pm or on weekends, call the Hospital at [phone] and ask to speak to the Language Teacher pipeline controller and the operator catalyst concentration will contact that person for you. When should you call for help? Call [phone] anytime you think you may need emergency care. For example, call if: ??? You passed out (lost consciousness). ??? You have trouble breathing. ??? Your stools are maroon or very bloody. Call your doctor now or seek immediate medical care if: ??? You have new or worse belly pain. ??? You have a fever. ??? You haveLI blood in your stools. ??? You are sick to your stomach and cannot drink fluids. ??? You cannot pass stools or gas. ??? You have pain that does not get better after you take pain medicine. Watch closely for changes in your health, and be sure to contact your doctor if: ??? Your throat still hurts after a day or two. ??? You do not get better as expected. Where can you learn more? Visit our health information library at [email or web address] You can also view health information on [facility] [employer], your personal patient account. Log in or sign uptoday. Enter J014 in the search box to learn more about Esophageal Dilation: What to Expect at Home. Current as of: February 23, 2019Content Version: 12.4 ?? 2906-2034 [employer]. Care instructions adapted under license by [facility]. If you have questions about a medical condition or this instruction, always ask your healthcare professional. [employer] disclaims any warranty or liability for your [...] every 6 hours as needed for Pain. metoclopramide (REGLAN) 5 mg TabletIndications:Todd e acid esophageal reflux,Lower abdominal pain Take 1-2 tablets by mouth 4 times daily. (3 meals / day and at bedtime) 80 tablet 10/18/2018 VITAMIN B COMPLEX ORAL Take 1 tablet by mouth daily. omeprazole (PriLOSEC) 20 mg Capsule, Delayed Release(E.C.)Indicati ons:Status post dilation of esophageal narrowing Take 1 capsule by mouth daily. 30 capsule 1 08/13/2020 08/13/2021 MV,CA,MIN/IRON FUM/FA/VIT K (MULTI FOR HER ORAL) Take 1 tablet by mouth 3 times daily. 05/23/2022 documented as of this encounter H&P Notes * Elida Lozano MD - 08/17/2020 9:09 AM EST Gastroenterology and Hepatology Pre-Procedure History and Physical Exam Procedure: EGD: Indication: dysphagia PROBLEM LIST Patient Active Problem List Diagnosis Code ??? [...] R63.6 ??? Osteoporosis M81.0 ??? Dysphagia R13.10 MEDICATIONS No current facility-administered medications on file prior to encounter. Current Outpatient Medications on File Prior to Encounter Medication Sig Dispense Refill ??? CALCIUM CARBONATE-VITAMIN D3 ORAL Take 1,200 mg by mouth daily. chewable ??? Glucosamine 750 mg Capsule Take 750 mg by mouth 2 times daily (with meals). ??? acetaminophen (TYLENOL) 650 mg Tablet Sustained Release Take 650 mg by mouth. ??? vitamin E mixed/tocotrienol (VITAMIN E COMPLEX ORAL) VITAMIN E 400 UNIT CAPS ??? cholecalciferol, Vitamin D3, 5,000 unit Tablet Take 1 tablet by mouth daily. ??? MV,CA,MIN/IRON FUM/FA/VIT K (MULTI FOR HER ORAL) Take 1 tablet by mouth 3 times daily. ??? VITAMIN B COMPLEX ORAL Take 1 tablet by mouth daily. ??? metoclopramide (REGLAN) 5 mg Tablet Take 1-2 tablets by mouth 4 times daily. (3 meals / day andat bedtime) (Patient not taking: Reported on 07/25/2019) 80 tablet 0 ??? clindamycin (CLEOCIN) 300 mg Capsule CLINDAMYCIN HCL 300 MG CAPS prior to procedures ??? aspirin 325 mg Tablet Take 325 mg by mouth every 6 hours as needed for Pain. PHYSICAL EXAM: GEN: Alert, cooperative, pleasant and in NAD HEENT: Airway examined, oropharyngeal clear without lesions Mallampati Score: I (soft palate, uvula, fauces, tonsillar pillars visible) Neck: Supple, no lymphadenopathy or masses LUNGS: Clear to auscultation HEART: Regular rate and rhythm, normal S1, S2 ABDOMEN: Normal bowel sounds, soft, non tender, non distended EXT: No clubbing, cyanosis or edenoma NEURO: No focal deficits RECENT LABS No results found for this or any previous visit (from the past 24 hour(s)). ASSESSMENT AND PLAN Isatu Bosch is a 70 y.o. y/o who presents for endoscopy. Risks and benefits of the procedure explained to the patient. We discussed in depth possible risks include reaction to anesthesia, bleeding, infection, perforation, bruising of other organs in the body, missed lesions including cancer, and/orother unforseen complication. All of the patients questions were answered. Patient wishes to proceed and consent was signed. Proceed with the planned endoscopic procedure. ASA 2 - Patient with mild systemic disease with no functional limitations Sedation Plan: moderate (conscious sedation) Elida Lozano MD Gastroenterology attending Pager [phone] documented in this encounter Plan of Treatment Upcoming Encounters Date Type Department Care Team (Latest Contact Info) Description 03/03/2024 3:00 PM EDT Hospital Encounter [place] [address] Shorty Valdovinos MD [facility] [place] [address] 03/03/2024 3:00 PM EDT - 03/03/2024 4:00 PM EDT Surgery [place] [address] Shorty Valdovinos MD [facility] [place] [address] COLONOSCOPY, DIAGNOSTIC (WRVU 3.26) 03/31/2024 9:00 AM EDT Office [place] [address] Felisha Dc, ATIYA [facility] [place] [address] Scheduled Procedures Name Priority Associated Diagnoses Date/Ti me COLONOSCOPY, DIAGNOSTIC (WRVU 3.26) Crohn's disease without complication, unspecified gastrointestinal tract location 03/03/2024 3:00 PM EDT documented as of this encounter Procedures Procedure Name Priority Date/Time Associated Diagnosis Comments Up Gi Endoscopy, Ball Dil, 30Mm (85849) 08/17/2020 9:24 AM EST Dysphagia, unspecified type UPPER GI ENDOSCOPY Routine 08/17/2020 9: 16 AM EST documented in this encounter Results * UPPER GI ENDOSCOPY (08/17/2020 9:16 AM EST) UPPER GI ENDOSCOPY [facility] Endoscopy Procedure Date: 08/17/2020 9:16 AM ? Patient Name: Isatu Bosch ? Date of : 1950 ? Age: 70 ? Order #: [id number] ? Instrument Name: [id number] ? Procedure: ? Upper GI endoscopy Indications: ? Dysphagia Providers: ? Elida Lozano MD, Slime Pascal ? Juancho Duarte, Metalworking Instructor Referring : ?Giovanna Scott Medicines: ? Midazolam 4 mg IV, Fentanyl 200 ? micrograms IV Complications: ? No immediate complications. Procedure: ? The procedure, indications, benefits, ? risks and alternatives were explained ? to the patient. Specifically ? discussed were potential ? complications including, but not ? limited to, bleeding, perforation, ? infection, missing a cancer, and ? adverse medication reactions. The ? Endoscope was introduced through the ? mouth, and advanced to the second ? part of duodenum. The patient ? tolerated the procedure well. The ? upper GI endoscopy was accomplished ? without difficulty. The patient ? tolerated the procedure well. ? Findings: ? One benign-appearing, intrinsic mild stenosis was ? found 40 cm from the incisors. The stenosis was ? traversed. A TTS dilator was passed through the ? scope. Dilation with an 18-19-20 mm balloon dilator ? was performed to 18 mm and 19 mm without any change. ? Dilation was then performed to 20 mm with resistance ? and heme. The dilation site was examined and showed ? resolution of luminal narrowing. ? The entire examined stomach was normal. ? The examined duodenum was normal. ? Moderate Sedation: ? I was present during the intraservice time as ? documented by the sedation RN. Impression: ?- Benign-appearing esophageal ? stenosis. Dilated. ? - Normal stomach. ? - Normal examined duodenum. ? - No specimens collected. Recommendation: ?- Omeprazole 20 mg once daily x 8 ? weeks. ? - Discharge home ambulatory. ? Attending Participation: ? I personally performed the entire procedure. ? Elida Lozano MD 08/17/2020 9:50:53 AM Number of Addenda: 0 Note Initiated On: 08/17/2020 9:16 AM PROVATION 08/17/2020 9:16 AM EST Giovanna Scott DO [facility] [employer] documented in this encounter Visit Diagnoses Diagnosis Dysphagia- Primary Dysphagia, unspecified Crohn's disease without complication, unspecified gastrointestinal tract location documented in this encounter Admitting Diagnoses Diagnosis Dysphagia Dysphagia, unspecified documented in this encounter Administered Medications Inactive Administered Medications - up to 3 most recent administrations Medication Order MAR Action Action Date Dose Rate Site lactated ringers infusion 100 mL/hr, Intravenous, CONTINUOUS, Starting on e 08/17/20 at 0830, Until Tu08/17/20 at 1301, Endoscopy (Day of Procedure) New Bag 08/17/2020 8:07 AM EST 100 mL/hr 100 mL/hr documented in this encounter Active and Recently Administered Medications Times are shown in EST. Continuous Medication Order 08/15/2020 08/16/2020 08/17/2020 lactated ringers infusion 100 mL/hr, Intravenous, CONTINUOUS, Starting on e 08/17/20 at 0830, Until 08/17/20 at 1301, Endoscopy (Day of Procedure) 0807 (New Bag - Prov ider: Gini Schaeffer RN) PRN Medication Order 08/15/2020 08/16/2020 08/17/2020 fentaNYL (pf) (50 mcg/mL) multi-dose injection (CANCELED) ONCE PRN, Starting on 08/17/20 at 0927, Until 08/17/20 at 1301, Intra-Operative (Intra-Procedure), Routine 926 (Given - Provid er: Slime Duarte RN)0930 (Given - Provider: Slime Duarte RN)0934 (Given - Provider: Slime Duarte RN)0937 (Given - Provider: Slime Duarte RN) midazolam (pf) (Versed) (1 mg/mL) multi-dose injection (CANCELED) ONCE PRN, Starting on 08/17/20 at 0927, Until 08/17/20 at 1301, Intra-Operative (Intra-Procedure), Routine 926 (Given - Provid er: Slime Duarte RN)0930 (Given - Provider: Slime Duarte RN)0934 (Given - Provider: Slime Duarte RN)0937 (Given - Provider: Slime Duarte RN) documented in this encounter Care Teams Case Worker Relationship Specialty Start Date End Date Giovanna Scott DO [address] [place] [address] PCP - General Family Medicine 09/18/19 03/22/23 documented as of this encounter
--- OUTSIDE RECORDS SUMMARY | 2024-02-19 11:23 | XMS_ITS | Encounter Summary ---
Author Organization [facility] [place] [address] Care Team Providers Care Pyridine Operator Name Role Phone Benjamin Wild MD Primary Care Provider +1- [phone] Encounter Details Date Type Department Care Team (Latest Contact Info) Description 09/10/2018 1:50 PM EST - 09/10/2018 5:27 PM EST Hospital Encounter [place] [phone] Elida Lozano MD [facility] [place] [address] Discharge Disposition: Home Social History Tobacco Use [...] Sign Reading Time Taken Comments Blood Pressure 127/83 09/10/2018 4:15 PM EST Pulse 97 09/10/2018 3:25 PM EST Temperature 36.8 ??C (98.2 ??F) 09/10/2018 2:32 PM ES T Respiratory Rate 16 09/10/2018 4:15 PM EST Oxygen Saturation 97% 09/10/2018 4:15 PM EST Inhaled Oxygen Concentration - - Weight 63.5 kg (140 lb) 09/10/2018 2:28 PM EST Height - - Body Mass Index 21.29 08/28/2018 9:14 AM EST documented in this encounter Discharge Instructions * Discharge Instructions* Obey Goode RN - 09/10/2018 3:38 PM EST UPPER GI ENDOSCOPY WHAT TO EXPECT AFTER THE PROCEDURE After the test you may feel a little more gassy or bloated than usual, this is normal. ACTIVITY Because of the sedation that you received Your judgement and reaction time are affected ?? Go home and rest quietly for the remainder of the day. You may resume your normal activities tomorrow. ?? Change from one position to the next slowly. You may lose your balance unexpectedly Be careful on stairs, as you may be unsteady on your feet. FOR THE NEXT 24 HRS ?? DO NOT DRIVE OR OPERATE ANY MACHINERY ?? DO NOT DRINK ALCOHOLIC BEVERAGES ?? DO NOT SIGN LEGAL DOCUMENTS ?? If you are a smoker: DO NOT SMOKE WHILE YOU ARE ALONE Diet ?? Start by eating small portions of foods that ordinarily will not upset your stomach. Be gentle with what you choose to start with. ?? Drink plenty of fluids ( unless otherwise told not to) Medications You may have a mild sore throat. Ice chips, popsicles, over the counter throat lozenges or spray may help numb your throat. This procedure should not cause a fever. IV SITE-- slight redness or tenderness is normal, you can use warm compresses if you get concerned.If the tenderness +/or redness increases or foul drainage and a red streak occurs, please contact your PCP immediately. WHEN SHOULD YOU CALL FOR HELP? Call 911 anytime you think that you need emergency care. For example, call if: You passed out (lost consciousness). You cough up blood. You vomit blood or what looks like coffee grounds. You pass maroon or very bloody stools. Call your healthcare provider or seek immediate medical attention if: You have trouble swallowing. You have belly pain. Your stools are black or tarlike or have streaks of blood. You are sick to your stomach or cannot keep fluids down. Watch closely for changes in your health, and be sure to contact your doctor IF Your throat still hurts after a day or two You do not get better as expected. Sunday-Sunday Same Day Endo [phone]-8p Otherwise contact [phone] and ask to speak to the on line csr child welfare consultant Follow-up care is a negrete part of your treatment and safety. Be sure to make and go to all appointments, and call your doctor if you are having problems. Instructions have been reviewed and patient expresses understanding documented in this encounter Medications at Time [...] Take 1 tablet by mouth daily. omeprazole (PRILOSEC) 20 mg Capsule, Delayed Release(E.C.)Indicati ons:Peptic stricture of esophagus Take 1 capsule by mouth every morning. 30 capsule 1 09/10/2018 09/10/2019 Calcium Carb-Mag Oxide-Vit D3 200-100-100 mg-mg-unit Capsule Take 1 tablet by mouth daily. 09/27/2018 MV,CA,MIN/IRON FUM/FA/VIT K (MULTI FOR HER ORAL) Take 1 tablet by mouth 3 times daily. 05/23/2022 Glucosamine Sulfate 500 mg Tablet Take 1 tablet by mouth 2 times daily. 09/27/2018 VITAMIN E ACETATE (VITAMIN E ORAL) Take 1 tablet by mouth daily. 10/18/2018 documented as of this encounter H&P Notes * Elida Lozano MD - 09/10/2018 2:58 PM EST Gastroenterology and Hepatology Pre-Procedure History and Physical Exam Procedure: EGD: Indication: Dysphagia PROBLEM LIST Patient Active Problem List Diagnosis Code ??? Multiple thyroid nodules E04.2 ??? Pseudophakia, both eyes Z96.1 ??? Sinus bradycardia R00.1 ??? Heart palpitations R00.2 ??? Dizziness R42 ??? Hyperopia of both eyes with astigmatism and presbyopia H52.03, H52.203, H52.4 ??? Vitreous floaters of both eyes H43.393 HISTORY OF PRESENT ILLNESS Isatu Bosch is a 68 y.o. who presents for EGD to evaluate dysphagia. Somewhat better after chiropracter but still feels uncomfortable when she swallows food. MEDICATIONS No current facility-administered medications on file prior to encounter. Current Outpatient Medications on File Prior to Encounter Medication Sig Dispense Refill ??? cholecalciferol, Vitamin D3, 5,000 unit Tablet Take 1 tablet by mouth daily. ??? aspirin 325 mg Tablet Take 325 mg by mouth every 6 hours as needed for Pain. ??? Calcium Carb-Mag Oxide-Vit D3 200-100-100 mg-mg-unit Capsule Take 1 tablet by mouth daily. ??? MV,CA,MIN/IRON FUM/FA/VIT K (MULTI FOR HER ORAL) Take 1 tablet by mouth daily. ??? Glucosamine Sulfate 500 mg Tablet Take 1 tablet by mouth 2 times daily. ??? VITAMIN E ACETATE (VITAMIN E ORAL) Take 1 tablet by mouth daily. ??? VITAMIN B COMPLEX ORAL Take 1 tablet by mouth daily. ??? clindamycin (CLEOCIN) 300 mg Capsule CLINDAMYCIN HCL 300 MG CAPS prior to procedures PHYSICAL EXAM: GEN: Alert, cooperative, pleasant and in NAD HEENT: Airway examined, oropharyngeal clear without lesions Mallampati Score: II (soft palate, uvula, fauces visible) Neck: Supple, no lymphadenopathy or masses LUNGS: Clear to auscultation HEART: Regular rate and rhythm, normal S1, S2 ABDOMEN: Normal bowel sounds, soft, non tender, non distended EXT: No clubbing, cyanosis or edenoma NEURO: No focal deficits RECENT LABS No results found for this or any previous visit (from the past 24 hour(s)). ASSESSMENT AND PLAN Isatu Bosch is a 68 y.o. y/o who presents for endoscopy. Risks [...] Proceed with the planned endoscopic procedure. ASA 1 - Normal health patient Sedation Plan: moderate (conscious sedation) Elida Lozano MD Gastroenterology attending Pager [phone] documented in this encounter Plan of Treatment Upcoming Encounters Date Type Department Care Team (Latest Contact Info) Description 03/03/2024 3:00 PM EDT Hospital Encounter [place] [address] Shorty Valdovinos MD [facility] [place] [address] 03/03/2024 3:00 PM EDT - 03/03/2024 4:00 PM EDT Surgery [place] [address] Shorty Valdovinos MD [facility] [place] [address] COLONOSCOPY, DIAGNOSTIC (WRVU 3.26) 03/31/2024 9:00 AM EDT Office [place] [address] Felisha Dc, ATIYA [facility] [place] [address] Scheduled Procedures Name Priority Associated Diagnoses Date/Ti me COLONOSCOPY, DIAGNOSTIC (WRVU 3.26) Crohn's disease without complication, unspecified gastrointestinal tract location 03/03/2024 3:00 PM EDT documented as of this encounter Procedures Procedure Name Priority Date/Time Associated Diagnosis Comments EGD,WITH DILATION ESOPHAGUS WITH BALLOON,< 30 MM (WRVU 2.67) 09/10/2018 3:08 PM EST dysphagia UPPER GI ENDOSCOPY Routine 09/10/2018 3: 02 PM EST documented in this encounter Results * UPPER GI ENDOSCOPY (09/10/2018 3:02 PM EST) UPPER GI ENDOSCOPY [facility] Endoscopy Procedure Date: 09/10/2018 3:02 PM ? Patient Name: Isatu Bosch ? N: [id number] ? Date of : 1950 ? Age: 68 ? Order #: [id number] ? Instrument Name: [id number] ? Procedure: ? Upper GI endoscopy Indications: ? Dysphagia Providers: ? Elida Lozano MD, Susie Wood ? Mery Quinones Referring : ?Kanu Garzon Medicines: ? Midazolam 4 mg IV, Fentanyl 150 ? micrograms IV Complications: ? No immediate [...] without difficulty. The patient ? tolerated the procedure. ? Findings: ? One benign-appearing, intrinsic stenosis was found 41 ? cm from the incisors. This stenosis was mildly severe ? and. The stenosis was traversed. A TTS dilator was ? passed through the scope. Dilation with an 18-19-20 ? mm balloon dilator was performed to 18 mm at first ? without any resistance and then 20 mm with mild ? resistance and resultant heme. The dilation site was ? examined and showed mild improvement in luminal ? narrowing. ? The entire examined stomach was [...] daily x 8 ? weeks. ? - Monitor symptoms of dysphagia. ? - Discharge home ambulatory. ? Attending Participation: ? I personally performed the entire procedure. ? ____ Elida Lozano MD 09/10/2018 3:33:56 PM Number of Addenda: 0 Note Initiated On: 09/10/2018 3:02 PM PROVATION 09/10/2018 3:02 PM EST Kanu Garzon DO [facility]AL [facility] RDERABLES [employer]OVATION documented in this encounter Visit Diagnoses Not on filedocumented in this encounter Active and Recently Administered Medications Times are shown in EST. PRN Medication Order 09/08/2018 09/09/2018 09/10/2018 fentaNYL 50 mcg/mL multi-dose injection (CANCELED) ONCE PRN, Starting on Sun09/10/18 at 1510, Until Sun09/10/18 at 1933, Intra-Operative (Intra-Procedure), Routine 1510 (Given - Provid er: Susie M Joni, RN)1513 (Given - Provider: Susie Quinones RN)1521 (Given - Provider: Susie Quinones RN) midazolam (PF) (VERSED) multi-dose injection (CANCELED) ONCE PRN, Starting on Sun09/10/18 at 1510, Until Sun09/10/18 at 1933, Intra-Operative (Intra-Procedure), Routine 1510 (Given - Provid er: Susie Quinones RN)1513 (Given - Provider: Susie Quinones RN)1516 (Given - Provider: Susie Quinones RN)1521 (Given - Provider: Susie Quinones RN) documented in this encounter Care Teams Pyridine Operator Relationship Specialty Start Date End Date Benjamin Wild MD [facility] [address] [place] [address] PCP - General Family Medicine 09/09/18 09/17/19 documented as of this encounter
--- OUTSIDE RECORDS SUMMARY | 2024-02-19 11:23 | XMS_ITS | Encounter Summary ---
Author Organization [facility] [place] [address] Care Team Providers Care Blanket Cutting Machine Operator Name Role Phone Giovanna Scott DO Primary Care Provider +1- [phone] Encounter Details Date Type Department Care Team (Late st Contact Info) Description 03/04/2020 Telephone [place] [phone] Manuela Calderon Social History Tobacco Use Types Packs/Day Years [...] encounter Miscellaneous Notes * Telephone Encounter - Manuela Calderon - 03/04/2020 10:49 AM EDT Left message for patient to contact the office to reschedule her 04/22/[address] Lozano ([facility]). documented in this encounter Plan of Treatment Upcoming Encounters Date Type Department Care Team (Latest Contact Info) Description 03/03/2024 3:00 PM EDT Hospital Encounter [place] [address] Shorty Valdovinos MD [facility] [place] [address] 03/03/2024 3:00 PM EDT - 03/03/2024 4:00 PM EDT Surgery [place] [address] Shorty Valdovinos MD [facility] [place] [address] COLONOSCOPY, DIAGNOSTIC (WRVU 3.26) 03/31/2024 9:00 AM EDT Office [place] [phone] Felisha Dc, ATIYA [facility] [place] [address] Scheduled Procedures Name Priority Associated Diagnoses Date/Ti me COLONOSCOPY, DIAGNOSTIC (WRVU 3.26) Crohn's disease without complication, unspecified gastrointestinal tract location 03/03/2024 3:00 PM EDT documented as of this encounter Visit Diagnoses Not on filedocumented in this encounter Care Teams Blanket Cutting Machine Operator Relationship Specialty Start Date End Date Giovnana Scott DO [address] [place] [address] PCP - General Family Medicine 09/18/19 03/22/23 documented as of this encounter
--- OUTSIDE RECORDS SUMMARY | 2024-02-19 11:23 | XMS_ITS | Encounter Summary ---
Author Organization [facility] [place] [address] Care Team Providers Care Final Finisher Forging Dies Name Role Phone Benjamin Wild MD Primary Care Provider +1- [phone] Encounter Details Date Type Department Care Team (Late st Contact Info) Description 08/29/2018 Telephone [place] [address] Ethel Olmedo Social History Tobacco Use Types Packs/Day Years [...] encounter Miscellaneous Notes * Telephone Encounter - Ethel Olmedo - 08/29/2018 10:54 AM EST ANORECTAL MANOMETRY REFERRAL SHEET 08/29/2018 Ethel Lunsford Hiro [address] [facility] [address] [id number] : 1950 REFERRING PROVIDER: Blake PRIMARY CARE PROVIDER: Twila Taylor DIAGNOSIS: possible slow motility constipation and possible dyssynergic defecation; chronic constipation PRIMARY SYMPTOM (CONSTIPATION, FECAL INCONTINENCE, ETC): possible slow motility constipation and possible dyssynergic defecation; chronic constipation PRE-PROCEDURE QUESTIONS ANAL OR RECTAL SURGERY WITHIN SIX MONTHS? n ACTIVE ULCERATIVE COLITIS OR CROHN'S DISEASE? n IF YES TO ANY OF THE ABOVE PRE-PROCEDURE QUESTIONS, PT CANNOT HAVE THE STUDY AT THIS TIME DUE TO SAFETY CONCERNS and should speak with their provider about alternative testing if indicated. Scheduling should also contact the provider's office directly to notify them that this is a hard-stop on our safety checklist. ADDITIONAL PRE-PROCEDURE QUESTIONS: BLOOD THINNERS SUCH PLAVIX, COUMADIN, PRADAXA? n (For nurse info only; pt does not have to stop any blood thinners) SPECIAL NEEDS PROBLEMS WALKING? n (Does pt use cane, crutches, etc.? If yes, please be specific.) PROBLEMS HEARING, SEEING, SPEAKING, UNDERSTANDING? Bilateral hearing aids (Glasses don't count. - anything else, please elaborate. Ask about hearing aid(s), which side, etc.) SPASTIC BODY MOVEMENTS/TREMORS? n (Restless legs syndrome at night doesn't count - anything else, please document.) VERBAL PATIENT INSTRUCTIONS PREP INSTRUCTIONS: PATIENT AGREES TO BUY TWO [id number] SALINE ENEMAS ([employer], [employer], ETC) ANDTO COMPLETE ENEMA #1 AT HOME 2 HOURS BEFORE SCHEDULED ARRIVAL, AND ENEMA #2 AT HOME 1 HOUR SCHEDULED ARRIVAL. IF PATIENT LIVES >1 HOUR AWAY, PATIENT AGREES TO USE BOTH ENEMAS BACK TO BACK BEFORE LEAVING THEIR HOME: y documented in this encounter Plan of Treatment Upcoming Encounters Date Type Department Care Team (Latest Contact Info) Description 03/03/2024 3:00 PM EDT Hospital En[place] [address] Shorty Valdovinos MD [facility] [place] [address] 03/03/2024 3:00 PM EDT - 03/03/2024 4:00 PM EDT [place] [address] Shorty Valdovinos MD [facility] [place] [address] COLONOSCOPY, DIAGNOSTIC (WRVU 3.26) 03/31/2024 9:00 AM EDT Office [place] [address] Felisha Dc, ATIYA [facility] [place] [address] Scheduled Procedures Name Priority Associated Diagnoses Date/Ti me COLONOSCOPY, DIAGNOSTIC (WRVU 3.26) Crohn's disease without complication, unspecified gastrointestinal tract location 03/03/2024 3:00 PM EDT documented as of this encounter Visit Diagnoses Not on filedocumented in this encounter Care Teams Final Finisher Forging Dies Relationship Specialty Start Date End Date Benjamin Wild MD [facility] [address] [place] [address] PCP - General Family Medicine 09/09/18 09/17/19 documented as of this encounter
--- OUTSIDE RECORDS SUMMARY | 2024-02-19 11:23 | XMS_ITS | Encounter Summary ---
[place] [address] Care Team Providers Care Burr Filer Name Role Phone Giovanna Scott DO Primary Care Provider +1- [phone] Reason for Visit * Reason Comments Eye Exam Encounter Details Date Type Department Care Team (Late st Contact Info) Description 07/28/2021 10:00 AM EST Office [place] [phone] Claire Landry, [facility] [place] [address] Pseudophakia, both eyes; Vitreous floaters of both eyes; Hyperopia of both eyes with astigmatism and presbyopia Social History Tobacco Use Types Packs/Day Years [...] as of this encounter Progress Notes * Claire Landry OD - 07/28/2021 10:00 AM EST Isatu Bosch is a 71 y.o. female who had concerns including Eye Exam. Rx updated. Good ocular healthon today's exam. Encounter Diagnoses Name Primary? Pseudophakia, both eyes ??? Vitreous floaters of both eyes ??? Hyperopia of both eyes with astigmatism and presbyopia Assessment: 1) Pseudophakia OU x2012 S/p YAG OS 12/01/14, OD 05/11/16 2) Vitreous floaters OU 3) Refractive error / presbyopia OU Plan: 1) Monitor. 2) RD precautions reviewed: patient was educated to RTC stat with new onset flashes, floaters, curtain over vision, or other visual changes. Continue with sunglasses when outside, this helps her notice floaters less often. 3) Updated MRx dispensed. Wears Bifocals and NVO. Follow up: CEE 1 years. Eyeglass Final Rx Eyeglass Final Rx Sphere Cylinder Mcdonough Dist VA Add Near VA Right -1.75 +2.00 180 20/20 +2.50 20/20 Left -0.75 +1.25 175 20/20 +2.50 20/20 Expiration Date: 07/29/2023 documented in this encounter Plan of Treatment Upcoming Encounters Date Type Department Care Team (Latest Contact Info) Description 03/03/2024 3:00 PM EDT Hospital Encounter [place] [address] Shorty Valdovinos MD [facility] [place] [address] 03/03/2024 3:00 PM EDT - 03/03/2024 4:00 PM EDT [place] [phone] Shorty Valdovinos MD [facility] [place] [address] COLONOSCOPY, DIAGNOSTIC (WRVU 3.26) 03/31/2024 9:00 AM EDT Office [place] [address] Felisha Dc APRN [facility] [place] [address] Scheduled Procedures Name Priority Associated Diagnoses Date/Ti me COLONOSCOPY, DIAGNOSTIC (WRVU 3.) Crohn's disease without complication, unspecified gastrointestinal tract location 03/03/2024 3:00 PM EDT documented as of this encounter Visit Diagnoses Diagnosis Pseudophakia, both eyes Lens replaced by other means Vitreous floaters of both eyes Hyperopia of both eyes with astigmatism and presbyopia Crohn's disease without complication, unspecified gastrointestinal tract location documented in this encounter Care Teams Burr Filer Relationship Specialty Start Date End Date Giovanna Scott DO [address] [place] [address] PCP - General Family Medicine 09/18/19 03/22/23 documented as of this encounter
--- OUTSIDE RECORDS SUMMARY | 2024-02-19 11:23 | XMS_ITS | Encounter Summary ---
Author Organization [facility] [place] [address] Care Team Providers Care Shovel Oiler Name Role Phone Benjamin Wild MD Primary Care Provider +1- [phone] Reason for Visit * Reason Onset Date Comments Appointment 07/01/2019 Encounter Details Date Type Department Care Team (Late st Contact Info) Description 07/01/2019 Telephone [place] [phone] Von Raymundo Appointment Social History Tobacco Use Types Packs/Day Years [...] encounter Miscellaneous Notes * Telephone Encounter - Chery Miller - 07/02/2019 11:25 AM EST Patient Scheduled * Telephone Encounter - Von Raymundo - 07/01/2019 12:29 PM EST Caller and relationship to patient (if other than patient): Isatu Bosch Best time to reach caller: anytime Message or Reason for Call: patient asked if the appointment on 07/25 with Shantel Walker OD is still available? She now has transportation. Appt Needed and Reason: New Provider: Shantel Walker OD documented in this encounter Plan of Treatment Upcoming Encounters Date Type Department Care Team (Latest Contact Info) Description 03/03/2024 3:00 PM EDT Hospital Encounter Gastroenterology at [place] [phone] Shorty Valdovinos MD [facility] [place] [address] 03/03/2024 3:00 PM EDT - 03/03/2024 4:00 PM EDT Surgery Gastroenterology at [place] [phone] Shorty Valdovinos MD [facility] [place] [address] COLONOSCOPY, DIAGNOSTIC (WRVU 3.26) 03/31/2024 9:00 AM EDT Office Visit Gastroenterology at [place] [phone] Felisha Dc, ATIYA [facility] [place] [address] Scheduled Procedures Name Priority Associated Diagnoses Date/Ti me COLONOSCOPY, DIAGNOSTIC (WRVU 3.26) Crohn's disease without complication, unspecified gastrointestinal tract location 03/03/2024 3:00 PM EDT documented as of this encounter Visit Diagnoses Not on filedocumented in this encounter Care Teams Shovel Oiler Relationship Specialty Start Date End Date Benjamin Wild MD [facility] [address] [place] [address] PCP - General Family Medicine 09/09/18 09/17/19 documented as of this encounter
--- OUTSIDE RECORDS SUMMARY | 2024-02-19 11:23 | XMS_ITS | Encounter Summary ---
Author Organization [facility] [place] [address] Care Team Providers Care Insurance Administrator Name Role Phone Giovanna Scott DO Primary Care Provider +1- [phone] Encounter Details Date Type Department Care Team (Late st Contact Info) Description 09/27/2021 Ancillary Procedure [place] [address] Christopher Haynes, [address] [place] [address] [phone] Social History Tobacco Use Types Packs/Day Years [...] 3:00 PM EDT Hospital Encounter [place] [address] Shorty Valdovinos MD [facility] [place] [address] 03/03/2024 3:00 PM EDT - 03/03/2024 4:00 PM EDT Surgery [place] [address] Shorty Valdovinos MD [facility] [place] [address] COLONOSCOPY, DIAGNOSTIC (WRVU 3.26) 03/31/2024 9:00 AM EDT Office [place] [phone] Felisha Dc APRN [facility] [place] [address] Scheduled Procedures Name Priority Associated Diagnoses Date/Ti me COLONOSCOPY, DIAGNOSTIC (WRVU 3.26) Crohn's disease without complication, unspecified gastrointestinal tract location 03/03/2024 3:00 PM EDT documented as of this encounter Procedures Procedure Name Priority Date/Time Associated Diagnosis Comments FILM LIBRARY STORAGE ONLY CT ABDOMEN AND PELVIS Routine 09/27/2021 12:00 AM EDT documented in this encounter Results * Film Library- Storage Only CT Abdomen & Pelvis (09/27/2021 12:00 AM EDT) Narrative [facility] - 08/21/2023 5:29 PM EST This exam is auto-finalizing. It's purpose is for storage only. Christopher Haynes DO IMG FILM LIBRARY ORD ERABLES [place], [place] documented in this encounter Visit Diagnoses Not on filedocumented in this encounter Care Teams Insurance Administrator Relationship Specialty Start Date End Date Giovanna Scott DO [address] [place] [address] PCP - General Family Medicine 09/18/19 03/22/23 documented as of this encounter
--- OUTSIDE RECORDS SUMMARY | 2024-02-19 11:23 | XMS_ITS | Encounter Summary ---
Author Organization [facility] [place] [address] Care Team Providers Care Health Care Consultant Name Role Phone Page, Twila Ruiz APRN Primary Care Provider [phone] Encounter Details Date Type Department Care Team (Late st Contact Info) Description 08/15/2018 2:30 PM EST Office [place] [phone] [facility] [place] [address] Thyroid nodule Social History Tobacco Use Types Packs/Day Years [...] Sign Reading Time Taken Comments Blood Pressure 105/69 08/15/2018 2:23 PM EST Pulse 67 08/15/2018 2:23 PM EST Temperature - - Respiratory Rate - - Oxygen Saturation - - Inhaled Oxygen Concentration - - Weight 64.9 kg (143 lb) 08/15/2018 2:23 PM EST Height 172.7 cm (5' 8) 08/15/2018 2:23 PM EST Body Mass Index 21.74 08/15/2018 2:23 PM EST documented in this encounter Progress Notes * MaximeJose EliasDO - 08/15/2018 2:30 PM EST Endocrinology Clinic Followup Note Patient: Isatu Bosch PCP: Twila Taylor APRN CC: Follow up for thyroid nodules/cysts Interval History: Isatu is a 68 year old female her for routine evaluation of thyroid nodules (previously biopsied, benign). She denies compressive symptoms. She feels well. She reports a history of gluten and lactoseintolerance. Several months ago she developed an episode of severe constipation resulting in 2 trips to the emergency department. She was started on MiraLAX. She believes the initial constipation was diet related. Her bowel movements are now regular. Over the past 7 days she has developed feeling of bile backing up in my throat. Denies a history of acid reflux. Apparently, her primary care has recommended she see gastroenterology. No weight loss. No symptoms suggesting hypo or hyperthyroidism. Family history pertinent for sister and mother on thyroid replacement. No family history of thyroidcancer. ROS: Remainder of 10 system review negative Past Medical History: Past Medical History: Diagnosis Date ??? Cataract ??? Dizziness 10/04/2016 ??? Heart palpitations 10/04/2016 ??? Sinus bradycardia 10/04/2016 ??? Sinus bradycardia 10/04/2016 ??? Thyroid disease Past Surgical History: Procedure Laterality Date ??? CATARACT REMOVAL Bilateral 2011 OU ??? LASER SURGERY Left 2014 YAG OS for PCO - MEZ ??? PRO COLONOSCOPY, BIOPSY 11/22/2011 COLONOSCOPY FLEXIBLE, WITH BX performed by Shorty ARCE at [facility] ENDOSCOPY ??? YAG CAPSULOTOMY Left 12/01/2014 Dr Mancia ??? YAG CAPSULOTOMY Right 05/11/[address] Mancia Medications: Calcium Carb-Mag Oxide-Vit D3, aspirin, cholecalciferol (Vitamin D3), clindamycin, glucosamine sulfate, (mv,calcium,min/iron/folic/vitK), vitamin B complex, and vitamin E acetate Allergies: Allergies Allergen Reactions ??? Lactose Diarrhea and Other (See Comments) Headaches, congestion ??? Gluten Diarrhea ??? Penicillins Nausea And Vomiting No changes to FHx or SHx noted Family History Problem Relation Age of Onset ??? Heart Disease Father ??? Hypertension Father ??? Cerebrovascular Accident Father ??? Hypertension Sister ??? Cerebrovascular Accident Sister ??? Depression Mother ??? Hypothyroidism Mother ??? Asthma Brother ??? Hypertension Brother ??? Breast Cancer Sister ??? Amblyopia Neg Hx ??? Strabismus Neg Hx ??? Diabetes Neg Hx ??? Glaucoma Neg Hx ??? Cancer Neg Hx ??? Cataracts Neg Hx ??? Macular Degeneration Neg Hx ??? Retinal Detachment Neg Hx ??? Thyroid Disease Neg Hx Social History Socioeconomic History ??? Marital status: Single Spouse name: Not on file ??? Number of children: Not on file ??? Years of education: Not on file ??? Highest education level: Not on file Social Needs ??? Financial resource strain: Not on file ??? Food insecurity - worry: Not on file ??? Food insecurity - inability: Not on file ??? Transportation needs - medical: Not on file ??? Transportation needs - non-medical: Not on file Occupational History ??? Not on file Tobacco Use ??? Smoking status: Former Smoker Last attempt to quit: 05/08/1969 Years since quittin.3 ??? Smokeless tobacco: Never Used Substance and Sexual Activity ??? Alcohol use: Yes Comment: rare ??? Drug use: Not on file ??? Sexual activity: Not on file Other Topics Concern ??? Not on file Social History Narrative ??? Not on file Physical exam: HR 74 General: NAD. Nondiaphoretic. HEENT: Normocephalic/atraumatic. No proptosis. Oropharynx clear. Palpable left sided thyroid masses. Non-tender thyroid gland. No palpable lymphadenopathy. CV: regular rate/rhythm, no murmurs/rubs/gallops. No carotid bruits auscultated. Pulm: clear to auscultation bilaterally. Extremities: warm and well perfused, no edema Neuro/Mental Status: alert. Speech is fluent without dysarthria or aphasia. No tremor. Diagnostic Tests/Imaging: Thyroid ultrasound: Dimension sagittal x AP x transverse Right lobe 3.6 x 1.2 x 1.1 cm normal echotexture There is a very small spongiform appearing nodule measuring 6 x 4 x 5mm (unchanged in size) Left lobe is occupied entirely by 2 large nodules/cysts Superior lesion: predominantly cystic (95% cystic) lesion measuring 2.7 x 2 x 2.6cm with colloid readily apparent Inferior isoechoic nodule with small areas of cystic degeneration, measuring 2.8 x 1.7 x 2.4cm without calcifications. The borders are very well-defined. There are no abnormal lymph nodes in the lateral neck compartments TSH normal today at 1.33 Impression: Relatively stable thyroid nodules with benign appearance as described above. She previously underwent fine needle aspiration confirming benign cytology. Recommendations: - TSH today (1.33) - Endocrine follow-up as needed Jos eElias Swartz DO, MS Shared Services Managerclothing sorter Department of Medicine Section of Endocrinology [facility] documented in this encounter Plan of Treatment Upcoming Encounters Date Type Department Care Team (Latest Contact Info) Description 03/03/2024 3:00 PM EDT Hospital Encounter [place] [address] [facility] [place] [address] 03/03/2024 3:00 PM EDT - 03/03/2024 4:00 PM EDT Surgery [place] [phone] [facility] [place] [address] COLONOSCOPY, DIAGNOSTIC (WRVU 3.26) 03/31/2024 9:00 AM EDT Office [place] [phone] Felisha Dc, ATIYA [facility] [place] [address] Scheduled Procedures Name Priority Associated Diagnoses Date/Ti me COLONOSCOPY, DIAGNOSTIC (WRVU 3.26) Crohn's disease without complication, unspecified gastrointestinal tract location 03/03/2024 3:00 PM EDT documented as of this encounter Procedures Procedure Name Priority Date/Time Associated Diagnosis Comments TSH Routine 08/15/2018 3:30 PM EST Thyroid nodule documented in this encounter Results * TSH (08/15/2018 3:30 PM EST) Thyroid Stimulating Hormone 1.33 0.27 - 4.20 mlU/ML [facility] Blood specimen (specimen) 08/15/2018 3:30 PM EST 08/15/2018 3:38 PM EST Narrative Resulting Agency Comment Spec In Lab Jose Elias Swartz DO CHEMISTRY ORDERABLES [facility] [place] [address] documented in this encounter Visit Diagnoses Diagnosis Thyroid nodule Nontoxic uninodular goiter Crohn's disease without complication, unspecified gastrointestinal tract location documented in this encounter Care Teams Health Care Consultant Relationship Specialty Start Date End Date Twila Taylor APRN [address] [place] [address] PCP - General Family Medicine 08/12/18 09/05/18 documented as of this encounter
--- OUTSIDE RECORDS SUMMARY | 2024-02-19 11:23 | XMS_ITS | Encounter Summary ---
[place] [address] Care Team Providers Care Panel Machine Setter Name Role Phone Giovanna Scott DO Primary Care Provider [phone] Reason for Referral * Consultation (Routine) - Closed Specialty Diagnoses / Procedures Referred By Contac t Referred To Contact Gastroenterology Diagnoses Dysphagia, unspecified type HREM - 70 yo F with dysphagia. PLease schedule HREM for after EGD. Procedures HREM - 70 yo F with dysphagia. PLease schedule HREM for after EGD. lEida Lozano MD [facility] [place] [address] [facility] [place] [address] [address] Referral ID Status Reason Start Date Expiration Date V isits Requested Visits Authorized [id number] Closed Consult, Test & Treat 08/02/2020 08/02/2021 1 1 Encounter Details Date Type Department Care Team (Late st Contact Info) Description 08/02/2020 Orders [place] [phone] Elida Lozano MD [facility] [place] [address] Dysphagia, unspecified type Social History Tobacco Use [...] 3:00 PM EDT Hospital Encounter [place] [address] Shorty Valdovinos MD [facility] [place] [address] 03/03/2024 3:00 PM EDT - 03/03/2024 4:00 PM EDT [place] [address] Shorty Valdovinos MD [facility] [place] [address] COLONOSCOPY, DIAGNOSTIC (WRVU 3.26) 03/31/2024 9:00 AM EDT Office [place] [address] Felisha Dc APRN [facility] [place] [address] Scheduled Orders Name Type Priority Associated Diagnoses Orde r Schedule ENDOSCOPY CASE REQUEST: EGD, UPPER GI ENDOSCOPY Procedures Routine Dysphagia, unspecified type Ordered: 08/02/2020 Scheduled Procedures Name Priority Associated Diagnoses Date/Ti me COLONOSCOPY, DIAGNOSTIC (WRVU 3.26) Crohn's disease without complication, unspecified gastrointestinal tract location 03/03/2024 3:00 PM EDT Scheduled Referrals Name Type Priority Associated Diagnoses Order Schedule Referral to Gastroenterology Outpatient Referral Routine Dysphagia, unspecified type Ordered: 08/02/2020 documented as of this encounter Visit Diagnoses Diagnosis Dysphagia, unspecified type Crohn's disease without complication, unspecified gastrointestinal tract location documented in this encounter Care Teams Panel Machine Setter Relationship Specialty Start Date End Date Giovanna Scott DO 4 [facility] [place] [address] PCP - General Family Medicine 09/18/19 03/22/23 documented as of this encounter
--- OUTSIDE RECORDS SUMMARY | 2024-02-19 11:23 | XMS_ITS | Encounter Summary ---
Author Organization [facility] [place] [address] Care Team Providers Care Census Clerk Name Role Phone Kanu Garzon DO Primary Care Provider [phone] Encounter Details Date Type Department Care Team (Late st Contact Info) Description 09/06/2018 Notes [place] [phone] Elida Lozano MD [facility] [address] Social History Tobacco Use Types Packs/Day Years [...] Progress Notes * Elida Lozano MD - 09/06/2018 12:43 PM EST Received two handwritten notes from patient by mail, summarized below: Prep for ARM with enemas helped clear her out and she felt higher energy levels and clearer thinking. Would like to know if she can have PCP at [facility] even though she lives 59 miles away. I will see how we can help. documented in this encounter Plan of Treatment Upcoming Encounters Date Type Department Care Team (Latest Contact Info) Description 03/03/2024 3:00 PM EDT Hospital Encounter [place] [address] Shorty Valdovinos MD [facility] [place] [address] 03/03/2024 3:00 PM EDT - 03/03/2024 4:00 PM EDT Surgery [place] [phone] Shorty Valdovinos MD [facility] [address] COLONOSCOPY, DIAGNOSTIC (WRVU 3.26) 03/31/2024 9:00 AM EDT Office [place] [phone] Felisha Dc, [employer]ER [facility] [address] Scheduled Procedures Name Priority Associated Diagnoses Date/Ti me COLONOSCOPY, DIAGNOSTIC (WRVU 3.26) Crohn's disease without complication, unspecified gastrointestinal tract location 03/03/2024 3:00 PM EDT documented as of this encounter Visit Diagnoses Not on filedocumented in this encounter Care Teams Census Clerk Relationship Specialty Start Date End Date Kanu Garzon, [facility] [address] [facility] [place] [address] PCP - General Family Medicine 09/06/18 09/08/18 documented as of this encounter
--- OUTSIDE RECORDS SUMMARY | 2024-02-19 11:23 | XMS_ITS | Encounter Summary ---
Author Organization [facility] [place] [address] Care Team Providers Care Face Painter Name Role Phone Benjamin Wild MD Primary Care Provider [phone]- [phone] Encounter Details Date Type Department Care Team (Late st Contact Info) Description 08/29/2018 Telephone [place] [address] Ethel Olmedo Social History Tobacco [...] Telephone Encounter - Ethel Olmedo - 08/29/2018 10:57 AM EST EGD PATIENT SAFETY QUESTIONS ENDO Booked by: Vanesa PRIOR EGD?: n PROBLEMS?: na PLAVIX, COUMADIN, PRADAXA? n PACEMAKER/DEFIBRILLATOR? : n DIABETIC? n ALLERGIC TO LATEX, EGGS, OR MEDS? PENICILLIN ALLERGY THREE OR MORE ABDOMINAL SURGERIES? n ANY PAST PROBLEMS WITH SEDATION OR ANESTHESIA? n DAILY SUPPLEMENTAL O2 OR CPAP? n DOES PT TAKE RX PAIN MEDS? n HT: 68 WT: 142 lbs. AGE: x DOES PT KNOW HE/SHE MUST HAVE A CONCRETE MIXER OPERATOR HELPER FOR AFTER PROCEDURE: y documented in this encounter Plan of Treatment Upcoming Encounters Date Type Department Care Team (Latest Contact Info) Description 03/03/2024 3:00 PM EDT Hospital En[place] [phone] Shorty Valdovinos MD [facility] [address] 03/03/2024 3:00 PM EDT - 03/03/2024 4:00 PM EDT [place] [phone] Shorty Valdovinos MD [facility] [place] [address] COLONOSCOPY, DIAGNOSTIC (WRVU 3.26) 03/31/2024 9:00 AM EDT Office [place] [address] Felisha Dc, OVER[employer] GARAGE DOOR HANGER [facility] [place] [address] Scheduled Procedures Name Priority Associated Diagnoses Date/Ti id COLONOSCOPY, DIAGNOSTIC (WRVU 3.26) Crohn's disease without complication, unspecified gastrointestinal tract location 03/03/2024 3:00 PM EDT documented as of this encounter Visit Diagnoses Not on filedocumented in this encounter Care Teams Face Painter Relationship Specialty Start Date End Date Benjamin Wild MD [facility] [address] [address] PCP - General Family Medicine 09/09/18 09/17/19 documented as of this encounter
--- OUTSIDE RECORDS SUMMARY | 2024-02-19 11:23 | XMS_ITS | Encounter Summary ---
Author Organization [facility] [place] [address] Care Team Providers Care Director Alumni Relations Name Role Phone Twila Taylor APRN Primary Care Provider [phone] Reason for Visit * Consultation (Routine) - Specialty Diagnoses / Procedures Referred By Flip womack Referred To Contact Gastroenterology Diagnoses INTERMITTENT DYSPHAGIA, CHANGE IN BOWEL HABIT Twila Taylor APRN [address] [place] [address] [facility] [address] [place] [address] Referral ID Status Reason Start Date Expiration Date V isits Requested Visits Authorized [id number] Consult, Test & Treat Connection Center 08/12/2018 08/12/2019 6 6 Encounter Details Date Type Department Care Team (Late st Contact Info) Description 08/28/2018 9:00 AM EST Office [place] [address] Elida Lozano MD [facility] [place] [address] Chronic constipation; Dysphagia, unspecified type; Reflux esophagitis Social History Tobacco Use Types Packs/Day Years [...] Sign Reading Time Taken Comments Blood Pressure 117/84 08/28/2018 9:14 AM EST Pulse 71 08/28/2018 9:14 AM EST Temperature - - Respiratory Rate - - Oxygen Saturation - - Inhaled Oxygen Concentration - - Weight 64.2 kg (141 lb 8 oz) 08/28/2018 9:14 AM EST Height 172.7 cm (5' 8) 08/28/2018 9:14 AM EST Body Mass Index 21.52 08/28/2018 9:14 AM EST documented in this encounter Patient Instructions * Patient Instructions* Elida Lozano MD - 08/28/2018 9:00 AM EST Thank you for coming in to see me today. I think you have slow motility constipation and possible dyssynergic defecation contributing to the straining and effort needed for bowel movement. I think you also may be suffering from some acid or bile reflux and this may be causing inflammation (esophagitis) that is contributing to your difficulty swallowing. Here is the plan we developed together: RECOMMENDATIONS: 1. Follow-up with PCP. 2. Come back for EGD. 3. Recommend Pepcid Complete as needed for your symptoms. 4. Come back for your anorectal manometry testing. 5. You may benefit from pelvic floor PT. 6. We could consider liberalizing your diet in future but wouldn't try yet until you are feeling well. documented in this encounter Progress Notes * Elida Lozano MD - 08/28/2018 9:00 AM EST Gastroenterology & Hepatology New Patient Consultation Note Ms. Isatu Bosch is a 68 y.o. healthy woman who presents to the section of Gastroenterology for consultation at the request of Dr. Twila Taylor, MARINA MANAGER for change in bowel habits and dysphagia. Patient Active Problem List Diagnosis Code ??? Multiple thyroid nodules E04.2 ??? Pseudophakia, both eyes Z96.1 ??? Sinus bradycardia R00.1 ??? Heart palpitations R00.2 ??? Dizziness R42 ??? Hyperopia of both eyes with astigmatism and presbyopia H52.03, H52.203, H52.4 ??? Vitreous floaters of both eyes H43.393 HISTORY OF PRESENT ILLNESS At baseline, she has difficulty eating any grains, citric acid or dairy. If she eats these, she gets distended despite still having bowel movements and difficulty sleeping with hot/cold flashes. GI effects lasts weeks at a time. Over a few days in March, ate olives. Stopped having BM for a few weeks with discomfort on leftside. PCP recommended ducosate and Miralax TID. This resulted in mostly water and a small amount ofstool. Seen in ED, recommended enema which didn't help and more Miralax which resulted in a small stool but overall, didn't make much of a difference. Since starting colace and Miralax, has had more a cute, diffuse pain throughout abdomen. Diet reduced to juices and broth. Seen at ED at [facility] where CT scan showed moderate amount of stool otherwise WNL. She stopped laxatives and had improvement in her pain and eventually was moving her bowels (small amounts on a daily basis). Currently, when she senses a BM, she has to strain to push out stool that is soft. Uses massage to move her bowels. Also, new symptoms of taste of bile in back of mouth at night with terrible taste, funny feeling ontongue and acidic feeling on roof of mouth. If she eats regular amounts she gets some LLQ pain. Over last two weeks has been avoiding meats because they feel like they get stuck when she swallows. Has improved somewhat with baking soda in water and avoiding acidic foods. No nausea, vomiting, weight loss. Concerned laxatives caused a mechanical problem and swallowing difficulties. Isn't a big fan of taking medications (I'm a conservative [employer] when it comes to drugs) Treatment: Colace Miralax Enema - no help Evaluation: Colonoscopy 2011 re:diarrhea - normal, random biopsies normal CT scan [facility] - some stool otherwise WNL REVIEW OF SYSTEMS Notable for the gastrointestinal symptoms as described above. There has been no anorexia, fever, orunintended weight change; no red or painful eyes; no oral ulcers, chronic oral lesions, or chronic sore throat. There is no cough, shortness of breath, palpitations, or chest pain. There is no dysuria, urinary incontinence. + Hands can turn red and hot intermittently There is no recent skin rash. The patient denies psychiatric problems. There are no neurologic symptoms or easy bruising or bleeding. +headache with associated nausea PAST MEDICAL HISTORY: Past Medical History: Diagnosis Date ??? Cataract ??? Dizziness 10/04/2016 ??? Heart palpitations 10/04/2016 ??? Sinus bradycardia 10/04/2016 ??? Sinus bradycardia 10/04/2016 ??? Thyroid disease PAST SURGICAL HISTORY: Past Surgical History: Procedure Laterality Date ??? CATARACT REMOVAL Bilateral 2011 OU ??? LASER SURGERY Left 2014 YAG OS for PCO - MEZ ??? PRO COLONOSCOPY, BIOPSY 11/22/2011 COLONOSCOPY FLEXIBLE, WITH BX performed by Shorty ARCE at [facility] ENDOSCOPY ??? YAG CAPSULOTOMY Left 12/01/2014 Dr Mancia ??? YAG CAPSULOTOMY Right 05/11/[address] Mancia MEDICATIONS: Current Outpatient Medications Medication Sig Dispense Refill ??? clindamycin (CLEOCIN) 300 mg Capsule CLINDAMYCIN HCL 300 MG CAPS prior to procedures ??? cholecalciferol, Vitamin D3, 5,000 unit Tablet [...] Take 1 tablet by mouth daily. No current facility-administered medications for this visit. ALLERGIES/ADR Allergies Allergen Reactions ??? Lactose Diarrhea and Other (See Comments) Headaches, congestion ??? Gluten Diarrhea ??? Penicillins Nausea And Vomiting SOCIAL HISTORY: Social History Social History Narrative Lives with kitten. Retired from accounting. No family in the area. Social History Tobacco Use ??? Smoking status: Former Smoker Last attempt to quit: 05/08/1969 Years since quittin.3 ??? Smokeless tobacco: Never Used Substance Use Topics ??? Alcohol use: Yes Comment: rare FAMILY HISTORY: family history includes Asthma in her brother; Breast Cancer in her sister; Cerebrovascular Accident in her father and sister; Depression in her mother; Heart Disease in her father; Hypertension in her brother, father, and sister; Hypothyroidism in her mother. There is no family history of inflammatory bowel disease, celiac disease, or colorectal cancer. There is no history of liver disease. PHYSICAL EXAMINATION: Most Recent Vitals: 08/28/18 0914 BP: 117/84 Pulse: 71 Wt Readings from Last 3 Encounters: 08/28/18 64.2 kg (141 lb 8 oz) 08/15/18 64.9 kg (143 lb) 01/27/14 60.6 kg (133 lb 9.6 oz) Body mass index is 21.52 kg/m??. GEN: Thin, healthy-appearing in no acute distress. Appears stated age. Cooperate and answers questions appropriately. SKIN: No rashes or abnormal lesions. NECK: No adenopathy and no thyromegaly. HEENT: PERRL, EOMI, VACUUM CLEANER OPERATOR and OP clear without ulceration or lesions. LUNGS: Clear to auscultation bilaterally. COR: Regular, normal S1 and S2 without murmurs ABD: Normal active bowel sounds. Soft, mild distension LLQ. No tenderness to deep palpation in all 4 quadrants. No organomegaly. EXT: No cyanosis, clubbing or edema. PSYCH: mood appropriate, good eye contact, normal interaction ADDITIONAL TESTING: Reviewed available labs, imaging and endoscopy results in [facility] as well as Scan Docs tab. IMPRESSION: Ms. Bosch is a 68 yo healthy woman with a long history of lower GI symptoms improved with specific dietary restrictions who I am seeing regarding new onset constipation and associated discomfort as well as upper GI symptoms of what sounds like reflux and dysphagia. She moves her bowels every day but strains to do so, raising the question of pelvic floor dyssynergia. In terms of her dysphagia, I wonder about esophagitis due to reflux as a cause or other mechanical problem more than a motility disorder. We discussed the following recommendations that were printed out for the patient: RECOMMENDATIONS: Follow-up with PCP. Come back for EGD, explained instructions. Omeprazole 20 mg once daily - doesn't want to start this yet until after EGD. Recommend Pepcid Complete PRN symptoms. Anorectal manometry testing. May benefit from pelvic floor PT. Consider liberalizing diet in future, but wouldn't try yet until you are feeling well. The patient was given my contact information and will call me with concerns or questions Elida Lozano MD, MS civil cad tech Section of Gastroenterology [place] [address] [email or web address] documented in this encounter Plan of Treatment Upcoming Encounters Date Type Department Care Team (Latest Contact Info) Description 03/03/2024 3:00 PM EDT Hospital Encounter Gastroenterology at [place] [phone] Shorty Arce MD [facility] [place] [address] 03/03/2024 3:00 PM EDT - 03/03/2024 4:00 PM EDT Surgery Gastroenterology at [place] [phone] Shorty Arce MD [facility] [address] COLONOSCOPY, DIAGNOSTIC (WRVU 3.26) 03/31/2024 9:00 AM EDT Office [place] [phone] Felisha Dc, ATIYA [facility] [address] Scheduled Procedures Name Priority Associated Diagnoses Date/Ti me COLONOSCOPY, DIAGNOSTIC (WRVU 3.26) Crohn's disease without complication, unspecified gastrointestinal tract location 03/03/2024 3:00 PM EDT documented as of this encounter Visit Diagnoses Diagnosis Chronic constipation Unspecified constipation Dysphagia, unspecified type Reflux esophagitis Crohn's disease without complication, unspecified gastrointestinal tract location documented in this encounter Care Teams Director Alumni Relations Relationship Specialty Start Date End Date Twila Taylor, MARINA MANAGER [address] [place] [address] PCP - General Family Medicine 08/12/18 09/05/18 documented as of this encounter
--- OUTSIDE RECORDS SUMMARY | 2024-02-19 11:23 | XMS_ITS | Encounter Summary ---
Author Organization [facility] [place] [address] Care Team Providers Care Pipe Layer Name Role Phone Page, Twila Ruiz APRN Primary Care Provider [phone] Encounter Details Date Type Department Care Team (Late st Contact Info) Description 08/28/2018 Telephone Gastroenterology at [facility] [place] [phone] Janet Schultz Social History Tobacco Use Types Packs/Day Years [...] encounter Miscellaneous Notes * Telephone Encounter - Janet Schultz - 08/28/2018 10:05 AM EST Pt seen at exit. Needs egd dyspla , arm and fu in 3 months only after egd and arm. Ethel will you please reach out to pt to schedule? documented in this encounter Plan of Treatment Upcoming Encounters Date Type Department Care Team (Latest Contact Info) Description 03/03/2024 3:00 PM EDT Hospital Encounter [place] [address] Shorty Valdovinos MD [facility] [place] [address] 03/03/2024 3:00 PM EDT - 03/03/2024 4:00 PM EDT Surgery [place] [address] Shorty Valdovinos MD [facility] [place] [address] COLONOSCOPY, DIAGNOSTIC (WRVU 3.26) 03/31/2024 9:00 AM EDT Office Visit [place] [address] Felisha Dc APRN [facility] [place] [address] Scheduled Procedures Name Priority Associated Diagnoses Date/Ti me COLONOSCOPY, DIAGNOSTIC (WRVU 3.26) Crohn's disease without complication, unspecified gastrointestinal tract location 03/03/2024 3:00 PM EDT documented as of this encounter Visit Diagnoses Not on filedocumented in this encounter Care Teams Pipe Layer Relationship Specialty Start Date End Date Twila Taylor APRN [address] [place] [address] PCP - General Family Medicine 08/12/18 09/05/18 documented as of this encounter
--- OUTSIDE RECORDS SUMMARY | 2024-02-19 11:23 | XMS_ITS | Encounter Summary ---
Author Organization [facility] [place] [address] Care Team Providers Care Assistant Professor Of Physics Name Role Phone Giovanna Scott DO Primary Care Provider [phone] Encounter Details Date Type Department Care Team (Late st Contact Info) Description 08/17/2020 8:45 AM EST - 08/17/2020 9:15 AM EST Surgery [place] [phone] Elida Lozano MD [facility] [place] [address] EGD,WITH DILATION ESOPHAGUS WITH BALLOON,< 30 MM [...] Sign Reading Time Taken Comments Blood Pressure 118/80 08/17/2020 7:55 AM EST Pulse 72 08/17/2020 7:55 AM EST Temperature 36.6 ??C (97.9 ??F) 08/17/2020 7:55 AM ES T Respiratory Rate - - Oxygen Saturation 99% 08/17/2020 7:55 AM EST Inhaled Oxygen Concentration - - [...] the day after the procedure, use an [id number] spray to numb your throat. Sucking on [...] occurs, please contact your Doctor. Please call [phone] before 8pm Mon-Fri with problems, questions or concerns. If you call after 8pm or on weekends, call the Hospital at [phone] and ask to speak to the Clinical Resource Coordinator data communications software consultant and the skoog patching machine operator will contact that person for you. When should you call for help? Call [phone] anytime you think you may need emergency [...] more? Visit our health information library at [email or web address] You can also view health information on [email or web address], your personal patient account. Log in or sign uptoday. Enter J014 in the search box to learn more about Esophageal Dilation: What to Expect at Home. Current as of: February 23, 2019Content Version: 12.4 ?? [employer]. Care instructions adapted under license by [facility]. If you have questions about a medical condition or this instruction, always ask your healthcare professional. [employer] disclaims any warranty or liability for your [...] sedation) Elida Lozano MD Gastroenterology attending Pager [phone] documented in this encounter Plan of Treatment Upcoming Encounters Date Type Department Care Team (Latest Contact Info) Description 03/03/2024 3:00 PM EDT Hospital Encounter [place] [address] Shorty Valdovinos MD [facility] [place] [address] 03/03/2024 3:00 PM EDT - 03/03/2024 4:00 PM EDT Surgery [place] [address] Shorty Valdovinos MD [facility] [place] [address] COLONOSCOPY, DIAGNOSTIC (WRVU 3.26) 03/31/2024 9:00 AM EDT Office Visit [place] [address] Felisha Dc, PLODDING MACHINE OPERATOR [facility] [place] [address] Scheduled Procedures Name Priority Associated Diagnoses Date/Ti me COLONOSCOPY, DIAGNOSTIC (WRVU 3.26) Crohn's disease without complication, unspecified gastrointestinal tract location 03/03/2024 3:00 PM EDT documented as of this encounter Procedures Procedure Name Priority Date/Time Associated Diagnosis Comments Up Gi Endoscopy, Ball Dil, 30Mm ([id number]) 08/17/2020 9:24 AM EST Dysphagia, unspecified type UPPER GI ENDOSCOPY Routine 08/17/2020 9: 16 AM EST documented in this encounter Results * UPPER GI ENDOSCOPY (08/17/2020 9:16 AM EST) UPPER GI ENDOSCOPY [facility] Endoscopy Procedure Date: 08/17/2020 9:16 AM ? Patient Name: Isatu Bosch ? Date of : 1950 ? Age: 70 ? Order #: [id number] ? Instrument Name: [id number] ? Procedure: ? Upper GI endoscopy Indications: ? Dysphagia Providers: ? Elida Lozano MD, Slime Pascal ? Juancho Duarte, Adaptive Physical Educator Referring : ?Giovanna Scott Medicines: ? Midazolam [...] Visit Diagnoses Diagnosis Dysphagia- Primary Dysphagia, unspecified Dysphagia, unspecified type Crohn's disease without complication, unspecified gastrointestinal tract location documented in this encounter Admitting Diagnoses Diagnosis Dysphagia Dysphagia, unspecified documented in this encounter Administered Medications Inactive Administered Medications - up to 3 most recent administrations Medication Order MAR Action Action Date Dose Rate Site fentaNYL (pf) (50 mcg/mL) multi-dose injection ONCE PRN, Starting on Sun08/17/20 at 0927, Until Sun08/17/20 at 1301, Intra-Operative (Intra-Procedure), Routine Given 08/17/2020 9:37 AM EST 50 mcg Given 08/17/2020 9:34 AM EST 50 mcg Given 08/17/2020 9:30 AM EST 50 mcg lactated ringers infusion 100 mL/hr, Intravenous, CONTINUOUS, Starting on Sun08/17/20 at 0830, Until Tu08/17/20 at 1301, Endoscopy (Day of Procedure) New Bag 08/17/2020 8:07 AM EST 100 mL/hr 100 mL/hr midazolam (pf) (Versed) (1 mg/mL) multi-dose injection ONCE PRN, Starting on Sun08/17/20 at 0927, Until Tu08/17/20 at 1301, Intra-Operative (Intra-Procedure), Routine Given 08/17/2020 9:37 AM EST 1 mg Given 08/17/2020 9:34 AM EST 1 mg Given 08/17/2020 9:30 AM EST 1 mg documented in this encounter Active and Recently Administered Medications Times are shown in EST. Continuous Medication Order 08/15/2020 08/16/2020 08/17/2020 lactated ringers infusion 100 mL/hr, Intravenous, CONTINUOUS, Starting on Sun08/17/20 at 0830, Until Sun08/17/20 at 1301, Endoscopy (Day of Procedure) 0807 (New Bag - Prov ider: Gini Schaeffer RN) PRN Medication Order 08/15/2020 08/16/2020 08/17/2020 fentaNYL (pf) (50 mcg/mL) multi-dose injection (CANCELED) ONCE PRN, Starting on Sun08/17/20 at 0927, Until Sun08/17/20 at 1301, Intra-Operative (Intra-Procedure), Routine 926 (Given - Provid er: Slime Duarte RN)09 (Given - Provider: Slime Duarte RN)0934 (Given - Provider: Slime Duarte RN)0937 (Given - Provider: Slime Duarte RN) midazolam (pf) (Versed) (1 mg/mL) multi-dose injection (CANCELED) ONCE PRN, Starting on Sun08/17/20 at 0927, Until Sun08/17/20 at 1301, Intra-Operative (Intra-Procedure), Routine 926 (Given - Provid er: Slime Duarte RN)09 (Given - Provider: Slime Duarte RN)0934 (Given - Provider: Slime Duarte RN)0937 (Given - Provider: Slime Duarte RN) documented in this encounter Care Teams Assistant Professor Of Physics Relationship Specialty Start Date End Date Giovanna Scott DO [address] [place] [address] PCP - General Family Medicine 09/18/19 03/22/23 documented as of this encounter
--- OUTSIDE RECORDS SUMMARY | 2024-02-19 11:23 | XMS_ITS | Encounter Summary ---
Author Organization [facility] [place] [address] Care Team Providers Care Pug Machine Operator Name Role Phone Haider Falk DO Primary Care Provider [phone]- [phone] Reason for Visit * Reason Comments Eye Exam Encounter Details Date Type Department Care Team (Late st Contact Info) Description 07/24/2017 1:40 PM EST Office [place] [phone] Esperanza Ortiz, JAM [facility] [place] [address] Pseudophakia, both eyes; Vitreous floaters of both [...] as of this encounter Progress Notes * Esperanza Ortiz, OD - 07/24/2017 1:40 PM EST Isatu Bosch is a 67 y.o. female who had concerns including Eye Exam. Rx updated. Recent vertigo. Good ocular health on today's exam. Assessment: Encounter Diagnoses Name Primary? Pseudophakia, both eyes ??? Vitreous floaters of both eyes ??? Hyperopia of both eyes with astigmatism and presbyopia Plan: 1)Refractive Error - MRx given to patient. 2)Floaters - pt ed to RTC [facility] if increase in floaters; flashes; and/or VF loss Follow up: CEE 2 years. Eyeglass Final Rx Eyeglass Final Rx Sphere Cylinder [place] Add Right -1.75 +2.00 180 +2.50 Left -1.00 +1.50 170 +2.50 Expiration Date: 07/25/2019 Pupillary Distance: 59 Eyeglass Final Rx #2 Sphere Cylinder [place] Add Right -1.75 +2.00 180 Left -1.00 +1.50 170 Type: distance Expiration Date: 07/25/2019 Pupillary Distance: 59 Eyeglass Final Rx #3 Sphere Cylinder [place] Add Right +0.75 +2.00 180 Left +1.50 +1.50 170 Type: reading Expiration Date: 07/25/2019 Pupillary Distance: 59 documented in this encounter Plan of Treatment Upcoming Encounters Date Type Department Care Team (Latest Contact Info) Description 03/03/2024 3:00 PM EDT Hospital Encounter [place] [address] Shorty Valdovinos MD [facility] [place] [address] 03/03/2024 3:00 PM EDT - 03/03/2024 4:00 PM EDT [place] [phone] Shorty Valdovinos MD [facility] [place] [address] COLONOSCOPY, DIAGNOSTIC (WRVU 3.26) 03/31/2024 9:00 AM EDT Office [place] [address] Felisha Dc, CHASSIS MECHANIC [facility] [place] [address] Scheduled Procedures Name Priority Associated Diagnoses Date/Ti ia COLONOSCOPY, DIAGNOSTIC (WRVU 3.26) Crohn's disease without complication, unspecified gastrointestinal tract location 03/03/2024 3:00 PM EDT documented as of this encounter Visit Diagnoses Diagnosis Pseudophakia, both eyes Lens replaced by other means Vitreous floaters of both eyes Hyperopia of both eyes with astigmatism and presbyopia Crohn's disease without complication, unspecified gastrointestinal tract location documented in this encounter Care Teams Pug Machine Operator Relationship Specialty Start Date End Date Haider Falk DO [address] [place] [address] PCP - General Family Medicine 07/06/16 08/11/18 documented as of this encounter
--- OUTSIDE RECORDS SUMMARY | 2024-02-19 11:23 | XMS_ITS | Encounter Summary ---
Author Organization [facility] [place] [address] Care Team Providers Care Oyster Culturist Name Role Phone Haider Falk DO Primary Care Provider [phone]- [phone] Reason for Visit * Reason Onset Date Comments Bumped Appointment 05/09/2017 Encounter Details Date Type Department Care Team (Late st Contact Info) Description 05/09/2017 Tele[place] [phone] Esperanza Ortiz [facility] [place] [address] Bumped Appointment Social History Tobacco Use Types Packs/Day [...] encounter Miscellaneous Notes * Telephone Encounter - Brigida Salcedo - 05/09/2017 11:04 AM EDT Lft msgs on home & cell #'s. Called to [facility] appt on 05/24/17. Left contact info. documented in this encounter Plan of Treatment Upcoming Encounters Date Type Department Care Team (Latest Contact Info) Description 03/03/2024 3:00 PM EDT Hospital Encounter [place] [address] Shorty Valdovinos MD [facility] [place] [address] 03/03/2024 3:00 PM EDT - 03/03/2024 4:00 PM EDT Surgery [place] [phone] Shorty Valdovinos MD [facility] [place] [address] COLONOSCOPY, DIAGNOSTIC (WRVU 3.26) 03/31/2024 9:00 AM EDT Office [place] [phone] Felisha Dc, ATIYA [facility] [place] [address] Scheduled Procedures Name Priority Associated Diagnoses Date/Ti me COLONOSCOPY, DIAGNOSTIC (WRVU 3.26) Crohn's disease without complication, unspecified gastrointestinal tract location 03/03/2024 3:00 PM EDT documented as of this encounter Visit Diagnoses Not on filedocumented in this encounter Care Teams Oyster Culturist Relationship Specialty Start Date End Date Haider Falk DO [address] [place], [place] [id number] PCP - General Family Medicine 07/06/16 08/11/18 documented as of this encounter
--- OUTSIDE RECORDS SUMMARY | 2024-02-19 11:23 | XMS_ITS | Encounter Summary ---
Author Organization [facility] [place] [address] Care Team Providers Care Zigzag Topstitcher Name Role Phone Giovanna Scott DO Primary Care Provider +1- [phone] Encounter Details Date Type Department Care Team (Late st Contact Info) Description 08/16/2021 9:00 AM EST - 08/16/2021 9:45 AM EST [place] [phone] Rosanna Cardenas MD [facility] [place] [address] EGD,WITH DILATION ESOPHAGUS WITH BALLOON,< 30 MM [...] Sign Reading Time Taken Comments Blood Pressure 111/68 08/16/2021 9:40 AM EST Pulse 68 08/16/2021 9:30 AM EST Temperature 36.8 ??C (98.2 ??F) 08/16/2021 8:06 AM ES T Respiratory Rate 18 08/16/2021 9:40 AM EST Oxygen Saturation 93% 08/16/2021 9:40 AM EST Inhaled Oxygen Concentration - - Weight 61.2 kg (135 lb) 08/16/2021 8:06 AM EST Height 172.7 cm (5' 8) 08/16/2021 8:06 AM EST Body Mass Index 20.53 08/16/2021 8:06 AM EST documented in this encounter Discharge Instructions * Discharge Instructions* Nakia Baltazar RN - 08/16/2021 9:35 AM EST Upper GI Endoscopy: What to [...] home? Activity Rest when you feel tired. ?? You can do your normal activities when it feels okay to do so. Diet ?? Follow your doctor's directions for eating. ?? Unless your doctor has told you not to, drink plenty of fluids. This helps to replace the fluidsthat were lost during the prep. ?? Do not drink alcohol. Medicines ?? Your doctor will tell you if and when you can restart your medicines. He or she will also give you instructions about taking any new medicines. ?? If you take blood thinners, such as warfarin (Coumadin), clopidogrel (Plavix), or aspirin, be sure to talk to your doctor. He or she will tell you if and when to start taking those medicines again. Make sure that you understand exactly what your doctor wants you to do. ?? If polyps were removed or a biopsy was done during the test, your doctor may tell you not to take aspirin or other anti-inflammatory medicines for a few days. These include ibuprofen (Advil, Motrin) and naproxen (Aleve). ?? If you have a sore throat the day after the procedure, use an atyt-ejj-pgevawt spray to numb your throat. Sucking on throat lozenges and gargling with warm salt water may also help relieve your symptoms. Other instructions ?? For your safety, do not drive or operate machinery until the medicine wears off and you can think clearly. Your doctor may tell you not to drive or operate machinery until the day after your test. ?? Do not sign legal documents or make [...] may be unsteady on your feet. ?? You may eat a regular diet as tolerated. ?? Do not smoke if you are alone. ?? IV site: Slight redness or tenderness is normal, you can use a warm compress if you would like. If tenderness and/or redness increase or if foul drainage occurs, please contact your Doctor. Please call [phone] before 8pm Mon-Fri with problems, questions or concerns. If you call after 8pm or on weekends, call the Hospital at [phone] and ask to speak to the Biological Aide stone product fabricator and the charge machine operator will contact that person for you. When should you call for help? Call [phone] anytime you think you may need emergency care. For example, call if: ?? You passed out (lost consciousness). ?? You pass maroon or bloody stools. ?? You have trouble breathing. Call your doctor now or seek immediate medical care if: ?? You have pain that does not get better after you take pain medicine. ?? You are sick to your stomach or cannot drink fluids. ?? You have new or worse belly pain. ?? You have blood in your stools. ?? You have a fever. ?? You cannot pass stools or gas. Watch closely for changes in your health, and be sure to contact your doctor if you have any problems. Where can you learn more? [email or web address] View your After Visit Summary and more online at [email or web address] If you would like to provide feedback about your hospital experience, please call the Office of Patient and Family Relations at . If you have received this After Visit Summary in error, please immediately return it in person to the department, or notify the [facility] Privacy Office by calling toll free at between the hours of 8AM and 5PM to arrange for our retrieval of the documents at no cost to you. Content Version: 12.2 ?? 4263-8349 [employer]. Care instructions adapted under license by [facility]. If you have questions about a medical condition or this instruction, always ask your healthcare professional. [employer] disclaims any warranty or liability for your [...] every 6 hours as needed for Pain. digestive enzymes combo no.7 Capsule Take by mouth. metoclopramide (REGLAN) 5 mg TabletIndications:Todd e acid esophageal reflux,Lower abdominal pain Take 1-2 tablets by mouth 4 times daily. (3 meals / day and at bedtime) 80 tablet 10/18/2018 VITAMIN B COMPLEX ORAL Take 1 tablet by mouth daily. MV,CA,MIN/IRON FUM/FA/VIT K (MULTI FOR HER ORAL) Take 1 tablet by mouth 3 times daily. 05/23/2022 documented as of this encounter Progress Notes * Ruthie Vazquez - 07/20/2021 12:01 PM EST Isatu Bosch [id number] Diagnosis/Indication: 71 yo F with dysphagia and prior esophageal ring - needs dilation 1. Have you ever had a/an Upper Endoscopy before? Yes: Date yes If yes, did you have any problems with the procedure? No What type of sedation was used: None 2. Do you take any blood thinners or have you been diagnosed with a bleeding disorder that increases your risk of bleeding with procedures? No 3. Do you have a Pacemaker or Defibrillator device? No 4. Are you a diabetic? No 5. Do you have any Allergies to Eggs, Latex or Medications? Yes: [facility] gets massive headaches from omeprazole 6. Do you take any Oral Iron Supplements (Including multi-vitamins)? No 7. Do you have a history of three or more abdominal surgeries? No 8. Have you had a problem with sedation or anesthesia? No 9. Do you use a c-pap machine or oxygen tank? Neither 10. Do you take prescription narcotic pain medications, including suboxone or methodone? No 11. Do you have a preference regarding the gender of your provider? No Preference 12. Is there any other information you would like to us to note for the provider and nursing team who will perform your case? No 13. Say to patient: You must have a responsible alliance party who will drive you to your procedure, stay oncampus for the entire duration of your procedure, and drive you home from your procedure? *Please Verify the height and weight, and adjust if height and/or weight have changed* Estimated body mass index is 20.22 kg/m?? as calculated from the following: Height as of 08/17/20: 172.7 cm (5' 8). Weight as of 08/17/20: 60.3 kg (133 lb). Age:71 y.o. documented in this encounter H&P Notes * Rosanna Cardenas MD - 08/16/2021 8:59 AM EST Patient Name: Isatu Bosch Patient Age: 71 y.o. Birthdate: 1950 Admit date: 08/16/2021 Attending Physician: Rosanna Cardenas MD Gastroenterology and Hepatology Pre-Procedure History and Physical Exam Procedure: EGD: Indication: regurgitation Discomfort in throat Hx of dysphagia, schatzki's ring Patient Active Problem List Diagnosis Code [...] procedure explained to the patient. Consent signed. documented in this encounter Plan of Treatment Upcoming Encounters Date Type Department Care Team (Latest Contact Info) Description 03/03/2024 3:00 PM EDT Hospital En[place] [address] Shorty Valdovinos MD [facility] [place] [address] 03/03/2024 3:00 PM EDT - 03/03/2024 4:00 PM EDT [place] [address] Shorty Valdovinos MD [facility] [place] [address] COLONOSCOPY, DIAGNOSTIC (WRVU 3.26) 03/31/2024 9:00 AM EDT Office [place] [address] Felisha Dc APRN [facility] [place] [address] Scheduled Procedures Name Priority Associated Diagnoses Date/Ti me COLONOSCOPY, DIAGNOSTIC (WRVU 3.26) Crohn's disease without complication, unspecified gastrointestinal tract location 03/03/2024 3:00 PM EDT documented as of this encounter Procedures Procedure Name Priority Date/Time Associated Diagnosis Comments Up Gi Endoscopy, Ball Ngozi, 30Mm ([id number]) 08/16/2021 9:05 AM EST Esophageal dysphagia UPPER GI ENDOSCOPY Routine 08/16/2021 8: 55 AM EST documented in this encounter Results * UPPER GI ENDOSCOPY (08/16/2021 8:55 AM EST) [facility] UPPER GI ENDOSCOPY [facility] Endoscopy ___ Procedure Date: 08/16/2021 8:55 AM ? Patient Name: Isatu Bosch ? Date of : 1950 ? Age: 71 ? Order #: [id number] ? Instrument Name: [id number] ? ___ Procedure: ? Upper GI endoscopy Indications: ? Dysphagia (per referral); ? regurgitation, discomfort in throat ? when supine, improved previously with ? dilation of Schatzki's ring Providers: ? Rosanna Cardenas MD, Kanu O. ? Lalit Faustin Referring : ?Elida Yip ? MD Blake Medicines: ? Midazolam 3 mg IV, Fentanyl 150 ? micrograms IV, Benzocaine spray Complications: ? No immediate complications. ___ Procedure: ? The procedure, indications, benefits, ? risks and alternatives were explained ? to the patient. Specifically ? discussed were potential ? complications including, but not ? limited to, bleeding, perforation, ? infection, missing a cancer, and ? adverse medication reactions. The ? Endoscope was introduced through the ? mouth, and advanced to the second ? part of duodenum. The upper GI ? endoscopy was accomplished without ? difficulty. The patient tolerated the ? procedure well. ? Findings: ? The Z-line was regular and was found 40 cm from the ? incisors. ? A widely patent and non-obstructing Schatzki ring was ? found at the gastroesophageal junction. A TTS dilator ? was passed through the scope. Dilation with an ? 18-19-20 mm balloon dilator was performed at each ? stage to a maximum of 20 mm. There was no change at ? 18 mm and mild mucosal disruption with heme apparent ? beginning at 19 mm. After dilation to 20 mm, the site ? was re-examined and showed mild mucosal disruption ? and mild improvement in luminal narrowing. ? The stomach was normal. ? The examined duodenum was normal. ? Moderate Sedation: ? Moderate (conscious) sedation was administered by the ? endoscopy nurse and supervised by the endoscopist. ? The following parameters were monitored: oxygen ? saturation, heart rate, blood pressure, and response ? to care. ? I was present during the intraservice time as ? documented by the sedation RN. Impression: ?- Z-line regular, 40 cm from the ? incisors. ? - Widely patent and non-obstructing ? Schatzki ring. Dilated. ? - Normal stomach. ? - Normal examined duodenum. Recommendation: ?- Eat slowly and chew food ? thoroughly. Moisten bread products ? and other dry foods when eating. ? - Would typically use a PPI for 8 ? weeks after dilation, but given poor ? tolerance of omperazole in the past ? would defer to Dr. Lozano and ? patient to discuss this. ? Attending Participation: ? I personally performed the entire procedure. ? _ Rosanna Cardenas MD 08/16/2021 9:50:31 AM Number of Addenda: 0 Note Initiated On: 08/16/2021 8:55 AM PROVATION 08/16/2021 8:55 AM EST Giovanna Scott DO [employer] PROVATION documented in this encounter Visit Diagnoses Diagnosis Esophageal dysphagia Dysphagia, pharyngoesophageal phase Crohn's disease without complication, unspecified gastrointestinal tract location documented in this encounter Administered Medications Inactive Administered Medications - up to 3 most recent administrations Medication Order MAR Action Action Date Dose Rate Site benzocaine (Hurricane One) 20% spray (restricted to le-procedural use) ONCE PRN, Starting on Sun08/16/21 at 0909, Until Sun08/16/21 at 1231, Intra-Operative (Intra-Procedure) Given 08/16/2021 9:09 AM EST 1 each fentaNYL (pf) (50 mcg/mL) multi-dose injection ONCE PRN, Starting on Sun08/16/21 at 0909, Until Sun08/16/21 at 1231, Intra-Operative (Intra-Procedure), Routine Given 08/16/2021 9:15 AM EST 50 mcg Given 08/16/2021 9:12 AM EST 50 mcg Given 08/16/2021 9:09 AM EST 50 mcg lactated ringers infusion 100 mL/hr, Intravenous, CONTINUOUS, Starting on Sun08/16/21 at 0815, Until Sun08/16/21 at 1010, Endoscopy (Day of Procedure) New Bag 08/16/2021 8:15 AM EST 100 mL/hr 100 mL/hr midazolam (pf) (Versed) (1 mg/mL) multi-dose injection ONCE PRN, Starting on Sun08/16/21 at 0909, Until Sun08/16/21 at 1231, Intra-Operative (Intra-Procedure), Routine Given 08/16/2021 9:15 AM EST 1 mg Given 08/16/2021 9:12 AM EST 1 mg Given 08/16/2021 9:09 AM EST 1 mg documented in this encounter Active and Recently Administered Medications Times are shown in EST. Continuous Medication Order 08/14/2021 08/15/2021 08/16/2021 lactated ringers infusion (CANCELED) 100 mL/hr, Intravenous, CONTINUOUS, Starting on Sun08/16/21 at 0815, Until Sun08/16/21 at 1010, Endoscopy (Day of Procedure) 0815 (New Bag - Prov ider: Marisol Torres RN) PRN Medication Order 08/14/2021 08/15/2021 08/16/2021 benzocaine (Hurricane One) 20% spray (restricted to le-procedural use) (CANCELED) ONCE PRN, Starting on Sun08/16/21 at 0909, Until Sun08/16/21 at 1231, Intra-Operative (Intra-Procedure) 908 (Given - Provid er: Kanu Faustin RN) fentaNYL (pf) (50 mcg/mL) multi-dose injection (CANCELED) ONCE PRN, Starting on Sun08/16/21 at 0909, Until Sun08/16/21 at 1231, Intra-Operative (Intra-Procedure), Routine 908 (Given - Provid er: Kanu Faustin RN)911 (Given - Provider: Kanu Faustin RN)914 (Given - Provider: Kanu Faustin RN) midazolam (pf) (Versed) (1 mg/mL) multi-dose injection (CANCELED) ONCE PRN, Starting on Sun08/16/21 at 0909, Until Sun08/16/21 at 1231, Intra-Operative (Intra-Procedure), Routine 908 (Given - Provid er: Kanu Faustin RN)911 (Given - Provider: Kanu Faustin RN)914 (Given - Provider: Kanu Faustin RN) documented in this encounter Care Teams Zigzag Topstitcher Relationship Specialty Start Date End Date Giovanna Scott DO [address] [place] [address] PCP - General Family Medicine 09/18/19 03/22/23 documented as of this encounter
--- OUTSIDE RECORDS SUMMARY | 2024-02-19 11:23 | XMS_ITS | Encounter Summary ---
Author Organization [facility] [place] [address] Care Team Providers Care Wastewater Treatment Plant Instructor Name Role Phone Giovanna Scott DO Primary Care Provider +1- [phone] Encounter Details Date Type Department Care Team (Late st Contact Info) Description 08/12/2021 Telephone [place] [phone] Enid Trinidad Social History Tobacco Use Types Packs/Day Years [...] 3:00 PM EDT Hospital Encounter [place] [phone] Shorty Valdovinos MD [facility] [place] [address] 03/03/2024 3:00 PM EDT - 03/03/2024 4:00 PM EDT Surgery [place] [address] Shorty Valdovinos MD [facility] [place] [address] COLONOSCOPY, DIAGNOSTIC (WRVU 3.26) 03/31/2024 9:00 AM EDT Office [place] [address] Felisha Dc APRN [facility] [place] [address] Scheduled Procedures Name Priority Associated Diagnoses Date/Ti me COLONOSCOPY, DIAGNOSTIC (WRVU 3.26) Crohn's disease without complication, unspecified gastrointestinal tract location 03/03/2024 3:00 PM EDT documented as of this encounter Visit Diagnoses Not on filedocumented in this encounter Care Teams Wastewater Treatment Plant Instructor Relationship Specialty Start Date End Date Giovanna Scott DO [address] [place] [address] PCP - General Family Medicine 09/18/19 03/22/23 documented as of this encounter
--- OUTSIDE RECORDS SUMMARY | 2024-02-19 11:23 | XMS_ITS | Encounter Summary ---
Author Organization [facility] [place] [address] Care Team Providers Care Backfiller Name Role Phone Giovanna Scott DO Primary Care Provider +1- [phone] Encounter Details Date Type Department Care Team (Late st Contact Info) Description 09/02/2020 Telephone [place] [phone] Manuela Calderon Social History Tobacco Use Types [...] * Telephone Encounter - Janet Schultz - 09/02/2020 1:49 PM EST Pt called back to let us know that apt was not needed and does not need to be rescheduled at this time. * Telephone Encounter - Manuela Calderon - 09/02/2020 11:33 AM EST Left message for patient to contact the office to reschedule her 09/09/[address] Lozano ([facility]). documented in this encounter Plan of Treatment Upcoming Encounters Date Type Department Care Team (Latest Contact Info) Description 03/03/2024 3:00 PM EDT Hospital Encounter Gastroenterology at [place] [phone] Shorty Valdovinos MD [facility] [place] [address] 03/03/2024 3:00 PM EDT - 03/03/2024 4:00 PM EDT Surgery Gastroenterology at [place] [phone] Shorty Valdovinos MD [facility] [place] [address] COLONOSCOPY, DIAGNOSTIC (WRVU 3.26) 03/31/2024 9:00 AM EDT Office Visit Gastroenterology at [place] [phone] Felisha Dc, CP BLEACHER OPERATOR [facility] [place] [address] Scheduled Procedures Name Priority Associated Diagnoses Date/Ti me COLONOSCOPY, DIAGNOSTIC (WRVU 3.26) Crohn's disease without complication, unspecified gastrointestinal tract location 03/03/2024 3:00 PM EDT documented as of this encounter Visit Diagnoses Not on filedocumented in this encounter Care Teams Backfiller Relationship Specialty Start Date End Date Giovanna Scott DO [address] [place] [address] PCP - General Family Medicine 09/18/19 03/22/23 documented as of this encounter
--- OUTSIDE RECORDS SUMMARY | 2024-02-19 11:23 | XMS_ITS | Encounter Summary ---
Author Organization [facility] [place] [address] Care Team Providers Care Sole Inker Name Role Phone Haider Falk DO Primary Care Provider +1- [phone] Reason for Visit * Reason Onset Date Comments Questions 07/25/2017 Patient with con christian regarding yesterday's appointment. Encounter Details Date Type Department Care Team (Late st Contact Info) Description 07/25/2017 [place] [address] [address] [facility] [place] [address] Questions (Patient with concerns regarding yesterday's appointment.) Social History Tobacco Use Types Packs/Day Years [...] encounter Miscellaneous Notes * Telephone Encounter - Florecita Adrian COT - 07/25/2017 10:32 AM EST Spoke with patient and reassurance given in Dr. Ortiz absence (not back until 08/06/17). Tech did note the new dx of vertigo, Dr. Ortiz is very complete/thorough and the eye exam was very normal. Not sure if possibly, dilation could have intensified some of the vertigo symptoms, but nothing seen/found with regard to the eyes otherwise. She is seeing PT and will report this. Patient would still like this message forwarded to Dr. Ortiz for her review when she returns. * Telephone Encounter - Florecita Adrian COT - 07/25/2017 9:17 AM EST Patient states via VM: states recent diagnosis of vertigo and has been working with a provider. Shewanted to check and be sure the hazmat technician noted that at yesterdays visit with Dr. Ortiz and that Dr. Ortiz was aware of this new diagnosis as when she got home and LN she experienced 3 very severe episodes of vertigo. It is very frightening to her and wants to be sure Dr. Ortiz was aware of this new change. Requesting a call back for reassurance. Dr. Ortiz is not in clinic again until 07/27/17. documented in this encounter Plan of Treatment Upcoming Encounters Date Type Department Care Team (Latest Contact Info) Description 03/03/2024 3:00 PM EDT Hospital En[place] [address] Shorty Valdoivnos MD [facility] [place] [address] 03/03/2024 3:00 PM EDT - 03/03/2024 4:00 PM EDT [place] [address] Shorty Valdovinos MD [facility] [place] [address] COLONOSCOPY, DIAGNOSTIC (WRVU 3.26) 03/31/2024 9:00 AM EDT Office [place] [address] Felisha Dc APRN [facility] [place] [address] Scheduled Procedures Name Priority Associated Diagnoses Date/Ti me COLONOSCOPY, DIAGNOSTIC (WRVU 3.26) Crohn's disease without complication, unspecified gastrointestinal tract location 03/03/2024 3:00 PM EDT documented as of this encounter Visit Diagnoses Not on filedocumented in this encounter Care Teams Sole Inker Relationship Specialty Start Date End Date Haider Falk DO [address] [place] [address] PCP - General Family Medicine 07/06/16 08/11/18 documented as of this encounter
--- OUTSIDE RECORDS SUMMARY | 2024-02-19 11:23 | XMS_ITS | Encounter Summary ---
Author Organization [facility] [place] [address] Care Team Providers Care Salt Manager Name Role Phone Benjamin Wild MD Primary Care Provider [phone]- [phone] Reason for Visit * Reason Comments GI Problem Encounter Details Date Type Department Care Team (Late st Contact Info) Description 10/18/2018 9:30 AM EDT Office Visit Family Medicine at [facility] [address] [place] [address] Benjamin Wild MD [facility] [place], [place] [id number] Bile acid esophageal reflux; Lower abdominal pain Social History Tobacco Use Types Packs/Day Years [...] Sign Reading Time Taken Comments Blood Pressure 100/63 10/18/2018 9:29 AM EDT Pulse 72 10/18/2018 9:29 AM EDT Temperature 36.7 ??C (98 ??F) 10/18/2018 9:29 AM EDT Respiratory Rate 14 10/18/2018 9:29 AM EDT Oxygen Saturation 100% 10/18/2018 9:29 AM EDT Inhaled Oxygen Concentration - - Weight 63.9 kg (140 lb 12.8 oz) 10/18/2018 9:29 AM EDT Height 172.1 cm (5' 7.76) 10/18/2018 9:29 AM ED T Body Mass Index 21.56 10/18/2018 9:29 AM EDT documented in this encounter Patient Instructions * Patient Instructions* Benjamin Wild MD - 10/18/2018 9:30 AM EDT Thanks for coming in today. Here's our plan: 1. Bile acid esophageal reflux Overall we're about 5.5 weeks out from the endoscopy and the ballloon dilation and the same timeframe on the 20mg omeprazole once daily Things got a bit better for swallowing but still persistent reflux-type issues with the bile taste in the mouth Reflux often has a mechanical component sometimes sleeping with a wedge can help (typically around 30 degrees) Reflux can have an element of weak esophagus - you had a stricture - I can't speak to that directly (this may be a follow up with GI) Reflux has a diet component so good to plan follow up with the fire investigator Reflux can have an anatomic component but no sign of hiatal hernia Reflux can be a functional issue - overall slowing of peristalsis (delayed transport through the esophagus as well as bowels) Age would be a potential factor Sometimes nerve damage such in diabetes can play a role Occasionally medication but you're not on anything in that category We could try a medication, reglan, that can help general motility for the gut and see if this helpsover the next week or so Please do stay on the omeprazole through week 8 to prevent scarring risk 2. Lower abdominal pain I'll reach out to GI about what's needed to schedule the manometry study - this will give us more info about the lower GI issues Follow-up: please send me a message in about a week if it's helpful or not Preferred contact if needed: secure message As a courtesy, here is a list of what our system thinks you are due for for your overall health -please let us know if anything is off and we can update! Health Maintenance Due Topic Date Due ??? Hepatitis C Screening 1988 ??? Breast Cancer Screening 1998 ??? Zoster vaccine (1 of 2) 1998 ??? Pneumo vaccine (65+) (2 of 2 - PCV13) 07/13/2016 ??? Influenza (Flu) vaccine (1 of 1 - Influenza standard series) 03/16/2018 Note: As a general rule, I will only reach out about abnormal results - for normal results, expect to receive a letter or view on the eDH portal. If you have not seen results and have not heard from us after 1-2 weeks or have a question about your results, please call or message us and we can investigate. Don't hesitate to get in touch with any concerns, Pierre Wild MD [facility] documented in this encounter Progress Notes * Benjamin Wild MD - 10/18/2018 9:30 AM EDT Chief Complaint Patient presents with ??? GI Problem Isatu Bosch is a 68 y.o. female here for: New to my practice 1) Ongoing GI issues - see Aug note. F/u at that time: Follow-up with PCP. Come back for EGD, explained instructions. Omeprazole 20 mg once daily - doesn't want to start this yet until after EGD. Recommend Pepcid Complete PRN symptoms. Anorectal manometry testing. May benefit from pelvic floor PT. Consider liberalizing diet in future, but wouldn't try yet until you are feeling well. Had endoscopy with dilation and now on 8wk PPI. Rec Gaviscon for bile acid reflux. GI fire investigator fu 10/28 Today reports ongoing issues with grain intolerance of really any kind as well as citric acid. These things will cause sleep disruption, temperature shifts. Particularly bad reaction to citric acid intake (olives - see GI note for details). At this point does continue to have occasional pains in the lower abdomen colon - and still with small stool movements. Still has ongoing sx of bile at the back of her throat; this was worse in thefew days after EGD, but bile acid taste improved a week or so out. Is somewhat concerned that she'snot noting gradual improvement on the PPI and feels her reading support that it should be a gradualimprovement. Wondering if the procedure itself has actually left her more vulnerable. This is aboutweek 5 on this treatment with PPI. She is otherwise trying to follow an alkaline diet. Believes shehas irritable bowel and has read PPI may be ill advised in this situation. Bowels ~1-2x a day and feels things are moving well. Wondering if something like carafate would be helpful. Wondering if something like apple cider vinegar would be helpful. Notes ongoing issues with dryness of her mouth and associated mouth breathing overnight Notes the bile reflux tends to cause issues with her sinuses as well. Using more dairy lately (yogurt for probiotics) and this tends to cause more nasal congestion. No particular laterality. Otherwise not feeling ill. Does note some transient temporary seasonal allergies. Overall this issue feels different than post-nasal drip issues she's had in the past. Social History Social History Narrative Lives with josemanuel. Retired from [employer]. No family in the area. Patient Active Problem List Diagnosis Code ??? [...] E04.1 ??? Underweight R63.6 ??? Osteoporosis M81.0 Current Outpatient Medications on File Prior to Visit Medication Sig Dispense Refill ??? CALCIUM CARBONATE-VITAMIN D3 ORAL Take 1,200 mg by mouth daily. chewable ??? Glucosamine 750 mg Capsule Take 750 mg by mouth 2 times daily (with meals). ??? acetaminophen (TYLENOL) 650 mg Tablet Sustained Release Take 650 mg by mouth. ??? vitamin E mixed/tocotrienol (VITAMIN E COMPLEX ORAL) VITAMIN E 400 UNIT CAPS ??? omeprazole (PRILOSEC) 20 mg Capsule, Delayed Release(E.C.) Take 1 capsule by mouth every morning. 30 capsule 1 ??? clindamycin (CLEOCIN) 300 mg Capsule CLINDAMYCIN HCL 300 MG CAPS prior to procedures ??? cholecalciferol, Vitamin D3, 5,000 unit Tablet Take 1 tablet by mouth daily. ??? aspirin 325 mg Tablet Take 325 mg by mouth every 6 hours as needed for Pain. ??? MV,CA,MIN/IRON FUM/FA/VIT K (MULTI FOR HER ORAL) Take 1 tablet by mouth 3 times daily. ??? VITAMIN B COMPLEX ORAL Take 1 tablet by mouth daily. ??? [DISCONTINUED] VITAMIN E ACETATE (VITAMIN E ORAL) Take 1 tablet by mouth daily. No current facility-administered medications on file prior to visit. Objective Exam: BP 100/63 Pulse 72 Temp 36.7 ??C (98 ??F) (Oral) Resp 14 Ht 172.1 cm (5' 7.76) Wt 63.9 kg (140 lb 12.8 oz) SpO2 100% BMI 21.56 kg/m?? No LMP recorded. Patient has had a hysterectomy. General: Well appearing female, no acute distress Head: normocephalic Eyes: Conjunctiva normal. Pupils equal, round, reactive to light & accomodation. No scleral icterus Ears: External ear canals clear. Normal TM's visualized bilaterally. No external ear tenderness Nose: Bilateral nasal turbinates nonerythematous, no boggy nasal turbinates noted, L sided nasal septum deviation Throat: Oropharynx irritated, without erythema. Uvula midline. Bilateral tonsils visualized withoutexudate Abdomen: Nontender, nondistended, no masses appreciated. Bowel sounds present to auscultation Skin: no concerning rashes, lesions on exposed skin Psych: Normal affect, speech and thought content Assessment/Plan Relevant diagnoses & orders- see patient instructions below for detailed assessment and plan: ICD-10-CM 1. Bile acid esophageal reflux K21.9 metoclopramide (REGLAN) 5 mg Tablet 2. Lower abdominal pain R10.30 metoclopramide (REGLAN) 5 mg Tablet Patient Instructions Thanks for coming in today. Here's our plan: 1. Bile acid esophageal reflux No obvious findings to suggest chronic sinusitis/postnasal drip but will keep in ddx and consider nasal antihistamine trial if no progress from GI front - overall I have a general sense of dysmotility/slow motility and empiric trial of reglan in lieu of emptying study, etc. Overall we're about 5.5 weeks out from the endoscopy and the ballloon dilation and the same timeframe on the 20mg omeprazole once daily Things got a bit better for swallowing but still persistent reflux-type issues with the bile taste in the mouth Reflux often has a mechanical component sometimes sleeping with a wedge can help (typically around 30 degrees) Reflux can have an element of weak esophagus - you had a stricture - I can't speak to that directly (this may be a follow up with GI) Reflux has a diet component so good to plan follow up with the fire investigator Reflux can have an anatomic component but no sign of hiatal hernia Reflux can be a functional issue - overall slowing of peristalsis (delayed transport through the esophagus as well as bowels) Age would be a potential factor Sometimes nerve damage such in diabetes can play a role Occasionally medication but you're not on anything in that category We could try a medication, reglan, that can help general motility for the gut and see if this helpsover the next week or so Please do stay on the omeprazole through week 8 to prevent scarring risk 2. Lower abdominal pain I'll reach out to GI about what's needed to schedule the manometry study - this will give us more info about the lower GI issues Follow-up: please send me a message in about a week if it's helpful or not Preferred contact if needed: secure message As a courtesy, here is a list of what our system thinks you are due for for your overall health -please let us know if anything is off and we can update! Health Maintenance Due Topic Date Due ??? Hepatitis C Screening 1988 ??? Breast Cancer Screening 1998 ??? Zoster vaccine (1 of 2) 1998 ??? Pneumo vaccine (65+) (2 of 2 - PCV13) 07/13/2016 ??? Influenza (Flu) vaccine (1 of 1 - Influenza standard series) 03/16/2018 Note: As a general rule, I will only reach out about abnormal results - for normal results, expect to receive a letter or view on the eDH portal. If you have not seen results and have not heard from us after 1-2 weeks or have a question about your results, please call or message us and we can investigate. Don't hesitate to get in touch with any concerns, Pierre Wild MD [facility] 40 minutes of this 45 minute visit were spent in [id number] discussion and/or counseling the patient, regarding review of GI history and assessment, options for treatment documented in this encounter Plan of Treatment Upcoming Encounters Date Type Department Care Team (Latest Contact Info) Description 03/03/2024 3:00 PM EDT Hospital En[place] [address] Shorty Valdovinos MD [facility] [place] [address] 03/03/2024 3:00 PM EDT - 03/03/2024 4:00 PM EDT [place] [address] Shorty Valdovinos MD [facility] [place] [address] COLONOSCOPY, DIAGNOSTIC (WRVU 3.26) 03/31/2024 9:00 AM EDT Office [place] [address] Felisha Dc, ATIYA [facility] [place] [address] Scheduled Procedures Name Priority Associated Diagnoses Date/Ti me COLONOSCOPY, DIAGNOSTIC (WRVU 3.26) Crohn's disease without complication, unspecified gastrointestinal tract location 03/03/2024 3:00 PM EDT documented as of this encounter Visit Diagnoses Diagnosis Bile acid esophageal reflux Lower abdominal pain Abdominal pain, other specified site Crohn's disease without complication, unspecified gastrointestinal tract location documented in this encounter Care Teams Salt Manager Relationship Specialty Start Date End Date Benjamin Wild MD [facility] [place] [address] PCP - General Family Medicine 09/09/18 09/17/19 documented as of this encounter
--- OUTSIDE RECORDS SUMMARY | 2024-02-19 11:23 | XMS_ITS | Encounter Summary ---
Author Organization [facility] [place] [address] Care Team Providers Care Collective Bargaining Specialist Name Role Phone Giovanna Scott DO Primary Care Provider [phone]- [phone] Encounter Details Date Type Department Care Team (Late st Contact Info) Description 09/18/2019 8:00 AM EST Office [place] [phone] Elida Lozano MD [facility] [place] [address] Dysphagia, unspecified type; Irritable bowel syndrome with constipation Social History Tobacco Use Types Packs/Day [...] Sign Reading Time Taken Comments Blood Pressure 122/81 09/18/2019 7:46 AM EST Pulse 63 09/18/2019 7:46 AM EST Temperature - - Respiratory Rate - - Oxygen Saturation - - Inhaled Oxygen Concentration - - Weight 59.9 kg (132 lb 1.6 oz) 09/18/2019 7:46 A M EST Height 172.7 cm (5' 8) 09/18/2019 7:46 AM EST Body Mass Index 20.09 09/18/2019 7:46 AM EST documented in this encounter Patient Instructions * Patient Instructions* Elida Lozano MD - 09/18/2019 8:00 AM EST Thank you for coming in to see me today. I would like to evaluate your difficulty eating and vomiting. Here is the plan we developed together: 1. Keep trying your diet of cooked vegetables. 2. Monitor your weight. 3. If your swallowing difficulty and vomiting continue OR your lose more weight, I would like you to return for another ENDOSCOPY and ESOPHAGEAL MANOMETRY TEST. Please give us an update in 4 weeks. 4. I will see you back in the office in 4-6 months. documented in this encounter Progress Notes * Elida Lozano MD - 09/18/2019 8:00 AM EST Gastroenterology & Hepatology Follow-up Note Patient Active Problem List Diagnosis Code ??? [...] E04.1 ??? Underweight R63.6 ??? Osteoporosis M81.0 LAST VISIT: 08/28/2018 HISTORY OF PRESENT ILLNESS Isatu Bosch is a 69 yo healthy woman with a long history of lower GI symptoms of constipation and associated discomfort generally improved with specific dietary restrictions and h/o dysphagia who I am seeing in follow-up. She is doing well, still managing with GI symptoms. Per production worker, has been taking digestive enzymes with HCL 20-250 mg at start of meals. Helps a lot - less burning in mouth and sore throat. If happens, only late at night, remedied by drinking water or Ricola cough drop. Never has heartburn. Seldom has cough and post-nasal drip now. Has questions regarding reflux including lack of biopsies for benign appearing intrinsic stenosis. IBS - passing stool most days with ease, soft to small in size but feels digestion is slow and she has incomplete evacuation. +occ abdominal discomfort. Dysphagia completely resolved since EGD with dilation. Occasional vomiting if she eats too much or too soon after eating. Will have upper chest discomfort and regurgitate/vomit within an hour. Has questions about when we would do next EGD. Worse with raw vegetables. Has tried cooked food the last few weeks with improvement and is able to eat 2--> 3 meals a day now. Has lost 8 lbs since last year. Treatment: Colace Miralax Enema - no help PPI - after EGD dilation Now Super Enzymes HCI 200mg ?? Ox bile extract 100mg ?? Papaya 45mg ?? Pancreatic 134mg ?? (supplying Amalase, Protease, lipase) ?? Bromelain 40 mg ?? Acid stable protease ?? Papain Evaluation: Colonoscopy 2011 re:diarrhea - normal, random biopsies normal CT scan [facility] - some stool otherwise WNL ARM 08/2018 - normal EGD 08/2018 - esophageal stenosis dilated to 20 mm with heme, otherwise normal; recommended PPI x 8 weeks MEDICATIONS Current Outpatient Medications on File Prior to [...] ORAL) VITAMIN E 400 UNIT CAPS ??? clindamycin (CLEOCIN) 300 mg Capsule CLINDAMYCIN [...] taking: Reported on 07/25/2019) 80 tablet 0 No current facility-administered medications on file prior to visit. Medical, surgical, family, and social histories reviewed. Medications and allergies reviewed. PHYSICAL EXAM: Most Recent Vitals: 09/18/19 0746 BP: 122/81 Pulse: 63 Wt Readings from Last 3 Encounters: 09/18/19 59.9 kg (132 lb 1.6 oz) 10/28/18 62.9 kg (138 lb 11.2 oz) 10/18/18 63.9 kg (140 lb 12.8 oz) GEN: Alert, cooperative. Pleasant. In NAD, thin HEENT: No oropharyngeal lesions. Neck supple. No masses. Thyroid symmetric LUNGS: CTAB CARD: RRR without m/g/r ABD: Non-distended. Active BS. Soft. Benign. No masses. No HSM. EXT: No C/C/E NEURO: Grossly intact ASSESSMENT AND PLAN Isatu Bosch is a 69 y.o. healthy woman with a long history of lower GI symptoms of constipation andassociated discomfort generally improved with specific dietary restrictions and h/o dysphagia who Singh seeing in follow-up. I am concerned about her post-prandial regurgitationafter eating too much or too frequently, which is likely a manifestation of her dysphagia, associated with weight loss. I encouraged EGD and if normal, HREM however, patient would like to continue trial of cooked vegetablesbefore deciding on testing. We discussed the following recommendations that were printed out for the patient: 1. Patient would like to continue trial of cooked vegetables. 2. Monitor weight. 3. Needs EGD and HREM. Patient will provide update in 4 weeks and I hope will agree to schedule at that time. 4. Continue to monitor constipation - has not wanted adjuncted therapy in past. 5. GIF 4-6 months. All of the patient's questions were answered. Elida Lozano MD industrial cleaning technician Section of Gastroenterology [place] [address] documented in this encounter Plan of Treatment Upcoming Encounters Date Type Department Care Team (Latest Contact Info) Description 03/03/2024 3:00 PM EDT Hospital Encounter Gastroenterology at [place] [phone] Shorty Valdovinos MD [facility] [place] [address] 03/03/2024 3:00 PM EDT - 03/03/2024 4:00 PM EDT Surgery Gastroenterology at [place] [phone] Shorty Valdovinos MD [facility] [place] [address] COLONOSCOPY, DIAGNOSTIC (WRVU 3.26) 03/31/2024 9:00 AM EDT Office Visit Gastroenterology at [place] [phone] Felisha Dc APRN [facility] [place] [address] Scheduled Procedures Name Priority Associated Diagnoses Date/Ti me COLONOSCOPY, DIAGNOSTIC (WRVU 3.26) Crohn's disease without complication, unspecified gastrointestinal tract location 03/03/2024 3:00 PM EDT documented as of this encounter Visit Diagnoses Diagnosis Dysphagia, unspecified type Irritable bowel syndrome with constipation Irritable bowel syndrome Crohn's disease without complication, unspecified gastrointestinal tract location documented in this encounter Care Teams Collective Bargaining Specialist Relationship Specialty Start Date End Date Giovanna Scott DO [address] [place] [id number] PCP - General Family Medicine 09/18/19 03/22/23 documented as of this encounter
--- OUTSIDE RECORDS SUMMARY | 2024-02-19 11:23 | XMS_ITS | Encounter Summary ---
Author Organization [facility] [place] [address] Care Team Providers Care Director Of Corporate Responsibility Name Role Phone Benjamin Wild MD Primary Care Provider +1- [phone] Encounter Details Date Type Department Care Team (Late st Contact Info) Description 09/10/2018 3:00 PM EST - 09/10/2018 3:30 PM EST [place] [phone] Elida Lozano MD [facility] [place] [address] EGD,WITH DILATION ESOPHAGUS WITH BALLOON,< 30 MM [...] Sign Reading Time Taken Comments Blood Pressure 153/91 09/10/2018 3:25 PM EST Pulse 97 09/10/2018 3:25 PM EST Temperature 36.8 ??C (98.2 ??F) 09/10/2018 2:32 PM ES T Respiratory Rate 25 09/10/2018 3:25 PM EST Oxygen Saturation 100% 09/10/2018 3:25 PM EST Inhaled Oxygen Concentration - - Weight 63.5 kg (140 lb) 09/10/2018 2:28 PM EST Height - - Body Mass Index 21.29 08/28/2018 9:14 AM EST documented in this encounter Discharge Instructions * Discharge Instructions* Obey Goode, RN - 09/10/2018 3:38 PM EST UPPER [...] better as expected. Sunday-Sunday Same Day Endo [phone] 7a-8p Otherwise contact [phone] and ask to speak to the high school guidance counselor front end driver Follow-up care is a negrete part of [...] sedation) Elida Lozano MD Gastroenterology attending Pager [phone] documented in this encounter Plan of Treatment Upcoming Encounters Date Type Department Care Team (Latest Contact Info) Description 03/03/2024 3:00 PM EDT Hospital Encounter [place] [address] Shorty Valdovinos MD [facility] [place] [address] 03/03/2024 3:00 PM EDT - 03/03/2024 4:00 PM EDT [place] [address] Shorty Valdovinos MD [facility] [place] [address] COLONOSCOPY, DIAGNOSTIC (WRVU 3.26) 03/31/2024 9:00 AM EDT Office [place] [address] Felisha Dc, ATIYA [facility] [place] [address] Scheduled Procedures Name Priority Associated Diagnoses Date/Ti [...] UPPER GI ENDOSCOPY (09/10/2018 3:02 PM EST) [facility] UPPER GI ENDOSCOPY [facility] Endoscopy Procedure Date: 09/10/2018 3:02 PM ? Patient Name: Isatu Bosch ? Date of : 1950 ? Age: 68 ? Order #: [id number] ? Instrument Name: [id number] ? Procedure: ? Upper GI endoscopy Indications: ? Dysphagia Providers: ? Elida Lozano MD, Susie Wood ? Mery Quinones MD: ?Kanu Garzon Medicines: ? Midazolam 4 mg [...] Action Action Date Dose Rate Site fentaNYL 50 mcg/mL multi-dose injection ONCE PRN, Starting on Tu09/10/18 at 1510, Until Sun09/10/18 at 1933, Intra-Operative (Intra-Procedure), Routine Given 09/10/2018 3:21 PM EST 50 mcg Given 09/10/2018 3:13 PM EST 50 mcg Given 09/10/2018 3:10 PM EST 50 mcg midazolam (PF) (VERSED) multi-dose injection ONCE PRN, Starting on Sun09/10/18 at 1510, Until Sun09/10/18 at 1933, Intra-Operative (Intra-Procedure), Routine Given 09/10/2018 3:21 PM EST 1 mg Given 09/10/2018 3:16 PM EST 1 mg Given 09/10/2018 3:13 PM EST 1 mg documented in this encounter Active and Recently Administered Medications Times are shown in EST. PRN Medication Order 09/08/2018 09/09/2018 09/10/2018 fentaNYL 50 mcg/mL multi-dose injection (CANCELED) ONCE PRN, Starting on Sun09/10/18 at 1510, Until Sun09/10/18 at 1933, Intra-Operative (Intra-Procedure), Routine 1510 (Given - Provid er: Susie Quinones RN)1513 (Given - Provider: Susie Quinones RN)1521 (Given - Provider: Susie Quinones RN) midazolam (PF) (VERSED) multi-dose injection (CANCELED) ONCE PRN, Starting on Sun09/10/18 at 1510, Until Sun09/10/18 at 1933, Intra-Operative (Intra-Procedure), Routine 1510 (Given - Provid er: Susie Quinones RN)1513 (Given - Provider: Susie Quinones RN)1516 (Given - Provider: Susie Quinones, RN)1521 (Given - Provider: Susie Quinones RN) documented in this encounter Care Teams Director Of Corporate Responsibility Relationship Specialty Start Date End Date Benjamin Wild MD [facility] [place] [address] PCP - General Family Medicine 09/09/18 09/17/19 documented as of this encounter
--- OUTSIDE RECORDS SUMMARY | 2024-02-19 11:23 | XMS_ITS | Encounter Summary ---
Author Organization [facility] [place] [address] Care Team Providers Care Journeyman Press Operator Name Role Phone Benjamin Wild MD Primary Care Provider +1- [phone] Reason for Visit * Reason Comments Nutrition Counseling Encounter Details Date Type Department Care Team (Late st Contact Info) Description 10/28/2018 8:00 AM EDT Clinical [place] [phone] Marni Chatterjee, LEVI [facility] [place] [address] Reflux esophagitis Social History Tobacco Use Types [...] Sign Reading Time Taken Comments Blood Pressure 113/74 10/28/2018 8:03 AM EDT Pulse 71 10/28/2018 8:03 AM EDT Temperature - - Respiratory Rate - - Oxygen Saturation - - Inhaled Oxygen Concentration - - Weight 62.9 kg (138 lb 11.2 oz) 10/28/2018 8:03 AM EDT Height 172.1 cm (5' 7.76) 10/28/2018 8:03 AM ED T Body Mass Index 21.24 10/28/2018 8:03 AM EDT documented in this encounter Patient Instructions * Patient Instructions* Marni Chatterjee RD - 10/28/2018 8:00 AM EDT When finished with B-complex can just take multigenics because the B-vitamins are adequate enough in the Multigenics Goal for Calcium is 5043-7733 mg per day You are getting enough Vitamin D3 daily (consider asking Dr. Wild if we should check a level) You need more carbohydrates in your diet for energy--add banana or grapes and other seasonal fruit when they come into season Dates and potato at your lunch meal Try more root vegetables (carrot alissa soup) Continue small frequent meals documented in this encounter Progress Notes * Marni Chatterjee RD - 10/28/2018 8:00 AM EDT Nutrition Seeing patient for nutrition and GI symptoms Wt Readings from Last 5 Encounters: 10/28/18 62.9 kg (138 lb 11.2 oz) 10/18/18 63.9 kg (140 lb 12.8 oz) 09/10/18 63.5 kg (140 lb) 08/28/18 64.2 kg (141 lb 8 oz) 08/15/18 64.9 kg (143 lb) Ht Readings from Last 5 Encounters: 10/28/18 172.1 cm (5' 7.76) 10/18/18 172.1 cm (5' 7.76) 08/28/18 172.7 cm (5' 8) 08/15/18 172.7 cm (5' 8) 11/07/11 172.7 cm (5' 7.99) Body mass index is 21.24 kg/m??. No outpatient medications have been marked as taking for the 10/28/18 encounter (Clinical Support) with Marni Chatterjee LD. Takes supplements: multigenics without iron (3 per day), Bone Builder (1200 mg Ca + 400 units of vit D) D3 5000 units per day and vitamin E 400 units Diet Recall: Eats local meat, grass fed, small meals Bone broth B-2 soft boiled eggs with Kale (2 cups raw, but cooks it) with olive oil and liquid amino acids (soy based) with green tea Snack--no L-cabbage salad or mixed greens with carrots, 1/2 avocado, sunflower seeds, pumpkin seeds, ground hemp, sesame tahini, used to do apple cider vinegar with green tea D-fish or chicken (organic, local, grass fed), with cooked carrots and medium potato (at the end ofthe day has smaller meal) 1/2 chicken breast No coffee, no dark chocolate Fluids: Water (easily 1.5 to 2 liters per day and green tea) 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 Dilated. Since Aug 10 has had taste of bile in the back of her mouth. For about 10 years (gradual) had slowly developed intolerance to gluten, corn starch, corn syrup, citric acid, and diary. The symptom with grains gets backed up and can't sleep. Even citric acid inmeat affects her. Will have cold flashes, then warm. Has trouble sleeping, generally sleeps 5-7 hours. This back up from trace grains and citric acid will last 4-6 weeks She got a GAPS diet book. She ate olives that had citric acid in them and was unable to have a bowel movement. Was told to take 2 laxatives. ?Miralax and Dulcolax and it was not effective despite high doses and developed severe pain and difficulty swallowing. Was afraid she has perforation. Not congested since seeing Dr. Wild. Reflux diet has been helpful. Garlic and Onions. She would like to refine this diet and avoid citric acid, grains, dairy Tried quinoa a few months ago by itself had 1/8 cup Had homemade bread (2 slices)--vomited after this Tried 2 spoons of yogurt, did ok, however congested, so is going to stop. It is reassuring that she is having daily BM's. In reviewing her limited diet, we discussed areas where she is missing some negrete nutrients and we will try to expand with these foods as tolerated. WE reviewed her dietary supplements and consolidated some so that she is not taking unnecessary extra vitamins due to the cost. Nutrition issue: Limited diet due to GI issues and food intolerances Recommendations/Plan: When finished with B-complex can just take multigenics because the B-vitamins are adequate enough in the Multigenics Goal for Calcium is 1719-7149 mg per day You are getting enough Vitamin D3 daily (consider asking Dr. Wild if we should check a level) You need more carbohydrates in your diet for energy--add banana or grapes and other seasonal fruit when they come into season Dates and potato at your lunch meal Try more root vegetables (carrot alissa soup-recipe provided) Continue small frequent meals documented in this encounter Plan of Treatment Upcoming Encounters Date Type Department Care Team (Latest Contact Info) Description 03/03/2024 3:00 PM EDT Hospital En[place] [address] Shorty Valdovinos MD [facility] [place] [place] [address] 03/03/2024 3:00 PM EDT - 03/03/2024 4:00 PM EDT [place] [address] Shorty Valdovinos MD [facility] [place] [address] COLONOSCOPY, DIAGNOSTIC (WRVU 3.26) 03/31/2024 9:00 AM EDT Office [place] [phone] Felisha Dc APRN [facility] [place] [address] Scheduled Procedures Name Priority Associated Diagnoses Date/Ti me COLONOSCOPY, DIAGNOSTIC (WRVU 3.26) Crohn's disease without complication, unspecified gastrointestinal tract location 03/03/2024 3:00 PM EDT documented as of this encounter Visit Diagnoses Diagnosis Reflux esophagitis Crohn's disease without complication, unspecified gastrointestinal tract location documented in this encounter Care Teams Journeyman Press Operator Relationship Specialty Start Date End Date Benjamin Wild MD [facility] [address] [place] [address] PCP - General Family Medicine 09/09/18 09/17/19 documented as of this encounter
--- OUTSIDE RECORDS SUMMARY | 2024-02-19 11:23 | XMS_ITS | Encounter Summary ---
Author Organization [facility] [place] [address] Care Team Providers Care Plant Puller Name Role Phone Benjamin Wild MD Primary Care Provider +1- [phone] Encounter Details Date Type Department Care Team (Late st Contact Info) Description 10/02/2018 External Results Internal Medicine at [place] [address] [place] [address] Jerica Palmer, [facility] Social History Tobacco Use Types Packs/Day Years [...] 3:00 PM EDT Hospital Encounter [place] [address] Shorty Valdovinos MD [facility] [place] [address] 03/03/2024 3:00 PM EDT - 03/03/2024 4:00 PM EDT Surgery [place] [address] Shorty Valdovinos MD [facility] [place] [place] [address] COLONOSCOPY, DIAGNOSTIC (WRVU 3.26) 03/31/2024 9:00 AM EDT Office [place] [phone] Felisha Dc APRN [facility] [place] [address] Scheduled Procedures Name Priority Associated Diagnoses Date/Ti me COLONOSCOPY, DIAGNOSTIC (WRVU 3.26) Crohn's disease without complication, unspecified gastrointestinal tract location 03/03/2024 3:00 PM EDT documented as of this encounter Procedures Procedure Name Priority Date/Time Associated Diagnosis Comments EXTERNAL LIPID LAB RESULTS PANEL Routine 06/26/2017 EXTERNAL LAB CBC CMP THYROID RESULTS PANEL Routine 06/26/2017 EXTERNAL DXA SCAN RESULT Routine 10/14/2015 documented in this encounter Results * (ABNORMAL) Lipid External Results (06/26/2017) Cholesterol, Total 187(Exter nal Lab) EXTERNAL LAB HDL Cholesterol 55(Functional Mental Disability Teacher al Lab) EXTERNAL LAB LDL Cholesterol 102(Exter nal Lab) EXTERNAL LAB Triglyceride 151(ExtH) EXTERNAL LAB 06/26/2017 Historical Provider POINT OF CARE ENDY T ORDERABLES EXTERNAL LAB * (ABNORMAL) CBC / CMP / Thyroid External Results (06/26/2017) White Blood Cell 6.2(Functional Mental Disability Teacher al Lab) EXTERNAL LAB Red Blood Cell 4.57(Exter nal Lab) EXTERNAL LAB Hemoglobin 14.3(Exter nal Lab) EXTERNAL LAB Hematocrit 42.7(Exter nal Lab) EXTERNAL LAB Mean Cell Volume 93.4(Exter nal Lab) EXTERNAL LAB Platelet 293(Functional Mental Disability Teacher al Lab) EXTERNAL LAB Sodium 137(Functional Mental Disability Teacher al Lab) EXTERNAL LAB Potassium 3.8(Functional Mental Disability Teacher al Lab) EXTERNAL LAB Creatinine 0.77(Exter nal Lab) EXTERNAL LAB Glucose 94(Externa l Lab) EXTERNAL LAB 06/26/2017 Historical Provider EXTERNAL LAB EVELIA SORTO EXTERNAL LAB * (ABNORMAL) External DXA Scan (10/14/2015) External Dexa Scan abnormal(E XTERNAL/AB N) EXTERNAL LAB Comment:Osteopenia Anatomical Region Laterality Modality Other 10/14/2015 Historical Provider IMG OUTSIDE INTER PRETATION ORDERABLES documented in this encounter Visit Diagnoses Not on filedocumented in this encounter Care Teams Plant Puller Relationship Specialty Start Date End Date Benjamin Wild MD [facility] [address] [place] [address] PCP - General Family Medicine 09/09/18 09/17/19 documented as of this encounter
--- OUTSIDE RECORDS SUMMARY | 2024-02-19 11:23 | XMS_ITS | Encounter Summary ---
[place] [address] Care Team Providers Care Saw Sharpener Name Role Phone Page, Twila Ruiz APRN Primary Care Provider Reason for Visit * Surgical (Routine) - Canceled Specialty Diagnoses / Procedures Referred By Contac t Referred To Contact Gastroenterology Diagnoses Chronic constipation possible slow motility constipation and possible dyssynergic defecation; chronic constipation Procedures High Definition Anal Manometry ARM, EGD for dysphagia - FUV 3 months (after testing) - Did not find order for this. Pt was to fu with PCP per Dr. Lozano. Elida Lozano MD [facility] [place] [address] [facility] [address] [place] [address] Referral ID Status Reason Start Date Expiration Date V isits Requested Visits Authorized [id number] Canceled Consult, Test & Treat 08/28/2018 08/28/2019 1 1 Encounter Details Date Type Department Care Team (Latest Contact Info) Description 09/02/2018 8:00 AM EST Procedure [place] [address] Chronic constipation Social History Tobacco Use Types [...] as of this encounter Progress Notes * Isatu Higgins RN - 09/02/2018 8:00 AM EST A description of the anal manometry procedure was provided to the patient. All questions were answered and the patient verbalized understanding. After performing a digital rectal exam, the HRAM probe was placed in the rectum without difficulty and the procedure was performed. After removal of the probe, an anorectal balloon expulsion catheterwas placed in the rectum for continuation of the study and then removed. The patient tolerated the procedure well. documented in this encounter Plan of Treatment Upcoming Encounters Date Type Department Care Team (Latest Contact Info) Description 03/03/2024 3:00 PM EDT Hospital Encounter [place] [address] Shorty Valdovinos MD [facility] [place] [address] 03/03/2024 3:00 PM EDT - 03/03/2024 4:00 PM EDT Surgery [place] [address] Shorty Valdovinos MD [facility] [place] [address] COLONOSCOPY, DIAGNOSTIC (WRVU 3.26) 03/31/2024 9:00 AM EDT Office Visit [place] [address] Felisha Dc, ATIYA [facility] [place] [address] Scheduled Procedures Name Priority Associated Diagnoses Date/Ti me COLONOSCOPY, DIAGNOSTIC (WRVU 3.26) Crohn's disease without complication, unspecified gastrointestinal tract location 03/03/2024 3:00 PM EDT documented as of this encounter Visit Diagnoses Diagnosis Chronic constipation Unspecified constipation Crohn's disease without complication, unspecified gastrointestinal tract location documented in this encounter Care Teams Saw Sharpener Relationship Specialty Start Date End Date Twila Taylor APRN [address] [place] [address] PCP - General Family Medicine 08/12/18 09/05/18 documented as of this encounter
--- OUTSIDE RECORDS SUMMARY | 2024-02-19 11:23 | XMS_ITS | Encounter Summary ---
Author Organization [facility] [place] [address] Care Team Providers Care Director Of Broadcast Name Role Phone Giovanna Scott DO Primary Care Provider +1- [phone] Encounter Details Date Type Department Care Team (Late st Contact Info) Description 08/03/2020 Telephone Gastroenterology at [place] [id number] Nicole Granda Social History Tobacco Use Types Packs/Day Years [...] encounter Miscellaneous Notes * Telephone Encounter - Nicole Granda - 08/03/2020 10:57 AM EST ESOPHAGEAL MANOMETRY CLINICAL SAFETY CHECKLIST 08/03/2020 Nicole Bosch [address] [facility] [address] [id number] : 1950 REFERRING PROVIDER: Dr. Lozano PRIMARY CARE PROVIDER: Giovanna Scott DO PRIMARY SYMPTOM (PROCEDURE INDICATION): regurgitation and dysphagia/difficulty swallowing SAFETY QUESTIONS HISTORY OF TRANSSPHENOIDAL OR PITUITARY SURGERY? no IF YES, please inform the patient that the test cannot be scheduled due to safety concerns about testing, and the patient should speak with their provider to consider alternative testing. The claim review medical director should also contact the provider's office directly to notify them that we are unable to schedule due to a contraindication to testing. Then, delete the remainder of this checklist and close out thereferral. HISTORY OF NASAL SURGERY IN THE LAST SIX MONTHS? no IF YES: PT CANNOT BE SCHEDULED DUE TO SAFETY CONCERNS until we receive documented clearance by their ENT provider. Then, delete the remainder of this checklist and close out the referral. QUESTIONS FOR THE PATIENT DIABETIC? no Diabetic patients should speak with their PCP or managing provider at least two weeks before the test to ask what medication or insulin adjustments are needed for testing. If the patient feels ill while fasting due to diabetes, it is OK to have a little apple juice - just enough to feel better. Patients fast 8 hours before testing and the test lasts 1 hour. ALLERGIC TO LIDOCAINE, BENZOCAINE? no (OK to schedule procedure but please document type of allergy if present) BLOOD THINNERS SUCH PLAVIX, COUMADIN, PRADAXA? no (pt does not have to stop any blood thinners for this procedure) DOES THE PATIENT USE A WHEELCHAIR? no VERBAL PATIENT INSTRUCTIONS The written instructions are very important for the patient to review and contain specific dietary and medication instructions prior to testing. These instructions will give the patient the most accurate test result. The patient should speak with their referring provider or our office if they have any questions. APPOINTMENT NOTES TEMPLATE HREM, symptom: regurgitation and dysphagia/difficulty swallowing, RMD: Dr. Lozano, PCP: Giovanna Poon DO, wheelchair: No, blood thinners: No, allergy to lidocaine/benzocaine/novocaine: No (At exit, the RMD for appointment notes is the GI provider who saw the patient) documented in this encounter Plan of Treatment Upcoming Encounters Date Type Department Care Team (Latest Contact Info) Description 03/03/2024 3:00 PM EDT Hospital Encounter [place] [address] Shorty Valdovinos MD [facility] [place] [address] 03/03/2024 3:00 PM EDT - 03/03/2024 4:00 PM EDT [place] [address] Shorty Valdovinos MD [facility] [place] [address] COLONOSCOPY, DIAGNOSTIC (WRVU 3.26) 03/31/2024 9:00 AM EDT Office [place] [address] Felisha Dc APRN [facility] [place] [address] Scheduled Procedures Name Priority Associated Diagnoses Date/Ti me COLONOSCOPY, DIAGNOSTIC (WRVU 3.26) Crohn's disease without complication, unspecified gastrointestinal tract location 03/03/2024 3:00 PM EDT documented as of this encounter Visit Diagnoses Not on filedocumented in this encounter Care Teams Director Of Broadcast Relationship Specialty Start Date End Date Giovanna Scott DO [address] [place] [address] PCP - General Family Medicine 09/18/19 03/22/23 documented as of this encounter
--- OUTSIDE RECORDS SUMMARY | 2024-02-19 11:23 | XMS_ITS | Encounter Summary ---
Author Organization [facility] [place] [address] Care Team Providers Care Agile Test Lead Name Role Phone Giovanna Scott DO Primary Care Provider +1- [phone] Reason for Visit * Reason Onset Date Comments Medication Refill 08/13/2020 Encounter Details Date Type Department Care Team (Late st Contact Info) Description 08/13/2020 Ref[place] [address] Elida Lozano MD [facility] [place] [address] Status post dilation of esophageal narrowing Social History Tobacco Use Types Packs/Day Years [...] encounter Miscellaneous Notes * Telephone Encounter - Elida Lozano MD - 08/13/2020 9:22 AM EST Sent in Rx for omeprazole 20 mg once daily x 8 weeks in anticipation of potential dilation on 08/17/2020 per patient request. documented in this encounter Plan of Treatment Upcoming Encounters Date Type Department Care Team (Latest Contact Info) Description 03/03/2024 3:00 PM EDT Hospital En[place] [address] Shorty Valdovinos MD [facility] [place] [address] 03/03/2024 3:00 PM EDT - 03/03/2024 4:00 PM EDT [place] [address] Shorty Valdovinos MD [facility] [place] [address] COLONOSCOPY, DIAGNOSTIC (WRVU 3.26) 03/31/2024 9:00 AM EDT Office [place] [address] Felisha Dc, CINNAMON GRINDER [facility] [place] [address] Scheduled Procedures Name Priority Associated Diagnoses Date/Ti me COLONOSCOPY, DIAGNOSTIC (WRVU 3.26) Crohn's disease without complication, unspecified gastrointestinal tract location 03/03/2024 3:00 PM EDT documented as of this encounter Visit Diagnoses Diagnosis Status post dilation of esophageal narrowing Other postprocedural status Crohn's disease without complication, unspecified gastrointestinal tract location documented in this encounter Care Teams Agile Test Lead Relationship Specialty Start Date End Date Giovanna Scott DO [address] [place] [address] PCP - General Family Medicine 09/18/19 03/22/23 documented as of this encounter
--- OUTSIDE RECORDS SUMMARY | 2024-02-19 11:23 | XMS_ITS | Encounter Summary ---
Author Organization [facility] [place] [address] Care Team Providers Care Claims Representative Name Role Phone Page, Twila Ruiz APRN Primary Care Provider [phone] Reason for Visit * Reason Onset Date Comments Follow-up 08/28/2018 Encounter Details Date Type Department Care Team (Late st Contact Info) Description 08/28/2018 Telephone [place] [address] Ayesha Ramirez Follow-up Social History Tobacco Use Types Packs/Day Years [...] encounter Miscellaneous Notes * Telephone Encounter - Aidee Gordon RN - 08/29/2018 8:24 AM EST Returned call to patient to follow-up. Isatu states that she reviewed her office visit note in her [facility] account and she wanted to clarify that she believes her listed diagnosis of constipation does not accurately describe her condition. Additionally, Isatu wonders if Dr. Lozano was considering diagnosing her with IBS. Patient states that she does require follow-up communication but that she did want to relay above message to provider. * Telephone Encounter - RamirezAyesha rojo Shorty - 08/28/2018 12:27 PM EST Caller: Pt Call for: MD Reason for call: pt wondering if note should be changed from consitpation to incomplete movements Pt also wanting to review: Colon has been distended for about 3 months, should she be checked IBS? Call back urgency: routine Ok to leave detailed message? yes Preferred method of communication: phone or update via [employer] documented in this encounter Plan of Treatment Upcoming Encounters Date Type Department Care Team (Latest Contact Info) Description 03/03/2024 3:00 PM EDT Hospital En[place] [address] Shorty Valdovinos MD [facility] [place] [address] 03/03/2024 3:00 PM EDT - 03/03/2024 4:00 PM EDT [place] [address] Shorty Valdovinos MD [facility] [place] [address] COLONOSCOPY, DIAGNOSTIC (WRVU 3.26) 03/31/2024 9:00 AM EDT Office [place] [address] Felisha Dc APRN [facility] [place] [address] Scheduled Procedures Name Priority Associated Diagnoses Date/Ti me COLONOSCOPY, DIAGNOSTIC (WRVU 3.26) Crohn's disease without complication, unspecified gastrointestinal tract location 03/03/2024 3:00 PM EDT documented as of this encounter Visit Diagnoses Not on filedocumented in this encounter Care Teams Claims Representative Relationship Specialty Start Date End Date Page, Twila Ruiz APRN [address] [place] [address] PCP - General Family Medicine 08/12/18 09/05/18 documented as of this encounter
--- OUTSIDE RECORDS SUMMARY | 2024-02-19 11:23 | XMS_ITS | Encounter Summary ---
Author Organization [facility] [place] [address] Care Team Providers Care Sorter Operator Name Role Phone Benjamin Wild MD Primary Care Provider [phone]- [phone] Encounter Details Date Type Department Care Team (Late st Contact Info) Description 09/10/2018 Orders Only [place] [address] Elida Lozano MD [facility] [place] [address] Peptic stricture of esophagus Social History Tobacco Use Types Packs/Day Years [...] 3:00 PM EDT Hospital Encounter [place] [address] Shorty Valdovinos MD [facility] [place] [address] 03/03/2024 3:00 PM EDT - 03/03/2024 4:00 PM EDT Surgery [place] [address] Shorty Valdovinos MD [facility] [place] [address] COLONOSCOPY, DIAGNOSTIC (WRVU 3.26) 03/31/2024 9:00 AM EDT Office [place] [address] Felisha Dc, ATIYA [facility] [place] [address] Scheduled Procedures Name Priority Associated Diagnoses Date/Ti me COLONOSCOPY, DIAGNOSTIC (WRVU 3.26) Crohn's disease without complication, unspecified gastrointestinal tract location 03/03/2024 3:00 PM EDT documented as of this encounter Visit Diagnoses Diagnosis Peptic stricture of esophagus Stricture and stenosis of esophagus Crohn's disease without complication, unspecified gastrointestinal tract location documented in this encounter Care Teams Sorter Operator Relationship Specialty Start Date End Date Benjamin Wild MD [facility] [address] [place] [address] PCP - General Family Medicine 09/09/18 09/17/19 documented as of this encounter
--- OUTSIDE RECORDS SUMMARY | 2024-02-19 11:23 | XMS_ITS | Encounter Summary ---
Author Organization [facility]ly [facility] [place] [address] Care Team Providers Care Office Lead Name Role Phone Benjamin Wild MD Primary Care Provider +1- [phone] Reason for Visit * Reason Comments Eye Exam Encounter Details Date Type Department Care Team (Late st Contact Info) Description 07/25/2019 9:30 AM EST Office Visit Ophthalmology at [facility] [place] [phone] Shantel Walker, JAM [facility] [place] [address] Pseudophakia, both eyes; Vitreous floaters of both [...] as of this encounter Progress Notes * Shantel Walker, OD - 07/25/2019 9:30 AM EST Isatu Bosch is a 69 y.o. female who had concerns including Eye [...] Wears Bifocals and NVO. Follow up: CEE 2 years. Eyeglass Final Rx Eyeglass Final Rx Sphere Cylinder [place] Add Right -1.50 +2.00 180 +2.75 Left -1.00 +1.75 175 +2.75 Type: Bifocal Expiration Date: 07/25/2021 Pupillary Distance: 59 Eyeglass Final Rx #2 Sphere Cylinder [place] Add Right +1.25 +2.00 180 +2.75 Left +1.75 +1.75 175 +2.75 Type: READING Expiration Date: 07/25/2021 Pupillary Distance: 59 documented in this encounter Plan of Treatment Upcoming Encounters Date Type Department Care Team (Latest Contact Info) Description 03/03/2024 3:00 PM EDT Hospital En[place] [address] Shorty Valdovinos MD [facility] [place] [address] 03/03/2024 3:00 PM EDT - 03/03/2024 4:00 PM EDT [place] [address] hSorty Valdovinos MD [facility] [place] [address] COLONOSCOPY, DIAGNOSTIC (WRVU 3.26) 03/31/2024 9:00 AM EDT Office [place] [address] Felisha Dc APRN [facility] [place] [address] Scheduled Procedures Name Priority Associated Diagnoses Date/Ti wi COLONOSCOPY, DIAGNOSTIC (WRVU 3.26) Crohn's disease without complication, unspecified gastrointestinal tract location 03/03/2024 3:00 PM EDT documented as of this encounter Visit Diagnoses Diagnosis Pseudophakia, both eyes Lens replaced by other means Vitreous floaters of both eyes Hyperopia of both eyes with astigmatism and presbyopia Crohn's disease without complication, unspecified gastrointestinal tract location documented in this encounter Care Teams Office Lead Relationship Specialty Start Date End Date Benjamin Wild MD [facility] [address] [place] [address] PCP - General Family Medicine 09/09/18 09/17/19 documented as of this encounter
--- OUTSIDE RECORDS SUMMARY | 2024-02-19 11:23 | XMS_ITS | Encounter Summary ---
Author Organization [facility] [place] [address] Care Team Providers Care Kennel Helper Name Role Phone Giovanna Scott DO Primary Care Provider +1- [phone] Encounter Details Date Type Department Care Team (Latest Contact Info) Description 08/16/2021 7:52 AM EST - 08/16/2021 10:31 AM EST Hospital Encounter [place] [phone] Rosanna Cardenas MD [facility] [place] [address] Discharge Disposition: Home Social History Tobacco Use [...] Sign Reading Time Taken Comments Blood Pressure 111/79 08/16/2021 10:00 AM EST Pulse 68 08/16/2021 9:30 AM EST Temperature 36.8 ??C (98.2 ??F) 08/16/2021 8:06 AM ES T Respiratory Rate 18 08/16/2021 10:00 AM EST Oxygen Saturation 95% 08/16/2021 10:00 AM EST Inhaled Oxygen Concentration - - [...] the day after the procedure, use an tldz-nky-fadpuzx spray to numb your throat. Sucking on [...] occurs, please contact your Doctor. Please call [phone] before 8pm Mon-Fri with problems, questions or concerns. If you call after 8pm or on weekends, call the Hospital at [phone] and ask to speak to the Senior Research Project Manager lunchroom monitor and the terminal press operator will contact that person for you. When should you call for help? Call 401 anytime you think you may need emergency [...] any problems. Where can you learn more? [facility] View your After Visit Summary and more online at [email or web address] If you would like to provide [...] cost to you. Content Version: 12.2 ?? 4341-2523 [employer]. Care instructions adapted under license by [facility]. If you have questions about a medical condition or this instruction, always ask your healthcare professional. [employer] disclaims any warranty or liability for your [...] - 07/20/2021 12:01 PM EST Isatu Bosch [id number] Diagnosis/Indication: 71 yo F with dysphagia and [...] Allergies to Eggs, Latex or Medications? Yes: [facility] gets massive headaches from omeprazole 6. Do [...] to patient: You must have a responsible republican who will drive you to your procedure, [...] 3:00 PM EDT Hospital Encounter [place] [address] Shorty Valdovinos MD [facility] [place] [address] 03/03/2024 3:00 PM EDT - 03/03/2024 4:00 PM EDT Surgery [place] [address] Shorty Valdovinos MD [facility] [place] [address] COLONOSCOPY, DIAGNOSTIC (WRVU 3.26) 03/31/2024 9:00 AM EDT Office Visit [place] [address] Felisha Dc, SALES AND SERVICE SPECIALIST [facility] [place] [address] Scheduled Procedures Name Priority Associated Diagnoses Date/Ti me COLONOSCOPY, DIAGNOSTIC (WRVU 3.26) Crohn's disease without complication, unspecified gastrointestinal tract location 03/03/2024 3:00 PM EDT documented as of this encounter Procedures Procedure Name Priority Date/Time Associated Diagnosis Comments Up Gi Endoscopy, Josr Melvin, 30Mm (88200) 08/16/2021 9:05 AM EST Esophageal dysphagia UPPER GI ENDOSCOPY Routine 08/16/2021 8: 55 AM EST documented in this encounter Results * UPPER GI ENDOSCOPY (08/16/2021 8:55 AM EST) UPPER GI ENDOSCOPY [facility] Endoscopy ___ Procedure Date: 08/16/2021 8:55 AM ? Patient Name: Isatu Bosch ? Date of : 1950 ? Age: 71 ? Order #: [id number] ? Instrument Name: [id number] ? ___ Procedure: ? Upper GI endoscopy Indications: ? Dysphagia (per referral); ? regurgitation, discomfort in throat ? when supine, improved previously with ? dilation of Edwigetzki's ring Providers: ? Rosanna Cardenas MD, Kanu Lowry. ? Lalit Faustin MD: ?Elida Yip ? MD [facility]: ? [...] 8:15 AM EST 100 mL/hr 100 mL/hr documented [...] 0909, Until Sun08/16/21 at 1231, Intra-Operative (Intra-Procedure) 0909 (Given - Provid er: Kanu Faustin RN) fentaNYL (pf) (50 mcg/mL) multi-dose injection (CANCELED) ONCE PRN, Starting on Sun08/16/21 at 0909, Until Sun08/16/21 at 1231, Intra-Operative (Intra-Procedure), Routine 0909 (Given - Provid er: Kanu Faustin RN)0912 (Given - Provider: Kanu Faustin RN)0915 (Given - Provider: Kanu Faustin RN) midazolam (pf) (Versed) (1 mg/mL) multi-dose injection (CANCELED) ONCE PRN, Starting on Sun08/16/21 at 0909, Until Sun08/16/21 at 1231, Intra-Operative (Intra-Procedure), Routine 0909 (Given - Provid er: Kanu Faustin RN)0912 (Given - Provider: Kanu Faustin RN)0915 (Given - Provider: Kanu Faustin RN) documented in this encounter Care Teams Kennel Helper Relationship Specialty Start Date End Date Giovanna Scott DO [address] [place] [address] PCP - General Family Medicine 09/18/19 03/22/23 documented as of this encounter
--- OUTSIDE RECORDS SUMMARY | 2024-02-19 11:23 | XMS_ITS | Encounter Summary ---
Author Organization Formerly [facility] [place] [address] Care Team Providers Care Gear Straightener Name Role Phone Giovanna Scott DO Primary Care Provider +1- [phone] Encounter Details Date Type Department Care Team (Late st Contact Info) Description 06/28/2021 Orders [place] [address] Elida Lozano MD [facility] [place] [address] Esophageal dysphagia Social History Tobacco Use Types Packs/Day Years [...] 3:00 PM EDT Hospital En[place] [address] Shorty Valdovinos MD [facility] [place] [address] 03/03/2024 3:00 PM EDT - 03/03/2024 4:00 PM EDT [place] [address] Shorty Valdovinos MD [facility] [place] [address] COLONOSCOPY, DIAGNOSTIC (WRVU 3.26) 03/31/2024 9:00 AM EDT Office [place] [address] Felisha Dc APRN [facility] [place] [address] Scheduled Orders Name Type Priority Associated Diagnoses Orde r Schedule ENDOSCOPY CASE REQUEST: EGD, UPPER GI ENDOSCOPY Procedures Routine Esophageal dysphagia Ordered: 06/28/2021 Scheduled Procedures Name Priority Associated Diagnoses Date/Ti me COLONOSCOPY, DIAGNOSTIC (WRVU 3.26) Crohn's disease without complication, unspecified gastrointestinal tract location 03/03/2024 3:00 PM EDT documented as of this encounter Visit Diagnoses Diagnosis Esophageal dysphagia Dysphagia, pharyngoesophageal phase Crohn's disease without complication, unspecified gastrointestinal tract location documented in this encounter Care Teams Gear Straightener Relationship Specialty Start Date End Date Giovanna Scott DO [address] [place] [address] PCP - General Family Medicine 09/18/19 03/22/23 documented as of this encounter
--- OUTSIDE RECORDS SUMMARY | 2024-02-19 11:23 | XMS_ITS | Encounter Summary ---
Author Organization [facility] [place] [address] Care Team Providers Care Air Conditioning Installer Name Role Phone Giovanna Scott DO Primary Care Provider +1- [phone] Encounter Details Date Type Department Care Team (Late st Contact Info) Description 08/03/2020 Telephone [place] [address] Nicole Granda Social History Tobacco Use Types [...] Telephone Encounter - Nicole Granda - 08/03/2020 10:47 AM EST Isatu Hiro [id number] Diagnosis/Indication: dysphagia, regurgitation, h/o dilation in 2019 1. Have you ever had a/an Upper Endoscopy before? Yes: Date 09/10/18 If yes, did you have any problems with the procedure? No What type of sedation was used: IV Conscious Sedation 2. Do you take any Blood Thinners? No 3. Do you have a Pacemaker or Defibrillator device? No 4. Are you a diabetic? No 5. Do you have any Allergies to Eggs, Latex or Medications? Yes: EDH 6. Do you take any Oral Iron Supplements (Including multi-vitamins)? Yes (Multivitamin) 7. Do you have a history of three or more abdominal surgeries? No 8. Have you had a problem with sedation or anesthesia? No 9. Do you have a c-pap machine or oxygen tank? Neither 10. Do you take prescription narcotic pain medications, including suboxone or methodone? No 11. Do you have a preference regarding the gender of your provider? Yes: Female Dr. Lozano 12. Is there any other information you would like to give us to aid in scheduling? No 13. Say to patient: You must have a responsible constitution party who will drive you to your procedure, stay [place] for the entire duration of your procedure, and drive you home from your procedure? *Please Verify the height and weight, and adjust if height and/or weight have changed* Estimated body mass index is 20.09 kg/m?? as calculated from the following: Height as of 09/18/19: 172.7 cm (5' 8). Weight as of 09/18/19: 59.9 kg (132 lb 1.6 oz). *Delete if not needed* Height: 5'8 Weight: 135 BMI: 20.5 Age:70 y.o. documented in this encounter Plan of Treatment Upcoming Encounters Date Type Department Care Team (Latest Contact Info) Description 03/03/2024 3:00 PM EDT Hospital Encounter [place] [address] Shorty Valdovinos MD [facility] [place] [address] 03/03/2024 3:00 PM EDT - 03/03/2024 4:00 PM EDT Surgery [place] [address] Shorty Valdovinos MD [facility] [place] [address] COLONOSCOPY, DIAGNOSTIC (WRVU 3.26) 03/31/2024 9:00 AM EDT Office [place] [address] Felisha Dc APRN [facility] [place] [address] Scheduled Procedures Name Priority Associated Diagnoses Date/Ti me COLONOSCOPY, DIAGNOSTIC (WRVU 3.26) Crohn's disease without complication, unspecified gastrointestinal tract location 03/03/2024 3:00 PM EDT documented as of this encounter Visit Diagnoses Not on filedocumented in this encounter Care Teams Air Conditioning Installer Relationship Specialty Start Date End Date Giovanna Scott DO [address] [place] [address] PCP - General Family Medicine 09/18/19 03/22/23 documented as of this encounter
--- OUTSIDE RECORDS SUMMARY | 2024-02-19 11:23 | XMS_ITS | Encounter Summary ---
Author Organization [facility] [place] [address] Care Team Providers Care Tower Observer Name Role Phone Page, Twila Ruiz APRN Primary Care Provider [phone] Encounter Details Date Type Department Care Team (Late st Contact Info) Description 08/20/2018 Telephone [place] [address] Marni Hastings RN Social History Tobacco Use [...] Telephone Encounter - Marni Gar RN - 08/20/2018 12:38 PM EST Pt notified. * Telephone Encounter - Marni Gar RN - 08/20/2018 12:36 PM EST ----- Message from Jose Elias Swartz DO sent at 08/15/2018 5:00 PM EST ----- Please inform Isatu that her thyroid level is perfectly normal. I hope she feels better soon. documented in this encounter Plan of Treatment Upcoming Encounters Date Type Department Care Team (Latest Contact Info) Description 03/03/2024 3:00 PM EDT Hospital Encounter Gastroenterology at [place] [phone] Shorty Valdovinos MD [facility] DR [place] [address] 03/03/2024 3:00 PM EDT - 03/03/2024 4:00 PM EDT Surgery [place] [address] Shorty Valdovinos MD [facility] [place] [address] COLONOSCOPY, DIAGNOSTIC (WRVU 3.26) 03/31/2024 9:00 AM EDT Office Visit Gastroenterology at [place] [phone] Felisha Dc, MICROWAVE RADIO TECHNICIAN [facility] [place] [address] Scheduled Procedures Name Priority Associated Diagnoses Date/Ti me COLONOSCOPY, DIAGNOSTIC (WRVU 3.26) Crohn's disease without complication, unspecified gastrointestinal tract location 03/03/2024 3:00 PM EDT documented as of this encounter Visit Diagnoses Not on filedocumented in this encounter Care Teams Tower Observer Relationship Specialty Start Date End Date Twila Taylor APRN [address] [place] [address] PCP - General Family Medicine 08/12/18 09/05/18 documented as of this encounter
--- OUTSIDE RECORDS SUMMARY | 2024-02-19 11:23 | XMS_ITS | Encounter Summary ---
Author Organization [facility] [place] [address] Care Team Providers Care Yardage Control Clerk Name Role Phone Haider Falk DO Primary Care Provider [phone]- [phone] Encounter Details Date Type Department Care Team (Late st Contact Info) Description 10/09/2016 Telephone Cardiology at [address] [place] [address] Ene Eric RN Social History Tobacco Use Types Packs/Day [...] encounter Miscellaneous Notes * Telephone Encounter - Ene Eric RN - 10/09/2016 4:08 PM EDT Received a letter from the pt that said that she is taking a homeopathic remedy call Ignanastasia and isfeeling much better and if she continues to do so, will be calling to cancel her appt for 11/01/16 documented in this encounter Plan of Treatment Upcoming Encounters Date Type Department Care Team (Latest Contact Info) Description 03/03/2024 3:00 PM EDT Hospital En[place] [address] Shorty Valdovinos MD [facility] [place] [address] 03/03/2024 3:00 PM EDT - 03/03/2024 4:00 PM EDT [place] [address] Shorty Valdovinos MD [facility] [place] [address] COLONOSCOPY, DIAGNOSTIC (WRVU 3.26) 03/31/2024 9:00 AM EDT Office [place] [address] Felisha Dc, CATHETER BUILDER [facility] [place] [address] Scheduled Procedures Name Priority Associated Diagnoses Date/Ti me COLONOSCOPY, DIAGNOSTIC (WRVU 3.26) Crohn's disease without complication, unspecified gastrointestinal tract location 03/03/2024 3:00 PM EDT documented as of this encounter Visit Diagnoses Not on filedocumented in this encounter Care Teams Yardage Control Clerk Relationship Specialty Start Date End Date Haider Falk DO [address] [place] [address] PCP - General Family Medicine 07/06/16 08/11/18 documented as of this encounter
--- OUTSIDE RECORDS SUMMARY | 2024-02-19 11:23 | XMS_ITS | Encounter Summary ---
Author Organization Formerly [facility] [place] [address] Care Team Providers Care Manager Dental Name Role Phone Benjamin Wild MD Primary Care Provider +1- [phone] Encounter Details Date Type Department Care Team (Late st Contact Info) Description 09/27/2018 Abstract Internal Medicine at [facility] [address] [place] [address] Jeanette Toscano MA Social History Tobacco Use Types Packs/Day Years [...] 3:00 PM EDT Hospital En[place] [address] Shorty Valdovinos MD [facility] [place] [address] 03/03/2024 3:00 PM EDT - 03/03/2024 4:00 PM EDT [place] [address] Shorty Valdovinos MD [facility] [address] COLONOSCOPY, DIAGNOSTIC (WRVU 3.26) 03/31/2024 9:00 AM EDT Office [place] [address] Felisha Dc APRN [facility] [place] [address] Scheduled Procedures Name Priority Associated Diagnoses Date/Ti me COLONOSCOPY, DIAGNOSTIC (WRVU 3.26) Crohn's disease without complication, unspecified gastrointestinal tract location 03/03/2024 3:00 PM EDT documented as of this encounter Visit Diagnoses Not on filedocumented in this encounter Care Teams Manager Dental Relationship Specialty Start Date End Date Benjamin Wild MD [facility] [address] [place] [address] PCP - General Family Medicine 09/09/18 09/17/19 documented as of this encounter
--- OUTSIDE RECORDS SUMMARY | 2024-02-19 11:23 | XMS_ITS | Encounter Summary ---
Author Organization [facility] [place] [address] Care Team Providers Care Retail Aide Name Role Phone Page, Twila Ruiz APRN Primary Care Provider [phone] Encounter Details Date Type Department Care Team (Late st Contact Info) Description 09/04/2018 Telephone [place] [address] Akila Santiago Social History Tobacco Use Types Packs/Day Years [...] encounter Miscellaneous Notes * Telephone Encounter - Akila Santiago - 09/04/2018 4:26 PM EST Caller: Patient Call for: Aidee Reason for call: Pt would like to know if she should still go ahead with endoscopy or should she hold off on it? Call back urgency: Routine Ok to leave detailed message? Yes Preferred method of communication: [phone] documented in this encounter Plan of Treatment Upcoming Encounters Date Type Department Care Team (Latest Contact Info) Description 03/03/2024 3:00 PM EDT Hospital Encounter [place] [address] Shorty Valdovinos MD [facility] [place] [address] 03/03/2024 3:00 PM EDT - 03/03/2024 4:00 PM EDT Surgery [place] [address] Shorty Valdovinos MD [facility] [place] [address] COLONOSCOPY, DIAGNOSTIC (WRVU 3.26) 03/31/2024 9:00 AM EDT Office [place] [address] Felisha Dc, ATIYA [facility] [place] [address] Scheduled Procedures Name Priority Associated Diagnoses Date/Ti me COLONOSCOPY, DIAGNOSTIC (WRVU 3.26) Crohn's disease without complication, unspecified gastrointestinal tract location 03/03/2024 3:00 PM EDT documented as of this encounter Visit Diagnoses Not on filedocumented in this encounter Care Teams Retail Aide Relationship Specialty Start Date End Date Twila Taylor APRN [address] [place] [address] PCP - General Family Medicine 08/12/18 09/05/18 documented as of this encounter
--- OUTSIDE RECORDS SUMMARY | 2024-02-19 11:23 | XMS_ITS | Encounter Summary ---
Author Organization [facility] [place] [address] Care Team Providers Care Machine Rope Maker Name Role Phone Page, Twila Ruiz APRN Primary Care Provider [phone] Encounter Details Date Type Department Care Team (Late st Contact Info) Description 09/05/2018 Telephone [place] [address] Wilda Funes Social History Tobacco Use Types Packs/Day Years [...] encounter Miscellaneous Notes * Telephone Encounter - Wilda Funes - 09/05/2018 8:24 AM EST Caller: Isatu Bosch Call for: Aidee Reason for call: Patient calling to let Aidee know she does not need a call, she thinks her anxietywas just getting to her and she is sorry. Call back urgency: Not needed Ok to leave detailed message? Preferred method of communication: documented in this encounter Plan of Treatment Upcoming Encounters Date Type Department Care Team (Latest Contact Info) Description 03/03/2024 3:00 PM EDT Hospital Encounter [place] [address] Shorty Valdovinos MD [facility] [place] [address] 03/03/2024 3:00 PM EDT - 03/03/2024 4:00 PM EDT Surgery [place] [address] Shorty Valdovinos MD [facility] [place] [address] COLONOSCOPY, DIAGNOSTIC (WRVU 3.26) 03/31/2024 9:00 AM EDT Office Visit [place] [address] Felisha Dc, ATIYA [facility] [place] [address] Scheduled Procedures Name Priority Associated Diagnoses Date/Ti me COLONOSCOPY, DIAGNOSTIC (WRVU 3.26) Crohn's disease without complication, unspecified gastrointestinal tract location 03/03/2024 3:00 PM EDT documented as of this encounter Visit Diagnoses Not on filedocumented in this encounter Care Teams Machine Rope Maker Relationship Specialty Start Date End Date Twila Taylor APRN [address] [place] [address] PCP - General Family Medicine 08/12/18 09/05/18 documented as of this encounter
--- OUTSIDE RECORDS SUMMARY | 2024-02-19 11:24 | XMS_ITS | Encounter Summary ---
Author Organization [facility] [place] [address] Care Team Providers Care Basket Assembler Name Role Phone Morena Hawley MD Primary Care Provider [phone] Reason for Visit * Reason Comments Pseudophakia Pseudophakia,OU Encounter Details Date Type Department Care Team (Late st Contact Info) Description 10/13/2014 9:15 AM EDT [place] [address] Esperanza Ortiz, JAM [facility] [address] [place] [address] PCO (posterior capsular opacification), bilateral (Primary Dx); Pseudophakia, both eyes; PVD (posterior vitreous detachment), right Discharge Disposition: Home Social History Tobacco Use [...] Progress Notes * Esperanza Ortiz, OD - 10/13/2014 10:17 AM EDT Isatu MACDONALD is a 64 y.o. female who had concerns including Pseudophakia. PCO affected acuity and causing glare issues. PVD OD. Assessment: Encounter Diagnoses Name Primary? PCO (posterior capsular opacification), bilateral Yes ??? Pseudophakia, both eyes ??? PVD (posterior vitreous detachment), right Plan: 1)refer to [facility] for YAG consult 2)PVD - pt ed to RTC [facility] if increase in floaters; flashes; and/or VF loss 3)will need refraction after YAG Follow up: [facility] next available documented in this encounter Plan of Treatment Upcoming Encounters Date Type Department Care Team (Latest Contact Info) Description 03/03/2024 3:00 PM EDT Hospital [place] [address] Shorty Valdovinos MD [facility] [place] [address] 03/03/2024 3:00 PM EDT - 03/03/2024 4:00 PM EDT [place] [phone] Shorty Valdovinos MD [facility] [place] [address] COLONOSCOPY, DIAGNOSTIC (WRVU 3.26) 03/31/2024 9:00 AM EDT Office [place] [phone] Felisha Dc, ATIYA [facility] [place] [address] Scheduled Procedures Name Priority Associated Diagnoses Date/Ti me COLONOSCOPY, DIAGNOSTIC (WRVU 3.26) Crohn's disease without complication, unspecified gastrointestinal tract location 03/03/2024 3:00 PM EDT documented as of this encounter Visit Diagnoses Diagnosis PCO (posterior capsular opacification), bilateral- Primary After-cataract, unspecified Pseudophakia, both eyes Lens replaced by other means PVD (posterior vitreous detachment), right Crohn's disease without complication, unspecified gastrointestinal tract location documented in this encounter Care Teams Basket Assembler Relationship Specialty Start Date End Date Morena Hawley MD [address] [place] [address] [address] [facility] [address] [place] [address] PCP - General 01/27/14 11/30/14 documented as of this encounter
--- OUTSIDE RECORDS SUMMARY | 2024-02-19 11:24 | XMS_ITS | Encounter Summary ---
Author Organization [facility] [place] [address] Care Team Providers Care Logistics/Shipper Name Role Phone Alex Lara DO Primary Care Provider [phone] Reason for Visit * Reason Comments Procedure YAG OD for PCO Encounter Details Date Type Department Care Team (Late st Contact Info) Description 05/11/2016 2:15 PM EDT Office [place] [address] Bharath Mancia MD [facility] [place] [address] PCO (posterior capsular opacification), bilateral Social History Tobacco Use Types Packs/Day Years [...] on file documented as of this encounter Patient Instructions * Patient Instructions* Bharath Mancia MD - 05/11/2016 2:15 PM EDT Use eye medications as instructed by Dr. Mancia during your appointment. For non eye medications not prescribed by the Ophthalmology (Eye) Clinic, please follow up with your PCP (primary care provider) for instructions. Please call the eye clinic, [phone], for any significant changes in vision, new flashes or floaters or eye pain documented in this encounter Progress Notes * Bharath Mancia MD - 05/11/2016 2:15 PM EDT Encounter Diagnosis Name Primary? PCO (posterior capsular opacification), bilateral Isatu Bosch is a 65 y.o. with the following ophthalmic problems: CEIOL OU 2012 YAG OS 12/01/14, OD 05/11/16: Did well with procedure, PF qid OD x 5 days, rtc prn anyproblems or in about a week Plan: - YAG OD - Follow up 1 wk or as needed - Findings and concerns discussed with Isatu and she expressed understanding. -Upon Return Post YAG OD, MR OU, Dilate OD documented in this encounter Plan of Treatment Upcoming Encounters Date Type Department Care Team (Latest Contact Info) Description 03/03/2024 3:00 PM EDT Hospital Encounter [place] [address] Shorty Valdovinos MD [facility] [place] [address] 03/03/2024 3:00 PM EDT - 03/03/2024 4:00 PM EDT Surgery [place] [address] Shorty Valdovinos MD [facility] [address] COLONOSCOPY, DIAGNOSTIC (WRVU 3.26) 03/31/2024 9:00 AM EDT Office [place] [address] Felisha Dc, ATIYA [facility] [address] Scheduled Procedures Name Priority Associated Diagnoses Date/Ti me COLONOSCOPY, DIAGNOSTIC (WRVU 3.26) Crohn's disease without complication, unspecified gastrointestinal tract location 03/03/2024 3:00 PM EDT documented as of this encounter Procedures Procedure Name Priority Date/Time Associated Diagnosis Comments CAPSULOTOMY-YAG LASER - OD - RIGHT EYE Routine 05/11/2016 4:12 PM EDT PCO (posterior capsular opacification), bilateral documented in this encounter Results * Capsulotomy - Yag Laser - OD - Right Eye (05/11/2016 4:12 PM EDT) Anatomical Region Laterality Modality Other Narrative 05/11/2016 4:12 PM EDT Procedure: Yag Capsulotomy ??RIGHT eye Diagnosis: Opacified posterior lens capsule Location of procedure: 4B eye clinic Surgeon: Bharath Mancia Preprocedure drops: 1 drop of each alcaine, 0.5% iopidine, Pred forte Indication: The patient is status post cataract surgery in the operative eye and developed posterior capsular opacity limiting their vision and producing glare. ??The decision was made to try to improve their vision with Yag capsulotomy. ??We discussed the risks, benefits and alternatives to this treatment, answered Isatu's questions and she signed the consent form. Procedure: ??The patient was taken to the laser room. After the patient was comfortable in the Yag laser slit lamp and a Yag capsulotomy was performed using a horseshoe pattern. ??The patient tolerated the procedure well and there were no problems observed during the procedure. Total energy: 14 millijoules Spot number: 15 Pre- Op IOP: 8 mm Hg Post Op IOP 8 mm Hg Post Op Exam: The IOL was stable, the retina was attached and there was only mild anterior chamber inflammation. Post operative instructions: ??The patient was instructed to use pred forte 4 times a day in the operative eye. ??The are scheduled for follow up within 2 weeks, but are to call in with any problems, particularly flashes, floaters, pain, decreased vision or photophobia. Upon Return to Eye Clinic: IOP OU MR in eye status post YAG Dilate eye status post YAG Bharath Mancia MD OPHTHALMOLOGY SERVIC ES ORDERABLES documented in this encounter Visit Diagnoses Diagnosis PCO (posterior capsular opacification), bilateral After-cataract, unspecified Crohn's disease without complication, unspecified gastrointestinal tract location documented in this encounter Care Teams Logistics/Shipper Relationship Specialty Start Date End Date Alex Lara DO [address] [place] [address] PCP - General General Internal Medicine 05/11/16 documented as of this encounter
--- OUTSIDE RECORDS SUMMARY | 2024-02-19 11:24 | XMS_ITS | Encounter Summary ---
[place] [address] Care Team Providers Care Pond Sawyer Name Role Phone Teri Navas MD Primary Care Provider [phone] Reason for Visit * Reason Onset Date Comments Follow-up 12/04/2014 Encounter Details Date Type Department Care Team (Late st Contact Info) Description 12/04/2014 Telephone [place] [phone] Bharath Mancia MD [facility] [place] [address] Follow-up Social History Tobacco Use Types Packs/Day [...] encounter Miscellaneous Notes * Telephone Encounter - Bharath Mancia MD - 12/04/2014 9:40 AM EDT Called to follow up on floaters post YAG. Left message on the machine to call clinic prn worse or no resolution. If not keep appt next week as planned. documented in this encounter Plan of Treatment Upcoming Encounters Date Type Department Care Team (Latest Contact Info) Description 03/03/2024 3:00 PM EDT Hospital Encounter Gastroenterology at [place] [phone] Shorty Valdovinos MD [facility] [place] [address] 03/03/2024 3:00 PM EDT - 03/03/2024 4:00 PM EDT [place] [address] Shorty Valdovinos MD [facility] [place] [address] COLONOSCOPY, DIAGNOSTIC (WRVU 3.26) 03/31/2024 9:00 AM EDT Office Visit Gastroenterology at [place] [phone] Felisha Dc, ATIYA [facility] [place] [address] Scheduled Procedures Name Priority Associated Diagnoses Date/Ti me COLONOSCOPY, DIAGNOSTIC (WRVU 3.26) Crohn's disease without complication, unspecified gastrointestinal tract location 03/03/2024 3:00 PM EDT documented as of this encounter Visit Diagnoses Not on filedocumented in this encounter Care Teams Pond Sawyer Relationship Specialty Start Date End Date Teri Navas MD [address] [place] [address] PCP - General 12/01/14 05/10/16 documented as of this encounter
--- OUTSIDE RECORDS SUMMARY | 2024-02-19 11:24 | XMS_ITS | Encounter Summary ---
Author Organization [facility] [place] [address] Care Team Providers Care Licensed Therapist Name Role Phone Florecita Kamara APRN Primary Care Provider [phone] Encounter Details Date Type Department Care Team (Latest Contact Info) Description 11/22/2011 9:44 AM EDT - 11/22/2011 2:59 PM EDT Hospital Encounter [place] [address] Que Infante MD [facility] [place] [address] Shorty Arce MD [facility] [place] [address] Discharge Disposition: Home Social History Tobacco Use Types Packs/Day Years Used Date Smoking Tobacco: Former Cigarettes Q uit: 05/08/1969 Alcohol Use Standard Drinks/Week Comments Yes 0 (1 standard drink = 0.6 oz pur e alcohol) rare Sex and Gender Information Value Date Recorded Sex Assigned at Female 09/03/2023 9:30 AM EST Gender Identity Not on file Sexual Orientation Not on file documented as of this encounter Last Filed Vital Signs Vital Sign Reading Time Taken Comments Blood Pressure 112/71 11/22/2011 12:07 PM EDT Pulse 74 11/22/2011 12:07 PM EDT Temperature - - Respiratory Rate 16 11/22/2011 12:07 PM EDT Oxygen Saturation 100% 11/22/2011 12:07 PM EDT Inhaled Oxygen Concentration - - Weight - - Height - - Body Mass Index - - documented in this encounter Discharge Instructions * Discharge Instructions* Daniel Meneses RN - 11/22/2011 12:08 PM EDT You may have received medication before and/or during your procedure, which affects judgement and reaction time. Do not drive, operate machinery, drink alcoholic beverages, or make important decisions for 24 hours. Be careful on stairs, as you may be unsteady on your feet. You may eat a regular diet as tolerated. Do not smoke if you are alone. IV site -- slight redness, or tenderness is normal, you can use a warm compress. If tenderness and redness increases or foul drainage occurs, please contact your M. D. * Attachments The following attachments cannot be sent through Care Everywhere. * COLONOSCOPY: WHAT TO EXPECT AT HOME (MICRONESIAN) documented in this encounter Medications at Time of Discharge Medication Sig Dispensed Refills Start Date End Date prednisoLONE acetate (PRED FORTE) 1 % ophthalmic suspension Place 1 drop into the right eye 2 times daily. 01/27/2014 ketorolac tromethamine (ACULAR) 0.5 % ophthalmic solution 1 drop 2 times daily. 01/27/2014 documented as of this encounter H&P Notes * Shorty Arce MD - 11/22/2011 11:22 AM EDT Gastroenterology and Hepatology Pre-Procedure History and Physical Exam Procedure: Colonoscopy Indication: Screening - also months of diarrhea 61 yo with remote history of anal fistula or fissure?. Otherwise healthy. No fam h/o colon cancer or polyps. Patient Active Problem List Diagnoses Code ??? Multiple thyroid nodules 241.1AE ??? Cataract 366.9J EXAM: HEENT: Airway examined, oropharynx clear LUNGS: Clear to auscultation HEART: Regular rate and rhythm, normal S1, S2 ABDOMEN: Normal bowel sounds, soft, non tender, non distended, A/P Proceed with colonoscopy. Risks and benefits of the procedure explained to the patient. Consent signed. documented in this encounter Miscellaneous Notes * Miscellaneous - Provider, Scanning - 11/23/2011 5:32 AM EDT * Miscellaneous - Provider, Scanning - 11/22/2011 1:31 PM EDT * Op Note - Shorty Arce MD - 11/22/2011 12:01 PM EDT [facility] Operative Note Patient Name: Torres Viveros : [id number] MR#: [id number] Case Date: 11/22/2011 Surgeon: Surgeon(s) and Role: * Shorty ARCE MD - Primary Preoperative diagnosis: screening [local] Postoperative diagnosis: * No post-op diagnosis entered * Procedure(s): COLONOSCOPY FLEXIBLE, WITH BX Please see the Provation procedure report in the Procedures tab in eDH. documented in this encounter Plan of Treatment Upcoming Encounters Date Type Department Care Team (Latest Contact Info) Description 03/03/2024 3:00 PM EDT Hospital Encounter [place] [address] Shorty Arce MD [facility] [place] [address] 03/03/2024 3:00 PM EDT - 03/03/2024 4:00 PM EDT Surgery [place] [address] Shorty Arce MD [facility] [place] [address] COLONOSCOPY, DIAGNOSTIC (WRVU 3.26) 03/31/2024 9:00 AM EDT Office [place] [address] Felisha Dc, ATIYA [facility] [place] [address] Scheduled Procedures Name Priority Associated Diagnoses Date/Ti me COLONOSCOPY, DIAGNOSTIC (WRVU 3.26) Crohn's disease without complication, unspecified gastrointestinal tract location 03/03/2024 3:00 PM EDT documented as of this encounter Procedures Procedure Name Priority Date/Time Associated Diagnosis Comments SURGICAL PATHOLOGY REPORT Routine 11/22/2011 2:07 PM EDT SPECIMEN TO PATHOLOGY Routine 11/22/2011 12:02 PM EDT COLONOSCOPY FLEXIBLE, WITH BX (WRVU 3.56) 11/22/2011 11:22 AM EDT screening [local] COLONOSCOPY Routine 11/22/2011 11:09 AM EDT documented in this encounter Results * SURGICAL PATHOLOGY REPORT (11/22/2011 2:07 PM EDT) Surgical Pathology Report ? [facility] ? Provider: ?? Shorty ARCE ?Pt. Name: ?? TORRES VIVEROS ? Acc #: ?[id number] ?Pt. ? Col Date: ?? 11/22/2011 ?/Sex: ?1950,([age] ? years),Female ? Rec Date: ?? 11/22/2011 ?LOC: ?4T ? SURGICAL PATHOLOGY ? ---Pathologic Diagnosis--- ? Endoscopic biopsy - Colonic mucosa within normal limits. ? CR-PX ? 11/23/11 ? AAS ? 11/23/11 Verified by: ? Enrrique NDIAYE, Jeffery Garza ? Pathologist ? (Electronic Signature) ? The attending pathologist whose signature appears on this report has ? reviewed all diagnostic slides and has edited the gross and/or ? microscopic portion of the report in rendering the final pathologic ? diagnosis. ? ---Microscopic Description--- ? Slides reviewed, microscopic description not recorded. ? ---Gross Description--- ? Labeled/Fixativ e: ? Random mucosal biopsies - colon, formalin. ? Qty/Size/Weight : ?Multiple, averaging 0.3 cm. ? Tissue Description: ?? Soft, martinez tissues. ? Sections/Proces sing: ??(T2) ??vms/SNS ? ---Clinical Information--- ? Specimen Submitted: ? A - Random mucosal biopsies - colon ? Clinical History/Diagnos is: ? 61 YO with history of chronic diarrhea SWEETIE LYNN 11/22/2011 2:07 PM EDT L Tiburcio Arce MD PATHOLOGY/CYTOLOGY O ELLEN SWEETIE LYNN * Specimen to Pathology (surgical or derm) (11/22/2011 12:02 PM EDT) AP Specimen 11/22/2011 12:0 2 PM EDT 11/22/2011 12:02 PM EDT Narrative LIZZYDODIE LYNN - 11/22/2011 12:02 PM EDT Specimen requisition ordered. ??Separate Pathology report to follow L Tiburcio Arce MD PATHOLOGY/CYTOLOGY [facility] * COLONOSCOPY (11/22/2011 11:09 AM EDT) COLONOSCOPY [facility] Endoscopy Patient Name: Torres Viveros ? Procedure Date: 11/22/2011 11:09 AM ? N: [id number] ? Date of : 1950 ? Age: 61 ? Order #: [id number] ? Procedure: ? Colonoscopy Indications: ? Chronic diarrhea Providers: ? Shorty Arce MD, Kylah Márquez, ? RN, Cathi Welsh, Screwmaker Automatic Referring MD: ?Florecita Kamara MD Medicines: ? [...] for ? screening. ? _ L Tiburcio Arce MD 11/22/2011 12:06 PM Number of Addenda: 0 Note Initiated On: 11/22/2011 11:09 AM PROVATION 11/22/2011 11:0 9 AM EDT Florecita Kamara APRN GENERAL SURGICAL ORD ERABLES PROVATION documented in this encounter Visit Diagnoses Not on filedocumented in this encounter Administered Medications Inactive Administered Medications - up to 3 most recent administrations Medication Order MAR Action Action Date Dose Rate Site sodium chloride 0.9% infusion 30 mL/hr, Intravenous, CONTINUOUS, Starting on Sun11/22/11 at 1045, Until Sun11/22/11 at 1700, Endoscopy (Day of Procedure) New Bag 11/22/2011 10:42 AM EDT 30 mL/hr 30 mL/hr documented in this encounter Active and Recently Administered Medications Times are shown in EDT. Continuous Medication Order 11/20/2011 11/21/2011 11/22/2011 sodium chloride 0.9% infusion (CANCELED) 30 mL/hr, Intravenous, CONTINUOUS, Starting on Sun11/22/11 at 1045, Until Sun11/22/11 at 1700, Endoscopy (Day of Procedure) 1042 (New Bag - Prov ider: Josh Cifuentes RN) PRN Medication Order 11/20/2011 11/21/2011 11/22/2011 fentaNYL 50mcg/mL injection (CANCELED) ONCE PRN, Starting on Sun11/22/11 at 1124, Until Sun11/22/11 at 1700, Pain, Intra-Operative (Intra-Procedure), Routine 1124 (Given - Provid er: Kylah Banuelos RN)1128 (Given - Provider: Kylah Banuelos RN)1133 (Given - Provider: Kylah Banuelos RN)1136 (Given - Provider: Kylah Banuelos RN) midazolam (VERSED) injection (CANCELED) ONCE PRN, Starting on Sun11/22/11 at 1124, Until Sun11/22/11 at 1700, Sleep, Intra-Operative (Intra-Procedure), Routine 1124 (Given - Provid er: Kylah Banuelos RN)1128 (Given - Provider: Kylah Banuelos RN)1133 (Given - Provider: Kylah Banuelos RN)1136 (Given - Provider: Kylah Banuelos RN) documented in this encounter Care Teams Licensed Therapist Relationship Specialty Start Date End Date Florecita Kamara APRN PCP - General 10/04/11 01/26/14 documented as of this encounter
--- OUTSIDE RECORDS SUMMARY | 2024-02-19 11:24 | XMS_ITS | Encounter Summary ---
Author Organization [facility] [place] [address] Care Team Providers Care Improvement Engineer Name Role Phone Florecita Kamara APRN Primary Care Provider [phone] Encounter Details Date Type Department Care Team (Latest Contact Info) Description 11/07/2011 8:51 AM EDT - 11/07/2011 11:59 PM EDT Hospital [place] [phone] CLINIC, DR LENA Salgado, Urszula Greenwood MD [address] [address] Discharge Disposition: Home Social History Tobacco Use Types Packs/Day Years Used Date Smoking Tobacco: Former Cigarettes Q uit: 05/08/1969 Sex and Gender Information Value Date Recorded Sex Assigned at Female 09/03/2023 9:30 AM EST Gender Identity Not on file Sexual Orientation Not on file documented as of this encounter Medications at Time of Discharge Medication Sig Dispensed Refills Start Date End Date prednisoLONE acetate (PRED FORTE) 1 % ophthalmic suspension Place 1 drop into the right eye 2 times daily. 01/27/2014 ketorolac tromethamine (ACULAR) 0.5 % ophthalmic solution 1 drop 2 times daily. 01/27/2014 documented as of this encounter Plan of Treatment Upcoming Encounters Date Type Department Care Team (Latest Contact Info) Description 03/03/2024 3:00 PM EDT Hospital En[place] [address] Shorty Valdovinos MD [facility] [place] [address] 03/03/2024 3:00 PM EDT - 03/03/2024 4:00 PM EDT [place] [address] Shorty Valdovinos MD [facility] [place] [address] COLONOSCOPY, DIAGNOSTIC (WRVU 3.26) 03/31/2024 9:00 AM EDT Office [place] [address] Felisha Dc APRN [facility] [place] [address] Scheduled Procedures Name Priority Associated Diagnoses Date/Ti me COLONOSCOPY, DIAGNOSTIC (WRVU 3.26) Crohn's disease without complication, unspecified gastrointestinal tract location 03/03/2024 3:00 PM EDT documented as of this encounter Procedures Procedure Name Priority Date/Time Associated Diagnosis Comments US ABDOMEN LIMITED Routine 11/07/2011 9: 14 AM EDT documented in this encounter Results * US ABDOMEN LIMITED (11/07/2011 9:14 AM EDT) Anatomical Region Laterality Modality Abdomen Ultrasound 11/07/2011 9:14 AM EDT Narrative 11/07/2011 10:34 AM EDT ?Abdominal ? (Signed Final 11/07/2011 10:33 am) Patient Info ID: ? [id number] ? : ??[birth year] (61 yrs) Name: ? ISATU VIVEROS ? Visit Date: 11/07/2011 09:11 am Performed By Performed By: ?Allyson Marc RDMS Attending: ? Maximino NDIAYE, Hever Anderson Referred By: ? Urszula Salgado MD Service(s) Provided UABDLIM - Abdominal Limited Survey Single ? [id number] Organ or Quadrant - [id number] Indications Abdominal pain, bloating, weight loss; R/O organomegaly of liver/pancreas ----- Liver ----- Right Lobe Length: ?? 15.1 ?? cm Echogenicity/Echotexture: ?? Normal Gallbladder Cholelithiasis: ?No stones visualized Wall Thickness: ?Normal wall thickness Focal Tenderness: ?No positive Lozano's sign GB Diameter: ?0.2 ?cm Biliary Tract Intrahepatic Ducts: ?? Normal Extrahepatic Ducts: ?? Normal Common Duct Size: ? 2 ? mm -------- Pancreas -------- Head: ? Visualized Tail: ? Limited views Body: ? Visualized Right Kidney Size (cm) ?L: ??10.9 Cortical Thickness: ?Normal Cortical Echogenicity: ?? Normal Hydronephrosis: ?No sonographic evidence ----- Aorta ----- Comment: ?Normal in caliber, where visualized --- IVC --- Normal in caliber Impression Ultrasound - Abdomen Limited - Summary Normal RUQ ultrasound exam. ??Prominent IVC, question of right heart failure or tricuspid valve disease. I ??viewed the images and agree with the above interpretation. Thank you for allowing us to participate in the care of ISATU VIVEROS. Please do not hesitate to call if you have any questions. ? Hever Stanton MD Electronically Signed Final Report ?? 11/07/2011 10:33 am Procedure Note Hever Stanton MD - 11/07/2011 Abdominal (Signed Final 11/07/2011 10:33 am) Patient Info ID: [id number] : 46 (61 yrs) Name: ISATU VIVEROS Visit Date: 11/07/2011 09:11 am Performed By Performed By: Allyson Marc RDMS Attending: Hever Stanton MD Referred By: Urszula Salgado MD Service(s) Provided UABDLIM - Abdominal Limited Survey Single 65303 Organ or Quadrant - [id number] Indications Abdominal pain, bloating, weight loss; R/O organomegaly of liver/pancreas ----- Liver ----- Right Lobe Length: 15.1 cm Echogenicity/Echotexture: Normal Gallbladder Cholelithiasis: No stones visualized Wall Thickness: Normal wall thickness Focal Tenderness: No positive Lozano's sign GB Diameter: 0.2 cm Biliary Tract Intrahepatic Ducts: Normal Extrahepatic Ducts: Normal Common Duct Size: 2 mm -------- Pancreas -------- Head: Visualized Tail: Limited views Body: Visualized Right Kidney Size (cm) L: 10.9 Cortical Thickness: Normal Cortical Echogenicity: Normal Hydronephrosis: No sonographic evidence ----- Aorta ----- Comment: Normal in caliber, where visualized --- IVC --- Normal in caliber Impression Ultrasound - Abdomen Limited - Summary Normal RUQ ultrasound exam. Prominent IVC, question of right heart failure or tricuspid valve disease. I viewed the images and agree with the above interpretation. Thank you for allowing us to participate in the care of ISATU VIVEROS. Please do not hesitate to call if you have any questions. Hever Stanton MD Electronically Signed Final Report 11/07/2011 10:33 am Florecita Kamara APRN IMG US GEN ORDERABLE S documented in this encounter Visit Diagnoses Not on filedocumented in this encounter Care Teams Improvement Engineer Relationship Specialty Start Date End Date Florecita Kamara APRN PCP - General 10/04/11 01/26/14 documented as of this encounter
--- OUTSIDE RECORDS SUMMARY | 2024-02-19 11:24 | XMS_ITS | Encounter Summary ---
Author Organization [facility] [place] [address] Care Team Providers Care Seed Potato Cutter Name Role Phone Morena Hwaley MD Primary Care Provider [phone] Reason for Visit * Reason Comments Pseudophakia OU Posterior Capsule Opacification OU Encounter Details Date Type Department Care Team (Late st Contact Info) Description 10/13/2014 10:15 AM EDT Office [place] [address] Bharath Mancia MD [facility] [place] [address] Pseudophakia, both eyes; PCO (posterior capsular opacification), bilateral Discharge Disposition: Home Social History Tobacco Use [...] * Patient Instructions* Bharath Mancia MD - 10/13/2014 10:50 AM EDT Use eye medications as instructed by Dr. Mancia during your appointment. For non eye medications not prescribed by the Ophthalmology (Eye) Clinic, please follow up with your PCP (primary care provider) for instructions. Please call the eye clinic, [phone], for any significant changes in vision, new flashes or floaters or eye pain documented in this encounter Progress Notes * Bharath Mancia MD - 10/13/2014 10:44 AM EDT Encounter Diagnoses Name Primary? Pseudophakia, both eyes ??? PCO (posterior capsular opacification), bilateral Isatu Bosch is a 64 y.o. with the following ophthalmic problems: CEIOL OU 2011 with PCO OS>OD but correctable to 20/25 OU with MR: Discussed pros and cons of YAGincluding risk of damage to IOL and RD. Discussed trial of new glasses because part of her decreased vision is definitely related to refractive error, versus doing YAG and then changing glasses. Isatu feels the left eye in particular is impaired by glare and haze, this correlates with SL exam,and would like to proceed with YAG OS and see if this results in improved quality of vision. Plan: - YAG OS - Follow up 1 month or as needed - Findings and concerns discussed with Isatu and she expressed understanding. -Upon Return YAG documented in this encounter Plan of Treatment Upcoming Encounters Date Type Department Care Team (Latest Contact Info) Description 03/03/2024 3:00 PM EDT Hospital Encounter [place] [address] Shorty Valdovinos MD [facility] [place] [address] 03/03/2024 3:00 PM EDT - 03/03/2024 4:00 PM EDT Surgery [place] [address] Shorty Valdovinos MD [facility] [place] [address] COLONOSCOPY, DIAGNOSTIC (WRVU 3.26) 03/31/2024 9:00 AM EDT Office Visit [place] [address] Felisha Dc APRN [facility] [place] [address] Scheduled Procedures Name Priority Associated Diagnoses Date/Ti me COLONOSCOPY, DIAGNOSTIC (WRVU 3.26) Crohn's disease without complication, unspecified gastrointestinal tract location 03/03/2024 3:00 PM EDT documented as of this encounter Visit Diagnoses Diagnosis Pseudophakia, both eyes Lens replaced by other means PCO (posterior capsular opacification), bilateral After-cataract, unspecified Crohn's disease without complication, unspecified gastrointestinal tract location documented in this encounter Care Teams Seed Potato Cutter Relationship Specialty Start Date End Date Morena Hawley MD [address] [place] [address] PCP - General 01/27/14 11/30/14 documented as of this encounter
--- OUTSIDE RECORDS SUMMARY | 2024-02-19 11:24 | XMS_ITS | Encounter Summary ---
Author Organization [facility] [place] [address] Care Team Providers Care Lumber Scaler Name Role Phone Morena Hawley MD Primary Care Provider [phone] Reason for Visit * Reason Comments Thyroid Nodule Encounter Details Date Type Department Care Team (Late st Contact Info) Description 01/27/2014 9:00 AM EDT Office [place] [address] Ganesh Madison MD [facility] [place] [address] Multiple thyroid nodules (Primary Dx) Discharge Disposition: Home Social History Tobacco Use [...] Sign Reading Time Taken Comments Blood Pressure 111/73 01/27/2014 9:19 AM EDT Pulse 58 01/27/2014 9:19 AM EDT Temperature - - Respiratory Rate - - Oxygen Saturation - - Inhaled Oxygen Concentration - - Weight 60.6 kg (133 lb 9.6 oz) 01/27/2014 9:19 A M EDT Height - - Body Mass Index 20.32 11/07/2011 10:19 AM EDT documented in this encounter Progress Notes * Ganesh Madison MD - 01/27/2014 9:11 AM EDT Ms Bosch is a 63 yr old female with h/o thyroid nodules comes for follow up. States that she has digestive issues. She thinks its a gluten intolerance. She has tried macrobiotic diet. She felt betteron that. She then changed to no wheat diet but sometimes she could cheat. Her tsh : 1.49 - 10/2013 Her nodule history: US 2012: multiple thyroid nodules. FNA of right thyroid and two left thyroid nodules are : benign. She is now here for follow up of her thyroid nodules. Thyroid Compressive symptoms: Globus sensation: yes Dysphagia: No Dysphonia: No Dyspnea: No Symptoms of thyroid hormone excess / deficiency Hot and cold flashes Heat intolerance: No Cold intolerance: No Diarrhea: yes Constipation: No Weight loss / gain: Gained about 10-15 pounds in winter but lost it now. Anxiety: No Jitteriness: No Tremors: No Palpitations: No Difficulty concentrating: No Patient Active Problem List Diagnosis Code ??? Multiple thyroid nodules 241.1 ??? Cataract 366.9 PMH/PSH/FH/Social/meds/allergies/previous note reviewed Review of Systems See HPI. All other systems negative. Physical Exam GEN: A+O 3; WDWN; Comfortable; Mood and affect appropriate. EYES: KELTON; No stare, no lid lag, no conjunctival injection NECK: Trachea midline, no neck masses; Thyroid not enlarged; Non-nodular; No cervical lymphadenopathy CHEST: Clear to auscultation; No dullness to percussion CV: Regular rate and rhythm; No murmurs rubs or gallops; no peripheral edema ABD: Soft and non-tender; No masses notes MSK: Normal gait and station; No clubbing or cyanosis of digits SKIN: Intact without lesions or rashes NEURO: CN II-XII grossly intact with normal coordination, muscle strength and tone; No tremor of outstretched hands; DTRs 2+ w/ normal relaxation Indication: Thyroid nodule on prior study; Date: 01/2014 Comparison: 11/07/11 Real time images of the thyroid gland were obtained using a SonoSite MicroMaxx and an [id number] broadband linear array transducer. Right Lobe: The right lobe measures: 1.3x1.3 x 4.65 cm and is of normal echotexture. There is a solid nodule,iso-echoic nodules in the posterior midlobe measuring 0.47 x 0.45 x 0.56 (2012: 0.5x0.5x0.7cm. ) The nodule has lobulated margins; There are no intranodular calcifications; There is high peripheral flow on doppler. Left Lobe: measures : 2.1x 2.55 x 6.9 cms The left lobe contains two large nodules: - Superior: 1.8 x 2.5 x 3 cms ( 2012: 2.0x2.4x2.6cm thick walled cyst ) - 95% cystic fluid and 5% solid - Inferior: 1.5 x 2.2 x 2.3 cms (2012: 1.6x2.1x2.5cm )solid / isoechoic nodule with mild cystic degeneration at the lower posterior end. The nodule has sharp margins; There are no intranodular calcifications; Both nodules demonstrate moderate to high flow on doppler. Lateral: level III and IV no morphologically abnormal lymph nodes Impression: Homogenous right lobe Left lobe entirely replaced by nodules. Stable right nodule Slight increase in size of the cystic nodule likely due to increase in cyst fluid. Since the previous biopsy is benign would not recommend repeat FNA Recommendation: F/u US in 2 yrs Ganesh Madison Endocrine Staff Physician [facility] documented in this encounter Plan of Treatment Upcoming Encounters Date Type Department Care Team (Latest Contact Info) Description 03/03/2024 3:00 PM EDT Hospital Encounter [place] [address] Shorty Valdovinos MD [facility] [place] [address] 03/03/2024 3:00 PM EDT - 03/03/2024 4:00 PM EDT [place] [address] Shorty Valdovinos MD [facility] [place] [address] COLONOSCOPY, DIAGNOSTIC (WRVU 3.26) 03/31/2024 9:00 AM EDT Office [place] [address] Felisha Dc, ATIYA [facility] [address] Scheduled Procedures Name Priority Associated Diagnoses Date/Ti me COLONOSCOPY, DIAGNOSTIC (WRVU 3.26) Crohn's disease without complication, unspecified gastrointestinal tract location 03/03/2024 3:00 PM EDT documented as of this encounter Visit Diagnoses Diagnosis Multiple thyroid nodules- Primary Nontoxic multinodular goiter Crohn's disease without complication, unspecified gastrointestinal tract location documented in this encounter Care Teams Lumber Scaler Relationship Specialty Start Date End Date Morena Hawley MD [address] [place] [address] [address] [facility] [address] [place] [address] PCP - General 01/27/14 11/30/14 documented as of this encounter
--- OUTSIDE RECORDS SUMMARY | 2024-02-19 11:24 | XMS_ITS | Encounter Summary ---
Author Organization [facility] [place] [address] Care Team Providers Care Global Project Manager Name Role Phone Teri Navas MD Primary Care Provider [phone] Reason for Visit * Reason Comments Post Op 1 wk s/p YAG OS 12/01 Encounter Details Date Type Department Care Team (Late st Contact Info) Description 12/08/2014 12:30 PM EDT Office [place] [address] Bharath Mancia MD [facility] [place] [address] Pseudophakia, both eyes Discharge Disposition: Home Social History Tobacco Use [...] * Patient Instructions* Bharath Mancia MD - 12/08/2014 1:20 PM EDT Use eye medications as instructed by Dr. Mancia during your appointment. For non eye medications not prescribed by the Ophthalmology (Eye) Clinic, please follow up with your PCP (primary care provider) for instructions. Please call the eye clinic, [phone], for any significant changes in vision, new flashes or floaters or eye pain documented in this encounter Progress Notes * Bharath Mancia MD - 12/08/2014 1:19 PM EDT Encounter Diagnosis Name Primary? Pseudophakia, both eyes Isatu Bosch is a 64 y.o. with the following ophthalmic problems: CEIOL OU 2011 with PCO OS>OD YAG OS 12/01/14: YAG OS without difficulty Plan: - PF stop, MR given - Follow up 1 year or as needed - Findings and concerns discussed with Isatu and she expressed understanding. -Upon Return CEE documented in this encounter Plan of Treatment Upcoming Encounters Date Type Department Care Team (Latest Contact Info) Description 03/03/2024 3:00 PM EDT Hospital Encounter [place] [address] Shorty Valdovinos MD [facility] [place] [address] 03/03/2024 3:00 PM EDT - 03/03/2024 4:00 PM EDT Surgery [place] [address] Shorty Valdovinos MD [facility] [place] [address] COLONOSCOPY, DIAGNOSTIC (WRVU 3.26) 03/31/2024 9:00 AM EDT Office Visit [place] [address] Felisha Dc, ATIYA [facility] [place] [address] Scheduled Procedures Name Priority Associated Diagnoses Date/Ti me COLONOSCOPY, DIAGNOSTIC (WRVU 3.26) Crohn's disease without complication, unspecified gastrointestinal tract location 03/03/2024 3:00 PM EDT documented as of this encounter Visit Diagnoses Diagnosis Pseudophakia, both eyes Lens replaced by other means Crohn's disease without complication, unspecified gastrointestinal tract location documented in this encounter Care Teams Global Project Manager Relationship Specialty Start Date End Date Teri Navas MD [address] [place] [address] PCP - General 12/01/14 05/10/16 documented as of this encounter
--- OUTSIDE RECORDS SUMMARY | 2024-02-19 11:24 | XMS_ITS | Encounter Summary ---
Author Organization [place] [address] Care Team Providers Care Television Audio Engineer Name Role Phone Teri Navas MD Primary Care Provider [phone] Reason for Visit * Reason Onset Date Comments Eye Problem 12/02/2014 s/p Yag Cap OS y esterday, now with increased floaters OS Encounter Details Date Type Department Care Team (Late st Contact Info) Description 12/02/2014 Telephone [place] [address] Bharath Mancia MD [facility] [place] [address] Eye Problem (s/p Yag Cap OS yesterday, now with increased floaters OS) Social History Tobacco Use Types Packs/Day Years [...] Telephone Encounter - Florecita Adrian COT - 12/02/2014 8:41 AM EDT Patient states about 1 hours s/p Yag Cap OS increased floaters in the left eye which have continued. Vision is much better since laser, no flashes, VF cut etc. Has HCK with Dr. Mancia 12/08/14. Reassured, will advise Dr. Mancia and advised to call if any worsening; flashes, VF cut, decreased vision etc, otherwise keep scheduled HCK. documented in this encounter Plan of Treatment Upcoming Encounters Date Type Department Care Team (Latest Contact Info) Description 03/03/2024 3:00 PM EDT Hospital Encounter Gastroenterology at [place] [phone] Shorty Valdovinos MD [facility] [place] [address] 03/03/2024 3:00 PM EDT - 03/03/2024 4:00 PM EDT Surgery [place] [address] Shorty Valdovinos MD [facility] [place] [address] COLONOSCOPY, DIAGNOSTIC (WRVU 3.26) 03/31/2024 9:00 AM EDT Office Visit [place] [address] Felisha Dc, ATIYA [facility] [address] Scheduled Procedures Name Priority Associated Diagnoses Date/Ti me COLONOSCOPY, DIAGNOSTIC (WRVU 3.26) Crohn's disease without complication, unspecified gastrointestinal tract location 03/03/2024 3:00 PM EDT documented as of this encounter Visit Diagnoses Not on filedocumented in this encounter Care Teams Television Audio Engineer Relationship Specialty Start Date End Date Teri Navas MD [address] [place] [address] PCP - General 12/01/14 05/10/16 documented as of this encounter
--- OUTSIDE RECORDS SUMMARY | 2024-02-19 11:24 | XMS_ITS | Encounter Summary ---
Author Organization [facility] [place] [address] Care Team Providers Care Balance Screwhead Polisher Name Role Phone Alex Lara DO Primary Care Provider [phone] Reason for Visit * Reason Comments Post Op S/P 2 week f/u yag c ap OD 05/11/2016 Encounter Details Date Type Department Care Team (Late st Contact Info) Description 05/23/2016 10:15 AM EST Office [place] [address] Bharath Mancia MD [facility] [place] [address] Pseudophakia, both eyes Social History Tobacco Use Types Packs/Day Years [...] * Patient Instructions* Bharath Mancia MD - 05/23/2016 10:15 AM EST Use eye medications as instructed by Dr. Mancia during your appointment. For non eye medications not prescribed by the Ophthalmology (Eye) Clinic, please follow up with your PCP (primary care provider) for instructions. Please call the eye clinic, [phone], for any significant changes in vision, new flashes or floaters or eye pain documented in this encounter Progress Notes * Bharath Mancia MD - 05/23/2016 10:15 AM EST Encounter Diagnosis Name Primary? Pseudophakia, both eyes Isatu Bosch is a 65 y.o. with the following ophthalmic problems: CEIOL OU 2012 YAG OS 12/01/14, OD 05/11/16: off drops, MR given Plan: - YAG OD - Follow up 6 months or as needed - Findings and concerns discussed with Isatu and she expressed understanding. -Upon Return CEE documented in this encounter Plan of Treatment Upcoming Encounters Date Type Department Care Team (Latest Contact Info) Description 03/03/2024 3:00 PM EDT Hospital En[place] [phone] Shorty Valdovinos MD [facility] [place] [address] 03/03/2024 3:00 PM EDT - 03/03/2024 4:00 PM EDT [place] [phone] Shorty Valdovinos MD [facility] [place] [address] COLONOSCOPY, DIAGNOSTIC (WRVU 3.26) 03/31/2024 9:00 AM EDT Office [place] [phone] Felisha Dc APRN [facility] [place] [address] Scheduled Procedures Name Priority Associated Diagnoses Date/Ti ky COLONOSCOPY, DIAGNOSTIC (WRVU 3.26) Crohn's disease without complication, unspecified gastrointestinal tract location 03/03/2024 3:00 PM EDT documented as of this encounter Visit Diagnoses Diagnosis Pseudophakia, both eyes Lens replaced by other means Crohn's disease without complication, unspecified gastrointestinal tract location documented in this encounter Care Teams Balance Screwhead Polisher Relationship Specialty Start Date End Date Alex Lara DO [address] [place] [address] PCP - General General Internal Medicine 05/11/16 documented as of this encounter
--- OUTSIDE RECORDS SUMMARY | 2024-02-19 11:24 | XMS_ITS | Encounter Summary ---
Author Organization [facility] [place] [address] Care Team Providers Care Hot Plate Press Operator Name Role Phone Teri Navas MD Primary Care Provider [phone] Reason for Visit * Reason Comments Blurred Vision OD Pseudophakia OU Encounter Details Date Type Department Care Team (Late st Contact Info) Description 03/28/2016 8:45 AM EDT Office [place] [address] Bharath Mancia MD [facility] [place] [address] PCO (posterior capsular opacification), bilateral; Pseudophakia, both eyes Social History Tobacco Use [...] * Patient Instructions* Bharath Mancia MD - 03/28/2016 8:45 AM EDT Use eye medications as instructed by Dr. Mancia during your appointment. For non eye medications not prescribed by the Ophthalmology (Eye) Clinic, please follow up with your PCP (primary care provider) for instructions. Please call the eye clinic, [phone], for any significant changes in vision, new flashes or floaters or eye pain documented in this encounter Progress Notes * Bharath Mancia MD - 03/28/2016 8:45 AM EDT Encounter Diagnoses Name Primary? PCO (posterior capsular opacification), bilateral ??? Pseudophakia, both eyes Isatu Bosch is a 65 y.o. with the following ophthalmic problems: CEIOL OU 2011 with PCO OS>OD YAG OS 12/01/14: Needs YAG OD, consent reviewed and signed. Plan: - YAG OD - Follow up 1 months or as needed - Findings and concerns discussed with Isatu and she expressed understanding. -Upon Return YAG OD documented in this encounter Plan of Treatment Upcoming Encounters Date Type Department Care Team (Latest Contact Info) Description 03/03/2024 3:00 PM EDT Hospital Encounter [place] [address] Shorty Valdovinos MD [facility] [place] [address] 03/03/2024 3:00 PM EDT - 03/03/2024 4:00 PM EDT Surgery [place] [address] Shorty Valdovinos MD [facility] [place] [address] COLONOSCOPY, DIAGNOSTIC (WRVU 3.26) 03/31/2024 9:00 AM EDT Office [place] [address] Felisha Dc, DOUBLE BACK OPERATOR [facility] [place] [address] Scheduled Procedures Name Priority Associated Diagnoses Date/Ti me COLONOSCOPY, DIAGNOSTIC (WRVU 3.26) Crohn's disease without complication, unspecified gastrointestinal tract location 03/03/2024 3:00 PM EDT documented as of this encounter Visit Diagnoses Diagnosis PCO (posterior capsular opacification), bilateral After-cataract, unspecified Pseudophakia, both eyes Lens replaced by other means Crohn's disease without complication, unspecified gastrointestinal tract location documented in this encounter Care Teams Hot Plate Press Operator Relationship Specialty Start Date End Date Teri Navas MD [address] [facility] [place] [address] PCP - General 12/01/14 05/10/16 documented as of this encounter
--- OUTSIDE RECORDS SUMMARY | 2024-02-19 11:24 | XMS_ITS | Encounter Summary ---
Author Organization [facility] [place] [address] Care Team Providers Care Community Action Worker Name Role Phone Teri Navas MD Primary Care Provider [phone] Reason for Visit * Reason Comments Procedure Yag Cap OS Encounter Details Date Type Department Care Team (Latest Contact Info) Description 12/01/2014 12:30 PM EDT Procedure visit [place] [phone] Bharath Mancia MD [facility] [place] [address] S/P YAG capsulotomy, left (Primary Dx); PCO (posterior capsular opacification), bilateral Discharge Disposition: [...] * Patient Instructions* Bharath Mancia MD - 12/01/2014 1:30 PM EDT Use eye medications as instructed by Dr. Mancia during your appointment. For non eye medications not prescribed by the Ophthalmology (Eye) Clinic, please follow up with your PCP (primary care provider) for instructions. Please call the eye clinic, [phone], for any significant changes in vision, new flashes or floaters or eye pain documented in this encounter Progress Notes * Bharath Mancia MD - 12/01/2014 1:29 PM EDT Encounter Diagnoses Name Primary? S/P YAG capsulotomy, left Yes ??? PCO (posterior capsular opacification), bilateral Isatu Bosch is a 64 y.o. with the following ophthalmic problems: CEIOL OU 2011 with PCO OS>OD YAG OS 12/01/14: YAG OS without difficulty Plan: - PF qid OS, fu I week or prn problems - Follow up 1 week or as needed - Findings and concerns discussed with Isatu and she expressed understanding. -Upon Return YAG documented in this encounter Plan of Treatment Upcoming Encounters Date Type Department Care Team (Latest Contact Info) Description 03/03/2024 3:00 PM EDT Hospital Encounter [place] [address] Shorty Valdovinos MD [facility] [place] [address] 03/03/2024 3:00 PM EDT - 03/03/2024 4:00 PM EDT Surgery [place] [address] Shorty Valdovinos MD [facility] [place] [address] COLONOSCOPY, DIAGNOSTIC (WRVU 3.26) 03/31/2024 9:00 AM EDT Office Visit [place] [address] Felisha Dc, ATIYA [facility] [place] [address] Scheduled Procedures Name Priority Associated Diagnoses Date/Ti me COLONOSCOPY, DIAGNOSTIC (WRVU 3.26) Crohn's disease without complication, unspecified gastrointestinal tract location 03/03/2024 3:00 PM EDT documented as of this encounter Procedures Procedure Name Priority Date/Time Associated Diagnosis Comments CAPSULOTOMY-YAG LASER - OS - LEFT EYE Routine 12/17/2014 9:49 AM EDT PCO (posterior capsular opacification), bilateral documented in this encounter Results * Capsulotomy - Yag Laser - OS - Left Eye (12/17/2014 9:49 AM EDT) Anatomical Region Laterality Modality Other Narrative 12/17/2014 9:49 AM EDT Procedure: Yag Capsulotomy ??LEFT ??eye Diagnosis: Opacified posterior lens capsule Location of [...] no problems observed during the procedure. Total energy:41 millijoules Spot number: 19 Pre- Op IOP: 10 ??mm Hg Post Op IOP 10 mm Hg Post Op Exam: The IOL [...] documented in this encounter Visit Diagnoses Diagnosis S/P YAG capsulotomy, left- Primary PCO (posterior capsular opacification), bilateral After-cataract, unspecified Crohn's disease without complication, unspecified gastrointestinal tract location documented in this encounter Care Teams Community Action Worker Relationship Specialty Start Date End Date Teri Navas MD [address] [place] [address] PCP - General 12/01/14 05/10/16 documented as of this encounter
--- OUTSIDE RECORDS SUMMARY | 2024-02-19 11:24 | XMS_ITS | Encounter Summary ---
Author Organization [facility] [place] [address] Care Team Providers Care Livestock Farm Workers Name Role Phone Teri Navas MD Primary Care Provider [phone] Reason for Visit * Reason Onset Date Comments Eye Problem 02/10/2016 Patient calling to discuss blurred vision OD and floaters OS Encounter Details Date Type Department Care Team (Late st Contact Info) Description 02/10/2016 [place] [address] Ines Hodges MD [facility] [address] [place] [address] Eye Problem (Patient calling to discuss blurred vision OD and floaters OS) Social History Tobacco Use Types [...] Telephone Encounter - Florecita Adrian COT - 02/10/2016 4:06 PM EDT Patient calling for appointment with blurred vision RE x several weeks and some floaters LE which are not concerning. No other symptoms. Patient would like to schedule appt with Dr. Mancia. Offered sooner appointment/next week with Dr. Landry vs next available with Dr. Mancia. Patient prefers to wait and scheduled 03/28/16 at 8:45AM, added to wait list. * Telephone Encounter - Florecita Adrian COT - 02/10/2016 3:56 PM EDT Patient feels she needs appointment for a few weeks of blurred vision OD, has had laser OS and feels she may need in OD. Also, she has been aware on new floaters in the OS. Bharath Mancia MD at 12/08/2014 ??1:19 PM ? Author Type: Physician Status: Signed Door Attendant: Bharath Mancia MD (Physician) ? Encounter Diagnosis?? Name?? Primary? Pseudophakia, both eyes? Isatu Bosch is a 64 y.o. with the following ophthalmic problems: ?? CEIOL OU 2011 with PCO OS>OD YAG OS 12/01/14: YAG OS without difficulty ?? Plan: ?? - PF stop, MR given - Follow up 1 year or as needed - Findings and concerns discussed with Isatu and she expressed understanding. ?? -Upon Return CEE documented in this encounter Plan of Treatment Upcoming Encounters Date Type Department Care Team (Latest Contact Info) Description 03/03/2024 3:00 PM EDT Hospital En[place] [address] Shorty Valdovinos MD [facility] [place] [address] 03/03/2024 3:00 PM EDT - 03/03/2024 4:00 PM EDT [place] [address] Shorty Valdovinos MD [facility] [address] [place] [address] COLONOSCOPY, DIAGNOSTIC (WRVU 3.26) 03/31/2024 9:00 AM EDT Office [place] [address] Felisha Dc, ATIYA [facility] [place] [address] Scheduled Procedures Name Priority Associated Diagnoses Date/Ti me COLONOSCOPY, DIAGNOSTIC (WRVU 3.26) Crohn's disease without complication, unspecified gastrointestinal tract location 03/03/2024 3:00 PM EDT documented as of this encounter Visit Diagnoses Not on filedocumented in this encounter Care Teams Livestock Farm Workers Relationship Specialty Start Date End Date Teri Navas MD [address] [place] [address] PCP - General 12/01/14 05/10/16 documented as of this encounter
--- OUTSIDE RECORDS SUMMARY | 2024-02-19 11:24 | XMS_ITS | Encounter Summary ---
Author Organization [facility] [place] [address] Care Team Providers Care Line Service Attendant Name Role Phone Florecita Kamara APRN Primary Care Provider [phone] Encounter Details Date Type Department Care Team (Late st Contact Info) Description 11/22/2011 11:00 AM EDT - 11/22/2011 11:45 AM EDT [place] [phone] Shorty Arce MD [facility] [place] [address] COLONOSCOPY FLEXIBLE, WITH BX (WRVU 3.56) Social History Tobacco Use Types Packs/Day Years [...] * COLONOSCOPY: WHAT TO EXPECT AT HOME (CZECH) documented in this encounter Medications at Time [...] Arce MD - 11/22/2011 12:[address] [facility] Patient Name: Torres Bosch : [id number] MR#: [id number] Case Date: 11/22/2011 Surgeon: Surgeon(s) and Role: [...] 3:00 PM EDT Hospital [place] [address] Shorty Arce MD [facility] [place] [address] 03/03/2024 3:00 PM EDT - 03/03/2024 4:00 PM EDT [place] [address] Shorty Arce MD [facility] [place] [address] COLONOSCOPY, DIAGNOSTIC (WRVU 3.26) 03/31/2024 9:00 AM EDT [place] [address] Felisha Dc APRN [facility] [place] [address] Scheduled Procedures Name Priority Associated Diagnoses Date/Ti [...] 2:07 PM EDT) Surgical Pathology Report ? [facility] ? Provider: ?? Shorty ARCE ?Pt. Name: ?? FELICETORRES PERRY ? Acc #: ?[id number] ?Pt. ? Col Date: ?? 11/22/2011 ?/Sex: ?1950,([age] ? years),Female ? Rec Date: ?? 11/22/2011 ?LOC: ?4T ? SURGICAL PATHOLOGY ? ---Pathologic Diagnosis--- ? Endoscopic biopsy - Colonic mucosa within normal limits. ? CR-PX ? 11/23/11 ? AAS ? 11/23/11 Verified by: ? Jeffery Osuna MD ? Pathologist ? (Electronic Signature) ? The [...] PM EDT 11/22/2011 12:02 PM EDT Narrative SWEETIE MAHANIUM - 11/22/2011 12:02 PM EDT Specimen requisition ordered. ??Separate Pathology report to follow L Tiburcio Arce MD PATHOLOGY/CYTOLOGY O RDERABLES [facility] * COLONOSCOPY (11/22/2011 11:09 AM EDT) COLONOSCOPY [facility] Endoscopy Patient Name: Torres Bosch ? Procedure Date: 11/22/2011 11:09 AM ? Date of : 1950 ? Age: 61 ? Order #: [id number] ? Procedure: ? Colonoscopy Indications: ? Chronic diarrhea Providers: ? L Tiburcio Arce MD, Kylah Márquez, ? RN, Cathi Welsh, Pointer Machine Operator Referring MD: ?Florecita Kamara MD Medicines: ? [...] Action Action Date Dose Rate Site fentaNYL 50mcg/mL injection ONCE PRN, Starting on Sun11/22/11 at 1124, Until Sun11/22/11 at 1700, Pain, Intra-Operative (Intra-Procedure), Routine Given 11/22/2011 11:36 AM EDT 50 mcg Right Arm Given 11/22/2011 11:33 AM EDT 50 mcg R ight Arm Given 11/22/2011 11:28 AM EDT 50 mcg R ight Arm midazolam (VERSED) injection ONCE PRN, Starting on Sun11/22/11 at 1124, Until Sun11/22/11 at 1700, Sleep, Intra-Operative (Intra-Procedure), Routine Given 11/22/2011 11:36 AM EDT 1 mg Righ t Arm Given 11/22/2011 11:33 AM EDT 1 mg R ight Arm Given 11/22/2011 11:28 AM EDT 1 mg R ight Arm sodium chloride 0.9% infusion 30 mL/hr, Intravenous, [...] Kylah Banuelos RN)[phone] (Given - Provider: Kylah C Cioban Cherestesiu, RN) documented in this encounter Care Teams Line Service Attendant Relationship Specialty Start Date End Date Florecita Kamara APRN PCP - General 10/04/11 01/26/14 documented as of this encounter
--- OUTSIDE RECORDS SUMMARY | 2024-02-19 11:24 | XMS_ITS | Encounter Summary ---
[place] [address] Care Team Providers Care Job Placement Specialist Name Role Phone Florecita Kamara APRN Primary Care Provider Reason for Visit * Reason Comments Thyroid Nodule Encounter Details Date Type Department Care Team (Late st Contact Info) Description 11/07/2011 10:30 AM EDT Office [place] [phone] Ro Cox MD [address] [place] [id number] Multiple thyroid nodules (Primary Dx) Discharge Disposition: [...] Sign Reading Time Taken Comments Blood Pressure 108/70 11/07/2011 10:19 AM EDT Pulse 69 11/07/2011 10:19 AM EDT Temperature - - Respiratory Rate - - Oxygen Saturation - - Inhaled Oxygen Concentration - - Weight 56.4 kg (124 lb 6.4 oz) 11/07/2011 10:19 AM EDT Height 172.7 cm (5' 7.99) 11/07/2011 10:19 AM E DT Body Mass Index 18.92 11/07/2011 10:19 AM EDT documented in this encounter Progress Notes * Ro Cox MD - 11/07/2011 11:14 AM EDT Patient seen in consultation at the request of: Florecita Kamara NP Reason for consult: Thyroid nodule Isatu Viveros is a very pleasant 61 y.o. year old female who was noted to have a left thyroid nodule on neck exam. This was subsequently confirmed on thyroid US. She has no prior history of thyroid disease. History of H+N XRT exposure: No Family history of thyroid cancer: No Thyroid Compressive symptoms: Globus sensation: No Dysphagia: No Dysphonia: No Dyspnea: No Symptoms of thyroid hormone excess / deficiency Heat intolerance: No Cold intolerance: No Diarrhea: No Constipation: No Weight loss / gain: No Anxiety: No Jitteriness: No Temors: No Palpitations: No Difficulty concentrating: No TSH 1.3 10/01/11 Patient Active Problem List Diagnoses Code ??? Multiple thyroid nodules 241.1AE ??? Cataract 366.9J Family History M, S - disorder of thyroid function Social History Nonsmoker Review of Systems See HPI. All other systems negative. Physical Exam GEN: A+O 3; WDWN; Comfortable; Mood and affect appropriate. EYES: KELTON; No stare, no lid lag, no conjunctival injection NECK: Trachea midline, no neck masses; Thyroid not enlarged; 2cm firm, mobile nodule palpable on the left; No cervical lymphadenopathy CHEST: Clear to auscultation; [...] outstretched hands; DTRs 2+ w/ normal relaxation phase THYROID ULTRASOUND: Indication: Thyroid nodule on prior study; Considering FNA - clarify size, position and US characteristics Date: 11/07/11 Comparison: Real time images of the thyroid gland were obtained using a SonoSite MicroMaxx and an HFL38/13-6 broadband linear array transducer. Right Lobe: The right lobe measures: 1.3x0.9cm and is of normal echotexture. There is a nodule, or conglomeration of hypoechoic nodules in the posterior midlobe measuring 0.5x0.5x0.7cm. The nodule has lobulated margins; There are no intranodular calcifications; There is high flow on color doppler. Left Lobe: The left lobe contains two large nodules: - Superior: 2.0x2.4x2.6cm thick walled cyst - Inferior 1.6x2.1x2.5cm solid / isoechoic nodule The nodule has sharp margins; There are no intranodular calcifications; Both nodules demonstrate moderate to high flow on color doppler. ASSESSMENT / PLAN: Thyroid Nodule One subcentimeter R nodule and two large left nodules. All with increased vascularity Asymptomatic Euthyroid I discussed with her the prevalence of thyroid nodules: Approximately 5% of individuals have palpable thyroid nodules and 30% or more of adults have non- palpable nodules. The prevalence of nodules increases with age, so that perhaps 50% of individuals older than 60 years of age have nodules. Many of these nodules will be well under 1cm in size. The incidence of thyroid cancer is low, but rising. About 44,700 individuals will be found to have thyroid cancer in 2010. The prevalence of thyroid cancer is low compared with the prevalence of thyroid nodule. In 2007, there were about 434,000 individuals in the [place] with a history of thyroid cancer. There have been a number of studies that have estimated risk of malignancy in thyroid nodule. The estimated risk varies with size and other characteristics of nodules selected for biopsy, the technique used for the biopsy, the institution and its referral patterns, and the characteristics of the local population. Most studies have estimated malignancy risk in nodules that are palpable or > 1cmon U/S to be in the range of 3-15%. At [facility], the nodules selected for biopsy are histologically positive in about 7% of cases. In general, options for further evaluation include: - Follow with serial U/S - Fine needle aspiration biopsy - Thyroidectomy At [facility], our criteria for FNA biopsy includes: - All palpable nodules - All nodules > 1cm in two or more dimension - Nodules > 8-9mm in two or more dimensions with high risk sonographic features, or occuring in patients with high risk historical features - Nodules that have been previously biopsied and found to have benign cytology but which have subsequently enlarged or changed significantly - Simple cysts do not require FNA biopsy Nodules not meeting the above criteria can generally be followed with ultrasound. Based on the above, I recommend FNA biopsy. Thyroid FNA involves passing a 25g needle into the nodule under ultrasound guidance a total of two or three times. There is little risk of significant bleeding or infection. Bruising at the biopsy site and swelling can occur. I reviewed the possible outcomes of an FNA, which are: - Benign - Insufficient - Indeterminate - Suspicious or positive for malignancy In the event of an insufficient result, the FNA should be repeated. Thyroid surgery is usually required if the result is indeterminate or suspicious. She understands the above, and wishes to proceed with FNA. Plan: - FNA - Observation if benign PROCEDURE: THYROID FNA Indication: Informed consent was obtained after a discussion of the nature of the procedure, its risks, benefits and possible alternatives. Immediately prior to the start of the procedure a time out was taken: - The patient's identity was confirmed using two identifiers - The intended procedure, patient positioning and availability of all required equipment was also confirmed. - The proper site(s)/side(s) of the nodule(s) was/were confirmed by visualization with ultrasound. The biopsy site(s) on the patient's neck was/were prepared using isopropyl alchohol. 2 passes of a 25g needle were performed at each site. Approximately 5cc of serosanguinous fluid wasaspirated from the left superior cyst. The needle placement was ultrasound guided. The needle was visualized in the nodule in each pass. The procedure was well tolerated by the patient. The patient was given a thyroid FNA post-procedure handout upon completion. . documented in this encounter Plan of Treatment Upcoming Encounters Date Type Department Care Team (Latest Contact Info) Description 03/03/2024 3:00 PM EDT Hospital En[place] [address] [facility] DR GASTROENTER[place] [address] 03/03/2024 3:00 PM EDT - 03/03/2024 4:00 PM EDT [place] [address] [facility] GASTROENTER[place] [address] COLONOSCOPY, DIAGNOSTIC (WRVU 3.26) 03/31/2024 9:00 AM EDT Office [place] [address] [facility] GASTROENTER[place] [address] Scheduled Procedures Name Priority Associated Diagnoses Date/Ti me COLONOSCOPY, DIAGNOSTIC (WRVU 3.26) Crohn's disease without complication, unspecified gastrointestinal tract location 03/03/2024 3:00 PM EDT documented as of this encounter Procedures Procedure Name Priority Date/Time Associated Diagnosis Comments NON-ELECTRICAL ASSISTANT FINAL REPORT Routine 11/07/2011 12:31 PM EDT NON-ELECTRICAL ASSISTANT FINAL REPORT Routine 11/07/2011 12:28 PM EDT NON-ELECTRICAL ASSISTANT FINAL REPORT Routine 11/07/2011 12:25 PM EDT CYTOPATHOLOGY NON-GYNECOLOGICAL Routine 11/07/2011 11:15 AM EDT Multiple thyroid nodules CYTOPATHOLOGY NON-GYNECOLOGICAL Routine 11/07/2011 11:15 AM EDT Multiple thyroid nodules CYTOPATHOLOGY NON-GYNECOLOGICAL Routine 11/07/2011 11:15 AM EDT Multiple thyroid nodules documented in this encounter Results * NON-ELECTRICAL ASSISTANT FINAL REPORT (11/07/2011 12:31 PM EDT) Non-Ic Design Manager Final Report ? [facility] ? Provider: ?? RO COX ?Pt. Name: ?? FELICE ISATU ? Acc #: ?[id number] ?Pt. ? Col Date: ?? 11/07/2011 ? /Sex: ?1950,(61 ? years),Female ? Rec Date: ?? 11/07/2011 ? LOC: ?5C ? CYTOPATHOLOGY: ??NGYN ? ---Adequacy--- ? Specimen submitted is satisfactory. ? ---Cytopathologic Diagnosis--- ? Negative for Malignancy ? 11/08/11 ?Screened by: ? LMY ? Rescreened by: ?? XL,XL,X ? 11/13/11 ?Verified by: ? Dewey NDIAYE, Bjorn ?Pathologist ?(Electronic Signature) ? ---Comment--- ? Thyroid, Right, US-guided FNA: ? Benign ? Mixed microfollicular and macrofollicular pattern, and abundant colloid ? present, favor a benign follicular nodule (includes adenomatoid nodule and ? colloid nodule). ? Cytologic preservation: ?Adequate ? Cellularity (follicular cells): ?Adequate, low; Hurthle cells are seen. ? Colloid: ?Abundant ? Macrophages: ?Not conspicuous ? Architectural pattern: ?Mixed microfollicular and macrofollicular pattern (see note). ? Note: The vast majority of mixed microfollicular and macrofollicular ? pattern aspirates are considered to represent benign follicular lesions ? (adenomas and goiters). ? Cell block shows similar features. ? [facility] ? Provider: ?? RO COX ?Pt. Name: ?? ISATU VIVEROS ? Acc #: ?[id number] ?Pt. ? Col Date: ?? 11/07/2011 ? /Sex: ?1950,(61 ? years),Female ? Rec Date: ?? 11/07/2011 ? LOC: ?5C ? CYTOPATHOLOGY: ??NGYN ? ---Clinical Information--- ? Specimen Source: ?Thyroid, Right, US-guided FNA ? Pertinent Clinical Data and Significant Therapy: ?Nodule ? Clinical Impression: ?Nodule ? Pertinent Radiologic Findings: ?Size: ??0.7 cm ?Echogenicity: ??Hypo ?Cystic: ??No ?Calcification: ??No ?Vascularity: ??High ? Gross Description: ?Received in Cytorich Red, approximately 10 ml. total volume of clear, ? pink fluid, with clots. ?Total Preparation: Liquid Based Prep 1; Diff Quik 1; Pap Stain 1; Cell ? Block 1. SWEETIE LYNN 11/07/2011 12:3 1 PM EDT Ro Cox MD PATHOLOGY/CYTOLOGY O RDERABLES SWEETIE LYNN * NON-ELECTRICAL ASSISTANT FINAL REPORT (11/07/2011 12:28 PM EDT) Non-Ic Design Manager Final Report ? [facility] ? Provider: ?? RO COX ?Pt. Name: ?? FELICE ISATU ? Acc #: ?[id number] ?Pt. ? Col Date: ?? 11/07/2011 ? /Sex: ?1950,(61 ? years),Female ? Rec Date: ?? 11/07/2011 ? LOC: ?5C ? CYTOPATHOLOGY: ??NGYN ? ---Adequacy--- ? Specimen submitted is satisfactory. ? ---Cytopathologic Diagnosis--- ? Negative for Malignancy ? 11/08/11 ?Screened by: ? LMY ? Rescreened by: ?? XL,XL ? 11/13/11 ?Verified by: ? Dewey NDIAYE, Bjorn ?Pathologist ?(Electronic Signature) ? ---Comment--- ? Thyroid, Left inferior, US-guided FNA: ? Benign ? Consistent with a benign follicular nodule (includes adenomatoid nodule and ? colloid nodule). ? Cytologic preservation: ?Adequate. ? Cellularity (follicular cells): ?Adequate, low to moderate; Hurthle cells present. ? Colloid: ?Present, some, predominantly watery. ? Macrophages: ?Present, few. ? Architectural pattern: ?Predominantly macrofollicular pattern. ? Cell block does not contribute. ? ---Clinical Information--- ? Specimen Source: ?Thyroid, Left inferior, US-guided FNA ? Pertinent Clinical Data and Significant Therapy: ?Nodule ? [facility] ? Provider: ?? RO COX ?Pt. Name: ?? ISATU VIVEROS ? Acc #: ?[id number] ?Pt. ? Col Date: ?? 11/07/2011 ? /Sex: ?1950,(61 ? years),Female ? Rec Date: ?? 11/07/2011 ? LOC: ?5C ? CYTOPATHOLOGY: ??NGYN ? Clinical Impression: ?Nodule ? Pertinent Radiologic Findings: ?Size: ??2.5 cm ?Echogenicity: ??Iso ?Cystic: ??No ?Calcification: ??No ?Vascularity: ??High ? Gross Description: ?Received in Cytorich Red, approximately 10 ml. total volume of clear, ? pink fluid. ?Total Preparation: Liquid Based Prep 1; Diff Quik 1; Pap Stain 1; Cell ? Block 1. SWEETIE LYNN 11/07/2011 12:2 8 PM EDT oR Cox MD PATHOLOGY/CYTOLOGY O RDERABLES SWEETIE LYNN * NON-ELECTRICAL ASSISTANT FINAL REPORT (11/07/2011 12:25 PM EDT) Non-Ic Design Manager Final Report ? [facility] ? Provider: ?? RO COX ?Pt. Name: ?? ISATU VIVEROS ? Acc #: ?[id number] ?Pt. ? Col Date: ?? 11/07/2011 ? /Sex: ?1950,(61 ? years),Female ? Rec Date: ?? 11/07/2011 ? LOC: ?5C ? CYTOPATHOLOGY: ??NGYN ? ---Adequacy--- ? Specimen submitted is satisfactory. ? ---Cytopathologic Diagnosis--- ? Negative for Malignancy ? 11/08/11 ?Screened by: ? LMY ? Rescreened by: ?? XL,XL,X ? 11/13/11 ?Verified by: ? Dewey NDIAYE, Bjorn ?Pathologist ?(Electronic Signature) ? ---Comment--- ? Thyroid, Left superior, US-guided FNA: ? Benign ? Consistent with a benign follicular nodule (includes adenomatoid nodule and ? colloid nodule) with cystic degeneration. ? Cytologic preservation: ?Adequate ? Cellularity (follicular cells): ?Adequate, low, predominantly on liquid based preparation (LBP). ? Colloid: ?Present, scant ? Macrophages: ?Present, abundant ? Architectural pattern: ?Predominantly macrofollicular pattern (mostly on LBP). ? ---Clinical Information--- ? Specimen Source: ?Thyroid, Left superior, US-guided FNA ? Pertinent Clinical Data and Significant Therapy: ?Nodule ? Clinical Impression: ?Nodule ? [facility] ? Provider: ?? RO COX ?Pt. Name: ?? FELICE, ISATU ? Acc #: ?[id number] ?Pt. ? Col Date: ?? 11/07/2011 ? /Sex: ?1950,(61 ? years),Female ? Rec Date: ?? 11/07/2011 ? LOC: ?5C ? CYTOPATHOLOGY: ??NGYN ? Pertinent Radiologic Findings: ?Thick walled cyst ?Size: ??2.6 cm ?Echogenicity: ??Hypo ?Cystic: ??Partial ?Calcification: ??No ?Vascularity: ??High ? Gross Description: ?Received in Cytorich Red, approximately 12 ml. total volume of clear, ? lucia fluid. ?Total Preparation: Liquid Based Prep 1; Diff Quik 1; Pap Stain 1. SWEETIE LYNN 11/07/2011 12:2 5 PM EDT Ro Cox MD PATHOLOGY/CYTOLOGY O RDERABLES SWEETIE LYNN * Cytopathology Non-Gynecological (11/07/2011 11:15 AM EDT) AP Specimen 11/07/2011 11:1 5 AM EDT 11/07/2011 11:15 AM EDT Narrative SWEETIE LYNN - 11/07/2011 11:15 AM EDT Specimen requisition ordered. ??Separate Pathology report to follow Ro Cox MD PATHOLOGY/CYTOLOGY O ELLEN Performing Organization Address [facility] de Phone Number SWEETIE LYNN * Cytopathology Non-Gynecological (11/07/2011 11:15 AM EDT) AP Specimen 11/07/2011 11:1 5 AM EDT 11/07/2011 11:15 AM EDT Narrative SWEETIE LYNN - 11/07/2011 11:15 AM EDT Specimen requisition ordered. ??Separate Pathology report to follow Ro Cox MD PATHOLOGY/CYTOLOGY O ELLEN Performing Organization Address [facility] de Phone Number SWEETIE LYNN * Cytopathology Non-Gynecological (11/07/2011 11:15 AM EDT) AP Specimen 11/07/2011 11:1 5 AM EDT 11/07/2011 11:15 AM EDT Narrative SWEETIE LYNN - 11/07/2011 11:15 AM EDT Specimen requisition ordered. ??Separate Pathology report to follow Ro Cox MD PATHOLOGY/CYTOLOGY O ELLEN Performing Organization Address [facility] de Phone Number SWEETIE LYNN documented in this encounter Visit Diagnoses Diagnosis Multiple thyroid nodules- Primary Nontoxic multinodular goiter Crohn's disease without complication, unspecified gastrointestinal tract location documented in this encounter Care Teams Job Placement Specialist Relationship Specialty Start Date End Date Florecita Kamara APRN PCP - General 10/04/11 01/26/14 documented as of this encounter
--- OUTSIDE RECORDS SUMMARY | 2024-02-19 11:24 | XMS_ITS | Encounter Summary ---
[place] [address] Care Team Providers Care Band Aid Machine Operator Name Role Phone Haider Falk DO Primary Care Provider [phone]- [phone] Encounter Details Date Type Department Care Team (Late st Contact Info) Description 07/06/2016 9:00 AM EST Office [place] [phone] Jose Elias Swartz DO [facility] [place] [address] Thyroid nodule Social History Tobacco Use Types [...] as of this encounter Progress Notes * Jose Elias Swartz DO - 07/06/2016 9:00 AM EST Endocrinology Clinic Followup Note Patient: Isatu Bosch PCP: Haider Falk DO CC: Follow up for thyroid nodules/cysts Interval History: Isatu is a 66 year old female her for routine evaluation of thyroid nodules. Many years ago she felt lumps in her neck. She didn't have insurance at the time and so delayed seeking care. When she finally had a thyroid ultrasound and biopsy (benign lesion) they had already diminished in size. She has no symptoms of compression. She feels well. She reports a history of gluten and lactose intolerance. Her weight has steadily improved since making dietary changes (restricting gluten and lactose). No symptoms suggesting hypo or hyperthyroidism. Family history pertinent for sister and mother on thyroid replacement. No family history of thyroidcancer. ROS: Remainder of 10 system review negative Past Medical History: Past Medical History Diagnosis Date ??? Cataract ??? Thyroid disease Past Surgical History Procedure Laterality Date ??? Pro colonoscopy, biopsy 11/22/2011 COLONOSCOPY FLEXIBLE, WITH BX performed by Shorty ARCE at [facility] ENDOSCOPY ??? Cataract removal Bilateral 2011 OU ??? Laser surgery Left 2014 YAG OS for PCO - MEZ ??? Yag capsulotomy Left 12/01/2014 Dr Mancia ??? Yag capsulotomy Right 05/11/[address] aMncia Medications: Calcium Carb-Mag Oxide-Vit D3, (MV,CALCIUM,MIN/IRON/FOLIC/VITK), VITAMIN B COMPLEX, VITAMIN E ACETATE, cholecalciferol (Vitamin D3), and glucosamine sulfate Allergies: Allergies Allergen Reactions ??? Lactose Diarrhea and Other (See Comments) Headaches, congestion ??? Gluten Diarrhea ??? Penicillins Nausea And Vomiting No changes to FHx or SHx noted Family History Problem Relation Age of Onset ??? Heart Disease Father ??? Hypertension Father ??? Hypertension Sister ??? Amblyopia Neg Hx ??? Strabismus Neg Hx ??? Diabetes Neg Hx ??? Glaucoma Neg Hx ??? Cancer Neg Hx ??? Cataracts Neg Hx ??? Macular Degeneration Neg Hx ??? Retinal Detachment Neg Hx ??? Thyroid Disease Neg Hx Social History Social History ??? Marital status: Single Spouse name: N/A ??? Number of children: N/A ??? Years of education: N/A Occupational History ??? Not on file. Social History Main Topics ??? Smoking status: Former Smoker Quit date: 05/08/1969 ??? Smokeless tobacco: Never Used ??? Alcohol use Yes Comment: rare ??? Drug use: Not on file ??? Sexual activity: Not on file Other Topics Concern ??? Not on file Social History Narrative Physical exam: HR 74 General: NAD. Nondiaphoretic. [...] lymph nodes in the lateral neck compartments Impression: Relatively stable thyroid nodules with benign appearance as described above. She previously underwent fine needle aspiration confirming benign cytology. Recommendations: - Repeat thyroid ultrasound in my office in 2 years - No labs today as she is planning on having a TSH checked at her primary care visit next month Jose Elias Swartz DO, [place] [address] [place] [facility] Department of Medicine Section of Endocrinology [facility] documented in this encounter Plan of Treatment Upcoming Encounters Date Type Department Care Team (Latest Contact Info) Description 03/03/2024 3:00 PM EDT Hospital En[place] [address] Shorty Arce MD [facility] [place] [address] 03/03/2024 3:00 PM EDT - 03/03/2024 4:00 PM EDT [place] [address] Shorty Arce MD [facility] [place] [address] COLONOSCOPY, DIAGNOSTIC (WRVU 3.26) 03/31/2024 9:00 AM EDT Office [place] [address] Felisha Dc APRN [facility] [place] [address] Scheduled Procedures Name Priority Associated Diagnoses Date/Ti me COLONOSCOPY, DIAGNOSTIC (WRVU 3.26) Crohn's disease without complication, unspecified gastrointestinal tract location 03/03/2024 3:00 PM EDT documented as of this encounter Visit Diagnoses Diagnosis Thyroid nodule Nontoxic uninodular goiter Crohn's disease without complication, unspecified gastrointestinal tract location documented in this encounter Care Teams Band Aid Machine Operator Relationship Specialty Start Date End Date Haider Falk DO [address] [place] [address] PCP - General Family Medicine 07/06/16 08/11/18 documented as of this encounter
--- OUTSIDE RECORDS SUMMARY | 2024-02-19 11:24 | XMS_ITS | Encounter Summary ---
Author Organization [facility] [place] [address] Care Team Providers Care Millwright Apprentice Name Role Phone Haider Falk DO Primary Care Provider [phone]- [phone] Encounter Details Date Type Department Care Team (Late st Contact Info) Description 10/04/2016 Abstract Cardiology at [address] [address] Etta Nogueira RN Social History Tobacco Use Types Packs/Day [...] 3:00 PM EDT Hospital En[place] [address] Shorty Valdovinos MD [facility] [place] [address] 03/03/2024 3:00 PM EDT - 03/03/2024 4:00 PM EDT [place] [address] Shorty Valdovinos MD [facility] [place] [address] COLONOSCOPY, DIAGNOSTIC (WRVU 3.26) 03/31/2024 9:00 AM EDT Office [place] [address] Felisha Dc APRN [facility] [place] [address] Scheduled Procedures Name Priority Associated Diagnoses Date/Ti me COLONOSCOPY, DIAGNOSTIC (WRVU 3.26) Crohn's disease without complication, unspecified gastrointestinal tract location 03/03/2024 3:00 PM EDT documented as of this encounter Visit Diagnoses Not on filedocumented in this encounter Care Teams Millwright Apprentice Relationship Specialty Start Date End Date Haider Falk DO [address] [place] [address] PCP - General Family Medicine 07/06/16 08/11/18 documented as of this encounter
--- OUTSIDE RECORDS SUMMARY | 2024-02-19 11:24 | XMS_ITS | Encounter Summary ---
Author Organization [facility] [place] [address] Care Team Providers Care Enrobing Machine Feeder Name Role Phone Haider Falk DO Primary Care Provider [phone]- [phone] Reason for Visit * Reason Onset Date Comments Other 05/23/2016 Patient called a sking for someone to double check the eyeglasses Rx that she was given today. She's under the impression that the axis in the right eye is too far off of what [place] told her it was going to be. She seems confused and wants it to be checked out to see if it's correct. Namrata can you please check this out. Thank you! Encounter Details Date Type Department Care Team (Late st Contact Info) Description 05/23/2016 [place] [address] Bharath Mancia MD [facility] [place] [address] Other (Patient called asking for someone to double check the eyeglasses Rx that she was given today. She's under the impression that the axis in the right eye is too far off of what [place] told her it was going to be. She seems confused and wants it to be checked out to see if it's correct. Namrata can you please check this out. Thank you!) Social History Tobacco Use Types Packs/Day Years [...] encounter Miscellaneous Notes * Telephone Encounter - Namrata Waldrop COT - 05/23/2016 4:18 PM EST LM on explaining the difference between the axis of the glasses she was currently wearing and the ones prescribed today. Asked pt to call clinic if she had any more questions or concerns. * Telephone Encounter - Lucrecia Montenegro - 05/23/2016 12:53 PM EST Patient called asking for someone to double check the eyeglasses Rx that she was given today. She'emily the impression that the axis in the right eye is too far off of what [place] told her it was going to be. She seems confused and wants it to be checked out to see if it's correct. Namrata can you please check this out. Thank you! documented in this encounter Plan of Treatment Upcoming Encounters Date Type Department Care Team (Latest Contact Info) Description 03/03/2024 3:00 PM EDT Hospital En[place] [address] Shorty Valdovinos MD [facility] [place] [address] 03/03/2024 3:00 PM EDT - 03/03/2024 4:00 PM EDT [place] [address] Shorty Valdovinos MD [facility] [address] COLONOSCOPY, DIAGNOSTIC (WRVU 3.26) 03/31/2024 9:00 AM EDT Office [place] [address] Felisha Dc APRN [facility] [place] [address] Scheduled Procedures Name Priority Associated Diagnoses Date/Ti me COLONOSCOPY, DIAGNOSTIC (WRVU 3.26) Crohn's disease without complication, unspecified gastrointestinal tract location 03/03/2024 3:00 PM EDT documented as of this encounter Visit Diagnoses Not on filedocumented in this encounter Care Teams Enrobing Machine Feeder Relationship Specialty Start Date End Date Haider Falk DO [address] [place] [address] PCP - General Family Medicine 07/06/16 08/11/18 documented as of this encounter
--- OUTSIDE RECORDS SUMMARY | 2024-02-19 11:24 | XMS_ITS | Encounter Summary ---
Author Organization [facility] [place] [address] Care Team Providers Care Gate Tender Name Role Phone Haider Falk DO Primary Care Provider [phone]- [phone] Encounter Details Date Type Department Care Team (Late st Contact Info) Description 09/25/2016 5:00 PM EDT Interpretation Only Cardiology at [address] [address] Compa Uribe Jr., MD [address] [place] [address] Dizziness Social History Tobacco Use Types Packs/Day Years [...] 3:00 PM EDT Hospital Encounter Gastroenterology at [facility] [place] [phone] Shorty Valdovinos MD [facility] [place] [address] 03/03/2024 3:00 PM EDT - 03/03/2024 4:00 PM EDT Surgery [place] [address] Shorty Valdovinos MD [facility] [place] [address] COLONOSCOPY, DIAGNOSTIC (WRVU 3.26) 03/31/2024 9:00 AM EDT Office Visit [place] [phone] Felisha Dc APRN [facility] [place] [address] Scheduled Procedures Name Priority Associated Diagnoses Date/Ti me COLONOSCOPY, DIAGNOSTIC (WRVU 3.26) Crohn's disease without complication, unspecified gastrointestinal tract location 03/03/2024 3:00 PM EDT documented as of this encounter Procedures Procedure Name Priority Date/Time Associated Diagnosis Comments CUSTOM SEAMSTRESS SCAN 09/27/2016 12:00 AM EDT HOLTER MONITOR 24 HOUR Routine 09/25/2016 documented in this encounter Results * SCAN DOC: CUSTOM SEAMSTRESS (09/27/2016 12:00 AM EDT) Anatomical Region Laterality Modality Other Narrative 09/27/2016 12:00 AM EDT Ordered by an unspecified provider. Scanning Provider MEDIA MGR SCAN EXT O RDR/RSLT * Holter Monitor 24hr (09/25/2016) Anatomical Region Laterality Modality Other Narrative 09/25/2016 Isatu Bosch ?: 1950 PCP: Haider Falk, DO Holter Report- Final [facility], [address] [facility] [address] Date of application: 09/19/2016 ?Date of Scan: 09/25/2016 ? Date of Interpretation: 09/25/2016 Indication: dizziness Baseline Rhythm: NSR Symptoms: log kept- one episode of dizziness, no arrhythmia Report: Minimum HR: 57 Average HR: 80 Maximum HR: 142 Ventricular- VPC: 37 Couplets: 0 VT: 1 3 beats at 118 BPM Atrial- APC: 483 Couplets: 18 SVT: 12 Summary: ?NSR, rare APC, VPC, occasional brief SVT, no correlation of arrhythmias with dizziness Electronically signed: Compa Uribe Jr, MD FACC ??Date: 09/25/2016 Historical Provider MD CARDIAC SERVICES ORDERABLES documented in this encounter Visit Diagnoses Diagnosis Dizziness Dizziness and giddiness Crohn's disease without complication, unspecified gastrointestinal tract location documented in this encounter Care Teams Gate Tender Relationship Specialty Start Date End Date Haider Falk DO [address] [place] [address] PCP - General Family Medicine 07/06/16 08/11/18 documented as of this encounter
[2024-02-21 19:00] LABS: Calprotectin <50.0 mcg/g
== END 2024-02-19 11:20 | disposition home or self-care (01) ==
LOC: LBN 11:19
PROVIDERS: PCP Nurse Practitioner Adult Health; Visit Provider Nurse Practitioner Adult Health
DX: K50.90 Crohn's disease, unspecified, without complications (principal)
CPT/HCPCS: 83993

== ENCOUNTER 2024-05-19 02:31 | Outpatient (RCR) | payer MEDICARE, MEDICAID, SELFPAY ==
[2024-05-19] MEDS: ZOLEDRONIC ACID/MANNITOL/WATER 5 MG/100 ML BTL 300 MG IVPB (10:29)
[2024-05-19] MEDS: Normal Saline Flush 10 ML SYR IVP (10:29)
== END 2024-06-14 23:59 | disposition home or self-care (01) ==
LOC: INF 02:31
PROVIDERS: PCP Nurse Practitioner Adult Health; Visit Provider Nurse Practitioner Adult Health
DX: M81.0 Age-related osteoporosis without current pathological fracture (principal)
CPT/HCPCS: 96365; J3489

== ENCOUNTER 2024-09-12 00:48 | Outpatient (CLI) | payer MEDICARE, SELFPAY ==
[2024-09-12 13:08] LABS: Abs Immature Grans 0.02 10^3/uL (0.0-0.06); Absolute Basophil Count 0.07 10^3/uL (0.0-0.2); Absolute Lymphocyte Count 2.85 10^3/uL (1.2-3.4); Absolute Monocyte Count 0.55 10^3/uL (0.1-0.8); Absolute Neutrophil Count 3.28 10^3/uL (1.2-6.7); Eosinophils % 1.5 %; HCT 41.3 % (36.0-46.0); HGB 13.7 g/dL (11.2-15.7); Immature Grans % 0.3 %; Lymphocytes % 41.5 %; MCH 32.2 pg (27.0-33.0); MCHC 33.2 % (32.0-36.0); MCV 97 fL (80-95); MPV 9.6 fL (8.0-11.0); Neutrophils % 47.7 %; Platelet Count 321 10^3/uL (130-400); RBC 4.25 10^6/uL (3.93-5.22); RDW 13.8 % (11.7-14.6); RDW-SD 49.6 fL; WBC 6.87 10^3/uL (4.4-10.8)
[2024-09-12 13:42] LABS: ALT 26 U/L (14-59); AST 15 U/L (15-37); Albumin 3.9 g/dL (3.4-5.0); Alkaline Phosphatase 53 U/L (46-116); Bilirubin, Direct 0.1 mg/dL (0.0-0.2); Bilirubin, Total 0.44 mg/dL (0.2-1.0)
[2024-09-12 13:44] LABS: C-Reactive Protein < 0.50 mg/dL (<or=0.5)
== END 2024-09-12 00:49 | disposition home or self-care (01) ==
PROVIDERS: PCP Nurse Practitioner Adult Health; Visit Provider Nurse Practitioner Adult Health
DX: K50.90 Crohn's disease, unspecified, without complications (principal)
CPT/HCPCS: 36415; 80076; 85025; 86140

== ENCOUNTER 2025-05-25 03:11 | Outpatient (RCR) | payer MEDICARE, SELFPAY ==
[2025-05-25] MEDS: Normal Saline Flush 10 ML SYR IVP (08:33)
== END 2025-06-14 23:59 | disposition home or self-care (01) ==
LOC: INF 03:11
PROVIDERS: PCP Nurse Practitioner Adult Health; Visit Provider Nurse Practitioner Adult Health
DX: M81.0 Age-related osteoporosis without current pathological fracture (principal)
CPT/HCPCS: 96365; J3489

== ENCOUNTER 2025-06-08 04:02 | Outpatient (CLI) | payer MEDICARE, SELFPAY ==
[2025-06-08 13:09] LABS: Abs Immature Grans 0.02 10^3/uL (0.0-0.06); HCT 44.0 % (36.0-46.0); HGB 14.7 g/dL (11.2-15.7); Immature Grans % 0.2 %; MCH 31.3 pg (27.0-33.0); MCHC 33.4 % (32.0-36.0); MCV 94 fL (80-95); MPV 9.3 fL (8.0-11.0); Platelet Count 346 10^3/uL (130-400); RBC 4.69 10^6/uL (3.93-5.22); RDW 13.3 % (11.7-14.6); RDW-SD 45.8 fL; WBC 8.26 10^3/uL (4.4-10.8)
[2025-06-08 15:14] LABS: C-Reactive Protein < 0.50 mg/dL (<=0.50)
[2025-06-08 15:16] LABS: ALT 27 U/L (10-49); AST 25 U/L (<34); Albumin 4.3 g/dL (3.4-5.0); Alkaline Phosphatase 57 U/L (46-116); Bilirubin, Direct 0.1 mg/dL (<=0.3); Bilirubin, Total 0.50 mg/dL (0.2-1.2); Total Protein 6.9 g/dL (5.7-8.2)
== END 2025-06-08 04:03 | disposition home or self-care (01) ==
LOC: LBO 04:06
PROVIDERS: PCP Nurse Practitioner Adult Health; Visit Provider Nurse Practitioner Adult Health
DX: K50.90 Crohn's disease, unspecified, without complications (principal); Z51.81 Encounter for therapeutic drug level monitoring; Z79.620 Long term (current) use of immunosuppressive biologic
CPT/HCPCS: 36415; 80076; 85025; 86140

== ENCOUNTER 2025-06-24 08:00 | Outpatient (REF) | payer MEDICARE, SELFPAY | END 2025-06-24 08:01 | disposition home or self-care (01) | LOC: LBN 08:00 | PROVIDERS: PCP Nurse Practitioner Adult Health; Visit Provider Nurse Practitioner Adult Health | DX: K50.90 Crohn's disease, unspecified, without complications (principal) | CPT/HCPCS: 83993 ==